=== PATIENT | male | born 1950 | race African-American/Black ===

== ENCOUNTER 2017-03-12 23:28 | Emergency (ER) | payer MEDICAID ==
[~2017-03-12] VITALS: Ht 175.3 cm; Wt 90.7 kg
[~2017-03-12 23:28] MED LIST: ALBUTEROL SULF8.5 GM INH; HYDROCHLOROTHIA25 MG ORAL; IBUPROFEN200 MG ORAL; IBUPROFEN600 MG ORAL; LACTULOSE20 GM/301 ORAL; NKM; NORCO 5-325 TA1 EAC1 ORAL; NORCO 5-325 TA1 EACH ORAL; ROBAXIN-750750 MG PO; TRAMADOL HCL50 MG ORAL; TYLENOL EXTRA500 MG ORAL; VALIUM5 MG ORAL; [UNRECOGNIZED DRUG - REMARK]; [UNRECOGNIZED DRUG - REMARK]; [UNRECOGNIZED DRUG - REMARK]
--- NOTE | 2017-03-12 23:59 | Emergency Room Report ---
History of Present Illness General Chief Complaint: Abdominal Pain Source: Patient Present Illness HPI Is a 66-year-old male with history of chronic abdominal pain. He had a previous exploratory laparotomy secondary to perforated duodenal ulcer. Since then his been having continual pain. Pain is worse today. Pain is 8/10. He has nausea vomiting and diarrhea. Denies any fever or chills. His pain medication is not helping. His last use of alcohol was few days ago. Last use of cocaine was a month ago. Allergies: Coded Allergies: No Known Allergies (Unverified , 12/05/12) Patient History Past Medical History: see triage record, old chart reviewed Past Surgical History: other Pertinent Family History: none Social History: Reports: alcohol use, drug use, smoking Immunizations: other Reviewed Nursing Documentation: PMH: Agreed, PSxH: Agreed Nursing Documentation-PMH Past Medical History: No History, Except For Hx Cardiac Problems: No Hx Hypertension: Yes Hx Pacemaker: No Hx Asthma: Yes Hx Diabetes: Yes Hx Cancer: No Hx Dialysis: No Hx Neurological Problems: No Hx Cerebrovascular Accident: No Hx Seizures: No Review of Systems Eye: Denies: blurred vision, eye pain ENT: Denies: ear pain, nose congestion, throat swelling Respiratory: Denies: cough, shortness of breath Cardiovascular: Denies: chest pain, palpitations Gastrointestinal: Reports: abdominal pain, diarrhea, nausea, vomiting Musculoskeletal: Denies: back pain, joint pain Skin: Denies: rash Neurological: Denies: headache, numbness Endocrine: Denies: increased thirst, increased urine Hematologic/Lymphatic: Denies: easy bruising All Other Systems: negative except mentioned in HPI Physical Exam Vital Signs Date Time Temp Pulse Resp B/P Pulse Ox O2 Delivery O2 Flow Rate FiO2 03/12/17 23:42 98.1 78 16 167/92 99 Room Air vitals with hypertension Sp02 EP Interpretation: reviewed, normal General Appearance: well appearing, no apparent distress, alert Head: normocephalic, atraumatic Eyes: bilateral eye EOMI, bilateral eye PERRL ENT: hearing grossly normal, normal pharynx Neck: full range of motion, supple, no meningismus Respiratory: chest non-tender, lungs clear, normal breath sounds Cardiovascular #1: regular rate, rhythm, no murmur Gastrointestinal: no mass, no organomegaly, no bruit, non-distended, abnormal bowel sounds - Hyperactive, tenderness - diffuse Musculoskeletal: back normal, gait/station normal, normal range of motion Psychiatric: mood/affect normal Skin: warm/dry Medical Decision Making Diagnostic Impression: Primary Impression: Abdominal pain of unknown etiology ER Course Present with abdominal pain. No evidence of obstruction. No evidence of acute abdomen. Better now. We'll discharge him. Lab Results Impression labs unremarkable CT/MRI/US Diagnostic Results CT/MRI/US Diagnostic Results : Imaging Test Ordered: CT abdomen and pelvis Impression read by radiologist. Negative for acute process. Last Vital Signs Date Time Temp Pulse Resp B/P Pulse Ox O2 Delivery O2 Flow Rate FiO2 03/12/17 23:42 98.1 78 16 167/92 99 Room Air Status: improved Disposition: HOME, SELF-CARE Condition: Stable Scripts Meloxicam* (MOBIC*) 15 Mg Tablet 15 MG ORAL DAILY, #30 TAB 0 Refills Prov: CRISELDA ALCARAZ M.D. 03/13/17 Patient Instructions: Abdominal Pain, Adult Additional Instructions: Followup with your DrTesha in 7 days. Return if worse. CRISELDA ALCARAZ M.D. Mar 12, 2017 23:59
[2017-03-13] MEDS ORDERED: Morphine Sulfate 4mg/ml Inj IVP ONE
[2017-03-13] MEDS ORDERED: Tubing IV Cassette IV ONE (00:07)
[2017-03-13 00:19] LABS: APPEARANCE,URINE CLEAR; BASOPHILS % (AUTO) 1.9 % (0.0-2.0); EOSINOPHILS % (AUTO) 4.2 % (0.0-3.0); KETONES,URINE NEGATIVE (NEGATIVE); LEUKOCYTE ESTERASE ,URINE NEGATIVE (NEGATIVE); LYMPHOCYTES % (AUTO) 27.8 % (20.0-45.0); MEAN CORPUSCULAR HEMOGLOBIN 26.9 PG (27.0-31.0); MEAN CORPUSCULAR HGB CONC 31.9 G/DL (32.0-36.0); MEAN CORPUSCULAR VOLUME 84 FL (80-99); MEAN PLATELET VOLUME 8.7 FL (6.5-10.1); MONOCYTES % (AUTO) 10.4 % (1.0-10.0); NEUTROPHILS % (AUTO) 55.8 % (45.0-75.0); NITRITE,URINE NEGATIVE (NEGATIVE); PH,URINE 5 (4.5-8.0); PLATELET COUNT 296 K/UL (150-450); PROTEIN,URINE NEGATIVE (NEGATIVE); RED BLOOD COUNT 4.79 M/UL (4.70-6.10); RED CELL DISTRIBUTION WIDTH 16.4 % (11.6-14.8); UROBILINOGEN,URINE NORMAL MG/DL (0.0-1.0)
[2017-03-13 00:33] LABS: ALANINE AMINOTRANSFERASE 27 U/L (3-41); ALBUMIN/GLOBULIN RATIO 1.3 (1.0-2.7); ANION GAP 14 (5-15); ASPARTATE AMINO TRANSFERASE 31 U/L (5-40); CALCIUM 8.8 mg/dL (8.6-10.2); CARBON DIOXIDE 25 mEQ/L (20-30); CHLORIDE 99 mEQ/L (98-107); GLOMERULAR FILTRATION RATE > 60 mL/min (>60); HEMOLYSIS 9; LIPASE 38 U/L (< 60); POTASSIUM 4.1 mEQ/L (3.4-4.9); PROTHROMBIN TIME 10.2 SEC (9.30-11.50); SODIUM 138 mEQ/L (135-145); TOTAL PROTEIN 7.5 g/dL (6.6-8.7)
[2017-03-13 01:50] VITALS: BP 138/65
[2017-03-13 03:22] VITALS: BP 146/80
[2017-03-13] MEDS ORDERED: MOBIC15 MG ORAL (03:23)
[2017-03-13 03:30] VITALS: BP 146/80
--- NOTE | 2017-03-13 09:42 | Diagnostic Imaging Report ---
Indication: ABD PAIN Technique: Continuous helical scanning was performed without any contrast material from the diaphragms through the pelvis . Axial, sagittal, and coronal images were generated. Dose: Total Dose Length Product - DLP [address] Dose Index - CTDIvol(s) 24.68 mGy. Comparison: 06/15/2015 Findings: The liver, gallbladder, and spleen are unremarkable. The pancreas is normal. Adrenal glands are unremarkable. The kidneys are normal. Aorta is calcified. Retroperitoneum is free of adenopathy. The appendix is normal. The bowel is normal caliber. A small umbilical hernia containing fat is present. Bladder, prostate, and seminal vesicles are normal. Mild degenerative changes noted in the spine. Impression: Degenerative change of the spine. No acute abnormality. The above report is concordant with preliminary reading by [facility] . The CT scanner at [facility] is accredited by the [employer] and the scans are performed using protocols designed to limit radiation exposure to as low as reasonably achievable to attain images of sufficient resolution adequate for diagnostic evaluation.
== END 2017-03-13 03:32 | disposition home or self-care (01) ==
LOC: EMR 23:55
DX: R10.9 Unspecified abdominal pain (principal); E11.9 Type 2 diabetes mellitus without complications; J45.909 Unspecified asthma, uncomplicated; I10 Essential (primary) hypertension; F17.200 Nicotine dependence, unspecified, uncomplicated
CPT/HCPCS: 36415; 74177; 80053; 80300; 81003; 83690; 85025; 85610; 85730; 96360; 96374; 96375; 99284; J2270; J2405; Q9967

== ENCOUNTER 2018-07-02 09:40 | Emergency (ER) | payer MEDICARE, MEDICAID ==
[~2018-07-02] VITALS: Ht 172.7 cm; Wt 90.7 kg
[~2018-07-02 09:40] MED LIST changes: +MOBIC15 MG ORAL
[2018-07-02 10:00] VITALS: BP 170/77
[2018-07-02] MEDS ORDERED: Isovue-300 100ml vial INJ PRN (10:00)
[2018-07-02 10:16] LABS: APPEARANCE,URINE CLEAR; BILIRUBIN, URINE NEGATIVE (NEGATIVE); COLOR,URINE PALE YELLOW; GLUCOSE, URINE (UA) NEGATIVE (NEGATIVE); KETONES,URINE NEGATIVE (NEGATIVE); LEUKOCYTE ESTERASE ,URINE NEGATIVE (NEGATIVE); NITRITE,URINE NEGATIVE (NEGATIVE); PH,URINE 6 (4.5-8.0); PROTEIN,URINE 1+ (NEGATIVE); UROBILINOGEN,URINE NORMAL MG/DL (0.0-1.0)
[2018-07-02 10:29] LABS: BASOPHILS % (AUTO) 1.5 % (0.0-2.0); EOSINOPHILS % (AUTO) 2.9 % (0.0-3.0); HEMATOCRIT 41.5 % (42.0-52.0); HEMOGLOBIN 13.4 G/DL (14.2-18.0); LYMPHOCYTES % (AUTO) 27.3 % (20.0-45.0); MEAN CORPUSCULAR VOLUME 82 FL (80-99); MONOCYTES % (AUTO) 6.9 % (1.0-10.0); NEUTROPHILS % (AUTO) 61.4 % (45.0-75.0); PLATELET COUNT 327 K/UL (150-450); RED BLOOD COUNT 5.09 M/UL (4.70-6.10); RED CELL DISTRIBUTION WIDTH 14.5 % (11.6-14.8); WHITE BLOOD COUNT 4.4 K/UL (4.8-10.8)
[2018-07-02 10:36] LABS: ANION GAP 10 mmol/L (5-15); BLOOD UREA NITROGEN 11 mg/dL (7-18); CALCIUM 8.4 MG/DL (8.5-10.1); CARBON DIOXIDE 26 MMOL/L (21-32); CHLORIDE 105 MMOL/L (98-107); CREATININE 1.3 MG/DL (0.55-1.30); POTASSIUM 3.5 MMOL/L (3.5-5.1); SODIUM 141 MMOL/L (136-145)
[2018-07-02 10:41] LABS: ALANINE AMINOTRANSFERASE 35 U/L (12-78); ALBUMIN 3.6 G/DL (3.4-5.0); ALBUMIN/GLOBULIN RATIO 0.8 (1.0-2.7); ALKALINE PHOSPHATASE 120 U/L (46-116); ASPARTATE AMINO TRANSFERASE 25 U/L (15-37); BILIRUBIN,TOTAL 0.5 MG/DL (0.2-1.0)
--- NOTE | 2018-07-02 12:05 | Diagnostic Imaging Report ---
INDICATION: Abdominal pain TECHNIQUE: Multiple, contiguous axial cuts of the abdomen and pelvis are obtained from the lung bases to the ischial tuberosities. Sagittal and coronal reformatted images are available. One or more of the following dose reduction techniques were used: automated exposure control, adjustment of the mA and/or kV according to patient size, use of iterative reconstruction technique. COMPARISON: CT dated 03/13/17 FINDINGS: Mild bilateral lower lobe subsegmental atelectasis. The lung bases are otherwise clear. The liver and spleen are normal in size and free of mass lesions. The gallbladder, bile ducts and pancreas are normal. The adrenal gland are unremarkable. The kidneys are normal in size and contour. No stones, lesions or hydronephrosis. A few sigmoid diverticula without diverticulitis. The appendix is unremarkable, as is the rest of the GI tract. Aorta is normal caliber. No adenopathy or extraluminal air. Mild disc height loss of the lumbar spine. The osseous structures are normal IMPRESSION: A few scattered sigmoid diverticula without diverticulitis. Otherwise, normal contrast CT of the abdomen and pelvis. CTDI: 16.14 mGy DLP: 801.47 mGycm
[2018-07-02 12:24] VITALS: BP 174/98
--- NOTE | 2018-07-02 13:37 | Emergency Room Report ---
History of Present Illness General Chief Complaint: Abdominal Pain Source: Patient Present Illness HPI Patient complains of left lower quadrant abdominal pain and pain around his old surgical incision site. He denies nausea or vomiting. He denies fever or chills. He denies constipation or diarrhea. He has no other complaints. Allergies: Coded Allergies: No Known Allergies (Unverified , 12/05/12) Patient History Past Medical History: see triage record, DM, HTN, asthma Social History: Reports: alcohol use, drug use - cocaine Reviewed Nursing Documentation: PMH: Agreed; PSxH: Agreed Nursing Documentation-PMH Past Medical History: No History, Except For Hx Cardiac Problems: No Hx Hypertension: Yes Hx Pacemaker: No Hx Asthma: Yes Hx Diabetes: Yes Hx Cancer: No Hx Dialysis: No Hx Neurological Problems: No Hx Cerebrovascular Accident: No Hx Seizures: No Review of Systems All Other Systems: negative except mentioned in HPI Physical Exam Vital Signs Date Time Temp Pulse Resp B/P (MAP) Pulse Ox O2 Delivery O2 Flow Rate FiO2 07/02/18 09:43 97.7 78 19 170/77 100 Room Air 97.7 Sp02 EP Interpretation: reviewed, normal General Appearance: no apparent distress, alert, GCS 15, non-toxic Head: normocephalic, atraumatic Eyes: bilateral eye normal inspection, bilateral eye PERRL ENT: hearing grossly normal, normal pharynx, no angioedema, normal voice Neck: full range of motion, supple/symm/no masses Respiratory: chest non-tender, lungs clear, normal breath sounds, no respiratory distress, no retraction, no accessory muscle use, speaking full sentences Cardiovascular #1: regular rate, rhythm, no edema Gastrointestinal: normal bowel sounds, soft, non-distended, no guarding, no rebound, tenderness - TTP in the mid abdomen and LLQ Rectal: deferred Musculoskeletal: back normal, gait/station normal, normal range of motion, non- tender Neurologic: alert, oriented x3, responsive, motor strength/tone normal, sensory intact, speech normal Psychiatric: judgement/insight normal, memory normal, mood/affect normal, no suicidal/homicidal ideation Skin: normal color, no rash, warm/dry, well hydrated Medical Decision Making Diagnostic Impression: Primary Impression: Abdominal pain of unknown etiology ER Course This patient has non-specific abdominal pain. I did obtain CT of the abdomen and pelvis which showed no acute findings. Laboratory workup to include CBC, CMP and urinalysis were also unremarkable. The patient appeared comfortable and was sleeping here in the emergency department during his ED course. At this time, I did not identify an emergency medical condition. The patient's instructed to follow-up closely with his primary care physician. The patient was given close return precautions and followup instructions. Laboratory Tests Test 07/02/18 09:50 07/02/18 10:00 Urine Color Pale yellow Urine Appearance Clear Urine pH 6 (4.5-8.0) Urine Specific [place] 1.015 (1.005-1.035) Urine Protein 1+ (NEGATIVE) H Urine Glucose (UA) Negative (NEGATIVE) Urine Ketones Negative (NEGATIVE) Urine Occult Blood Negative (NEGATIVE) Urine Nitrite Negative (NEGATIVE) Urine Bilirubin Negative (NEGATIVE) Urine Urobilinogen Normal MG/DL (0.0-1.0) Urine Leukocyte Esterase Negative (NEGATIVE) Urine RBC 0-2 /HPF (0 - 0) H Urine WBC 0-2 /HPF (0 - 0) Urine Squamous Epithelial Cells None /LPF (NONE/OCC) Urine Bacteria None /HPF (NONE) White Blood Count 4.4 K/UL (4.8-10.8) L Red Blood Count 5.09 M/UL (4.70-6.10) Hemoglobin 13.4 G/DL (14.2-18.0) L Hematocrit 41.5 % (42.0-52.0) L Mean Corpuscular Volume 82 FL (80-99) Mean Corpuscular Hemoglobin 26.3 PG (27.0-31.0) L Mean Corpuscular Hemoglobin Concent 32.3 G/DL (32.0-36.0) Red Cell Distribution Width 14.5 % (11.6-14.8) Platelet Count 327 K/UL (150-450) Mean Platelet Volume 8.8 FL (6.5-10.1) Neutrophils (%) (Auto) 61.4 % (45.0-75.0) Lymphocytes (%) (Auto) 27.3 % (20.0-45.0) Monocytes (%) (Auto) 6.9 % (1.0-10.0) Eosinophils (%) (Auto) 2.9 % (0.0-3.0) Basophils (%) (Auto) 1.5 % (0.0-2.0) Sodium Level 141 MMOL/L (136-145) Potassium Level 3.5 MMOL/L (3.5-5.1) Chloride Level 105 MMOL/L (98-107) Carbon Dioxide Level 26 MMOL/L (21-32) Anion Gap 10 mmol/L (5-15) Blood Urea Nitrogen 11 mg/dL (7-18) Creatinine 1.3 MG/DL (0.55-1.30) Estimate Glomerular Filtration Rate > 60 mL/min (>60) Glucose Level 136 MG/DL (74-106) H Calcium Level 8.4 MG/DL (8.5-10.1) L Total Bilirubin 0.5 MG/DL (0.2-1.0) Aspartate Amino Transferase (AST) 25 U/L (15-37) Alanine Aminotransferase (ALT) 35 U/L (12-78) Alkaline Phosphatase 120 U/L (46-116) H Total Protein 8.0 G/DL (6.4-8.2) Albumin 3.6 G/DL (3.4-5.0) Globulin 4.4 g/dL Albumin/Globulin Ratio 0.8 (1.0-2.7) L CT/MRI/US Diagnostic Results CT/MRI/US Diagnostic Results : Imaging Test Ordered: CT abd/pelvis Impression IMPRESSION: A few scattered sigmoid diverticula without diverticulitis. Otherwise, normal contrast CT of the abdomen and pelvis. Last Vital Signs Date Time Temp Pulse Resp B/P (MAP) Pulse Ox O2 Delivery O2 Flow Rate FiO2 07/02/18 12:24 98.0 66 17 174/98 97 Room Air 98.0 Status: improved Disposition: HOME, SELF-CARE Condition: Improved Referrals: NOT CHOSEN IPA/,REFERRING (PCP) Patient Instructions: Abdominal Pain, Adult Kelin Hansen DO Jul 02, 2018 13:37
[2018-07-02] MEDS ORDERED: COLACE100 MG ORAL (13:38)
[2018-07-02] MEDS ORDERED: MIRALAX17 G2 ORAL (13:38)
[2018-07-02 14:00] VITALS: BP 175/96
== END 2018-07-02 14:00 | disposition home or self-care (01) ==
LOC: EMR 10:08
DX: R10.32 Left lower quadrant pain (principal); I10 Essential (primary) hypertension; E11.9 Type 2 diabetes mellitus without complications; J45.909 Unspecified asthma, uncomplicated
CPT/HCPCS: 36415; 74177; 80053; 81003; 85025; 96360; 99284; Q9967

== ENCOUNTER 2018-11-18 11:24 | Emergency (ER) | payer MEDICARE, MEDICAID ==
[~2018-11-18] VITALS: Ht 172.7 cm; Wt 95.3 kg
[~2018-11-18 11:24] MED LIST changes: +COLACE100 MG ORAL; +MIRALAX17 G2 ORAL
[2018-11-18] MEDS ORDERED: GABAPENTIN100 MG ORAL (11:34)
[2018-11-18 11:37] VITALS: BP 149/87
[2018-11-18] MEDS ORDERED: CYCLOBENZAPRINE10 MG ORAL (12:04)
--- NOTE | 2018-11-18 12:06 | Emergency Room Report ---
History of Present Illness General Chief Complaint: Upper Extremity Injury Source: Patient, Medical Record Present Illness HPI 68-year-old male with history of hypertension, peptic ulcer disease, arthritis presents with right shoulder pain for the past month, reports it hurts whenever he moves it more than just a little bit, he also reports intermittent right knee pain. He reports neither of these to his a new issue, but the shoulders been bothering him more recently. He's tried Tylenol with codeine without much relief. Allergies: Coded Allergies: No Known Allergies (Unverified , 12/05/12) Patient History Past Medical History: see triage record Reviewed Nursing Documentation: PMH: Agreed; PSxH: Agreed Nursing Documentation-PMH Past Medical History: No History, Except For Hx Cardiac Problems: No Hx Hypertension: Yes Hx Pacemaker: No Hx Asthma: Yes Hx Diabetes: Yes Hx Cancer: No Hx Gastrointestinal Problems: No - Abdominal surgery 2014 Hx Dialysis: No Hx Neurological Problems: No Hx Cerebrovascular Accident: No Hx Seizures: No Review of Systems All Other Systems: negative except mentioned in HPI Physical Exam Vital Signs Date Time Temp Pulse Resp B/P (MAP) Pulse Ox O2 Delivery O2 Flow Rate FiO2 11/18/18 11:28 97.7 89 18 154/91 96 Room Air Sp02 EP Interpretation: reviewed, normal General Appearance: no apparent distress, alert, non-toxic Head: normocephalic Eyes: bilateral eye normal inspection, bilateral eye PERRL, bilateral eye EOMI ENT: normal ENT inspection, hearing grossly normal, normal pharynx, no angioedema, normal voice, moist mucus membranes Neck: normal inspection, full range of motion, supple, supple/symm/no masses Respiratory: chest non-tender, lungs clear, normal breath sounds, chest symmetrical, palpation of chest normal Cardiovascular #1: normal peripheral pulses, regular rate, rhythm Cardiovascular #2: 2+ radial (R), 2+ radial (L) Gastrointestinal: normal inspection, non tender, soft, no mass, no guarding, no rebound Rectal: deferred Genitourinary: normal inspection, no CVA tenderness Musculoskeletal: back normal, gait/station normal, non-tender, no calf tenderness, decreased range of motion - Right shoulder with pain limited decreased flexion and abduction, but no overlying erythema warmth or tenderness , swelling - mild R knee effusion, no bony tenderness, FROM, no erythema or warmth Neurologic: alert, responsive, dynamic balancer III-XII nml as tested, motor strength/tone normal, sensory intact, speech normal Psychiatric: judgement/insight normal, memory normal, mood/affect normal Skin: normal color, no rash, warm/dry, normal turgor Lymphatic: no adenopathy Medical Decision Making Diagnostic Impression: Primary Impression: Rotator cuff impingement syndrome ER Course Patient with right rotator cuff impingement syndrome, will give muscle relaxants , with given anti-inflammatories but he has a history of peptic culture, right knee is unremarkable possible mild arthritis, will discharge with Flexeril, recommend follow-up with PMD for orthopedic referral Last Vital Signs Date Time Temp Pulse Resp B/P (MAP) Pulse Ox O2 Delivery O2 Flow Rate FiO2 11/18/18 11:37 97.7 78 18 149/87 96 Room Air Disposition: HOME, SELF-CARE Condition: Stable Scripts Cyclobenzaprine Hcl* (FLEXERIL*) 10 Mg Tablet 10 MG ORAL THREE TIMES A DAY, #14 TAB Prov: HARRY VELASCO M.D 11/18/18 Departure Forms: Return to Work Return to Work in (Days): 3 Return to Work Date: Nov 21, 2018 Patient Instructions: Tendinitis, [id number] HARRY VELASCO M.D Nov 18, 2018 12:06
[2018-11-18] MEDS ORDERED: Cyclobenzaprine 10mg Tab ORAL ONE (12:15)
[2018-11-18 14:47] VITALS: BP 149/87
== END 2018-11-18 14:00 | disposition home or self-care (01) ==
LOC: EMR 12:17
DX: M75.101 Unspecified rotator cuff tear or rupture of right shoulder, not specified as traumatic (principal); I10 Essential (primary) hypertension; E11.9 Type 2 diabetes mellitus without complications; J45.909 Unspecified asthma, uncomplicated
CPT/HCPCS: 99282

== ENCOUNTER 2019-12-04 07:30 | Emergency (ER) | payer MEDICARE, MEDICAID ==
[~2019-12-04] VITALS: Ht 172.7 cm; Wt 90.7 kg
[~2019-12-04 07:30] MED LIST changes: +CYCLOBENZAPRINE10 MG ORAL; +GABAPENTIN100 MG ORAL
--- NOTE | 2019-12-04 08:02 | Emergency Room Report ---
History of Present Illness General Chief Complaint: Lower Extremity Injury Source: Patient Present Illness HPI 69-year-old male who presents to emergency room status post weights at the gym falling onto patient's left foot 2 days ago. Patient has not taken any medication or treatments for this injury. Patient reports pain to his distal foot and ankle. He said it was a total of 3 weights that fell onto his leg. He reports moderate intensity pain worse with walking and movement. He reports associated edema. Allergies: Coded Allergies: No Known Allergies (Unverified , 12/05/12) Nursing Documentation-[facility] Past Medical History: No History, Except For Hx Cardiac Problems: No Hx Hypertension: Yes Hx Pacemaker: No Hx Asthma: Yes Hx Diabetes: Yes Hx Cancer: No Hx Gastrointestinal Problems: No - Abdominal surgery 2014 Hx Dialysis: No Hx Neurological Problems: No Hx Cerebrovascular Accident: No Hx Seizures: No Review of Systems Constitutional: Denies: fever Eye: Denies: acuity changes Respiratory: Denies: cough, shortness of breath Cardiovascular: Denies: chest pain Gastrointestinal: Denies: nausea, vomiting Musculoskeletal: Reports: joint pain, joint swelling Skin: Denies: rash Neurological: Denies: headache Physical Exam Vital Signs Date Time Temp Pulse Resp B/P (MAP) Pulse Ox O2 Delivery O2 Flow Rate FiO2 12/04/19 07:32 97.3 86 16 164/94 (117) 98 Room Air Sp02 EP Interpretation: reviewed, normal General Appearance: normal inspection, well appearing, no apparent distress, alert ENT: EOM grossly intact, normal voice, moist mucus membranes Respiratory: no respiratory distress, speaking full sentences Cardiovascular #1: normal peripheral pulses Cardiovascular #2: 2+ dorsalis pedis (L) Musculoskeletal: swelling - Entire foot worse on lateral aspect, no calf tenderness, tenderness - Left foot tenderness over dorsal aspect extending from toes to midfoot. Tenderness over lateral malleolus, , decreased range of mation - Secondary to pain Neurologic: alert, no focal defects Skin: warm/dry Procedures Splinting Splinting : Consent: Verbal Location: Left ankle Hand-Made Type: plaster Splint: poserior short Pre-Proc Neuro Vasc Exam: normal Post-Proc Neuro Vasc Exam: normal Patient Tolerated: Well Complications: None Medical Decision Making Diagnostic Impression: Primary Impression: Closed tibia fracture ER Course 69-year-old male who presents with emergency room with pain to left foot status post gym weights falling onto it 2 days ago. Found to have edema, tenderness to palpation on lateral malleolus, midfoot and distal foot. Will perform x-rays , give anti-inflammatories and reevaluate. Patient's x-rays noted cortical fracture of distal tibia. Patient splinted with a posterior short and sugar tong. Patient discharged with follow-up at orthopedic in 5 to 7 days for reevaluation. Patient given copies of x-rays. Patient recommended anti-inflammatories for pain control. Other X-Ray Diagnostic Results Other X-Ray Diagnostic Results : Indication: Pain Impression: Other - X-ray of ankle reviewed unusual focal cortical fracture of distal fibula. With small focus of cortex elevated off distal fibula laterally. PA Scribe Text Procedure: XRAY Ankle Compl Min 3v L Indication: Ankle pain, status post trauma Technique: 3 views of the left ankle Comparison: none Findings: There is a small focus of cortex elevated off of the distal fibula laterally. There is overlying soft tissue swelling. No through and through fracture demonstrated. No other acute fractures. No dislocations. The joint spaces are preserved. There are plantar and calcaneal spurs incidentally noted Impression: Unusual focal cortical fracture of the distal fibula, as described Procedure: XRAY Foot Complete L Indication: Left foot pain Technique: 3 views left foot Comparison: none Findings: There are calcaneal and plantar spurs. No acute fractures. No dislocations. The joint spaces are preserved. Impression: No acute bony trauma Last Vital Signs Date Time Temp Pulse Resp B/P (MAP) Pulse Ox O2 Delivery O2 Flow Rate FiO2 12/04/19 07:32 97.3 86 16 164/94 (117) 98 Room Air Disposition: HOME, SELF-CARE Condition: Stable Referrals: Orthopedic Urgent Care Patient Instructions: Cast or Splint Care, Tibial Fracture, Adult Additional Instructions: Please follow-up with orthopedic in 5 to 7 days for reevaluation. Luis June M.D. Dec 04, 2019 08:02
--- NOTE | 2019-12-04 08:07 | NUR ---
ED Nurse Note:pt. came from home with left foot edema and pain after heavy object fell on his foot
--- NOTE | 2019-12-04 09:00 | Diagnostic Imaging Report ---
Indication: Ankle pain, status post trauma Technique: 3 views of the left ankle Comparison: none Findings: There is a small focus of cortex elevated off of the distal fibula laterally. There is overlying soft tissue swelling. No through and through fracture demonstrated. No other acute fractures. No dislocations. The joint spaces are preserved. There are plantar and calcaneal spurs incidentally noted Impression: Unusual focal cortical fracture of the distal fibula, as described
--- NOTE | 2019-12-04 09:01 | Diagnostic Imaging Report ---
Indication: Left foot pain Technique: 3 views left foot Comparison: none Findings: There are calcaneal and plantar spurs. No acute fractures. No dislocations. The joint spaces are preserved. Impression: No acute bony trauma
[2019-12-04 10:40] VITALS: BP 164/94
--- NOTE | 2019-12-04 10:40 | NUR ---
ER DISCHARGE NOTE: Patient is cleared to be discharged per ERMD, pt is aox4, on room air, with stable vital signs. pt was given dc and prescription instructions, pt was able to verbalize understanding, pt is able to ambulate with steady gait. pt took all belongings.
== END 2019-12-04 10:56 | disposition home or self-care (01) ==
LOC: EMR 08:25
DX: S82.402A Unspecified fracture of shaft of left fibula, initial encounter for closed fracture (principal); W20.8XXA Other cause of strike by thrown, projected or falling object, initial encounter; Y92.9 Unspecified place or not applicable; E11.9 Type 2 diabetes mellitus without complications
CPT/HCPCS: 29515; 99283

== ENCOUNTER 2019-12-15 15:41 | Emergency (ER) | payer MEDICARE, MEDICAID ==
[~2019-12-15] VITALS: Ht 172.7 cm; Wt 90.7 kg
[~2019-12-15 15:41] MED LIST changes: +IBU800 MG PO
--- NOTE | 2019-12-15 15:56 | NUR ---
ED Nurse Note:pt. came to rewrap splint on his left ankle/foot, he was not able to see ortho specialist
--- NOTE | 2019-12-15 16:10 | NUR ---
ED Nurse Note:pt. eloped from ER without notifying RN, pt. is A/Ox4 ambulatory with steady gait
[2019-12-15] MEDS ORDERED: Surgicel 4in x 8in TOPIC ONE (16:15)
[2019-12-15 16:53] VITALS: BP 132/84
--- NOTE | 2019-12-15 21:33 | Emergency Room Report ---
History of Present Illness General Chief Complaint: Wound Recheck/Suture Removal Source: Patient Present Illness HPI 69-year-old male with unknown past medical history here requesting splint change in the left ankle. This is a second time patient is requesting that. Patient was [facility] 2 weeks ago and was diagnosed with ankle fracture. 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 Patient reports that he. Weight and pressure and gets the splint wet. Neurovascularly intact. Denies any new injuries. Splint appears to be in place. Patient eloped before being treated. Allergies: Coded Allergies: No Known Allergies (Unverified , 12/05/12) Patient History Past Medical History: see triage record Past Surgical History: unable to obtain Pertinent Family History: none Immunizations: UTD Reviewed Nursing Documentation: PMH: Agreed; PSxH: Agreed Nursing Documentation-PMH Past Medical History: No History, Except For Hx Cardiac Problems: No Hx Hypertension: Yes Hx Pacemaker: No Hx Asthma: Yes Hx Diabetes: Yes Hx Cancer: No Hx Gastrointestinal Problems: No - Abdominal surgery 2014 Hx Dialysis: No Hx Neurological Problems: No Hx Cerebrovascular Accident: No Hx Seizures: No Review of Systems All Other Systems: negative except mentioned in HPI Physical Exam Vital Signs Date Time Temp Pulse Resp B/P (MAP) Pulse Ox O2 Delivery O2 Flow Rate FiO2 12/15/19 15:47 97.9 115 20 132/84 (100) 99 Room Air Sp02 EP Interpretation: reviewed, normal General Appearance: well appearing, no apparent distress Head: normocephalic, atraumatic Neck: supple Respiratory: normal inspection, no rhonchi, no wheezing Cardiovascular #1: no edema, no murmur, normal capillary refill Cardiovascular #2: 2+ dorsalis pedis (R), 2+ dorsalis pedis (L) Gastrointestinal: non tender, soft Genitourinary: no CVA tenderness Musculoskeletal: gait/station normal, other - Wearing a splint left ankle Psychiatric: judgement/insight normal Skin: no rash Lymphatic: no adenopathy Medical Decision Making PA Attestation All diagnoses and treatment plans were reviewed and discussed with my supervising physician Dr. Oliver Diagnostic Impression: Primary Impression: Eloped from emergency department ER Course 69-year-old male with unknown past medical history here requesting splint change in the left ankle. This is a second time patient is requesting that. Patient was [facility] 2 weeks ago and was diagnosed with ankle fracture. 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 Patient reports that he. Weight and pressure and gets the splint wet. Neurovascularly intact. Denies any new injuries. Splint appears to be in place. Patient eloped before being treated. Ddx considered but are not limited to: ankle sprain, ankle strain, ankle fracture, ankle contusion Vital signs: are WNL, pt. is afebrile H&PE are most consistent with: Third encounter for ankle fracture, eloped ORDERS: None ED INTERVENTIONS: None required at this time. Patient eloped before the splint was changed Last Vital Signs Date Time Temp Pulse Resp B/P (MAP) Pulse Ox O2 Delivery O2 Flow Rate FiO2 12/15/19 16:53 97.9 20 132/84 99 Room Air 12/15/19 15:47 115 Disposition: ELOPED Condition: Stable Referrals: NON PHYSICIAN (PCP) Sirena Travis Dec 15, 2019 21:32
== END 2019-12-15 16:20 | disposition left against medical advice (07) ==
LOC: EMR 16:15
DX: Z76.89 Persons encountering health services in other specified circumstances (principal); S82.892D Other fracture of left lower leg, subsequent encounter for closed fracture with routine healing; X58.XXXD Exposure to other specified factors, subsequent encounter; I10 Essential (primary) hypertension; J45.909 Unspecified asthma, uncomplicated; E11.9 Type 2 diabetes mellitus without complications; Z53.21 Procedure and treatment not carried out due to patient leaving prior to being seen by health care provider
CPT/HCPCS: 99281

== ENCOUNTER 2020-02-24 12:30 | Emergency (ER) | payer MEDICARE, MEDICAID ==
[~2020-02-24] VITALS: Ht 172.7 cm; Wt 97.5 kg
--- NOTE | 2020-02-24 12:42 | NUR ---
ED Nurse Note: pt walked in to ED for c/o SOB and cough for last 2 days. pt reports having Hx of COPD. denies any fever.
[2020-02-24 12:45] VITALS: BP 145/85
--- NOTE | 2020-02-24 13:18 | NUR ---
ED Nurse Note: x-ray at bedside.
--- NOTE | 2020-02-24 13:24 | Emergency Room Report ---
History of Present Illness General Chief Complaint: Dyspnea/Respdistress Source: Medical Record Present Illness HPI 69-year-old male with history of COPD here complaining of 3 days of shortness of breath and cough with 1 day of diarrhea. Denies fever and chills or recent travel. Patient reports that he lives in a homeless [place]. Reports that he no longer has his albuterol inhaler. Vital signs are within normal limit, oxygenation is within normal limits. Patient is afebrile. Sitting comfortably with stable vital signs. Denies chest pain chest pain radiation. Denies recent travel, headache and dizziness. Denies abdominal pain, nausea vomiting. Denies coming in contact with any confirmed cases of coronavirus. Allergies: Coded Allergies: No Known Allergies (Unverified , 12/05/12) COVID-19 Screening Contact w/high risk pt: No Recent Travel to affected area: No Experienced COVID-19 symptoms?: Yes COVID-19 symptoms experienced: Shortness of Breath, Cough Patient History Past Medical History: see triage record Past Surgical History: none Pertinent Family History: none Immunizations: UTD Reviewed Nursing Documentation: PMH: Agreed; PSxH: Agreed Nursing Documentation-PMH Past Medical History: No History, Except For Hx Cardiac Problems: No Hx Hypertension: Yes Hx Pacemaker: No Hx Asthma: Yes Hx Diabetes: Yes Hx Cancer: No Hx Gastrointestinal Problems: No - Abdominal surgery 2014 Hx Dialysis: No Hx Neurological Problems: No Hx Cerebrovascular Accident: No Hx Seizures: No Review of Systems All Other Systems: negative except mentioned in HPI Physical Exam Vital Signs Date Time Temp Pulse Resp B/P (MAP) Pulse Ox O2 Delivery O2 Flow Rate FiO2 02/24/20 12:37 98.2 97 21 143/85 (104) 98 Room Air Sp02 EP Interpretation: reviewed, normal General Appearance: no apparent distress, alert, GCS 15, non-toxic Head: normocephalic, atraumatic Eyes: bilateral eye normal inspection, bilateral eye PERRL ENT: hearing grossly normal, normal pharynx, no angioedema, normal voice Neck: full range of motion, supple/symm/no masses Respiratory: chest non-tender, lungs clear, normal breath sounds, no rhonchi, no wheezing, speaking full sentences Cardiovascular #1: regular rate, rhythm, no edema Gastrointestinal: normal bowel sounds, non tender, soft Genitourinary: no CVA tenderness Musculoskeletal: back normal Neurologic: alert, oriented Psychiatric: normal inspection Skin: no rash Lymphatic: no adenopathy Medical Decision Making PA Attestation All diagnoses and treatment plans were reviewed and discussed with my supervising physician Dr. Oliver Diagnostic Impression: Primary Impression: COPD exacerbation Additional Impression: URI (upper respiratory infection) ER Course 69-year-old male with history of COPD here complaining of 3 days of shortness of breath and cough with 1 day of diarrhea. Denies fever and chills or recent travel. Patient reports that he lives in a homeless detention. Reports that he no longer has his albuterol inhaler. Vital signs are within normal limit, oxygenation is within normal limits. Patient is afebrile. Sitting comfortably with stable vital signs. Denies chest pain chest pain radiation. Denies recent travel, headache and dizziness. Denies abdominal pain, nausea vomiting. Denies coming in contact with any confirmed cases of coronavirus. Ddx considered but are not limited to: Coronavirus, strep pharyngitis, URI, tonsillitis, peritonsillar abscess, influneza Vital signs: are WNL, pt. is afebrile H&PE are most consistent with: COPD exacerbation, URI most likely secondary to coronavirus based on patient presentation ORDERS: Chest x-ray, Zithromax, guaifenesin, albuterol inhaler ED INTERVENTIONS: None required at this time. DISCHARGE: At this time pt. is stable for d/c to home. Will provide printed patient care instructions, and any necessary prescriptions. Care plan and follow up instructions have been discussed with the patient prior to discharge. Take medication as directed, follow-up with your primary doctor, you need to stay home for self quarantine due to Covid 19 precautions for 14 days. Patient presentation is COPD exacerbation meds. Patient lungs are clear. Chest X-Ray Diagnostic Results Chest X-Ray Diagnostic Results : Chest X-Ray Ordered: Yes # of Views/Limited/Complete: 1 View Indication: Shortness of Breath EP Interpretation: Yes EVA Xray: Interpretation reviewed, by supervising MD, and agrees with findings. Interpretation: no consolidation, no effusion, no pneumothorax Impression: No acute disease Electronically Signed by: Sirena VELASQUEZ Scribhilda Text FINDINGS: Hardware: None. Lungs/pleura: Normal. No focal consolidation. No pleural effusion or pneumothorax. Heart/mediastinum: Borderline size of the cardiac silhouette. Soft tissues: Unremarkable. Bones: No acute fracture. Degenerative changes of the acromioclavicular joints and spine. Upper abdomen: Normal. IMPRESSION: No acute disease identified. Last Vital Signs Date Time Temp Pulse Resp B/P (MAP) Pulse Ox O2 Delivery O2 Flow Rate FiO2 02/24/20 12:45 98.2 99 21 145/85 98 Room Air Disposition: HOME, SELF-CARE Condition: Stable Scripts Albuterol Sulfate (VENTOLIN HFA) 18 Gm Hfa.aer.ad 2 PUFFS INH EVERY 6 HOURS, #18 GM 0 Refills Prov: Sirena Travis 02/24/20 Guaifenesin* (GUAIFENESIN*) 100 Mg/5 Ml Liquid 15 ML ORAL Q6H, #120 ML 0 Refills Prov: Sirena Travis 02/24/20 Azithromycin* (ZITHROMAX*) 250 Mg Tablet 250 MG ORAL DAILY, #6 TAB 0 Refills Take two tables once daily for 1 day, then one tablet once daily for 4 days. Prov: Sirena Travis 02/24/20 Patient Instructions: Shortness of Breath, [id number], Chronic Obstructive Pulmonary Disease Exacerbation Additional Instructions: Take medication as directed, follow-up with your primary doctor, you need to stay home for self quarantine due to Covid 19 precautions for 14 days Sirena Travis Feb 24, 2020 13:24
[2020-02-24] MEDS ORDERED: ZITHROMAX250 MG ORAL (13:26)
[2020-02-24] MEDS ORDERED: GUAIFENESI100 MG/5 M ORAL (13:26)
[2020-02-24] MEDS ORDERED: VENTOLIN HFA18 GM INH (13:26)
--- NOTE | 2020-02-24 13:36 | NUR ---
ED Nurse Note: Pt cleared by health care Provider for discharge. Patient was told to selfquarantine for 14 days. pt understood and agreed with it. DC instructions/prescription was given and explained to pt and verbalized understanding of teachings. All medical deviecs such as ID band removed. Pt is AAO x4, ambulatory and left with all personal belongings.
--- NOTE | 2020-02-24 13:36 | Diagnostic Imaging Report ---
EXAM: XR Chest, 1 View CLINICAL HISTORY: COUGH TECHNIQUE: Frontal view of the chest. COMPARISON: Chest radiograph On 01/20/2016 FINDINGS: Hardware: None. Lungs/pleura: Normal. No focal consolidation. No pleural effusion or pneumothorax. Heart/mediastinum: Borderline size of the cardiac silhouette. Soft tissues: Unremarkable. Bones: No acute fracture. Degenerative changes of the acromioclavicular joints and spine. Upper abdomen: Normal. IMPRESSION: No acute disease identified.
== END 2020-02-24 13:40 | disposition home or self-care (01) ==
LOC: EMR 13:05
DX: J44.1 Chronic obstructive pulmonary disease with (acute) exacerbation (principal); J06.9 Acute upper respiratory infection, unspecified; R19.7 Diarrhea, unspecified; I10 Essential (primary) hypertension; E11.9 Type 2 diabetes mellitus without complications; Z59.0 Homelessness
CPT/HCPCS: 71045; 99283

== ENCOUNTER 2020-04-12 16:16 | Emergency (ER) | payer MEDICARE, MEDICAID ==
[~2020-04-12] VITALS: Ht 172.7 cm; Wt 95.3 kg
[2020-04-12 16:16] VITALS: BP 153/88
[~2020-04-12 16:16] MED LIST changes: +GUAIFENESI100 MG/5 M ORAL; +VENTOLIN HFA18 GM INH; +ZITHROMAX250 MG ORAL
--- NOTE | 2020-04-12 16:16 | NUR ---
ED Nurse Note: pt walked in to ed for c/o productive cough with clear mucus since today.
--- NOTE | 2020-04-12 16:36 | NUR ---
ED Nurse Note: cxr being taken at tent
--- NOTE | 2020-04-12 16:58 | Diagnostic Imaging Report ---
Indication: Cough Technique: XRAY Chest 1v Comparison: 02/24/2020 Findings: There is unchanged linear scarring in the medial left base. There is no focal airspace consolidation. No pleural effusion, pneumothorax or radiographic evidence of pulmonary edema. Heart size and mediastinal contours are within normal limits for AP technique and stable compared to the prior exam. Atherosclerotic gastric calcifications are again seen. There are degenerative changes in the spine. No acute osseous abnormality. Impression: No radiographic evidence of acute cardiopulmonary disease.
--- NOTE | 2020-04-12 17:25 | NUR ---
ED Nurse Note: blood sample collected and sent to lab
--- NOTE | 2020-04-12 17:27 | Emergency Room Report ---
History of Present Illness General Chief Complaint: Upper Respiratory Illness Source: Patient Present Illness HPI 69-year-old male presents to the emergency department with two complaints: cough x 1 day with clear sputum, and 7/10 in severity cramping abd. pain x 4 days with greenish diarrhea. 3 BM's today. Denies blood or black tarry stools. Pt. reports generalized cramping pain. He reports intermittent cycles of pain that resolve temporarily with bowel movements. Pt. denies fevers or chills. He denies nausea or vomiting. he denies SOB, CP or wheezing. Denies recent travel. Denies contact with persons who have tested positive for or are under investigation/quarantine for COVID-19. Allergies: Coded Allergies: No Known Allergies (Unverified , 12/05/12) COVID-19 Screening Contact w/high risk pt: No Recent Travel to affected area: No Experienced COVID-19 symptoms?: Yes COVID-19 symptoms experienced: Cough COVID-19 Testing performed MARKETING PROJECT COORDINATOR: No Patient History Past Medical History: see triage record Past Surgical History: none, other - unknown surgery, scar down epigastric region. pt. vaguely states bleeding into his lung. Pertinent Family History: none Social History: Reports: alcohol use Reviewed Nursing Documentation: PMH: Agreed; PSxH: Agreed Nursing Documentation-PMH Past Medical History: No History, Except For Hx Cardiac Problems: No Hx Hypertension: Yes Hx Pacemaker: No Hx Asthma: Yes Hx Diabetes: Yes Hx Cancer: No Hx Gastrointestinal Problems: No - Abdominal surgery 2014 Hx Dialysis: No Hx Neurological Problems: No Hx Cerebrovascular Accident: No Hx Seizures: No Review of Systems All Other Systems: negative except mentioned in HPI Physical Exam Vital Signs Date Time Temp Pulse Resp B/P (MAP) Pulse Ox O2 Delivery O2 Flow Rate FiO2 04/12/20 16:06 98.1 100 18 153/88 (109) 98 Room Air Sp02 EP Interpretation: reviewed, normal General Appearance: no apparent distress, alert, GCS 15, non-toxic Head: normocephalic, atraumatic Eyes: bilateral eye normal inspection, bilateral eye PERRL ENT: hearing grossly normal, normal voice Neck: full range of motion Respiratory: chest non-tender, lungs clear, normal breath sounds, no respiratory distress, no accessory muscle use, no wheezing, speaking full sentences Cardiovascular #1: regular rate, rhythm, normal capillary refill Gastrointestinal: normal bowel sounds, non tender, soft, non-distended, no guarding Musculoskeletal: back normal, normal range of motion, gait/station normal, non- tender Neurologic: alert, motor strength/tone normal, oriented x3, sensory intact, responsive, speech normal Psychiatric: judgement/insight normal Skin: normal color, well hydrated Medical Decision Making PA Attestation Dr. Oliver is my supervising Physician whom patient management has been discussed with. Diagnostic Impression: Primary Impression: Cough Additional Impressions: Diarrhea in adult patient Abdominal pain Qualified Codes: R10.84 - Generalized abdominal pain ER Course 69-year-old male presents to the emergency department with two complaints: cough x 1 day with clear sputum, and 7/10 in severity cramping abd. pain x 4 days with greenish diarrhea. 3 BM's today. Denies blood or black tarry stools. Pt. reports generalized cramping pain. He reports intermittent cycles of pain that resolve temporarily with bowel movements. Pt. denies fevers or chills. He denies nausea or vomiting. He denies SOB, CP or wheezing. Denies recent travel. Denies contact with persons who have tested positive for or are under investigation/quarantine for COVID-19. Ddx considered but are not limited to Diverticulitis, acute appendicitis, diarrhea,UC, PUD, GE, pancreatitis, gallstone, COVID-19, PNA, IN/PE Vital signs: are WNL, pt. is afebrile H&PE are most consistent with Cough and abdominal pain with diarrhea -no acute abdomen on exam. Pt. not in respiratory distress nor hypoxic. ORDERS: -CBC, CMP, lipase, & UA: WNL ED INTERVENTIONS: - --GI Cocktail -Zofran 4mg PO After above interventions this patient reports on reevaluation that his pain has subsided at this time. This patient was evaluated in the context of the global COVID-19 pandemic, which necessitated consideration that the patient might be at risk for infection with the SARS-COV-2 virus that causes COVID-19. Institutional protocols and algorithms that pertaining to the evaluation of patients at risk for COVID-19 are in a state of rapid change based on information released by multiple regulatory bodies including the CDC and federal and state organizations. These policies and algorithms were followed during the patient' s care in the emergency department DISCHARGE: At this time pt. is stable for d/c to home. Will provide printed patient care instructions, and any necessary prescriptions. Care plan and follow up instructions have been discussed with the patient prior to discharge. Labs Test 04/12/20 17:30 04/12/20 17:35 White Blood Count 5.6 K/UL (4.8-10.8) Red Blood Count 5.35 M/UL (4.70-6.10) Hemoglobin 13.9 G/DL (14.2-18.0) Hematocrit 45.5 % (42.0-52.0) Mean Corpuscular Volume 85 FL (80-99) Mean Corpuscular Hemoglobin 26.0 PG (27.0-31.0) Mean Corpuscular Hemoglobin Concent 30.5 G/DL (32.0-36.0) Red Cell Distribution Width 14.8 % (11.6-14.8) Platelet Count 331 K/UL (150-450) Mean Platelet Volume 9.6 FL (6.5-10.1) Neutrophils (%) (Auto) 68.3 % (45.0-75.0) Lymphocytes (%) (Auto) 22.2 % (20.0-45.0) Monocytes (%) (Auto) 6.6 % (1.0-10.0) Eosinophils (%) (Auto) 1.5 % (0.0-3.0) Basophils (%) (Auto) 1.3 % (0.0-2.0) Sodium Level 141 MMOL/L (136-145) Potassium Level 3.7 MMOL/L (3.5-5.1) Chloride Level 102 MMOL/L (98-107) Carbon Dioxide Level 27 MMOL/L (21-32) Anion Gap 12 mmol/L (5-15) Blood Urea Nitrogen 8 mg/dL (7-18) Creatinine 1.2 MG/DL (0.55-1.30) Estimat Glomerular Filtration Rate > 60 mL/min (>60) Glucose Level 119 MG/DL (74-106) Calcium Level 8.9 MG/DL (8.5-10.1) Total Bilirubin 1.4 MG/DL (0.2-1.0) Direct Bilirubin 0.4 MG/DL (0.0-0.3) Aspartate Amino Transf (AST/SGOT) 37 U/L (15-37) Alanine Aminotransferase (ALT/SGPT) 38 U/L (12-78) Alkaline Phosphatase 132 U/L (46-116) Total Protein 8.6 G/DL (6.4-8.2) Albumin 4.2 G/DL (3.4-5.0) Globulin 4.4 g/dL Albumin/Globulin Ratio 1.0 (1.0-2.7) Lipase 97 U/L (73-393) Urine Color Pale yellow Urine Appearance Clear Urine pH 6 (4.5-8.0) Urine Specific [place] 1.005 (1.005-1.035) Urine Protein 2+ (NEGATIVE) Urine Glucose (UA) Negative (NEGATIVE) Urine Ketones Negative (NEGATIVE) Urine Blood Negative (NEGATIVE) Urine Nitrite Negative (NEGATIVE) Urine Bilirubin Negative (NEGATIVE) Urine Urobilinogen Normal MG/DL (0.0-1.0) Urine Leukocyte Esterase Negative (NEGATIVE) Urine RBC 0 /HPF (0 - 0) Urine WBC 0 /HPF (0 - 0) Urine Squamous Epithelial Cells None /LPF (NONE/OCC) Urine Bacteria None /HPF (NONE) Last Vital Signs Date Time Temp Pulse Resp B/P (MAP) Pulse Ox O2 Delivery O2 Flow Rate FiO2 04/12/20 16:16 98.1 100 18 153/88 98 Room Air Disposition: HOME, SELF-CARE Condition: Stable Scripts Guaifenesin/Dextromethorphan* (Guaifenesin Dm Syrup*) 5 Ml Syrup 5 ML ORAL Q6H PRN for FOR COUGH, #118 ML Prov: Andria Jenkins 04/12/20 Lidocaine HCl 2% Viscous (Lidocaine HCl 2% Viscous) 100 Ml Solution 5 ML ORAL QID for pain, #100 ML Prov: Andria Jenkins 04/12/20 Dicyclomine Hcl* (DICYCLOMINE HCL*) 10 Mg Capsule 10 MG ORAL TID, #10 CAP Prov: Andria Jenkins 04/12/20 Famotidine* (Pepcid 20mg tablet*) 20 Mg Tablet 20 MG ORAL DAILY, #30 TAB 0 Refills Prov: Andria Jenkins 04/12/20 Referrals: NOT CHOSEN IPA/MD,REFERRING (PCP) Patient Instructions: Cough, Adult, [id number], Diarrhea, Adult, [id number] , Food Choices to Help Relieve Diarrhea, Adult Additional Instructions: Take medications as directed. Follow up with a Primary Care Provider in 3-5 days, even if your symptoms have resolved. --Please review list of primary care clinics, if you do not already have a primary care provider Return sooner to ED if new symptoms occur, or current symptoms become worse. - Please note that this Emergency Department Report was dictated using [employer] salesperson technology software, occasionally this can lead to erroneous entry secondary to interpretation by the dictation equipment. Andria Jenkins April 12, 2020 17:27
[2020-04-12] MEDS ORDERED: Lidocaine 2% Visc 15ml soln ORAL ONE (17:30)
[2020-04-12] MEDS ORDERED: Dicyclomine HCl 10mg/5ml oral soln ORAL ONE (17:30)
[2020-04-12] MEDS ORDERED: Mylanta II UD 30ml ORAL ONE (17:30)
[2020-04-12 17:40] LABS: BASOPHILS % (AUTO) 1.3 % (0.0-2.0); EOSINOPHILS % (AUTO) 1.5 % (0.0-3.0); HEMATOCRIT 45.5 % (42.0-52.0); HEMOGLOBIN 13.9 G/DL (14.2-18.0); LYMPHOCYTES % (AUTO) 22.2 % (20.0-45.0); MEAN CORPUSCULAR VOLUME 85 FL (80-99); MONOCYTES % (AUTO) 6.6 % (1.0-10.0); NEUTROPHILS % (AUTO) 68.3 % (45.0-75.0); PLATELET COUNT 331 K/UL (150-450); RED BLOOD COUNT 5.35 M/UL (4.70-6.10); RED CELL DISTRIBUTION WIDTH 14.8 % (11.6-14.8); WHITE BLOOD COUNT 5.6 K/UL (4.8-10.8)
[2020-04-12 18:03] LABS: ANION GAP 12 mmol/L (5-15); BLOOD UREA NITROGEN 8 mg/dL (7-18); CALCIUM 8.9 MG/DL (8.5-10.1); CARBON DIOXIDE 27 MMOL/L (21-32); CHLORIDE 102 MMOL/L (98-107); CREATININE 1.2 MG/DL (0.55-1.30); POTASSIUM 3.7 MMOL/L (3.5-5.1); SODIUM 141 MMOL/L (136-145)
[2020-04-12 18:14] LABS: ALANINE AMINOTRANSFERASE 38 U/L (12-78); ALBUMIN 4.2 G/DL (3.4-5.0); ALKALINE PHOSPHATASE 132 U/L (46-116); ASPARTATE AMINO TRANSFERASE 37 U/L (15-37); BILIRUBIN,TOTAL 1.4 MG/DL (0.2-1.0)
[2020-04-12 18:18] LABS: APPEARANCE,URINE CLEAR; BILIRUBIN, URINE NEGATIVE (NEGATIVE); COLOR,URINE PALE YELLOW; GLUCOSE, URINE (UA) NEGATIVE (NEGATIVE); KETONES,URINE NEGATIVE (NEGATIVE); LEUKOCYTE ESTERASE ,URINE NEGATIVE (NEGATIVE); NITRITE,URINE NEGATIVE (NEGATIVE); PH,URINE 6 (4.5-8.0); PROTEIN,URINE 2+ (NEGATIVE); UROBILINOGEN,URINE NORMAL MG/DL (0.0-1.0)
[2020-04-12 18:20] LABS: BILIRUBIN,DIRECT 0.4 MG/DL (0.0-0.3)
[2020-04-12] MEDS ORDERED: DICYCLOMINE HCL10 MG ORAL (19:03)
[2020-04-12] MEDS ORDERED: FAMOTIDINE20 MG ORAL (19:03)
[2020-04-12] MEDS ORDERED: LIDOCAINE VISC100 ML ORAL (19:03)
[2020-04-12] MEDS ORDERED: GUAIFENESIN DM118 M1 ORAL (19:03)
[2020-04-12 19:17] VITALS: BP 149/85
--- NOTE | 2020-04-12 19:17 | NUR ---
ER DISCHARGE NOTE: Patient is cleared to be discharged per ERMD, pt is aox4, on room air, with stable vital signs. pt was given dc and prescription instructions, pt was able to verbalize understanding, pt id band removed. pt is able to ambulate with steady gait. pt took all belongings.
== END 2020-04-12 19:18 | disposition home or self-care (01) ==
LOC: EDBD 16:16 → EMR 16:54
DX: R05 Cough (principal); R19.7 Diarrhea, unspecified; R10.84 Generalized abdominal pain; I10 Essential (primary) hypertension; E11.9 Type 2 diabetes mellitus without complications
CPT/HCPCS: 36415; 71045; 80053; 81003; 82248; 83690; 85025; 99284

== ENCOUNTER 2020-05-22 07:44 | Inpatient (IN) | payer MEDICARE, MEDICAID ==
[~2020-05-22] VITALS: Ht 172.7 cm; Wt 83.3 kg
[~2020-05-22 07:44] MED LIST changes: +DICYCLOMINE HCL10 MG ORAL; +FAMOTIDINE20 MG ORAL; +GUAIFENESIN DM118 M1 ORAL; +LIDOCAINE VISC100 ML ORAL
--- NOTE | 2020-05-22 08:05 | NUR ---
ED Nurse Note: patient walked into ED from home c/o abdominal pain in the mid quadrant, abdomen is tender, patietn reports nausea vomiting diarrhea, coughing since last night. patient reports chills and sweats last night as well. reports hx of COPD, on a night monitor 96-100% on RA. patient is placed on a cardica monitor, on a hospital gown.
[2020-05-22] MEDS ORDERED: Omnipaque-300 100ml vial INJ PRN (08:15)
--- NOTE | 2020-05-22 08:16 | Emergency Room Report ---
History of Present Illness General Chief Complaint: Abdominal Pain Source: Patient Present Illness HPI Disclaimer: Please note that this report is being documented using DRAGON technology. This can lead to erroneous entry secondary to incorrect interpretation by the dictating instrument. HPI: 69-year-old male history of perforated gastric ulcer status post open repair presents for evaluation abdominal pain. Notes 2 days of worth concerning periumbilical and epigastric discomfort that he describes as cramping. Nonradiating. Reports nausea, several episodes of nonbloody nonbilious emesis. Reports loose stools, denies melena or hematochezia. Denies dysuria hematuria. Denies flank pain. He reports sweats and chills last night. Mild cough. Denies chest pain or shortness of breath. Denies recent alcohol use. PMH: Ulcer, hypertension, COPD PSH: Open laparoscopy Allergies: None Social Hx: Social alcohol use Allergies: Coded Allergies: No Known Allergies (Unverified , 12/05/12) COVID-19 Screening Contact w/high risk pt: No Recent Travel to affected area: No Experienced COVID-19 symptoms?: Yes COVID-19 symptoms experienced: Cough COVID-19 Testing performed CORPORATE PLANNER: No Nursing Documentation-PMH Past Medical History: No History, Except For Hx Cardiac Problems: No Hx Hypertension: Yes Hx Pacemaker: No Hx Asthma: Yes Hx Diabetes: Yes Hx Cancer: No Hx Gastrointestinal Problems: No - Abdominal surgery 2014 Hx Dialysis: No Hx Neurological Problems: No Hx Cerebrovascular Accident: No Hx Seizures: No Review of Systems All Other Systems: negative except mentioned in HPI Physical Exam Vital Signs Date Time Temp Pulse Resp B/P (MAP) Pulse Ox O2 Delivery O2 Flow Rate FiO2 05/22/20 07:58 98.1 118 17 154/107 (123) 98 Room Air General: Awake and alert, no acute distress HEENT: NC/AT. EOMI. Cardiovascular: RRR. S1 and S2 normal. No murmur appreciated Resp: Normal work of breathing. No cough, wheezing or crackles appreciated Abdomen: Abdomen is soft, nondistended. Tenderness palpation in the epigastrium periumbilical region. Abdominal scars clean dry and intact. Negative Kerns's. No rebound. Skin: Intact. No abrasions, laceration or rash over the exposed skin. Abdominal surgery scar clean dry and intact MSK: Normal tone and bulk. Moving all extremities. No obvious deformity. Neuro: Awake and alert. Mentating appropriately. Medical Decision Making Diagnostic Impression: Primary Impression: Tachycardia Additional Impressions: Abdominal pain Cocaine use ER Course There is a 69-year-old male with a history of perforated gastric ulcer presenting for 2 days worsening abdominal pain. Differential includes is not limited to gastritis, gastroenteritis, pancreatitis, cholecystitis, hepatitis, appendicitis, bowel obstruction, diverticulitis, mesenteric ischemia to name a few. He is tachycardic, afebrile. No respiratory distress. IV access established, patient receiving IV fluids, and antiemetics. Will send for CT scan of the abdomen and draw broad labs. 1300: CT scan did not show evidence of acute pathology however did find a previous demonstrated a small duodenal diverticulum which appears to be shrinking compared to previous scan of 2018. There is also a tiny fat-containing umbilical hernia, small renal cyst, fatty liver noted. Labs otherwise within normal limits. The patient remained tachycardic and a talk screen was obtained. She was positive for cocaine though the patient denies recent use. Troponin is negative. EKG shows sinus tachycardia. Patient states he has been unable to eat for 2 days due to abdominal cramping but feels somewhat better after a GI cocktail. Will admit to observation for persistent tachycardia and intermittent abdominal cramping. Will admit to panel physician, Dr. Jacinto. Laboratory Tests Test 05/22/20 08:13 White Blood Count 3.7 K/UL (4.8-10.8) L Red Blood Count 5.18 M/UL (4.70-6.10) Hemoglobin 14.5 G/DL (14.2-18.0) Hematocrit 44.7 % (42.0-52.0) Mean Corpuscular Volume 86 FL (80-99) Mean Corpuscular Hemoglobin 28.0 PG (27.0-31.0) Mean Corpuscular Hemoglobin Concent 32.5 G/DL (32.0-36.0) Red Cell Distribution Width 16.8 % (11.6-14.8) H Platelet Count 215 K/UL (150-450) Mean Platelet Volume 7.6 FL (6.5-10.1) Neutrophils (%) (Auto) 80.8 % (45.0-75.0) H Lymphocytes (%) (Auto) 8.5 % (20.0-45.0) L Monocytes (%) (Auto) 9.2 % (1.0-10.0) Eosinophils (%) (Auto) 0.2 % (0.0-3.0) Basophils (%) (Auto) 1.3 % (0.0-2.0) Urine Color Pale yellow Urine Appearance Clear Urine pH 5 (4.5-8.0) Urine Specific [place] 1.015 (1.005-1.035) Urine Protein 3+ (NEGATIVE) H Urine Glucose (UA) Negative (NEGATIVE) Urine Ketones Negative (NEGATIVE) Urine Blood 2+ (NEGATIVE) H Urine Nitrite Negative (NEGATIVE) Urine Bilirubin Negative (NEGATIVE) Urine Urobilinogen Normal MG/DL (0.0-1.0) Urine Leukocyte Esterase Negative (NEGATIVE) Urine RBC 0-2 /HPF (0 - 0) H Urine WBC 0 /HPF (0 - 0) Urine Squamous Epithelial Cells Occasional /LPF Urine Bacteria Occasional /HPF (NONE) Urine Mucus Few /LPF (NONE/OCC) H Sodium Level 139 MMOL/L (136-145) Potassium Level 3.3 MMOL/L (3.5-5.1) L Chloride Level 101 MMOL/L (98-107) Carbon Dioxide Level 27 MMOL/L (21-32) Anion Gap 11 mmol/L (5-15) Blood Urea Nitrogen 14 mg/dL (7-18) Creatinine 1.5 MG/DL (0.55-1.30) H Estimated Glomerular Filtration Rate 56.6 mL/min (>60) Glucose Level 136 MG/DL (74-106) H Calcium Level 7.9 MG/DL (8.5-10.1) L Total Bilirubin 0.8 MG/DL (0.2-1.0) Aspartate Amino Transferase (AST) 106 U/L (15-37) H Alanine Aminotransferase (ALT) 54 U/L (12-78) Alkaline Phosphatase 119 U/L (46-116) H Troponin I 0.000 ng/mL (0.000-0.056) Total Protein 8.1 G/DL (6.4-8.2) Albumin 3.8 G/DL (3.4-5.0) Globulin 4.3 g/dL Albumin/Globulin Ratio 0.9 (1.0-2.7) L Lipase 78 U/L (73-393) Thyroid Stimulating Hormone (TSH) 0.712 uiU/mL (0.358-3.740) Urine Opiates Screen Negative (NEGATIVE) Urine Barbiturates Screen Negative (NEGATIVE) Phencyclidine (PCP) Screen Negative (NEGATIVE) Urine Amphetamines Screen Negative (NEGATIVE) Urine Benzodiazepines Screen Negative (NEGATIVE) Urine Cocaine Screen Positive (NEGATIVE) H Urine Marijuana (THC) Screen Negative (NEGATIVE) EKG Diagnostic Results EKG Time: 12:08 Rate: tachycardiac Other Impression Sinus tachycardia, normal axis, normal intervals, anterior Q waves present Rhythm Strip Diag. Results Rhythm Strip Time: 12:08 EP Interpretation: yes Rate: 118 Chest X-Ray Diagnostic Results Chest X-Ray Diagnostic Results : Chest X-Ray Ordered: Yes # of Views/Limited/Complete: 1 View Indication: Shortness of Breath EP Interpretation: Yes Interpretation: no consolidation, no effusion, no pneumothorax Impression: No acute disease Electronically Signed by: Electronically signed by Dr. Jose Oliver Last Vital Signs Date Time Temp Pulse Resp B/P (MAP) Pulse Ox O2 Delivery O2 Flow Rate FiO2 05/22/20 07:58 98.1 118 17 154/107 (123) 98 Room Air Disposition: PLACE IN OBSERVATION Condition: Stable Jose Oliver MD May 22, 2020 08:16
[2020-05-22 08:28] LABS: BASOPHILS % (AUTO) 1.3 % (0.0-2.0); EOSINOPHILS % (AUTO) 0.2 % (0.0-3.0); HEMATOCRIT 44.7 % (42.0-52.0); HEMOGLOBIN 14.5 G/DL (14.2-18.0); LYMPHOCYTES % (AUTO) 8.5 % (20.0-45.0); MEAN CORPUSCULAR VOLUME 86 FL (80-99); MONOCYTES % (AUTO) 9.2 % (1.0-10.0); NEUTROPHILS % (AUTO) 80.8 % (45.0-75.0); PLATELET COUNT 215 K/UL (150-450); RED BLOOD COUNT 5.18 M/UL (4.70-6.10); RED CELL DISTRIBUTION WIDTH 16.8 % (11.6-14.8); WHITE BLOOD COUNT 3.7 K/UL (4.8-10.8)
--- NOTE | 2020-05-22 08:40 | NUR ---
ED Nurse Note: patient provided with urinal. patient educated to keep NPO status.
[2020-05-22 08:44] LABS: ANION GAP 11 mmol/L (5-15); BLOOD UREA NITROGEN 14 mg/dL (7-18); CALCIUM 7.9 MG/DL (8.5-10.1); CARBON DIOXIDE 27 MMOL/L (21-32); CHLORIDE 101 MMOL/L (98-107); CREATININE 1.5 MG/DL (0.55-1.30); POTASSIUM 3.3 MMOL/L (3.5-5.1); SODIUM 139 MMOL/L (136-145)
[2020-05-22 08:46] LABS: ALANINE AMINOTRANSFERASE 54 U/L (12-78); ALBUMIN 3.8 G/DL (3.4-5.0); ALBUMIN/GLOBULIN RATIO 0.9 (1.0-2.7); ALKALINE PHOSPHATASE 119 U/L (46-116); ASPARTATE AMINO TRANSFERASE 106 U/L (15-37); BILIRUBIN,TOTAL 0.8 MG/DL (0.2-1.0)
[2020-05-22 09:05] VITALS: BP 154/98
--- NOTE | 2020-05-22 09:09 | Diagnostic Imaging Report ---
Procedure: XRAY Chest 1v Reason for study: Reason For Exam: COUGH Comparison films: 04/12/2020. FINDINGS: A single one view chest is obtained. Vascularity is normal. Linear scarring noted in both lung bases unchanged. Cardiac and mediastinal silhouette are within normal limits. CP angles are sharp. The bony thorax appear unremarkable. IMPRESSION: NO ACUTE CARDIOPULMONARY DISEASE.
[2020-05-22 10:13] LABS: APPEARANCE,URINE CLEAR; BILIRUBIN, URINE NEGATIVE (NEGATIVE); COLOR,URINE PALE YELLOW; GLUCOSE, URINE (UA) NEGATIVE (NEGATIVE); KETONES,URINE NEGATIVE (NEGATIVE); LEUKOCYTE ESTERASE ,URINE NEGATIVE (NEGATIVE); NITRITE,URINE NEGATIVE (NEGATIVE); PH,URINE 5 (4.5-8.0); PROTEIN,URINE 3+ (NEGATIVE); UROBILINOGEN,URINE NORMAL MG/DL (0.0-1.0)
--- NOTE | 2020-05-22 11:03 | Diagnostic Imaging Report ---
EXAM: CT CT Abdomen Pelvis w/Contrast INDICATION: Abdominal pain. History of gastric ulcer status post prior surgery. COMPARISON: 07/02/2018 and 03/13/2017 TECHNIQUE: Axial images were obtained through the abdomen pelvis with intravenous contrast. Sagittal and coronal reformats are generated. All CT scans at this facility are performed using dose modulation techniques as appropriate to a performed exam including the following: automated exposure control with adjustment of the mA and/or kV according to patient size. RADIATION DOSE: CTDIvol: 7.5 mGy DLP: 376.5 mGy-cm Dose information generated by the CT scanner is available in PACS. FINDINGS: Linear atelectasis is noted in both lung bases. There is diffuse fatty liver. The spleen is homogeneous. Gallbladder is without sludge or stone and there is no wall thickening. The pancreas is unremarkable. Adrenals are normal in morphology. There are small renal cysts. No renal stone or hydronephrosis seen bilaterally. The stomach is empty. There is a small fluid containing structure with small air-fluid level noted juxtaposed between the pancreatic head and the aorta. This structure was present on both prior studies from 2016 and 2017 but is smaller in the current study. By its position and relationship with the transverse portion of the duodenum, this may represent a small duodenal diverticulum. Size is approximately 2.8 x 1.5 cm presently. It was up to 3.3 x 2 cm in 2018. The colon is also nondistended with average amount of stool. The appendix is normal. There is no free fluid or free air. No pathologic adenopathy demonstrated. Urinary bladder appears unremarkable. Degenerative changes of the spine noted. There is a tiny fatty umbilical hernia. IMPRESSION: FATTY LIVER. SMALL RENAL CYSTS. APPARENT SMALL DUODENAL DIVERTICULUM JUST DEEP TO THE TRANSVERSE PORTION OF THE DUODENUM. SIZE IS SMALLER COMPARED TO PRIOR STUDY FROM 2017 AND 2016. TINY FATTY UMBILICAL HERNIA.
[2020-05-22] MEDS ORDERED: Dicyclomine HCl 10mg/5ml oral soln ORAL ONE (11:30)
[2020-05-22] MEDS ORDERED: Mylanta II UD 30ml ORAL ONE (11:30)
[2020-05-22] MEDS ORDERED: Lidocaine 2% Visc 15ml soln ORAL ONE (11:30)
[2020-05-22] MEDS ORDERED: Ketorolac 30mg Inj IV ONE (11:30)
[2020-05-22 14:25] VITALS: BP 169/124
[2020-05-22 15:06] VITALS: BP 144/112
--- NOTE | 2020-05-22 15:33 | Cardiac Electrophysiology PN ---
Subjective Subjective [id number] Objective Last 24 Hour Vital Signs Date Time Temp Pulse Resp B/P (MAP) Pulse Ox O2 Delivery O2 Flow Rate FiO2 05/22/20 15:06 98.1 120 20 144/112 100 Room Air 05/22/20 15:02 169/124 05/22/20 14:25 98.1 120 19 169/124 100 Room Air 05/22/20 12:49 98.1 05/22/20 09:05 98.1 120 19 154/98 100 Room Air 05/22/20 08:56 118 17 Room Air 05/22/20 07:58 98.1 118 17 154/107 (123) 98 Room Air Laboratory Tests Test 05/22/20 08:13 White Blood Count 3.7 K/UL (4.8-10.8) L Red Blood Count 5.18 M/UL (4.70-6.10) Hemoglobin 14.5 G/DL (14.2-18.0) Hematocrit 44.7 % (42.0-52.0) Mean Corpuscular Volume 86 FL (80-99) Mean Corpuscular Hemoglobin 28.0 PG (27.0-31.0) Mean Corpuscular Hemoglobin Concent 32.5 G/DL (32.0-36.0) Red Cell Distribution Width 16.8 % (11.6-14.8) H Platelet Count 215 K/UL (150-450) Mean Platelet Volume 7.6 FL (6.5-10.1) Neutrophils (%) (Auto) 80.8 % (45.0-75.0) H Lymphocytes (%) (Auto) 8.5 % (20.0-45.0) L Monocytes (%) (Auto) 9.2 % (1.0-10.0) Eosinophils (%) (Auto) 0.2 % (0.0-3.0) Basophils (%) (Auto) 1.3 % (0.0-2.0) Urine Color Pale yellow Urine Appearance Clear Urine pH 5 (4.5-8.0) Urine Specific [place] 1.015 (1.005-1.035) Urine Protein 3+ (NEGATIVE) H Urine Glucose (UA) Negative (NEGATIVE) Urine Ketones Negative (NEGATIVE) Urine Blood 2+ (NEGATIVE) H Urine Nitrite Negative (NEGATIVE) Urine Bilirubin Negative (NEGATIVE) Urine Urobilinogen Normal MG/DL (0.0-1.0) Urine Leukocyte Esterase Negative (NEGATIVE) Urine RBC 0-2 /HPF (0 - 0) H Urine WBC 0 /HPF (0 - 0) Urine Squamous Epithelial Cells Occasional /LPF Urine Bacteria Occasional /HPF (NONE) Urine Mucus Few /LPF (NONE/OCC) H Sodium Level 139 MMOL/L (136-145) Potassium Level 3.3 MMOL/L (3.5-5.1) L Chloride Level 101 MMOL/L (98-107) Carbon Dioxide Level 27 MMOL/L (21-32) Anion Gap 11 mmol/L (5-15) Blood Urea Nitrogen 14 mg/dL (7-18) Creatinine 1.5 MG/DL (0.55-1.30) H Estimat Glomerular Filtration Rate 56.6 mL/min (>60) Glucose Level 136 MG/DL (74-106) H Calcium Level 7.9 MG/DL (8.5-10.1) L Total Bilirubin 0.8 MG/DL (0.2-1.0) Aspartate Amino Transf (AST/SGOT) 106 U/L (15-37) H Alanine Aminotransferase (ALT/SGPT) 54 U/L (12-78) Alkaline Phosphatase 119 U/L (46-116) H Troponin I 0.000 ng/mL (0.000-0.056) Total Protein 8.1 G/DL (6.4-8.2) Albumin 3.8 G/DL (3.4-5.0) Globulin 4.3 g/dL Albumin/Globulin Ratio 0.9 (1.0-2.7) L Lipase 78 U/L (73-393) Thyroid Stimulating Hormone (TSH) 0.712 uiU/mL (0.358-3.740) Urine Opiates Screen Negative (NEGATIVE) Urine Barbiturates Screen Negative (NEGATIVE) Phencyclidine (PCP) Screen Negative (NEGATIVE) Urine Amphetamines Screen Negative (NEGATIVE) Urine Benzodiazepines Screen Negative (NEGATIVE) Urine Cocaine Screen Positive (NEGATIVE) H Urine Marijuana (THC) Screen Negative (NEGATIVE) Jose Angel Sal MD May 22, 2020 15:33
--- NOTE | 2020-05-22 17:25 | NUR ---
ED Nurse Note: report given to Zsauly RN, endorsed all plan of care to Zsanto RN
--- NOTE | 2020-05-22 17:30 | NUR ---
ED Nurse Note: patient has been transferred to with all of his belongings on ACLS protocol to 214-1 patient is admitted here for tachycardia and abdominal pain per Dr. Oliver.
[2020-05-22 18:02] VITALS: BP 157/106
[2020-05-22] MEDS ORDERED: Morphine Sulfate 2mg/ml Inj(IV/IM USE ONLY) IVP PRN (18:30)
--- NOTE | 2020-05-22 18:34 | NUR ---
NURSE NOTES: Patient admitted from [facility] ER to TELE rm 214-1 with admitting diagnosis of tachycardia and abdominal pain, Received report from Carolyn HERNANDEZ. Patient was transferred to the floor via gurney. Upon admission, patient denied any pain, no s/s of NVD or coughing noted. Patient is AAO X4, able to make needs known. Patient ambulates with steady gait. Patient has LAC 18G, intact and patent, and SL. Labs were WNL, VS taken: T 97.5, BP 157/106, HR 127, R 18, O2 sat 97% on RA, Dr Jacinto aware, Hydralazine and NS administered in ER. Skin is intact, noted patient has an old healed surgical scar in the mid-abdomen. All admission orders received from both Dr. Jacinto and Dr. Puente, acknowledged and carried out. Oriented patient to room and surrounding. Bed is in lowest position, brakes engaged for safety, all needs attended to, call light is within reach. Will continue to monitor patient.
--- NOTE | 2020-05-22 19:15 | Consultation ---
DATE OF CONSULTATION: 05/22/2020 CARDIOLOGY CONSULTATION CONSULTING PHYSICIAN: Jose Angel Sal MD. REFERRING PHYSICIAN: Chas Jacinto DO. REASON FOR CONSULTATION: Hypertension and tachycardia. HISTORY OF PRESENT ILLNESS: Patient is a 69-year-old gentleman with history of perforated gastric ulcer, status post open repair as well as hypertension, COPD presents to the emergency room for abdominal pain that has been going on for about 2 days. Patient has been having cramping, but the pain has been nonradiating. Patient has several episodes of nonbloody and nonbilious emesis as well. Patient did not have melena or hematochezia. Even though patient was tachycardic, denies of any chest pain or shortness of breath. His urine toxicology screen was positive for cocaine. Blood pressure was high as 154/107. REVIEW OF SYSTEMS: Negative other than what was mentioned in history of present illness. PAST MEDICAL HISTORY: As mentioned above. FAMILY HISTORY: Noncontributory. SOCIAL HISTORY: He lives at home and continues to use cocaine. PHYSICAL EXAMINATION: VITAL SIGNS: Show blood pressure of 144/112, pulse 120, respirations 18, temperature 98.1. HEAD AND NECK: Showed no JVD. LUNGS: Coarse rhonchi. CARDIOVASCULAR: Tachycardic. S1 and S2 with no gallop. ABDOMEN: Soft. EXTREMITIES: No pitting edema. LABORATORY DATA: Labs show white count 3.7, hemoglobin of 14, hematocrit of 44, and platelet count is 215. Sodium 139, potassium 3.3, BUN of 14, creatinine 1.5, and glucose of 136. First troponin is negative. TSH is normal. Urine toxicology screen is positive for cocaine. ASSESSMENT AND PLAN: 1. Tachycardia due to sinus tachycardia, likely due to underlying infectious process. There is no evidence of atrial fibrillation. We will completely rule out TX protocol. Get the echocardiogram for further evaluation. Unlikely to be thyrotoxic as the patient's TSH is within normal range. 2. Shortness of breath and cough and abdominal pain. Patient will be ruled out for COVID. Likely will need antibiotics. 3. History of hypertension. Patient is on hydrochlorothiazide 25 mg daily. 4. History of gastric ulcer and bleed, on Pepcid. Thank you much for allowing me to participate in the care of this patient. Please do not hesitate to contact me for any questions regarding my evaluation. Jose Angel Sal M.D. DR: GABBY JOB#: [id number] CC:
--- NOTE | 2020-05-22 19:19 | NUR ---
HAND-OFF: Report given to Nicol RN. Endorsed plan of care
--- NOTE | 2020-05-22 19:30 | NUR ---
NURSE NOTES: Received pt and report from MARY Desir. Observed pt resting in bed with both eyes open and watching television. Pt is A/Ox4. security monitor is in placed, IV site intact, asymptomatic, and patent. Bed is in the lowest position and locked. Call light and beside table is within reach. No signs/symptoms of acute distress noted at this time. Will continue plan of care.
[2020-05-22] MEDS: D5 1/2NS 1,000 ML IV SCH (19:37)
--- NOTE | 2020-05-22 19:44 | NUR ---
NURSE NOTES: Dr. Sal made aware that pt's potassium is 3.3. Dr. Sal ordered KCL 40 mEq PO ONCE. Will note and carry out.
[2020-05-22 20:00] VITALS: BP 160/110
--- NOTE | 2020-05-22 23:00 | NUR ---
NURSE NOTES: Pt is currently confused. Pt paced around room and threw pillows/bed sheets on the floor. Pt also pulled out IV and security monitor. Per pt, "I don't need this IV. It causing too much problem." Educated pt on the importance of security monitor and risks/benefits of IV fluids ordered. Pt still refused IV/IV fluids. Put pt back in bed. Bed is in lowest position and locked with three side rails up. Dr. Jacinto made aware. Will monitor pt closely.
[2020-05-23] VITALS (7 sets, daily range): BP systolic 137–181; BP diastolic 74–108
--- NOTE | 2020-05-23 00:09 | NUR ---
NURSE NOTES: Placed campus monitor back on pt and was able to print out rhythm strip, but five minutes later, pt pulled off campus monitor again. Educated pt on risks and benefits of campus monitor, but pt continues to refuse. Will monitor pt closely.
--- NOTE | 2020-05-23 02:30 | NUR ---
NURSE NOTES: Observed pt asleep in bed. No signs/symptoms of acute distress noted at this time. Will continue plan of care.
--- NOTE | 2020-05-23 05:36 | NUR ---
NURSE NOTES: Pt refused to be on the blind hooker. Unable to obtain 0400 rhythm strip. Explained risks/benefits to pt. Will continue to monitor.
[2020-05-23 07:23] LABS: HEMATOCRIT 43.4 % (42.0-52.0); HEMOGLOBIN 13.6 G/DL (14.2-18.0); MEAN CORPUSCULAR VOLUME 89 FL (80-99); PLATELET COUNT 178 K/UL (150-450); RED BLOOD COUNT 4.88 M/UL (4.70-6.10); RED CELL DISTRIBUTION WIDTH 17.1 % (11.6-14.8)
--- NOTE | 2020-05-23 07:24 | NUR ---
HAND-OFF: Report given to MARY Diop. Plan of care endorsed.
--- NOTE | 2020-05-23 07:24 | NUR ---
NURSE NOTES: Report received from Nicol HERNANDEZ. Patient is awake and alert x 3. Patient is noted to be on room air, denies chest pain and shortness of breath at this time. Patient noted to not be on bus driver/monitor. Endorsed to Jadon HERNANDEZ that patient continued to remove during overnight shift. Jadon HERNANDEZ educated patient on purpose and importance of monitor. Patient continues to refuse to wear the bus driver/monitor. Patient noted not to have IV access. Patient removed IV during overnight shift according to Nicol HERNANDEZ. Jadon HERNANDEZ educated importance and reason for IV access, patient continued to refuse to have IV. Per Nicol HERNANDEZ, Doctor Janki is aware of that patient has no IV access and is not on the bus driver/monitor. Endorsed that patient had a low potassium laboratory value yesterday. Potassium administered during previous shift. Patient noted to still have low Potassium laboratory value this morning. Jadon HERNANDEZ will contact MD. Endorsed that patient is steady on feet and ambulatory. Bed locked, in lowest position, call light in reach. Will continue to follow plan of care.
[2020-05-23 07:25] LABS: ALANINE AMINOTRANSFERASE 43 U/L (12-78); ALBUMIN 3.4 G/DL (3.4-5.0); ALBUMIN/GLOBULIN RATIO 0.8 (1.0-2.7); ALKALINE PHOSPHATASE 104 U/L (46-116); ANION GAP 10 mmol/L (5-15); ASPARTATE AMINO TRANSFERASE 79 U/L (15-37); BILIRUBIN,TOTAL 0.6 MG/DL (0.2-1.0); BLOOD UREA NITROGEN 12 mg/dL (7-18); CALCIUM 7.7 MG/DL (8.5-10.1); CARBON DIOXIDE 27 MMOL/L (21-32); CHLORIDE 101 MMOL/L (98-107); CREATININE 1.3 MG/DL (0.55-1.30); POTASSIUM 3.2 MMOL/L (3.5-5.1); SODIUM 138 MMOL/L (136-145)
--- NOTE | 2020-05-23 09:18 | NUR ---
NURSE NOTES: Paged Doctor Izabella regarding potassium level of 3.2. Awaiting call back.
--- NOTE | 2020-05-23 09:36 | NUR ---
NURSE NOTES: Spoke with Doctor Sal in person. Orders given to give patient 40 MEQ potassium to correct laboratory value of 3.2.
[2020-05-23] MEDS: D5 1/2NS 1,000 ML IV SCH (09:41)
--- NOTE | 2020-05-23 10:15 | Cardiac Electrophysiology PN ---
Assessment/Plan Assessment/Plan 1. Sinus tachycardia likely due to underlying infectious process. There is no evidence of atrial fibrillation. Ruled out for HI. Echocardiogram pending. Unlikely to be thyrotoxic as the patient's TSH is within normal range. 2. Shortness of breath and cough and abdominal pain. Patient will be ruled out for COVID. Likely will need antibiotics. 3. History of hypertension. Hydrochlorothiazide DCed for hypokalemia. Add Lopressor 25 bid 4. History of gastric ulcer and bleed, on Pepcid. 5. Hypokalemia, HCTZ DCed and K added DW RN Subjective Subjective No events. No CP or SOB Objective Last 24 Hour Vital Signs Date Time Temp Pulse Resp B/P (MAP) Pulse Ox O2 Delivery O2 Flow Rate FiO2 05/23/20 08:00 97.7 80 19 137/97 (110) 99 80 05/23/20 05:45 73 166/99 (121) 05/23/20 04:59 181/107 05/23/20 04:00 97.0 105 20 181/107 (131) 97 05/23/20 00:00 97.6 121 19 165/108 (127) 96 05/23/20 00:00 118 05/22/20 21:00 Room Air 05/22/20 20:00 120 05/22/20 20:00 97.9 120 19 160/110 (127) 97 05/22/20 18:02 97.5 127 18 157/106 (123) 97 05/22/20 17:30 98.1 120 20 144/112 100 Room Air 05/22/20 17:30 Room Air 05/22/20 17:27 Room Air 05/22/20 15:06 98.1 120 20 144/112 100 Room Air 05/22/20 15:02 169/124 05/22/20 14:25 98.1 120 19 169/124 100 Room Air 05/22/20 12:49 98.1 Intake and Output 05/22/20 05/23/20 19:00 07:00 Intake Total 400 ml Balance 400 ml Intake Oral 400 ml # Voids 2 # Bowel Movements 2 Laboratory Tests Test 05/23/20 06:20 White Blood Count 3.0 K/UL (4.8-10.8) L Red Blood Count 4.88 M/UL (4.70-6.10) Hemoglobin 13.6 G/DL (14.2-18.0) L Hematocrit 43.4 % (42.0-52.0) Mean Corpuscular Volume 89 FL (80-99) Mean Corpuscular Hemoglobin 27.9 PG (27.0-31.0) Mean Corpuscular Hemoglobin Concent 31.5 G/DL (32.0-36.0) L Red Cell Distribution Width 17.1 % (11.6-14.8) H Platelet Count 178 K/UL (150-450) Mean Platelet Volume 8.1 FL (6.5-10.1) Neutrophils (%) (Auto) % (45.0-75.0) Lymphocytes (%) (Auto) % (20.0-45.0) Monocytes (%) (Auto) % (1.0-10.0) Eosinophils (%) (Auto) % (0.0-3.0) Basophils (%) (Auto) % (0.0-2.0) Neutrophils % (Manual) Pending Lymphocytes % (Manual) Pending Platelet Estimate Pending Platelet Morphology Pending Sodium Level 138 MMOL/L (136-145) Potassium Level 3.2 MMOL/L (3.5-5.1) L Chloride Level 101 MMOL/L (98-107) Carbon Dioxide Level 27 MMOL/L (21-32) Anion Gap 10 mmol/L (5-15) Blood Urea Nitrogen 12 mg/dL (7-18) Creatinine 1.3 MG/DL (0.55-1.30) Estimat Glomerular Filtration Rate > 60 mL/min (>60) Glucose Level 113 MG/DL (74-106) H Calcium Level 7.7 MG/DL (8.5-10.1) L Total Bilirubin 0.6 MG/DL (0.2-1.0) Aspartate Amino Transf (AST/SGOT) 79 U/L (15-37) H Alanine Aminotransferase (ALT/SGPT) 43 U/L (12-78) Alkaline Phosphatase 104 U/L (46-116) Troponin I 0.000 ng/mL (0.000-0.056) Pro-B-Type Natriuretic Peptide 757 pg/mL (0-125) H Total Protein 7.5 G/DL (6.4-8.2) Albumin 3.4 G/DL (3.4-5.0) Globulin 4.1 g/dL Albumin/Globulin Ratio 0.8 (1.0-2.7) L Thyroid Stimulating Hormone (TSH) 1.837 uiU/mL (0.358-3.740) Free Thyroxine 0.83 NG/DL (0.76-1.46) Objective HEAD AND NECK: no JVD. LUNGS: Coarse rhonchi. CARDIOVASCULAR: Tachycardic S1 and S2 with no gallop. ABDOMEN: Soft. EXTREMITIES: No pitting edema. Jose Angel Sal MD May 23, 2020 10:15
--- NOTE | 2020-05-23 12:29 | NUR ---
NURSE NOTES: Attempted to educate patient on need for IV access. Patient verbalized understanding this time. However stated "we can do it later, not now. Actually, I don't think I need it I am going to leave tomorrow". Jadon HERNANDEZ informed patient that he does not yet have a set discharge date and time. Patient continued to refuse to have new IV access placed.
--- NOTE | 2020-05-23 16:15 | NUR ---
CASE MANAGEMENT:REVIEW 69 YR OLD MALE WALKED INTO ER CC: ABDOMINAL PAIN,NAUSEA,VOMITING AND COUGH SI: ABDOMINAL PAIN. TACHYCARDIA 98.1 120 20 154/107 98% ON RA WBC-3.7 K-3.3 CR+1.5 URINE(+) COCAINE IS: 1L NS BOLUS IV ZOFRAN IV TORADOL IV PEPCID GI COCKTAIL CT ABD/PELVIS CHEST XRAY : TO TELEMETRY UNIT DCP: PATIENT IS FROM HOME PLAN: CLEAR LIQUIDS 2DECHO NICOTINE PATCH
--- NOTE | 2020-05-23 19:24 | NUR ---
NURSE NOTES: Received patient in bed, awake, alert, oriented x4, patient is ambulatory, steady gate, able to verbalize his needs, no IV Md is aware. Call light is within reach, bed is lowered, locked, alarm is on, will continue to monitor for comfort and safety.
--- NOTE | 2020-05-23 19:26 | NUR ---
HAND-OFF: Report given to Elyse HERNANDEZ. Endorsed that patient can be resistive to care and currently has no IV access and MD is aware. Patient is currently in stable condition.
--- NOTE | 2020-05-23 20:30 | Consultation ---
DATE OF CONSULTATION: 05/23/2020 CHIEF COMPLAINT: History of perforated gastric ulcer, here for abdominal pain. HISTORY OF PRESENT ILLNESS: This is a 69-year-old male with history of perforated gastric ulcer in the past, status post surgery here at [facility], history of COPD, hypertension, history of cocaine abuse positive admission, came in with complaint of nausea, vomiting, hematemesis. PAST MEDICAL HISTORY: 1. Perforated gastric ulcer status post EGD. 2. COPD. 3. History of cocaine abuse positive in this admission. 4. Hypertension. ALLERGIES: No known drug allergies. MEDICATIONS: Please see medication reconciliation list. PAST SURGICAL HISTORY: Partial gastrectomy after perforated gastric ulcer. FAMILY HISTORY: Noncontributory. REVIEW OF SYSTEMS: A 10-point review of systems was performed and pertinent positives in HPI. PHYSICAL EXAMINATION: VITAL SIGNS: Temperature 97.6, pulse 73, respirations 20, blood pressure is 156/89. HEENT: Normocephalic atraumatic. Sclerae are anicteric. NECK: Supple. No evidence of obvious lymphadenopathy. CARDIOVASCULAR: Regular rhythm. Plus S1 and S2. LUNGS: Clear to auscultation bilaterally. ABDOMEN: Positive bowel sounds. Soft, nontender. No rebound. No guarding. No peritoneal sign. EXTREMITIES: No cyanosis, no clubbing, no edema. LABORATORY STUDIES: White count is 3, hemoglobin 13, hematocrit 43, platelet count is 178. ASSESSMENT AND PLAN: This is a 69-year-old male with hematemesis on the cocaine with stable hemoglobin of 13. PLAN: 1. Advance diet. 2. Hold endoscopy at this time. 3. PPI daily. 4. Repeat labs for tomorrow. Gene Puente M.D. DR: Joan JOB#: [id number] CC:
--- NOTE | 2020-05-23 22:00 | History and Physical Report ---
DATE OF ADMISSION: 05/23/2020 CONSULTANTS: 1. Gene Puente M.D. 2. Jose Angel Sal M.D. 3. Darek Potter M.D. CHIEF COMPLAINT: Abdominal pain, tachycardia, confusion, and diverticulosis. BRIEF HISTORY: This is a 69-year-old male, who lives at home, presents with the above-mentioned diagnosis, came to [facility], diagnosed with the above, admitted to telemetry for further care. Currently, calm in bed, slightly confused. No complaint. PAST MEDICAL HISTORY: Includes hypertension. PAST SURGICAL HISTORY: Abdominal surgery. MEDICATIONS: Metoprolol, potassium, morphine, Zofran, clonidine, and hydralazine. ALLERGIES: Denies. SOCIAL HISTORY: No smoking. Occasional alcohol. No intravenous drug abuse. FAMILY HISTORY: Noncontributory. REVIEW OF SYSTEMS: No chest pain. No shortness of breath. No nausea, vomiting, or diarrhea. PHYSICAL EXAMINATION: GENERAL: Calm in bed, oriented x2, in no acute distress. VITAL SIGNS: Temperature 97 degrees, pulse 73, respirations 21, and blood pressure 156/89. CARDIOVASCULAR: S1, S2. No murmurs. LUNGS: Poor air exchange. ABDOMEN: Bowel sounds distant. EXTREMITIES: No cyanosis or edema. LABORATORY AND DIAGNOSTIC DATA: Labs at this time show white count 3.0, H and H are 13 and 43, and platelets 178,000. BMP show potassium 3.2. Glucose 113. Troponin 0.00. BNP 757. Urinalysis, 2+ blood and 3+ protein. Urine tox positive for cocaine. ASSESSMENT: 1. Abdominal pain. 2. Tachycardia. 3. Confusion. 4. Diverticulosis. 5. Hypertension. PLAN: 1. Blood pressure and pain control. 2. GI followup. 3. Dietary followup. 4. PT/OT. 5. Cardiology followup. Chas Jacinto D.O. DR: AMBER JOB#: [id number] CC:
[2020-05-24] VITALS: BP 129/74
[2020-05-24] MEDS: D5 1/2NS 1,000 ML IV SCH (03:14)
[2020-05-24 04:00] VITALS: BP 137/74
[2020-05-24 06:49] LABS: HEMOGLOBIN 12.9 G/DL (14.2-18.0); MEAN CORPUSCULAR VOLUME 88 FL (80-99); PLATELET COUNT 166 K/UL (150-450); RED BLOOD COUNT 4.64 M/UL (4.70-6.10); RED CELL DISTRIBUTION WIDTH 16.5 % (11.6-14.8); WHITE BLOOD COUNT 2.6 K/UL (4.8-10.8)
[2020-05-24 07:00] LABS: ANION GAP 10 mmol/L (5-15); BLOOD UREA NITROGEN 8 mg/dL (7-18); CALCIUM 8.2 MG/DL (8.5-10.1); CARBON DIOXIDE 26 MMOL/L (21-32); CHLORIDE 101 MMOL/L (98-107); CREATININE 1.1 MG/DL (0.55-1.30); POTASSIUM 3.7 MMOL/L (3.5-5.1); SODIUM 137 MMOL/L (136-145)
[2020-05-24 07:38] VITALS: BP 164/91
--- NOTE | 2020-05-24 08:46 | NUR ---
NURSE NOTES: Received pt from MARY Pappas. Pt A/O x4. No s/s of acute respiratory and cardiac distress. Currently on RA. Pt currently does not have saline lock due to refuse. Bed in low position, side rails up x2 and call light within reach. Will continue to monitor.
--- NOTE | 2020-05-24 10:39 | NUR ---
CASE MANAGEMENT:REVIEW 05/24/20 SI: SINUS TACHYCARDIA ABDOMINAL PAIN. DIVERTICULOSIS. (+) COCAINE 97.7 74 20 164/91 100% ON RA H/H-12.9/41.0 GLUCOSE+121 IS: LOPRESSOR PO Q12 IV MORPHINE Q4HRS PRN CLONIDINE PO Q4HRS PRN : TELEMETRY STATUS PLAN: PT EVAL PENDING
--- NOTE | 2020-05-24 10:51 | NUR ---
P.T Note: P.T evaluation completed and tx initiated. Please refer to P.T evaluation for current functional status.
--- NOTE | 2020-05-24 10:52 | General Progress Note ---
Assessment/Plan Problem List: (1) Abdominal pain ICD Codes: R10.9 - Unspecified abdominal pain SNOMED: 85422833 (2) Cocaine use ICD Codes: F14.90 - Cocaine use, unspecified, uncomplicated SNOMED: 667804557 (3) history of perforated Gastric ulcer Assessment/Plan: ppi stable labs on diet bowel regimen GI procedures on hold Subjective ROS Limited/Unobtainable: No Allergies: Coded Allergies: No Known Allergies (Unverified , 12/05/12) Objective Last 24 Hour Vital Signs Date Time Temp Pulse Resp B/P (MAP) Pulse Ox O2 Delivery O2 Flow Rate FiO2 05/24/20 09:44 74 164/91 05/24/20 07:38 97.7 74 20 164/91 (115) 100 05/24/20 04:00 98.7 78 20 137/74 (95) 98 05/24/20 04:00 68 05/24/20 00:00 98.7 74 18 129/74 (92) 98 05/24/20 00:00 73 05/23/20 21:00 Room Air 05/23/20 20:39 75 138/78 05/23/20 20:00 72 05/23/20 20:00 98.7 74 22 138/74 (95) 98 05/23/20 16:00 97.8 74 20 150/92 (111) 97 74 05/23/20 12:00 97.6 73 21 156/89 (111) 97 73 05/23/20 12:00 78 Intake and Output 05/23/20 05/24/20 19:00 07:00 Intake Total 720 ml Balance 720 ml Intake Oral 720 ml Laboratory Tests 05/24/20 05:25: White Blood Count 2.6L, Red Blood Count 4.64L, Hemoglobin 12.9L, Hematocrit 41.0L, Mean Corpuscular Volume 88, Mean Corpuscular Hemoglobin 27.8, Mean Corpuscular Hemoglobin Concent 31.5L, Red Cell Distribution Width 16.5H, Platelet Count 166, Mean Platelet Volume 9.0, Neutrophils (%) (Auto) , Lymphocytes (%) (Auto) , Monocytes (%) (Auto) , Eosinophils (%) (Auto) , Basophils (%) (Auto) , Differential Total Cells Counted 100, Neutrophils % ( Manual) 38L, Lymphocytes % (Manual) 43, Monocytes % (Manual) 15H, Eosinophils % (Manual) 4H, Basophils % (Manual) 0, Band Neutrophils 0, Platelet Estimate Adequate, Platelet Morphology Normal, Anisocytosis 1+, Sodium Level 137, Potassium Level 3.7, Chloride Level 101, Carbon Dioxide Level 26, Anion Gap 10, Blood Urea Nitrogen 8, Creatinine 1.1, Estimat Glomerular Filtration Rate > 60, Glucose Level 121H, Calcium Level 8.2L Height (Feet): 5 Height (Inches): 8.00 Weight (Pounds): 183 General Appearance: no apparent distress EENT: normal ENT inspection Neck: supple Cardiovascular: normal rate Respiratory/Chest: decreased breath sounds Abdomen: normal bowel sounds, non tender, soft Extremities: non-tender Gene Puente MD May 24, 2020 10:52
--- NOTE | 2020-05-24 11:01 | General Progress Note ---
Assessment/Plan Problem List: (1) Confusion ICD Codes: R41.0 - Disorientation, unspecified SNOMED: 159497813 (2) Leukopenia ICD Codes: D72.819 - Decreased white blood cell count, unspecified SNOMED: 69265203, 575994581 (3) Tachycardia ICD Codes: R00.0 - Tachycardia, unspecified SNOMED: 9636911 (4) Abdominal pain ICD Codes: R10.9 - Unspecified abdominal pain SNOMED: 02626164 Status: unchanged Assessment/Plan: pt diet gi heme f/u cbc bmp am psyc transfer Subjective Constitutional: Reports: weakness Allergies: Coded Allergies: No Known Allergies (Unverified , 12/05/12) All Systems: reviewed and negative except above Subjective sl confused in bed Objective Last 24 Hour Vital Signs Date Time Temp Pulse Resp B/P (MAP) Pulse Ox O2 Delivery O2 Flow Rate FiO2 05/24/20 09:44 74 164/91 05/24/20 07:38 97.7 74 20 164/91 (115) 100 05/24/20 04:00 98.7 78 20 137/74 (95) 98 05/24/20 04:00 68 05/24/20 00:00 98.7 74 18 129/74 (92) 98 05/24/20 00:00 73 05/23/20 21:00 Room Air 05/23/20 20:39 75 138/78 05/23/20 20:00 72 05/23/20 20:00 98.7 74 22 138/74 (95) 98 05/23/20 16:00 97.8 74 20 150/92 (111) 97 74 05/23/20 12:00 97.6 73 21 156/89 (111) 97 73 05/23/20 12:00 78 Intake and Output 05/23/20 05/24/20 19:00 07:00 Intake Total 720 ml Balance 720 ml Intake Oral 720 ml Laboratory Tests 05/24/20 05:25: White Blood Count 2.6L, Red Blood Count 4.64L, Hemoglobin 12.9L, Hematocrit 41.0L, Mean Corpuscular Volume 88, Mean Corpuscular Hemoglobin 27.8, Mean Corpuscular Hemoglobin Concent 31.5L, Red Cell Distribution Width 16.5H, Platelet Count 166, Mean Platelet Volume 9.0, Neutrophils (%) (Auto) , Lymphocytes (%) (Auto) , Monocytes (%) (Auto) , Eosinophils (%) (Auto) , Basophils (%) (Auto) , Differential Total Cells Counted 100, Neutrophils % ( Manual) 38L, Lymphocytes % (Manual) 43, Monocytes % (Manual) 15H, Eosinophils % (Manual) 4H, Basophils % (Manual) 0, Band Neutrophils 0, Platelet Estimate Adequate, Platelet Morphology Normal, Anisocytosis 1+, Sodium Level 137, Potassium Level 3.7, Chloride Level 101, Carbon Dioxide Level 26, Anion Gap 10, Blood Urea Nitrogen 8, Creatinine 1.1, Estimat Glomerular Filtration Rate > 60, Glucose Level 121H, Calcium Level 8.2L Height (Feet): 5 Height (Inches): 8.00 Weight (Pounds): 183 General Appearance: lethargic EENT: normal ENT inspection Neck: normal alignment Cardiovascular: normal peripheral pulses, normal rate, regular rhythm Respiratory/Chest: chest wall non-tender, lungs clear, normal breath sounds Abdomen: normal bowel sounds, non tender, soft Extremities: normal inspection Edema: no edema noted Arm (L), no edema noted Arm (R), no edema noted Leg (L), no edema noted Leg (R), no edema noted Pedal (L), no edema noted Pedal (R), no edema noted Generalized Neurologic: motor weakness Skin: normal pigmentation, warm/dry Chas Jacinto DO May 24, 2020 11:01
--- NOTE | 2020-05-24 11:24 | NUR ---
*-*DISCHARGE PLANNING*-* PATIENT HAS BEEN REFERRED TO: [facility] P: [phone]
[2020-05-24 12:00] VITALS: BP 134/69
--- NOTE | 2020-05-24 12:34 | Cardiac Electrophysiology PN ---
Assessment/Plan Assessment/Plan 1. Sinus tachycardia due to underlying infectious process. There is no evidence of atrial fibrillation. Ruled out for TX. Echocardiogram pending. Unlikely to be thyrotoxic as the patient's TSH is within normal range. 2. Shortness of breath and cough and abdominal pain. Patient will be ruled out for COVID.On antibiotics. 3. History of hypertension. Hydrochlorothiazide DCed for hypokalemia. On Lopressor 25 bid 4. History of gastric ulcer and bleed, on Pepcid. 5. Hypokalemia, HCTZ DCed and K added 6. Cocaine user DW RN Subjective Subjective No events. No CP or SOB. In SR Objective Last 24 Hour Vital Signs Date Time Temp Pulse Resp B/P (MAP) Pulse Ox O2 Delivery O2 Flow Rate FiO2 05/24/20 12:00 96.7 52 19 134/69 (90) 98 05/24/20 09:44 74 164/91 05/24/20 09:00 Room Air 05/24/20 07:38 97.7 74 20 164/91 (115) 100 05/24/20 04:00 98.7 78 20 137/74 (95) 98 05/24/20 04:00 68 05/24/20 00:00 98.7 74 18 129/74 (92) 98 05/24/20 00:00 73 05/23/20 21:00 Room Air 05/23/20 20:39 75 138/78 05/23/20 20:00 72 05/23/20 20:00 98.7 74 22 138/74 (95) 98 05/23/20 16:00 97.8 74 20 150/92 (111) 97 74 Intake and Output 05/23/20 05/24/20 19:00 07:00 Intake Total 720 ml Balance 720 ml Intake Oral 720 ml Laboratory Tests Test 05/24/20 05:25 White Blood Count 2.6 K/UL (4.8-10.8) L Red Blood Count 4.64 M/UL (4.70-6.10) L Hemoglobin 12.9 G/DL (14.2-18.0) L Hematocrit 41.0 % (42.0-52.0) L Mean Corpuscular Volume 88 FL (80-99) Mean Corpuscular Hemoglobin 27.8 PG (27.0-31.0) Mean Corpuscular Hemoglobin Concent 31.5 G/DL (32.0-36.0) L Red Cell Distribution Width 16.5 % (11.6-14.8) H Platelet Count 166 K/UL (150-450) Mean Platelet Volume 9.0 FL (6.5-10.1) Neutrophils (%) (Auto) % (45.0-75.0) Lymphocytes (%) (Auto) % (20.0-45.0) Monocytes (%) (Auto) % (1.0-10.0) Eosinophils (%) (Auto) % (0.0-3.0) Basophils (%) (Auto) % (0.0-2.0) Differential Total Cells Counted 100 Neutrophils % (Manual) 38 % (45-75) L Lymphocytes % (Manual) 43 % (20-45) Monocytes % (Manual) 15 % (1-10) H Eosinophils % (Manual) 4 % (0-3) H Basophils % (Manual) 0 % (0-2) Band Neutrophils 0 % (0-8) Platelet Estimate Adequate Platelet Morphology Normal Anisocytosis 1+ Sodium Level 137 MMOL/L (136-145) Potassium Level 3.7 MMOL/L (3.5-5.1) Chloride Level 101 MMOL/L (98-107) Carbon Dioxide Level 26 MMOL/L (21-32) Anion Gap 10 mmol/L (5-15) Blood Urea Nitrogen 8 mg/dL (7-18) Creatinine 1.1 MG/DL (0.55-1.30) Estimat Glomerular Filtration Rate > 60 mL/min (>60) Glucose Level 121 MG/DL (74-106) H Calcium Level 8.2 MG/DL (8.5-10.1) L Objective HEAD AND NECK: no JVD. LUNGS: Coarse rhonchi. CARDIOVASCULAR: Tachycardic S1 and S2 with no gallop. ABDOMEN: Soft. EXTREMITIES: No pitting edema. Jose Angel Sal MD May 24, 2020 12:34
--- NOTE | 2020-05-24 13:33 | Consultation ---
History of Present Illness General Chief Complaint: Abdominal Pain Present Illness Allergies: Coded Allergies: No Known Allergies (Unverified , 12/05/12) Medication History Scheduled Albuterol Sulfate (Ventolin Hfa), 2 PUFFS INH EVERY 6 HOURS Dicyclomine Hcl* (Dicyclomine Hcl*), 10 MG ORAL TID Famotidine* (Pepcid 20mg tablet*), 20 MG ORAL DAILY Gabapentin* (Gabapentin*), Unknown Dose ORAL THREE TIMES A DAY, (Reported) Hydrochlorothiazide* (Hydrochlorothiazide*), 25 MG ORAL DAILY, (Reported) Lidocaine HCl 2% Viscous (Lidocaine HCl 2% Viscous), 5 ML ORAL QID Scheduled PRN Guaifenesin/Dextromethorphan* (Guaifenesin Dm Syrup*), 5 ML ORAL Q6H PRN for FOR COUGH Miscellaneous Medications ["Sleeping Pill"], (Reported) ["inhaler"], (Reported) [BP Pill "new"], (Reported) Discontinued Medications Azithromycin* (Zithromax*), 250 MG ORAL DAILY Discontinued Reason: Pt stopped taking med Guaifenesin* (Guaifenesin*), 15 ML ORAL Q6H Discontinued Reason: Pt stopped taking med Patient History Healthcare decision maker Resuscitation status Advanced Directive on File Physical Exam Last 24 Hour Vital Signs Date Time Temp Pulse Resp B/P (MAP) Pulse Ox O2 Delivery O2 Flow Rate FiO2 05/24/20 12:00 96.7 52 19 134/69 (90) 98 05/24/20 09:44 74 164/91 05/24/20 09:00 Room Air 05/24/20 07:38 97.7 74 20 164/91 (115) 100 05/24/20 04:00 98.7 78 20 137/74 (95) 98 05/24/20 04:00 68 05/24/20 00:00 98.7 74 18 129/74 (92) 98 05/24/20 00:00 73 05/23/20 21:00 Room Air 05/23/20 20:39 75 138/78 05/23/20 20:00 72 05/23/20 20:00 98.7 74 22 138/74 (95) 98 05/23/20 16:00 97.8 74 20 150/92 (111) 97 74 Intake and Output 05/23/20 05/24/20 19:00 07:00 Intake Total 720 ml Balance 720 ml Intake Oral 720 ml Laboratory Tests Test 05/24/20 05:25 White Blood Count 2.6 K/UL (4.8-10.8) L Red Blood Count 4.64 M/UL (4.70-6.10) L Hemoglobin 12.9 G/DL (14.2-18.0) L Hematocrit 41.0 % (42.0-52.0) L Mean Corpuscular Volume 88 FL (80-99) Mean Corpuscular Hemoglobin 27.8 PG (27.0-31.0) Mean Corpuscular Hemoglobin Concent 31.5 G/DL (32.0-36.0) L Red Cell Distribution Width 16.5 % (11.6-14.8) H Platelet Count 166 K/UL (150-450) Mean Platelet Volume 9.0 FL (6.5-10.1) Neutrophils (%) (Auto) % (45.0-75.0) Lymphocytes (%) (Auto) % (20.0-45.0) Monocytes (%) (Auto) % (1.0-10.0) Eosinophils (%) (Auto) % (0.0-3.0) Basophils (%) (Auto) % (0.0-2.0) Differential Total Cells Counted 100 Neutrophils % (Manual) 38 % (45-75) L Lymphocytes % (Manual) 43 % (20-45) Monocytes % (Manual) 15 % (1-10) H Eosinophils % (Manual) 4 % (0-3) H Basophils % (Manual) 0 % (0-2) Band Neutrophils 0 % (0-8) Platelet Estimate Adequate Platelet Morphology Normal Anisocytosis 1+ Sodium Level 137 MMOL/L (136-145) Potassium Level 3.7 MMOL/L (3.5-5.1) Chloride Level 101 MMOL/L (98-107) Carbon Dioxide Level 26 MMOL/L (21-32) Anion Gap 10 mmol/L (5-15) Blood Urea Nitrogen 8 mg/dL (7-18) Creatinine 1.1 MG/DL (0.55-1.30) Estimat Glomerular Filtration Rate > 60 mL/min (>60) Glucose Level 121 MG/DL (74-106) H Calcium Level 8.2 MG/DL (8.5-10.1) L Height (Feet): 5 Height (Inches): 8.00 Weight (Pounds): 183 Medications Current Medications Medications (Trade) Dose Ordered Sig/Tabby Route PRN Reason Start Time Stop Time Status Last Admin Dose Admin Clonidine HCl (Catapres Tab) 0.1 mg Q4H PRN ORAL sbp>170 05/22/20 15:45 08/20/20 15:44 05/23/20 04:59 Dextrose/Sodium Chloride 1,000 ml @ 60 mls/hr [id number] IV 05/22/20 18:30 06/21/20 18:29 05/22/20 19:37 Metoprolol Tartrate (Lopressor) 25 mg Q12HR ORAL 05/23/20 21:00 08/21/20 20:59 05/24/20 09:44 Morphine Sulfate (Morphine Sulfate) 2 mg Q4H PRN IVP For Pain 05/22/20 18:30 05/29/20 18:29 05/24/20 09:52 Ondansetron HCl (Zofran) 4 mg Q4H PRN IVP Nausea & Vomiting 05/22/20 18:30 06/21/20 18:29 Assessment/Plan Assessment/Plan: Hematology Consultation RELinda Jacinto RFC: Low platelets DOS 05/24/2020 HPI: 69-year-old male history of perforated gastric ulcer status post open repair presents for evaluation abdominal pain. Notes 2 days of worth concerning periumbilical and epigastric discomfort that he describes as cramping. Nonradiating. Reports nausea, several episodes of nonbloody nonbilious emesis. Reports loose stools, denies melena or hematochezia. Denies dysuria hematuria. Denies flank pain. He reports sweats and chills last night. Mild cough. Denies chest pain or shortness of breath. Denies recent alcohol use. Has been seen by gi and cards, recs are noted PMH: Ulcer, hypertension, COPD PSH: Open laparoscopy Allergies: None Social Hx: Social alcohol use Allergies: Coded Allergies: No Known Allergies (Unverified , 12/05/12) COVID-19 Screening Contact w/high risk pt: No Recent Travel to affected area: No Experienced COVID-19 symptoms?: Yes COVID-19 symptoms experienced: Cough COVID-19 Testing performed TAX TECHNICIAN: No Nursing Documentation-PMH Past Medical History: No History, Except For Hx Cardiac Problems: No Hx Hypertension: Yes Hx Pacemaker: No Hx Asthma: Yes Hx Diabetes: Yes Hx Cancer: No Hx Gastrointestinal Problems: No - Abdominal surgery 2014 Hx Dialysis: No Hx Neurological Problems: No Hx Cerebrovascular Accident: No Hx Seizures: No Review of Systems All Other Systems: negative except mentioned in HPI Physical Exam General: Awake and alert HEENT: NC/AT. EOMI. Cardiovascular: RRR. S1 and S2 normal. No murmur appreciated Resp: Normal work of breathing. No cough, wheezing or crackles appreciated Abdomen: Abdomen is soft, nondistended. periumbilical ttp Skin: Intact. No abrasions, laceration or rash over the exposed skin. Suergery scar c/d/i MSK: Normal tone and bulk. Moving all extremities. Neuro: Awake and alert. Mentating appropriately. labs noted Imagng reviewed Assessment and Recs # Leukopenia -- multiple etiologies could be related to underlying liver disease , medication-induced, infection versus viral syndrome --> peripheral smear has been ordered and does not show significant abnormalities --> Medications have been reviewed --> Continue to monitor for improvement, trend cbc --> Hep panel and HIV have been ordered --> ct ordered to r/o cirrhosis and hepatosplenomegaly -> with fatty infiltration --> reverse isolation if ANC is <2000 --> Give neupogen if ANC <1000 --> wbc 3.7-->3-->2.6 # Tachycardia --> ivfs has been started --> per renal, gi # Abdominal pain --> seen by gi, no scope --> on ppi # Cocaine use # Tiny fat-containing umbilical hernia, small renal cyst, fatty liver noted. # History of hypertension. Hydrochlorothiazide DCed for hypokalemia. --> On Lopressor 25 bid Appreciate consultation and dw Galo Hernandez MD May 24, 2020 13:33
--- NOTE | 2020-05-24 14:22 | NUR ---
*-*DISCHARGE PLAN*-* PATIENT HAS BEEN ACCEPTED WITH: [facility] P: [phone] S/ W JAYMIE, STATED THEY WILL SERVICE PATIENT UPON DISCHARGE.
--- NOTE | 2020-05-24 15:45 | NUR ---
NURSE NOTES: Pt discharged home. No s/s of acute distress. No c/o pain.Removed saline lock from right AC. Pt signed discharged paper. Discharge instruction given. Pt verbalized understanding. Pt was picked up by via private vehicle.
--- NOTE | 2020-05-25 22:15 | CDS Physician Query ---
PLEASE COMPLETE DOCUMENT BEFORE SIGNING Dear French Cortez.O. Date: 05/25/2020 CDI/CDS Name: Kg Edwards Exercise your independent professional judgment when responding to query. Question asked do not imply a particular answer is desired/expected. Clinical Documentation States: 69-year-old male, who lives at home, presents with abdominal pain, tachycardia, confusion, and diverticulosis., came to [facility], diagnosed with the above, admitted to telemetry for further care. Currently, calm in bed, slightly confused. ASSESSMENT: Abdominal pain, Tachycardia, Confusion, Diverticulosis, Hypertension. Clinical Findings Show: Vitals (05/22): Pulse 120, BP 169/124 Labs (05/22): Hemat: WBC 3.7, Neut% 80.8 Chem : 3.3, Creatinine 1.5, Glucose 136, Alk. Phosphatase 119 Toxicology: Urine Cocaine Screen : "Positive H" Medication: Ondansetron 4mg IV ( 05/22), Sodium Chloride 1000ml IV (05/22-05/24), Potassium Chloride 40meq (05/22-05/23) Please indicate the nature and chronicity of the condition below: [ ] Metabolic Encephalopathy [ ] Toxic Encephalopathy [ ] Toxic - Metabolic Encephalopathy [ ] Encephalopathy, Other [ ] Other: [ ] Not Applicable Condition Present on Admission: [] Yes [] No []Clinically Undeterminable Please also document in your Progress Notes and/or Discharge Summary and indicate if the condition was present on admission. MTDD
--- NOTE | 2020-05-26 11:26 | Discharge Summary ---
Discharge Summary Discharge Summary _ DATE OF ADMISSION: 05/22/2020 DATE OF DISCHARGE: 05/24/2020 DISCHARGED BY: Dr. Chas Jacinto CONSULTANTS: Dr. Galo Puente BRIEF HOSPITAL COURSE: Patient is a 69-year-old male, who lives from home, presented to ED due to abdominal pain, tachycardia, confusion and diverticulosis. Patient has a history of perforated gastric ulcer status post open repair. He noted 2 days periumbilical and epigastric discomfort described to be cramping and nonradiating. He reported nausea and several episodes of nonbloody, nonbilious emesis. Reported loose stools but denied melena or hematochezia. He denied dysuria or hematuria. He reported sweats and chills with mild cough. He denied chest pain or shortness of breath. Denied any recent alcohol use. Upon evaluation at ED, he was tachycardic but afebrile. There was no respiratory distress. IV access was established and he was given IV fluids and antiemetics. Blood work showed WBC 3.7. Hemoglobin and hematocrit were normal. Sodium 139. Potassium 3.3. Chloride 101. BUN 14. Creatinine 1.5. AST elevated to 106. ALT normal. Alkaline phosphatase 119. Troponin negative. Urinalysis showed 3+ protein, negative glucose, negative nitrite, negative leukocyte esterase. Urine toxicology positive for cocaine. EKG showed sinus tachycardia with normal axis, normal intervals, with anterior Q waves. Chest x-ray did not show any acute cardiopulmonary disease. Abdominal and pelvic CT with contrast did not show any evidence of acute pathology, however there was a previous demonstrated small duodenal diverticulum which appeared to be shrinking compared to previous scan. Tiny fat containing umbilical hernia, small renal cyst and fatty liver. He was given GI cocktail. Patient stated he was unable to eat for 2 days due to abdominal cramping. Patient was then admitted for further observation. He was admitted to monitored floor. Blood pressure at emergency room was elevated to 154/107. Patient was likewise tachycardic. He was hooked on pvc monitor. He was evaluated by furnace reliner. There was no evidence of atrial fibrillation. Thyroid screen was normal. He was continued on hydrochlorothiazide daily. He was evaluated by GI. Abdominal exam did not show any guarding, rebound or peritoneal sounds. Patient had soft, nontender abdomen with positive bowel sounds. He had stable hemoglobin. He was given proton pump inhibitors daily. He was initially on clear liquid diet. Diet was advanced. Patient presented with leukopenia. He was evaluated by nurse prn. Hepatitis panel and HIV screening were negative. Leukopenia could be related to liver disease. There was a drop in potassium level. Hydrochlorothiazide was eventually discontinued. He was given potassium supplement. He was started on Lopressor 25 mg twice daily. Patient had good blood pressure control. He was tolerating diet. He was eventually cleared for discharge home. FINAL DIAGNOSES: Confusion/encephalopathy Abdominal pain with history of perforated gastric ulcer Leukopenia, likely related to liver disease Sinus tachycardia Hypertension Hypokalemia Cocaine use Umbilical hernia DISPOSITION: Patient was discharged home with home health. DISCHARGE INSTRUCTIONS: Follow-up in a week. I have been assigned to complete a discharge summary on this account, I was not involved with the patient's management.--VIVIANA Winters Jacqueline Robles NP May 26, 2020 11:26
== END 2020-05-24 15:45 | disposition home or self-care (01) | DRG 391 ==
LOC: EMR 08:17 → EDBEDREQ 13:47 → 2E 14:02 → EDBEDREQ 16:34
DX: K57.90 Diverticulosis of intestine, part unspecified, without perforation or abscess without bleeding (principal); G92 Toxic encephalopathy; E87.6 Hypokalemia; I10 Essential (primary) hypertension; F14.10 Cocaine abuse, uncomplicated; K42.9 Umbilical hernia without obstruction or gangrene; R00.0 Tachycardia, unspecified; K76.9 Liver disease, unspecified; J44.9 Chronic obstructive pulmonary disease, unspecified
CPT/HCPCS: 36415; 71045; 74177; 80048; 80053; 80307; 81003; 83690; 83880; 84439; 84443; 84484; 85007; 85025; 86703; 86705; 86709; 86803; 87340; 93005; 93306; 96361; 96374; 96375; 99285; J2405; J7030; J8499

== ENCOUNTER 2020-06-27 17:38 | Emergency (ER) | payer MEDICARE, MEDICAID ==
[~2020-06-27] VITALS: Ht 172.7 cm; Wt 95.3 kg
--- NOTE | 2020-06-27 17:50 | NUR ---
ED Nurse Note: PT walked in to ED for C/O abd pain with N/V/D x 4 days.
[2020-06-27 17:52] VITALS: BP 140/80
[2020-06-27] MEDS ORDERED: Omnipaque-300 100ml vial INJ PRN (18:00)
[2020-06-27] MEDS ORDERED: HYDROmorphone 1mg/ml Carpuject IVP ONE (18:00)
--- NOTE | 2020-06-27 18:00 | NUR ---
ED Nurse Note: blood and urine sample collected and sent to lab
--- NOTE | 2020-06-27 18:04 | Emergency Room Report ---
History of Present Illness General Chief Complaint: Abdominal Pain Source: Patient Present Illness HPI [age]-year-old male history of hypertension, diabetes, cocaine abuse presents with generalized abdominal pain, diarrhea, nausea vomiting x3 days no blood, no known aggravating alleviating factors severity is moderate, constant patient states the same thing he had a few weeks ago patient states this time though he did not utilize any cocaine patient presents for evaluation and treatment no fevers no chills no chest pain or shortness of breath Allergies: Coded Allergies: No Known Allergies (Unverified , 12/05/12) COVID-19 Screening Contact w/high risk pt: No Recent Travel to affected area: No Experienced COVID-19 symptoms?: No COVID-19 symptoms experienced: Cough COVID-19 Testing performed TOBACCO GRADER: No Patient History Past Medical History: see triage record Social History: Reports: smoking - Smoker, drug use - Cocaine Reviewed Nursing Documentation: PMH: Agreed; PSxH: Agreed Nursing Documentation-PMH Hx Cardiac Problems: Yes Hx Hypertension: Yes Hx Pacemaker: No Hx Asthma: Yes Hx Diabetes: Yes Hx Cancer: No Hx Gastrointestinal Problems: No - Abdominal surgery 2014 Hx Dialysis: No Hx Neurological Problems: No Hx Cerebrovascular Accident: No Hx Seizures: No Review of Systems All Other Systems: negative except mentioned in HPI Physical Exam Vital Signs Date Time Temp Pulse Resp B/P (MAP) Pulse Ox O2 Delivery O2 Flow Rate FiO2 06/27/20 17:43 98.2 106 20 135/78 (97) 98 Room Air Sp02 EP Interpretation: reviewed, normal General Appearance: well appearing, no apparent distress, alert Head: normocephalic, atraumatic Eyes: bilateral eye PERRL, bilateral eye EOMI ENT: uvula midline, moist mucus membranes Neck: supple, thyroid normal, supple/symm/no masses Respiratory: lungs clear, no respiratory distress, no retraction, no accessory muscle use Cardiovascular #1: normal peripheral pulses, regular rate, rhythm, no edema, no gallop, no murmur Gastrointestinal: soft, no guarding, no rebound, tenderness - Diffuse tenderness no rebound no guarding Musculoskeletal: normal inspection Neurologic: alert, oriented x3 Psychiatric: mood/affect normal Skin: no rash, warm/dry Medical Decision Making Diagnostic Impression: Primary Impression: Abdominal pain Qualified Codes: R10.9 - Unspecified abdominal pain Additional Impression: Colitis ER Course 69-year-old male presents with generalized abdominal pain, diarrhea nausea and vomiting, differential diagnosis includes appendicitis, colitis, gastroenteritis abdomen mildly tender diffusely no rebound no guarding, patient given fluids, CT scan shows colitis no evidence of appendicitis, lactic is elevated in the setting of dehydration patient given a liter of fluids, no indications for acute antibiotics white count is normal Repeat abdominal exam 750pm patient is feeling better on the soft nontender Patient states he wants to sleep a little longer until his can pick him up Supportive care strict return precautions were discussed follow-up with PCP Laboratory Tests Test 06/27/20 18:00 White Blood Count 5.4 K/UL (4.8-10.8) Red Blood Count 4.62 M/UL (4.70-6.10) L Hemoglobin 13.7 G/DL (14.2-18.0) L Hematocrit 41.4 % (42.0-52.0) L Mean Corpuscular Volume 90 FL (80-99) Mean Corpuscular Hemoglobin 29.7 PG (27.0-31.0) Mean Corpuscular Hemoglobin Concent 33.1 G/DL (32.0-36.0) Red Cell Distribution Width 15.6 % (11.6-14.8) H Platelet Count 188 K/UL (150-450) Mean Platelet Volume 8.5 FL (6.5-10.1) Neutrophils (%) (Auto) 54.8 % (45.0-75.0) Lymphocytes (%) (Auto) 27.2 % (20.0-45.0) Monocytes (%) (Auto) 14.3 % (1.0-10.0) H Eosinophils (%) (Auto) 1.5 % (0.0-3.0) Basophils (%) (Auto) 2.2 % (0.0-2.0) H Prothrombin Time 10.5 SEC (9.30-11.50) Prothrombin Time INR 0.9 (0.9-1.1) Activated Partial Thromboplast Time 29 SEC (23-33) Urine Color Pale yellow Urine Appearance Clear Urine pH 6 (4.5-8.0) Urine Specific [place] 1.010 (1.005-1.035) Urine Protein 2+ (NEGATIVE) H Urine Glucose (UA) Negative (NEGATIVE) Urine Ketones Negative (NEGATIVE) Urine Blood Negative (NEGATIVE) Urine Nitrite Negative (NEGATIVE) Urine Bilirubin Negative (NEGATIVE) Urine Urobilinogen Normal MG/DL (0.0-1.0) Urine Leukocyte Esterase Negative (NEGATIVE) Urine RBC 0 /HPF (0 - 0) Urine WBC 0-2 /HPF (0 - 0) Urine Squamous Epithelial Cells None /LPF (NONE/OCC) Urine Bacteria Few /HPF (NONE) Sodium Level 138 MMOL/L (136-145) Potassium Level 3.2 MMOL/L (3.5-5.1) L Chloride Level 99 MMOL/L (98-107) Carbon Dioxide Level 28 MMOL/L (21-32) Anion Gap 11 mmol/L (5-15) Blood Urea Nitrogen 12 mg/dL (7-18) Creatinine 1.3 MG/DL (0.55-1.30) Estimated Glomerular Filtration Rate > 60 mL/min (>60) Glucose Level 100 MG/DL (74-106) Lactic Acid Level 2.20 mmol/L (0.4-2.0) H Calcium Level 9.8 MG/DL (8.5-10.1) Total Bilirubin 0.2 MG/DL (0.2-1.0) Aspartate Amino Transferase (AST) 79 U/L (15-37) H Alanine Aminotransferase (ALT) 58 U/L (12-78) Alkaline Phosphatase 110 U/L (46-116) Troponin I 0.000 ng/mL (0.000-0.056) Total Protein 8.4 G/DL (6.4-8.2) H Albumin 4.0 G/DL (3.4-5.0) Globulin 4.4 g/dL Albumin/Globulin Ratio 0.9 (1.0-2.7) L Lipase 259 U/L (73-393) Urine Opiates Screen Negative (NEGATIVE) Urine Barbiturates Screen Negative (NEGATIVE) Phencyclidine (PCP) Screen Negative (NEGATIVE) Urine Amphetamines Screen Negative (NEGATIVE) Urine Benzodiazepines Screen Negative (NEGATIVE) Urine Cocaine Screen Positive (NEGATIVE) H Urine Marijuana (THC) Screen Negative (NEGATIVE) EKG Diagnostic Results EKG Time: 18:03 EP Interpretation: NSR, rate 98, QTc 480, no acute ST elevations, normal axis Rhythm Strip Diag. Results Rhythm Strip Time: 18:10 EP Interpretation: yes Rate: 100 Rhythm: NSR, no PVC's, no ectopy Chest X-Ray Diagnostic Results Chest X-Ray Diagnostic Results : Chest X-Ray Ordered: Yes # of Views/Limited/Complete: 1 View Indication: Other - Abdominal pain EP Interpretation: Yes Interpretation: no consolidation, no effusion, no pneumothorax, no acute cardiopulmonary disease Impression: No acute disease Electronically Signed by: Pastor Jones MD CT/MRI/US Diagnostic Results CT/MRI/US Diagnostic Results : Impression Final Report EXAM: CT Abdomen and Pelvis With Intravenous Contrast CLINICAL HISTORY: ABD PAIN. generalized abdominal pain, diarrhea, nausea vomiting TECHNIQUE: Axial computed tomographyimages of the abdomen and pelviswith intravenous contrast. CTDI is 6 mGyand DLP is 315 mGy-cm. One or more of the following dose reduction techniqueswere used: automated exposure control, adjustment of the mAand/or kVaccording to patient size, use of iterative reconstruction technique. COMPARISON: 05/22/2020. FINDINGS: Lung bases:Unremarkable. ABDOMEN: Liver:Hepatic steatosis. Gallbladder and bile ducts:Unremarkable. No calcified stones. Pancreas:Unremarkable. Spleen:Unremarkable. Adrenals:Unremarkable. Kidneys and ureters:Unremarkable. No hydronephrosis. Stomach and bowel:Diffuse colonic thickening concerning for colitis. No pneumatosis or free air. No bowel obstruction or diverticulitis. PELVIS: Appendix:No findings to suggest acute appendicitis. Bladder:Unremarkable. Reproductive:Unremarkable as visualized. ABDOMEN and PELVIS: Intraperitoneal space:No free air. Bones/joints:No acute fracture. Soft tissues: Small umbilical fat hernia. Vasculature:Unremarkable. Lymph nodes:Unremarkable. IMPRESSION: Diffuse colonic thickening concerning for colitis. No pneumatosis or free air. No bowel obstruction or diverticulitis. Radiologist: Jc Pond M.D. Electronically Signed: 06/27/20 19:42 Phone: Study ready at 19:32 and initial results transmitted at 19:42 Last Vital Signs Date Time Temp Pulse Resp B/P (MAP) Pulse Ox O2 Delivery O2 Flow Rate FiO2 06/27/20 17:52 102 18 Room Air 06/27/20 17:52 98.2 140/80 98 Disposition: HOME, SELF-CARE Condition: Stable Scripts Dicyclomine Hcl* (DICYCLOMINE HCL*) 10 Mg Capsule 10 MG ORAL QID PRN for Abdominal cramps, #20 CAP Prov: Pastor Jones MD 06/27/20 Ondansetron (Zofran) 4 Mg Tablet 4 MG ORAL Q8H PRN for Nausea & Vomiting, #10 TAB 0 Refills Prov: Pastor Jones MD 06/27/20 Referrals: [facility] Patient Instructions: Colitis Additional Instructions: The patient was provided with discharge instructions, notified to follow-up with a primary care doctor and or specialist in the next 24-48 hours, and to return to the ED if they have worsening of their symptoms. Please note that this report is being documented using [employer] technology. This can lead to erroneous entry secondary to incorrect interpretation by the dictating instrument. Pastor Jones MD Jun 27, 2020 18:04
[2020-06-27 18:42] LABS: INR 0.9 (0.9-1.1)
[2020-06-27 18:44] LABS: APPEARANCE,URINE CLEAR; BILIRUBIN, URINE NEGATIVE (NEGATIVE); COLOR,URINE PALE YELLOW; GLUCOSE, URINE (UA) NEGATIVE (NEGATIVE); KETONES,URINE NEGATIVE (NEGATIVE); LEUKOCYTE ESTERASE ,URINE NEGATIVE (NEGATIVE); NITRITE,URINE NEGATIVE (NEGATIVE); PH,URINE 6 (4.5-8.0); PROTEIN,URINE 2+ (NEGATIVE); UROBILINOGEN,URINE NORMAL MG/DL (0.0-1.0)
[2020-06-27 18:45] LABS: BASOPHILS % (AUTO) 2.2 % (0.0-2.0); EOSINOPHILS % (AUTO) 1.5 % (0.0-3.0); HEMATOCRIT 41.4 % (42.0-52.0); HEMOGLOBIN 13.7 G/DL (14.2-18.0); LYMPHOCYTES % (AUTO) 27.2 % (20.0-45.0); MEAN CORPUSCULAR VOLUME 90 FL (80-99); MONOCYTES % (AUTO) 14.3 % (1.0-10.0); NEUTROPHILS % (AUTO) 54.8 % (45.0-75.0); PLATELET COUNT 188 K/UL (150-450); RED BLOOD COUNT 4.62 M/UL (4.70-6.10); RED CELL DISTRIBUTION WIDTH 15.6 % (11.6-14.8); WHITE BLOOD COUNT 5.4 K/UL (4.8-10.8)
[2020-06-27 18:46] LABS: ANION GAP 11 mmol/L (5-15); BLOOD UREA NITROGEN 12 mg/dL (7-18); CALCIUM 9.8 MG/DL (8.5-10.1); CARBON DIOXIDE 28 MMOL/L (21-32); CHLORIDE 99 MMOL/L (98-107); CREATININE 1.3 MG/DL (0.55-1.30); POTASSIUM 3.2 MMOL/L (3.5-5.1); SODIUM 138 MMOL/L (136-145)
[2020-06-27 18:51] LABS: ALANINE AMINOTRANSFERASE 58 U/L (12-78); ALBUMIN/GLOBULIN RATIO 0.9 (1.0-2.7); ALKALINE PHOSPHATASE 110 U/L (46-116); ASPARTATE AMINO TRANSFERASE 79 U/L (15-37); BILIRUBIN,TOTAL 0.2 MG/DL (0.2-1.0)
--- NOTE | 2020-06-27 19:00 | NUR ---
ED Nurse Note: Report given to MARY Mo. Endorced plan of care
[2020-06-27 19:30] VITALS: BP 136/79
--- NOTE | 2020-06-27 19:30 | NUR ---
ED Nurse Note: received patient resting in bed with no signs of acute distress. ao4. denies any pain at this time. reflex lactic drawn; sent down to lab. all safety measures met.
--- NOTE | 2020-06-27 19:43 | Diagnostic Imaging Report ---
EXAM: CT Abdomen and Pelvis With Intravenous Contrast CLINICAL HISTORY: ABD PAIN. generalized abdominal pain, diarrhea, nausea vomiting TECHNIQUE: Axial computed tomography images of the abdomen and pelvis with intravenous contrast. CTDI is 6 mGy and DLP is 315 mGy-cm. One or more of the following dose reduction techniques were used: automated exposure control, adjustment of the mA and/or kV according to patient size, use of iterative reconstruction technique. COMPARISON: 05/22/2020. FINDINGS: Lung bases: Unremarkable. ABDOMEN: Liver: Hepatic steatosis. Gallbladder and bile ducts: Unremarkable. No calcified stones. Pancreas: Unremarkable. Spleen: Unremarkable. Adrenals: Unremarkable. Kidneys and ureters: Unremarkable. No hydronephrosis. Stomach and bowel: Diffuse colonic thickening concerning for colitis. No pneumatosis or free air. No bowel obstruction or diverticulitis. PELVIS: Appendix: No findings to suggest acute appendicitis. Bladder: Unremarkable. Reproductive: Unremarkable as visualized. ABDOMEN and PELVIS: Intraperitoneal space: No free air. Bones/joints: No acute fracture. Soft tissues: Small umbilical fat hernia. Vasculature: Unremarkable. Lymph nodes: Unremarkable. IMPRESSION: Diffuse colonic thickening concerning for colitis. No pneumatosis or free air. No bowel obstruction or diverticulitis.
[2020-06-27] MEDS ORDERED: ZOFRAN4 MG ORAL (19:59)
[2020-06-27] MEDS ORDERED: DICYCLOMINE HCL10 MG ORAL (19:59)
[2020-06-27 20:00] VITALS: BP 135/80
--- NOTE | 2020-06-27 20:05 | NUR ---
ER DISCHARGE NOTE: Patient is cleared to be discharged per ERMD, pt is aox4, on room air, with stable vital signs. pt was given dc and prescription instructions, pt was able to verbalize understanding, pt id band and iv site removed without complications. pt is able to ambulate with steady gait. pt took all belongings. patient left with .
--- NOTE | 2020-06-28 13:11 | Diagnostic Imaging Report ---
Procedure: XRAY Chest 1v Reason for study: Chest pain Comparison films: None. FINDINGS: A single one view chest is obtained. Vascularity is normal. Minimal atelectasis left lung base. Cardiac and mediastinal silhouette are within normal limits. CP angles are sharp. The bony thorax appear unremarkable. IMPRESSION: Minimal left basilar atelectasis.
== END 2020-06-27 20:08 | disposition home or self-care (01) ==
LOC: EMR 18:11
DX: K52.9 Noninfective gastroenteritis and colitis, unspecified (principal); R10.84 Generalized abdominal pain; I10 Essential (primary) hypertension; J45.909 Unspecified asthma, uncomplicated; E11.9 Type 2 diabetes mellitus without complications
CPT/HCPCS: 36415; 71045; 74177; 80053; 80307; 81003; 83605; 83690; 84484; 85025; 85610; 85730; 93005; 96361; 96374; 96375; 99284; J1170; J2405; Q9967

== ENCOUNTER 2020-06-30 15:30 | Inpatient (IN) | payer MEDICARE, MEDICAID ==
[~2020-06-30] VITALS: Ht 172.7 cm; Wt 34.5 kg
[~2020-06-30 15:30] MED LIST changes: +ZOFRAN4 MG ORAL
--- NOTE | 2020-06-30 15:50 | Emergency Room Report ---
History of Present Illness General Chief Complaint: Abdominal Pain Source: Patient Present Illness HPI Disclaimer: Please note that this report is being documented using [employer] technology. This can lead to erroneous entry secondary to incorrect interpretation by the dictating instrument. HPI: 69-year-old male with history of prior perforated ulcer status post open repair, hypertension, chronic substance abuse presents for evaluation of abdominal pain. Seen in the emergency department several days prior. He reports 5 days of diarrhea and abdominal cramping. CT scan showed mild colitis and patient was discharged on Bentyl and antacids. States he has been taking them with no significant improvement. The diarrhea is purely water. He states he is going to the bathroom over 10 times a day. Denies nausea or vomiting. Denies bloody stools but did notice some bright red blood on the tissue from repeated trips to the bathroom. Denies history of hemorrhoids. Denies dysuria or hematuria. He also notes a nonproductive cough for the past week. Denies fevers or chills. Denies chest pain or palpitations. Reports recent alcohol and cocaine use. PMH: Perforated ulcer, substance abuse, hypertension PSH: Perforated gastric ulcer repair, open repair Allergies: None reported Social Hx: Regular alcohol use, regular cocaine use Allergies: Coded Allergies: No Known Allergies (Unverified , 12/05/12) COVID-19 Screening Contact w/high risk pt: No Recent Travel to affected area: No Experienced COVID-19 symptoms?: Yes COVID-19 symptoms experienced: Cough COVID-19 Testing performed INVESTMENT ASSOCIATE: Yes COVID-19 Screening: Negative COVID-19 COVID-19 Testing Source: 1 month ago Nursing Documentation-PMH Past Medical History: No History, Except For Hx Cardiac Problems: Yes - murmur Hx Hypertension: Yes Hx Pacemaker: No Hx Asthma: Yes Hx Diabetes: Yes Hx Cancer: No Hx Gastrointestinal Problems: No - Abdominal surgery 2015 Hx Dialysis: No Hx Neurological Problems: No Hx Cerebrovascular Accident: No Hx Seizures: No Physical Exam Vital Signs Date Time Temp Pulse Resp B/P (MAP) Pulse Ox O2 Delivery O2 Flow Rate FiO2 06/30/20 15:36 98.4 90 16 137/85 (102) 98 Room Air Procedures Critical Care Time Critical Care Time Total critical care time: Approximately 45 minutes Due to a high probability of clinically significant, life threatening deterioration, the patient required the highest level of preparedness to intervene emergently and I personally spent this critical care time directly and personally managing the patient. This critical care time included obtaining a history, examining the patient, pulse oximetry, ordering and reviewing studies , ordering treatments, evaluating response to treatment and updating management plan as needed, frequent reassessment and discussion with other providers as well as arranging for ultimate disposition. This critical to care time was performed to assess and manage the high probability of life-threatening deterioration that could result in multiorgan failure. This critical care time is separate from the separately billable procedures and treating other patients. Medical Decision Making Diagnostic Impression: Primary Impression: Abdominal pain Additional Impressions: Alcohol abuse Pancreatitis Colitis Hypokalemia ER Course 69-year-old male history of perforated ulcer status post repair, substance use disorder, presents for evaluation of persistent abdominal pain. Differential includes but is not limited to colitis, gastritis, gastroenteritis, ulcer, pancreatitis, hepatitis, UTI, dehydration, electrolyte abnormality to name a few. IV access established, patient given IV fluids, broad labs sent. Labs show low white cells, adequate hemoglobin, low potassium at 2.8 with normal renal and hepatic function. Lipase elevated 403 as is alcohol consistent with patient's history of use. Unable to obtain urine thus far. No acute findings on EKG. Given the patient's recent CT scan and rather benign abdominal exam I did not repeat CT scan at this time. Patient receiving IV and oral potassium. He will be admitted for further evaluation and treatment. Admitted to panel physician, Dr. Cadet. Laboratory Tests Test 06/30/20 16:07 White Blood Count 3.9 K/UL (4.8-10.8) L Red Blood Count 4.37 M/UL (4.70-6.10) L Hemoglobin 12.7 G/DL (14.2-18.0) L Hematocrit 38.8 % (42.0-52.0) L Mean Corpuscular Volume 89 FL (80-99) Mean Corpuscular Hemoglobin 29.0 PG (27.0-31.0) Mean Corpuscular Hemoglobin Concent 32.7 G/DL (32.0-36.0) Red Cell Distribution Width 15.3 % (11.6-14.8) H Platelet Count 217 K/UL (150-450) Mean Platelet Volume 7.3 FL (6.5-10.1) Neutrophils (%) (Auto) 47.3 % (45.0-75.0) Lymphocytes (%) (Auto) 34.9 % (20.0-45.0) Monocytes (%) (Auto) 13.5 % (1.0-10.0) H Eosinophils (%) (Auto) 1.9 % (0.0-3.0) Basophils (%) (Auto) 2.5 % (0.0-2.0) H Sodium Level 140 MMOL/L (136-145) Potassium Level 2.8 MMOL/L (3.5-5.1) L Chloride Level 104 MMOL/L (98-107) Carbon Dioxide Level 26 MMOL/L (21-32) Anion Gap 11 mmol/L (5-15) Blood Urea Nitrogen 11 mg/dL (7-18) Creatinine 1.3 MG/DL (0.55-1.30) Estimated Glomerular Filtration Rate > 60 mL/min (>60) Glucose Level 127 MG/DL (74-106) H Calcium Level 8.1 MG/DL (8.5-10.1) L Total Bilirubin 0.6 MG/DL (0.2-1.0) Aspartate Amino Transferase (AST) 126 U/L (15-37) H Alanine Aminotransferase (ALT) 65 U/L (12-78) Alkaline Phosphatase 101 U/L (46-116) Total Protein 7.4 G/DL (6.4-8.2) Albumin 3.5 G/DL (3.4-5.0) Globulin 3.9 g/dL Albumin/Globulin Ratio 0.9 (1.0-2.7) L Lipase 403 U/L (73-393) H Serum Alcohol 240 mg/dL EKG Diagnostic Results EKG Time: 18:31 Rate: normal Rhythm: NSR ST Segments: no acute changes Other Impression Sinus rhythm, normal axis, normal intervals, no ST segment changes. Rhythm Strip Diag. Results Rhythm Strip Time: 18:31 EP Interpretation: yes Rate: 81 Rhythm: NSR, no PVC's, no ectopy Last Vital Signs Date Time Temp Pulse Resp B/P (MAP) Pulse Ox O2 Delivery O2 Flow Rate FiO2 06/30/20 15:36 98.4 90 16 137/85 (102) 98 Room Air Disposition: ADMITTED INPATIENT Condition: Serious Jose Oliver MD Jun 30, 2020 15:50
[2020-06-30 16:33] LABS: BASOPHILS % (AUTO) 2.5 % (0.0-2.0); EOSINOPHILS % (AUTO) 1.9 % (0.0-3.0); HEMATOCRIT 38.8 % (42.0-52.0); HEMOGLOBIN 12.7 G/DL (14.2-18.0); LYMPHOCYTES % (AUTO) 34.9 % (20.0-45.0); MEAN CORPUSCULAR VOLUME 89 FL (80-99); MONOCYTES % (AUTO) 13.5 % (1.0-10.0); NEUTROPHILS % (AUTO) 47.3 % (45.0-75.0); PLATELET COUNT 217 K/UL (150-450); RED BLOOD COUNT 4.37 M/UL (4.70-6.10); RED CELL DISTRIBUTION WIDTH 15.3 % (11.6-14.8); WHITE BLOOD COUNT 3.9 K/UL (4.8-10.8)
--- NOTE | 2020-06-30 16:44 | Diagnostic Imaging Report ---
EXAM: XR Chest, 1 View CLINICAL HISTORY: COUGH TECHNIQUE: Frontal view of the chest. COMPARISON: 06/27/20. FINDINGS: Lungs: Minimal basilar atelectasis again noted No consolidation. Pleural space: Unremarkable. No pneumothorax. Heart: Unremarkable. No cardiomegaly. Mediastinum: Unremarkable. Bones/joints: Unremarkable. IMPRESSION: No evidence of acute pulmonary disease
[2020-06-30 16:53] LABS: ALANINE AMINOTRANSFERASE 65 U/L (12-78); ALBUMIN 3.5 G/DL (3.4-5.0); ALBUMIN/GLOBULIN RATIO 0.9 (1.0-2.7); ALKALINE PHOSPHATASE 101 U/L (46-116); ANION GAP 11 mmol/L (5-15); ASPARTATE AMINO TRANSFERASE 126 U/L (15-37); BILIRUBIN,TOTAL 0.6 MG/DL (0.2-1.0); BLOOD UREA NITROGEN 11 mg/dL (7-18); CALCIUM 8.1 MG/DL (8.5-10.1); CARBON DIOXIDE 26 MMOL/L (21-32); CHLORIDE 104 MMOL/L (98-107); CREATININE 1.3 MG/DL (0.55-1.30); POTASSIUM 2.8 MMOL/L (3.5-5.1); SODIUM 140 MMOL/L (136-145)
[2020-06-30 16:54] VITALS: BP 145/82
[2020-06-30] MEDS ORDERED: IBUPROFEN600 M1 ORAL (17:29)
[2020-06-30] MEDS ORDERED: LORazepam Inj 2mg/ml 1ml IV PRN (18:00)
[2020-06-30] MEDS ORDERED: Albuterol/Ipratropium 3ml neb HHN PRN (18:00)
[2020-06-30 19:07] VITALS: BP 142/80
[2020-06-30 21:04] LABS: APPEARANCE,URINE CLEAR; BILIRUBIN, URINE NEGATIVE (NEGATIVE); COLOR,URINE PALE YELLOW; GLUCOSE, URINE (UA) NEGATIVE (NEGATIVE); KETONES,URINE NEGATIVE (NEGATIVE); LEUKOCYTE ESTERASE ,URINE NEGATIVE (NEGATIVE); NITRITE,URINE NEGATIVE (NEGATIVE); PH,URINE 5 (4.5-8.0); PROTEIN,URINE NEGATIVE (NEGATIVE); UROBILINOGEN,URINE NORMAL MG/DL (0.0-1.0)
[2020-06-30] MEDS: NS w/KCl 20mEq 1000ml 1,000 ML IV SCH (21:23)
[2020-06-30] MEDS: Heparin 5000 units/ml inj SUBQ SCH (21:25)
[2020-06-30 21:45] VITALS: BP 139/84
[2020-06-30 22:00] VITALS: BP 154/96
[2020-07-01] VITALS: BP 151/88
[2020-07-01 04:00] VITALS: BP 155/90
[2020-07-01] MEDS ORDERED: Albuterol 90mcg Inhaler 8gm INH PRN (05:00)
[2020-07-01] MEDS ORDERED: guaiFENesin /DM 10ml syrup ORAL PRN (05:00)
[2020-07-01] MEDS: NS w/KCl 20mEq 1000ml 1,000 ML IV SCH ×4 (06:19→18:43)
[2020-07-01 06:41] LABS: HEMATOCRIT 38.2 % (42.0-52.0); HEMOGLOBIN 12.2 G/DL (14.2-18.0); MEAN CORPUSCULAR VOLUME 90 FL (80-99); PLATELET COUNT 202 K/UL (150-450); RED BLOOD COUNT 4.25 M/UL (4.70-6.10); RED CELL DISTRIBUTION WIDTH 14.9 % (11.6-14.8); WHITE BLOOD COUNT 2.8 K/UL (4.8-10.8)
[2020-07-01] MEDS: Hydromorphone 0.5mg/0.5ml inj IVP PRN ×2 (06:46→20:54)
[2020-07-01 07:21] LABS: ALANINE AMINOTRANSFERASE 64 U/L (12-78); ALBUMIN 3.3 G/DL (3.4-5.0); ALBUMIN/GLOBULIN RATIO 0.9 (1.0-2.7); ALKALINE PHOSPHATASE 100 U/L (46-116); ANION GAP 12 mmol/L (5-15); ASPARTATE AMINO TRANSFERASE 146 U/L (15-37); BILIRUBIN,TOTAL 0.5 MG/DL (0.2-1.0); BLOOD UREA NITROGEN 9 mg/dL (7-18); CALCIUM 7.9 MG/DL (8.5-10.1); CARBON DIOXIDE 23 MMOL/L (21-32); CHLORIDE 106 MMOL/L (98-107); CREATININE 1.2 MG/DL (0.55-1.30); POTASSIUM 3.4 MMOL/L (3.5-5.1); SODIUM 141 MMOL/L (136-145)
[2020-07-01] MEDS: Dicyclomine 10mg Cap ORAL SCH ×3 (07:36→17:10)
[2020-07-01 08:00] VITALS: BP 153/82
[2020-07-01] MEDS ORDERED: hydroCHLOROthiazide 25mg cap ORAL SCH (09:00)
[2020-07-01] MEDS: Heparin 5000 units/ml inj SUBQ SCH ×2 (09:10→20:45)
--- NOTE | 2020-07-01 09:39 | Consultation ---
History of Present Illness General Chief Complaint: Abdominal Pain Present Illness HPI 69-year-old male with history of prior perforated ulcer status post open repair , hypertension, chronic substance abuse presents for evaluation of abdominal pain. Seen in the emergency department several days prior. He reports 5 days of diarrhea and abdominal cramping. CT scan showed mild colitis and patient was discharged on Bentyl and antacids. States he has been taking them with no significant improvement. The diarrhea is purely water. He states he is going to the bathroom over 10 times a day. Denies nausea or vomiting. Denies bloody stools but did notice some bright red blood on the tissue from repeated trips to the bathroom. Denies history of hemorrhoids. Denies dysuria or hematuria. He also notes a nonproductive cough for the past week. Denies fevers or chills. Denies chest pain or palpitations. Reports recent alcohol and cocaine use Allergies: Coded Allergies: No Known Allergies (Unverified , 12/05/12) Medication History Scheduled Albuterol Sulfate (Ventolin Hfa), 2 PUFFS INH EVERY 6 HOURS Dicyclomine Hcl* (Dicyclomine Hcl*), 10 MG ORAL TID Famotidine* (Pepcid 20mg tablet*), 20 MG ORAL DAILY Gabapentin* (Gabapentin*), 100 ORAL TWICE A DAY, (Reported) Hydrochlorothiazide* (Hydrochlorothiazide*), 25 MG ORAL DAILY, (Reported) Lidocaine HCl 2% Viscous (Lidocaine HCl 2% Viscous), 5 ML ORAL QID Scheduled PRN Dicyclomine Hcl* (Dicyclomine Hcl*), 10 MG ORAL QID PRN for Abdominal cramps Guaifenesin/Dextromethorphan* (Guaifenesin Dm Syrup*), 5 ML ORAL Q6H PRN for FOR COUGH Ondansetron (Zofran), 4 MG ORAL Q8H PRN for Nausea & Vomiting Miscellaneous Medications ["Sleeping Pill"], (Reported) ["inhaler"], (Reported) [BP Pill "new"], (Reported) Discontinued Medications Ibuprofen* (Motrin*), 800 MG ORAL TWICE A DAY, (Reported) Discontinued Reason: MD discontinued med Patient History Healthcare decision maker Resuscitation status Advanced Directive on File Review of Systems Eye: Denies: no symptoms, see HPI, eye pain, blurred vision, tearing, double vision, nose pain, nose congestion, acuity changes, discharge, other ENT: Denies: no symptoms, see HPI, ear pain, ear discharge, nose pain, nose congestion, throat pain, throat swelling, mouth pain, hearing loss, nasal discharge, other Cardiovascular: Denies: no symptoms, see HPI, chest pain, edema, palpitations, syncope, PND, other Gastrointestinal: Reports: abdominal pain, nausea, vomiting Genitourinary: Denies: no symptoms, see HPI, discharge, dysuria, frequency, hematuria, pain, retention, incontinence, urgency, vag bleed/dc, other Musculoskeletal: Denies: no symptoms, see HPI, back pain, gout, joint pain, joint swelling, muscle pain, muscle stiffness, other Skin: Denies: no symptoms, see HPI, rash, change in color, change in hair/nails , dryness, lesions, other Psychiatric: Denies: no symptoms, see HPI, prior hx, anxiety, depressed feelings, emotional problems, SI, HI, hallucinations, other Neurological: Denies: no symptoms, see HPI, headache, numbness, paresthesia, seizure, tingling, tremors, focal weakness, syncope, dizziness, other Endocrine: Denies: no symptoms, see HPI, excessive sweating, flushing, intolerance to temperature, increased thirst, increased urine, unexplained weight loss, other Hematologic/Lymphatic: Denies: no symptoms, see HPI, anemia, blood clots, easy bleeding, easy bruising, swollen glands, diathesis, other Physical Exam General Appearance: no apparent distress, alert Lines, tubes and drains: peripheral HEENT: normocephalic, atraumatic, anicteric Neck: non-tender, normal alignment Respiratory/Chest: lungs clear, normal breath sounds, no respiratory distress Cardiovascular/Chest: normal peripheral pulses, normal rate, regular rhythm Abdomen: soft, tender Extremities: no edema, no cyanosis Neurologic: alert, oriented x 3 Last 24 Hour Vital Signs Date Time Temp Pulse Resp B/P (MAP) Pulse Ox O2 Delivery O2 Flow Rate FiO2 07/01/20 08:00 97.5 82 17 153/82 (105) 98 07/01/20 08:00 82 07/01/20 07:16 98.0 07/01/20 04:00 83 07/01/20 04:00 98.0 83 20 155/90 (111) 97 07/01/20 00:00 98.1 88 20 151/88 (109) 97 07/01/20 00:00 87 07/01/20 00:00 81 87 79 06/30/20 22:00 Room Air 06/30/20 22:00 97.9 81 21 154/96 (115) 99 06/30/20 22:00 98.4 83 16 140/85 98 Room Air 06/30/20 21:45 98.4 82 14 139/84 98 Room Air 06/30/20 21:00 85 06/30/20 19:07 98.4 84 16 142/80 98 Room Air 06/30/20 16:54 98.4 82 16 145/82 98 Room Air 06/30/20 15:55 90 16 Room Air 06/30/20 15:36 98.4 90 16 137/85 (102) 98 Room Air Intake and Output 06/30/20 07/01/20 19:00 07:00 Intake Total 500 ml Balance 500 ml Intake IV Total 500 ml Laboratory Tests Test 06/30/20 16:07 06/30/20 20:30 07/01/20 05:45 White Blood Count 3.9 K/UL (4.8-10.8) L 2.8 K/UL (4.8-10.8) L Red Blood Count 4.37 M/UL (4.70-6.10) L 4.25 M/UL (4.70-6.10) L Hemoglobin 12.7 G/DL (14.2-18.0) L 12.2 G/DL (14.2-18.0) L Hematocrit 38.8 % (42.0-52.0) L 38.2 % (42.0-52.0) L Mean Corpuscular Volume 89 FL (80-99) 90 FL (80-99) Mean Corpuscular Hemoglobin 29.0 PG (27.0-31.0) 28.7 PG (27.0-31.0) Mean Corpuscular Hemoglobin Concent 32.7 G/DL (32.0-36.0) 32.0 G/DL (32.0-36.0) Red Cell Distribution Width 15.3 % (11.6-14.8) H 14.9 % (11.6-14.8) H Platelet Count 217 K/UL (150-450) 202 K/UL (150-450) Mean Platelet Volume 7.3 FL (6.5-10.1) 7.3 FL (6.5-10.1) Neutrophils (%) (Auto) 47.3 % (45.0-75.0) % (45.0-75.0) Lymphocytes (%) (Auto) 34.9 % (20.0-45.0) % (20.0-45.0) Monocytes (%) (Auto) 13.5 % (1.0-10.0) H % (1.0-10.0) Eosinophils (%) (Auto) 1.9 % (0.0-3.0) % (0.0-3.0) Basophils (%) (Auto) 2.5 % (0.0-2.0) H % (0.0-2.0) Sodium Level 140 MMOL/L (136-145) 141 MMOL/L (136-145) Potassium Level 2.8 MMOL/L (3.5-5.1) L 3.4 MMOL/L (3.5-5.1) L Chloride Level 104 MMOL/L (98-107) 106 MMOL/L (98-107) Carbon Dioxide Level 26 MMOL/L (21-32) 23 MMOL/L (21-32) Anion Gap 11 mmol/L (5-15) 12 mmol/L (5-15) Blood Urea Nitrogen 11 mg/dL (7-18) 9 mg/dL (7-18) Creatinine 1.3 MG/DL (0.55-1.30) 1.2 MG/DL (0.55-1.30) Estimat Glomerular Filtration Rate > 60 mL/min (>60) > 60 mL/min (>60) Glucose Level 127 MG/DL (74-106) H 82 MG/DL (74-106) Calcium Level 8.1 MG/DL (8.5-10.1) L 7.9 MG/DL (8.5-10.1) L Total Bilirubin 0.6 MG/DL (0.2-1.0) 0.5 MG/DL (0.2-1.0) Aspartate Amino Transf (AST/SGOT) 126 U/L (15-37) H 146 U/L (15-37) H Alanine Aminotransferase (ALT/SGPT) 65 U/L (12-78) 64 U/L (12-78) Alkaline Phosphatase 101 U/L (46-116) 100 U/L (46-116) Total Protein 7.4 G/DL (6.4-8.2) 7.0 G/DL (6.4-8.2) Albumin 3.5 G/DL (3.4-5.0) 3.3 G/DL (3.4-5.0) L Globulin 3.9 g/dL 3.7 g/dL Albumin/Globulin Ratio 0.9 (1.0-2.7) L 0.9 (1.0-2.7) L Lipase 403 U/L (73-393) H 210 U/L (73-393) Serum Alcohol 240 mg/dL Urine Color Pale yellow Urine Appearance Clear Urine pH 5 (4.5-8.0) Urine Specific [place] 1.010 (1.005-1.035) Urine Protein Negative (NEGATIVE) Urine Glucose (UA) Negative (NEGATIVE) Urine Ketones Negative (NEGATIVE) Urine Blood Negative (NEGATIVE) Urine Nitrite Negative (NEGATIVE) Urine Bilirubin Negative (NEGATIVE) Urine Urobilinogen Normal MG/DL (0.0-1.0) Urine Leukocyte Esterase Negative (NEGATIVE) Urine Opiates Screen Negative (NEGATIVE) Urine Barbiturates Screen Negative (NEGATIVE) Phencyclidine (PCP) Screen Negative (NEGATIVE) Urine Amphetamines Screen Positive (NEGATIVE) H Urine Benzodiazepines Screen Negative (NEGATIVE) Urine Cocaine Screen Negative (NEGATIVE) Urine Marijuana (THC) Screen Negative (NEGATIVE) Neutrophils % (Manual) Pending Lymphocytes % (Manual) Pending Platelet Estimate Pending Platelet Morphology Pending Height (Feet): 5 Height (Inches): 8.00 Weight (Pounds): 200 Medications Current Medications Medications (Trade) Dose Ordered Sig/Tabby Route PRN Reason Start Time Stop Time Status Last Admin Dose Admin Acetaminophen (Tylenol) 650 mg Q4H PRN ORAL Mild Pain (Pain Scale 1-3) 06/30/20 18:00 07/30/20 17:59 07/01/20 04:34 Albuterol/ Ipratropium (Albuterol/ Ipratropium) 3 ml Q4H PRN HHN Shortness of Breath 06/30/20 18:00 07/05/20 17:59 Ciprofloxacin 200 ml @ 200 mls/hr Q12HR IV 06/30/20 21:00 07/07/20 20:59 07/01/20 09:09 Dextrose (Dextrose 50%) 25 ml Q30M PRN IV Hypoglycemia 06/30/20 18:00 09/28/20 17:59 Dextrose (Dextrose 50%) 50 ml Q30M PRN IV Hypoglycemia 06/30/20 18:00 09/28/20 17:59 Dicyclomine HCl (Bentyl) 10 mg BEFORE MEALS ORAL 07/01/20 06:30 07/31/20 06:29 07/01/20 07:36 Diphenhydramine HCl (Benadryl) 25 mg Q6H PRN ORAL Itching/Pruritis 06/30/20 18:00 07/30/20 17:59 Famotidine (Pepcid) 20 mg DAILY ORAL 07/01/20 09:00 09/29/20 08:59 07/01/20 09:09 Gabapentin (Neurontin) 100 mg TWICE A DAY ORAL 07/01/20 09:00 07/31/20 08:59 07/01/20 09:09 Guaifenesin/ Dextromethorphan (Robitussin DM Syrup) 5 ml Q6H PRN ORAL FOR COUGH 07/01/20 05:00 09/29/20 04:59 Heparin Sodium (Porcine) (Heparin 5000 units/ml) 5,000 units EVERY 12 HOURS SUBQ 06/30/20 21:00 08/14/20 20:59 07/01/20 09:10 Hydrochlorothiazide (Hydrodiuril) 25 mg DAILY ORAL 07/01/20 09:00 07/31/20 08:59 07/01/20 09:27 Hydromorphone HCl (Dilaudid) 0.5 mg Q4H PRN IVP Severe Pain (Pain Scale 7-10) 06/30/20 18:00 07/07/20 17:59 07/01/20 06:46 Ibuprofen (Motrin) 800 mg TWICE A DAY PRN ORAL Pain Scale (6-10) 07/01/20 05:00 07/31/20 04:59 Lorazepam (Ativan 2mg/ml 1ml) 0.5 mg Q4H PRN IV For Anxiety 06/30/20 18:00 07/07/20 17:59 Metronidazole 100 ml @ 100 mls/hr Q8HR IVPB 06/30/20 22:00 07/07/20 21:59 07/01/20 06:17 Ondansetron HCl (Zofran) 4 mg Q6H PRN IVP Nausea & Vomiting 06/30/20 18:00 07/30/20 17:59 Ondansetron HCl (Zofran) 4 mg Q8H PRN ORAL Nausea & Vomiting 07/01/20 05:00 07/31/20 04:59 Pantoprazole (Protonix) 40 mg DAILY ORAL 07/01/20 09:00 07/31/20 08:59 07/01/20 09:09 Potassium Chloride/Sodium Chloride 1,000 ml @ 100 mls/hr Q10H IV 06/30/20 20:00 07/30/20 19:59 07/01/20 06:19 Assessment/Plan Diagnosis [place]: #Hypokalemia #Hypomagnesemia #abdominal pain, nausea #acute pancreatitis #h/o prior perforated ulcer status post open repair # hypertension #chronic substance abuse - IVF - replete mag and K - monitor lytes - pain control - antiemetics - monitor BP - hold HCTZ 25mg daily - add amlodipine 5mg daily - continue cipro and flagyl - monitor withdrawal Time spent 70 mins - greater than 50% on care coordination and counseling Zion Medrano M.D. Jul 01, 2020 09:39
--- NOTE | 2020-07-01 11:06 | History and Physical ---
History of Present Illness General Date patient seen: Jul 01, 2020 Time patient seen: 10:50 Reason for Hospitalization: Abdominal Pain Present Illness HPI 69-year-old male with history of prior perforated ulcer status post open repair , hypertension, chronic substance abuse presents for evaluation of abdominal pain. Seen in the emergency department several days prior. He reports 5 days of diarrhea and abdominal cramping. CT scan showed mild colitis and patient was discharged on Bentyl and antacids. States he has been taking them with no significant improvement. The diarrhea is purely water. He states he is going to the bathroom over 10 times a day. Denies nausea or vomiting. Denies bloody stools but did notice some bright red blood on the tissue from repeated trips to the bathroom. Denies history of hemorrhoids. Denies dysuria or hematuria. He also notes a nonproductive cough for the past week. Denies fevers or chills. Denies chest pain or palpitations. Reports recent alcohol and cocaine use. Allergies: Coded Allergies: No Known Allergies (Unverified , 12/05/12) COVID-19 Screening Contact w/high risk pt: No Recent Travel to affected area: No Experienced COVID-19 symptoms?: Yes COVID-19 symptoms experienced: Cough Medication History Scheduled Albuterol Sulfate (Ventolin Hfa), 2 PUFFS INH EVERY 6 HOURS Dicyclomine Hcl* (Dicyclomine Hcl*), 10 MG ORAL TID Famotidine* (Pepcid 20mg tablet*), 20 MG ORAL DAILY Gabapentin* (Gabapentin*), 100 ORAL TWICE A DAY, (Reported) Hydrochlorothiazide* (Hydrochlorothiazide*), 25 MG ORAL DAILY, (Reported) Lidocaine HCl 2% Viscous (Lidocaine HCl 2% Viscous), 5 ML ORAL QID Scheduled PRN Dicyclomine Hcl* (Dicyclomine Hcl*), 10 MG ORAL QID PRN for Abdominal cramps Guaifenesin/Dextromethorphan* (Guaifenesin Dm Syrup*), 5 ML ORAL Q6H PRN for FOR COUGH Ondansetron (Zofran), 4 MG ORAL Q8H PRN for Nausea & Vomiting Miscellaneous Medications ["Sleeping Pill"], (Reported) ["inhaler"], (Reported) [BP Pill "new"], (Reported) Discontinued Medications Ibuprofen* (Motrin*), 800 MG ORAL TWICE A DAY, (Reported) Discontinued Reason: MD discontinued med Patient History History Provided By: Patient Healthcare decision maker Resuscitation status Full code Advanced Directive on File Past Medical/Surgical History Past Medical/Surgical History: (1) Perforated bowel Family History Family History: FH: CAD (coronary artery disease) Social History Social History: (1) Alcohol abuse Review of Systems Constitutional: Reports: malaise Eye: Reports: no symptoms ENT: Reports: no symptoms Respiratory: Reports: see HPI, cough; Denies: no symptoms, shortness of breath Gastrointestinal: Reports: see HPI, abdominal pain, diarrhea; Denies: melena, hematemesis Genitourinary: Reports: no symptoms Musculoskeletal: Reports: no symptoms Skin: Reports: no symptoms Psychiatric: Reports: no symptoms Endocrine: Reports: no symptoms Hematologic/Lymphatic: Reports: no symptoms, anemia Physical Exam General Appearance: WD/WN, no apparent distress, alert, overweight, alert oriented x3 Lines, tubes and drains: peripheral HEENT: normocephalic, atraumatic Neck: non-tender, normal alignment, supple, normal inspection Respiratory/Chest: lungs clear, normal breath sounds, no respiratory distress, no accessory muscle use, respiratory distress Cardiovascular/Chest: normal peripheral pulses, normal rate, regular rhythm, no gallop/murmur, no JVD Abdomen: soft, no organomegaly, abnormal bowel sounds, hyperactive bowel sounds , tender Extremities: normal range of motion, non-tender, normal inspection Skin Exam: normal pigmentation, warm/dry Neurologic: paper inserter II-XII grossly normal, no motor/sensory deficits, alert, oriented x 3, responsive, normal mood/affect Last 24 Hour Vital Signs Date Time Temp Pulse Resp B/P (MAP) Pulse Ox O2 Delivery O2 Flow Rate FiO2 07/01/20 09:00 Room Air 07/01/20 08:00 97.5 82 17 153/82 (105) 98 07/01/20 08:00 82 07/01/20 07:16 98.0 07/01/20 04:00 83 07/01/20 04:00 98.0 83 20 155/90 (111) 97 07/01/20 00:00 98.1 88 20 151/88 (109) 97 07/01/20 00:00 87 07/01/20 00:00 81 87 79 06/30/20 22:00 Room Air 06/30/20 22:00 97.9 81 21 154/96 (115) 99 06/30/20 22:00 98.4 83 16 140/85 98 Room Air 06/30/20 21:45 98.4 82 14 139/84 98 Room Air 06/30/20 21:00 85 06/30/20 19:07 98.4 84 16 142/80 98 Room Air 06/30/20 16:54 98.4 82 16 145/82 98 Room Air 06/30/20 15:55 90 16 Room Air 06/30/20 15:36 98.4 90 16 137/85 (102) 98 Room Air Intake and Output 06/30/20 07/01/20 19:00 07:00 Intake Total 500 ml Balance 500 ml Intake IV Total 500 ml Laboratory Tests Test 06/30/20 16:07 06/30/20 20:30 07/01/20 05:45 White Blood Count 3.9 K/UL (4.8-10.8) L 2.8 K/UL (4.8-10.8) L Red Blood Count 4.37 M/UL (4.70-6.10) L 4.25 M/UL (4.70-6.10) L Hemoglobin 12.7 G/DL (14.2-18.0) L 12.2 G/DL (14.2-18.0) L Hematocrit 38.8 % (42.0-52.0) L 38.2 % (42.0-52.0) L Mean Corpuscular Volume 89 FL (80-99) 90 FL (80-99) Mean Corpuscular Hemoglobin 29.0 PG (27.0-31.0) 28.7 PG (27.0-31.0) Mean Corpuscular Hemoglobin Concent 32.7 G/DL (32.0-36.0) 32.0 G/DL (32.0-36.0) Red Cell Distribution Width 15.3 % (11.6-14.8) H 14.9 % (11.6-14.8) H Platelet Count 217 K/UL (150-450) 202 K/UL (150-450) Mean Platelet Volume 7.3 FL (6.5-10.1) 7.3 FL (6.5-10.1) Neutrophils (%) (Auto) 47.3 % (45.0-75.0) % (45.0-75.0) Lymphocytes (%) (Auto) 34.9 % (20.0-45.0) % (20.0-45.0) Monocytes (%) (Auto) 13.5 % (1.0-10.0) H % (1.0-10.0) Eosinophils (%) (Auto) 1.9 % (0.0-3.0) % (0.0-3.0) Basophils (%) (Auto) 2.5 % (0.0-2.0) H % (0.0-2.0) Sodium Level 140 MMOL/L (136-145) 141 MMOL/L (136-145) Potassium Level 2.8 MMOL/L (3.5-5.1) L 3.4 MMOL/L (3.5-5.1) L Chloride Level 104 MMOL/L (98-107) 106 MMOL/L (98-107) Carbon Dioxide Level 26 MMOL/L (21-32) 23 MMOL/L (21-32) Anion Gap 11 mmol/L (5-15) 12 mmol/L (5-15) Blood Urea Nitrogen 11 mg/dL (7-18) 9 mg/dL (7-18) Creatinine 1.3 MG/DL (0.55-1.30) 1.2 MG/DL (0.55-1.30) Estimat Glomerular Filtration Rate > 60 mL/min (>60) > 60 mL/min (>60) Glucose Level 127 MG/DL (74-106) H 82 MG/DL (74-106) Calcium Level 8.1 MG/DL (8.5-10.1) L 7.9 MG/DL (8.5-10.1) L Total Bilirubin 0.6 MG/DL (0.2-1.0) 0.5 MG/DL (0.2-1.0) Aspartate Amino Transf (AST/SGOT) 126 U/L (15-37) H 146 U/L (15-37) H Alanine Aminotransferase (ALT/SGPT) 65 U/L (12-78) 64 U/L (12-78) Alkaline Phosphatase 101 U/L (46-116) 100 U/L (46-116) Total Protein 7.4 G/DL (6.4-8.2) 7.0 G/DL (6.4-8.2) Albumin 3.5 G/DL (3.4-5.0) 3.3 G/DL (3.4-5.0) L Globulin 3.9 g/dL 3.7 g/dL Albumin/Globulin Ratio 0.9 (1.0-2.7) L 0.9 (1.0-2.7) L Lipase 403 U/L (73-393) H 210 U/L (73-393) Serum Alcohol 240 mg/dL Urine Color Pale yellow Urine Appearance Clear Urine pH 5 (4.5-8.0) Urine Specific [place] 1.010 (1.005-1.035) Urine Protein Negative (NEGATIVE) Urine Glucose (UA) Negative (NEGATIVE) Urine Ketones Negative (NEGATIVE) Urine Blood Negative (NEGATIVE) Urine Nitrite Negative (NEGATIVE) Urine Bilirubin Negative (NEGATIVE) Urine Urobilinogen Normal MG/DL (0.0-1.0) Urine Leukocyte Esterase Negative (NEGATIVE) Urine Opiates Screen Negative (NEGATIVE) Urine Barbiturates Screen Negative (NEGATIVE) Phencyclidine (PCP) Screen Negative (NEGATIVE) Urine Amphetamines Screen Positive (NEGATIVE) H Urine Benzodiazepines Screen Negative (NEGATIVE) Urine Cocaine Screen Negative (NEGATIVE) Urine Marijuana (THC) Screen Negative (NEGATIVE) Differential Total Cells Counted 100 Neutrophils % (Manual) 47 % (45-75) Lymphocytes % (Manual) 34 % (20-45) Monocytes % (Manual) 15 % (1-10) H Eosinophils % (Manual) 2 % (0-3) Basophils % (Manual) 2 % (0-2) Band Neutrophils 0 % (0-8) Platelet Estimate Adequate Platelet Morphology Normal Red Blood Cell Morphology Normal Erythrocyte Sedimentation Rate Pending C-Reactive Protein, Quantitative Pending Height (Feet): 5 Height (Inches): 8.00 Weight (Pounds): 200 Medications Current Medications Medications (Trade) Dose Ordered Sig/Tabby Route PRN Reason Start Time Stop Time Status Last Admin Dose Admin Acetaminophen (Tylenol) 650 mg Q4H PRN ORAL Mild Pain (Pain Scale 1-3) 06/30/20 18:00 07/30/20 17:59 07/01/20 04:34 Albuterol/ Ipratropium (Albuterol/ Ipratropium) 3 ml Q4H PRN HHN Shortness of Breath 06/30/20 18:00 07/05/20 17:59 Ciprofloxacin 200 ml @ 200 mls/hr Q12HR IV 06/30/20 21:00 07/07/20 20:59 07/01/20 09:09 Dextrose (Dextrose 50%) 25 ml Q30M PRN IV Hypoglycemia 06/30/20 18:00 09/28/20 17:59 Dextrose (Dextrose 50%) 50 ml Q30M PRN IV Hypoglycemia 06/30/20 18:00 09/28/20 17:59 Dicyclomine HCl (Bentyl) 10 mg BEFORE MEALS ORAL 07/01/20 06:30 07/31/20 06:29 07/01/20 07:36 Diphenhydramine HCl (Benadryl) 25 mg Q6H PRN ORAL Itching/Pruritis 06/30/20 18:00 07/30/20 17:59 Famotidine (Pepcid) 20 mg DAILY ORAL 07/01/20 09:00 09/29/20 08:59 07/01/20 09:09 Gabapentin (Neurontin) 100 mg TWICE A DAY ORAL 07/01/20 09:00 07/31/20 08:59 07/01/20 09:09 Guaifenesin/ Dextromethorphan (Robitussin DM Syrup) 5 ml Q6H PRN ORAL FOR COUGH 07/01/20 05:00 09/29/20 04:59 Heparin Sodium (Porcine) (Heparin 5000 units/ml) 5,000 units EVERY 12 HOURS SUBQ 06/30/20 21:00 08/14/20 20:59 07/01/20 09:10 Hydrochlorothiazide (Hydrodiuril) 25 mg DAILY ORAL 07/01/20 09:00 07/31/20 08:59 07/01/20 09:27 Hydromorphone HCl (Dilaudid) 0.5 mg Q4H PRN IVP Severe Pain (Pain Scale 7-10) 06/30/20 18:00 07/07/20 17:59 07/01/20 06:46 Loperamide HCl (Imodium) 2 mg Q4H PRN ORAL Diarrhea 07/01/20 09:45 07/31/20 09:44 Lorazepam (Ativan 2mg/ml 1ml) 0.5 mg Q4H PRN IV For Anxiety 06/30/20 18:00 07/07/20 17:59 Metronidazole 100 ml @ 100 mls/hr Q8HR IVPB 06/30/20 22:00 07/07/20 21:59 07/01/20 06:17 Ondansetron HCl (Zofran) 4 mg Q6H PRN IVP Nausea & Vomiting 06/30/20 18:00 07/30/20 17:59 Ondansetron HCl (Zofran) 4 mg Q8H PRN ORAL Nausea & Vomiting 07/01/20 05:00 07/31/20 04:59 Potassium Chloride/Sodium Chloride 1,000 ml @ 100 mls/hr Q10H IV 06/30/20 20:00 07/30/20 19:59 07/01/20 06:19 Assessment/Plan Problem List: (1) Diarrhea ICD Codes: R19.7 - Diarrhea, unspecified SNOMED: 76334883 (2) Abdominal pain ICD Codes: R10.9 - Unspecified abdominal pain SNOMED: 80001283 (3) Pancreatitis ICD Codes: K85.90 - Acute pancreatitis without necrosis or infection, unspecified SNOMED: 01025510 (4) Colitis ICD Codes: K52.9 - Noninfective gastroenteritis and colitis, unspecified SNOMED: 93263787 (5) Alcohol abuse ICD Codes: F10.10 - Alcohol abuse, uncomplicated SNOMED: 97875046 (6) Hypokalemia ICD Codes: E87.6 - Hypokalemia SNOMED: 93411239 (7) Leukopenia ICD Codes: D72.819 - Decreased white blood cell count, unspecified SNOMED: 29520349, 114382357 (8) history of perforated Gastric ulcer Assessment/Plan: 69-year-old male with history of prior perforated ulcer status post open repair , hypertension, chronic substance abuse presents for evaluation of abdominal pain and diarrhea for 5 days. # Abdominal Pain # NBNB Diarrhea -possible IBD # Elevated lipase trended down- possible pancreatitis # Alcohol Abuse/Substance Abuse # Hypokalemia - Hospital level care - Metronidazole and Ciprofloxacin started 06/30 - Clear liquid diet - Fluid hydration - Replete electrolytes - ESR, CRP, trend CBC, BMP - Consult to GI - appreciate recs - Consult to nephrology - appreciate recs - Social service consult for substance abuse - CIWA observation DVT ppx Heparin 500 units subq q12 I spent 75 min on this admission with greater than 50% face to face. Coordinated with consultants and RNs. Preformed chart review greater than 35 min. Jc Wood M.D. Jul 01, 2020 11:06
[2020-07-01 11:30] VITALS: BP 157/84
--- NOTE | 2020-07-01 11:42 | Consultation ---
Joy Jenni PACKAGING SPECIALIST 07/01/20 1142: History of Present Illness General Date patient seen: Jul 01, 2020 Time patient seen: 09:00 Chief Complaint: Abdominal Pain Referring physician: Dr Figueroa Reason for Consultation: cough , concern for PNA Present Illness HPI 69 years old male with PMH of substance abuse, perforated gastric ulcer, status post surgical repair, hypertension, presented to the emergency room for evaluation of abdominal pain. Patient reported 5 days of diarrhea and abdominal cramping. Patient reported bright red blood on the tissue from repeated trips to the bathroom. Patient also reported nonproductive cough for the past week. He denied fever and chills. He denied hemoptysis. He denied chest pain. He admitted recent use of alcohol and amphetamine. Patient apparently had prior visit to the emergency department, and at that time CT scan of the abdomen and pelvis was done which revealed mild colitis. Patient was discharged on Bentyl and anti-acid from ED. Patient reported that he was taking the medication without much improvement. Upon evaluation vital signs were stable. No fevers, Pulse oximetry stable on room air. Chest x-ray demonstrated no evidence of acute pulmonary disease. Laboratory work-up revealed WBC 3.9, hemoglobin 12.7, hematocrit 38.8, platelet count 217. Calcium 8.1. In 2.8. Stable renal parameters. AST 126, ALT 65, lipase 403. Urinalysis revealed no evidence of urinary tract infection. Serum alcohol level 240. Urine toxicology screen positive for amphetamine. In the emergency department potassium was replaced , patient received IV fluids , analgesics and admitted for further management. Pulmonary consult was requested due to complaints of dry nonproductive cough. Allergies: Coded Allergies: No Known Allergies (Unverified , 12/05/12) Medication History Scheduled Albuterol Sulfate (Ventolin Hfa), 2 PUFFS INH EVERY 6 HOURS Dicyclomine Hcl* (Dicyclomine Hcl*), 10 MG ORAL TID Famotidine* (Pepcid 20mg tablet*), 20 MG ORAL DAILY Gabapentin* (Gabapentin*), 100 ORAL TWICE A DAY, (Reported) Hydrochlorothiazide* (Hydrochlorothiazide*), 25 MG ORAL DAILY, (Reported) Lidocaine HCl 2% Viscous (Lidocaine HCl 2% Viscous), 5 ML ORAL QID Scheduled PRN Dicyclomine Hcl* (Dicyclomine Hcl*), 10 MG ORAL QID PRN for Abdominal cramps Guaifenesin/Dextromethorphan* (Guaifenesin Dm Syrup*), 5 ML ORAL Q6H PRN for FOR COUGH Ondansetron (Zofran), 4 MG ORAL Q8H PRN for Nausea & Vomiting Miscellaneous Medications ["Sleeping Pill"], (Reported) ["inhaler"], (Reported) [BP Pill "new"], (Reported) Discontinued Medications Ibuprofen* (Motrin*), 800 MG ORAL TWICE A DAY, (Reported) Discontinued Reason: MD discontinued med Patient History History Provided By: Patient Healthcare decision maker Resuscitation status Full code Advanced Directive on File Review of Systems Constitutional: Reports: no symptoms Eye: Reports: no symptoms ENT: Reports: no symptoms Respiratory: Reports: see HPI, cough - dry, nonproductive Cardiovascular: Reports: no symptoms Gastrointestinal: Reports: see HPI Genitourinary: Reports: no symptoms Musculoskeletal: Reports: no symptoms Skin: Reports: no symptoms Psychiatric: Reports: other - hx of substance abuse Neurological: Reports: no symptoms Endocrine: Reports: no symptoms Hematologic/Lymphatic: Reports: no symptoms Physical Exam General Appearance: WD/WN, no apparent distress Lines, tubes and drains: peripheral HEENT: normocephalic, atraumatic, anicteric, mucous membranes moist Neck: non-tender, supple Respiratory/Chest: lungs clear - with moderate air exchange , no respiratory distress, no accessory muscle use Cardiovascular/Chest: normal rate, regular rhythm - SR on tele Abdomen: normal bowel sounds, soft - mild diffused tenderness, no rebound, no guarding Extremities: no calf tenderness, normal capillary refill Skin Exam: warm/dry, other - vertical healed lower abdomen scar Neurologic: no motor/sensory deficits, alert, oriented x 3, responsive, normal mood/affect Musculoskeletal: normal muscle bulk Last 24 Hour Vital Signs Date Time Temp Pulse Resp B/P (MAP) Pulse Ox O2 Delivery O2 Flow Rate FiO2 07/01/20 09:00 Room Air 07/01/20 08:00 97.5 82 17 153/82 (105) 98 07/01/20 08:00 82 07/01/20 07:16 98.0 07/01/20 04:00 83 07/01/20 04:00 98.0 83 20 155/90 (111) 97 8/3/20 00:00 98.1 88 20 151/88 (109) 97 07/01/20 00:00 87 07/01/20 00:00 81 87 79 06/30/20 22:00 Room Air 06/30/20 22:00 97.9 81 21 154/96 (115) 99 06/30/20 22:00 98.4 83 16 140/85 98 Room Air 06/30/20 21:45 98.4 82 14 139/84 98 Room Air 06/30/20 21:00 85 06/30/20 19:07 98.4 84 16 142/80 98 Room Air 06/30/20 16:54 98.4 82 16 145/82 98 Room Air 06/30/20 15:55 90 16 Room Air 06/30/20 15:36 98.4 90 16 137/85 (102) 98 Room Air Intake and Output 06/30/20 07/01/20 19:00 07:00 Intake Total 500 ml Balance 500 ml Intake IV Total 500 ml Laboratory Tests Test 06/30/20 16:07 06/30/20 20:30 07/01/20 05:45 White Blood Count 3.9 K/UL (4.8-10.8) L 2.8 K/UL (4.8-10.8) L Red Blood Count 4.37 M/UL (4.70-6.10) L 4.25 M/UL (4.70-6.10) L Hemoglobin 12.7 G/DL (14.2-18.0) L 12.2 G/DL (14.2-18.0) L Hematocrit 38.8 % (42.0-52.0) L 38.2 % (42.0-52.0) L Mean Corpuscular Volume 89 FL (80-99) 90 FL (80-99) Mean Corpuscular Hemoglobin 29.0 PG (27.0-31.0) 28.7 PG (27.0-31.0) Mean Corpuscular Hemoglobin Concent 32.7 G/DL (32.0-36.0) 32.0 G/DL (32.0-36.0) Red Cell Distribution Width 15.3 % (11.6-14.8) H 14.9 % (11.6-14.8) H Platelet Count 217 K/UL (150-450) 202 K/UL (150-450) Mean Platelet Volume 7.3 FL (6.5-10.1) 7.3 FL (6.5-10.1) Neutrophils (%) (Auto) 47.3 % (45.0-75.0) % (45.0-75.0) Lymphocytes (%) (Auto) 34.9 % (20.0-45.0) % (20.0-45.0) Monocytes (%) (Auto) 13.5 % (1.0-10.0) H % (1.0-10.0) Eosinophils (%) (Auto) 1.9 % (0.0-3.0) % (0.0-3.0) Basophils (%) (Auto) 2.5 % (0.0-2.0) H % (0.0-2.0) Sodium Level 140 MMOL/L (136-145) 141 MMOL/L (136-145) Potassium Level 2.8 MMOL/L (3.5-5.1) L 3.4 MMOL/L (3.5-5.1) L Chloride Level 104 MMOL/L (98-107) 106 MMOL/L (98-107) Carbon Dioxide Level 26 MMOL/L (21-32) 23 MMOL/L (21-32) Anion Gap 11 mmol/L (5-15) 12 mmol/L (5-15) Blood Urea Nitrogen 11 mg/dL (7-18) 9 mg/dL (7-18) Creatinine 1.3 MG/DL (0.55-1.30) 1.2 MG/DL (0.55-1.30) Estimat Glomerular Filtration Rate > 60 mL/min (>60) > 60 mL/min (>60) Glucose Level 127 MG/DL (74-106) H 82 MG/DL (74-106) Calcium Level 8.1 MG/DL (8.5-10.1) L 7.9 MG/DL (8.5-10.1) L Total Bilirubin 0.6 MG/DL (0.2-1.0) 0.5 MG/DL (0.2-1.0) Aspartate Amino Transf (AST/SGOT) 126 U/L (15-37) H 146 U/L (15-37) H Alanine Aminotransferase (ALT/SGPT) 65 U/L (12-78) 64 U/L (12-78) Alkaline Phosphatase 101 U/L (46-116) 100 U/L (46-116) Total Protein 7.4 G/DL (6.4-8.2) 7.0 G/DL (6.4-8.2) Albumin 3.5 G/DL (3.4-5.0) 3.3 G/DL (3.4-5.0) L Globulin 3.9 g/dL 3.7 g/dL Albumin/Globulin Ratio 0.9 (1.0-2.7) L 0.9 (1.0-2.7) L Lipase 403 U/L (73-393) H 210 U/L (73-393) Serum Alcohol 240 mg/dL Urine Color Pale yellow Urine Appearance Clear Urine pH 5 (4.5-8.0) Urine Specific [place] 1.010 (1.005-1.035) Urine Protein Negative (NEGATIVE) Urine Glucose (UA) Negative (NEGATIVE) Urine Ketones Negative (NEGATIVE) Urine Blood Negative (NEGATIVE) Urine Nitrite Negative (NEGATIVE) Urine Bilirubin Negative (NEGATIVE) Urine Urobilinogen Normal MG/DL (0.0-1.0) Urine Leukocyte Esterase Negative (NEGATIVE) Urine Opiates Screen Negative (NEGATIVE) Urine Barbiturates Screen Negative (NEGATIVE) Phencyclidine (PCP) Screen Negative (NEGATIVE) Urine Amphetamines Screen Positive (NEGATIVE) H Urine Benzodiazepines Screen Negative (NEGATIVE) Urine Cocaine Screen Negative (NEGATIVE) Urine Marijuana (THC) Screen Negative (NEGATIVE) Differential Total Cells Counted 100 Neutrophils % (Manual) 47 % (45-75) Lymphocytes % (Manual) 34 % (20-45) Monocytes % (Manual) 15 % (1-10) H Eosinophils % (Manual) 2 % (0-3) Basophils % (Manual) 2 % (0-2) Band Neutrophils 0 % (0-8) Platelet Estimate Adequate Platelet Morphology Normal Red Blood Cell Morphology Normal Erythrocyte Sedimentation Rate Pending C-Reactive Protein, Quantitative 0.8 mg/dL (0.00-0.90) Height (Feet): 5 Height (Inches): 8.00 Weight (Pounds): 200 Medications Current Medications Medications (Trade) Dose Ordered Sig/Tabby Route PRN Reason Start Time Stop Time Status Last Admin Dose Admin Acetaminophen (Tylenol) 650 mg Q4H PRN ORAL Mild Pain (Pain Scale 1-3) 06/30/20 18:00 07/30/20 17:59 07/01/20 04:34 Albuterol/ Ipratropium (Albuterol/ Ipratropium) 3 ml Q4H PRN HHN Shortness of Breath 06/30/20 18:00 07/05/20 17:59 Ciprofloxacin 200 ml @ 200 mls/hr Q12HR IV 06/30/20 21:00 07/07/20 20:59 07/01/20 09:09 Dextrose (Dextrose 50%) 25 ml Q30M PRN IV Hypoglycemia 06/30/20 18:00 09/28/20 17:59 Dextrose (Dextrose 50%) 50 ml Q30M PRN IV Hypoglycemia 06/30/20 18:00 09/28/20 17:59 Dicyclomine HCl (Bentyl) 10 mg BEFORE MEALS ORAL 07/01/20 06:30 07/31/20 06:29 07/01/20 07:36 Diphenhydramine HCl (Benadryl) 25 mg Q6H PRN ORAL Itching/Pruritis 06/30/20 18:00 07/30/20 17:59 Famotidine (Pepcid) 20 mg DAILY ORAL 07/01/20 09:00 09/29/20 08:59 07/01/20 09:09 Gabapentin (Neurontin) 100 mg TWICE A DAY ORAL 07/01/20 09:00 07/31/20 08:59 07/01/20 09:09 Guaifenesin/ Dextromethorphan (Robitussin DM Syrup) 5 ml Q6H PRN ORAL FOR COUGH 07/01/20 05:00 09/29/20 04:59 Heparin Sodium (Porcine) (Heparin 5000 units/ml) 5,000 units EVERY 12 HOURS SUBQ 06/30/20 21:00 08/14/20 20:59 07/01/20 09:10 Hydrochlorothiazide (Hydrodiuril) 25 mg DAILY ORAL 07/01/20 09:00 07/31/20 08:59 07/01/20 09:27 Hydromorphone HCl (Dilaudid) 0.5 mg Q4H PRN IVP Severe Pain (Pain Scale 7-10) 06/30/20 18:00 07/07/20 17:59 07/01/20 06:46 Loperamide HCl (Imodium) 2 mg Q4H PRN ORAL Diarrhea 07/01/20 09:45 07/31/20 09:44 Lorazepam (Ativan 2mg/ml 1ml) 0.5 mg Q4H PRN IV For Anxiety 06/30/20 18:00 07/07/20 17:59 Metronidazole 100 ml @ 100 mls/hr Q8HR IVPB 06/30/20 22:00 07/07/20 21:59 07/01/20 06:17 Ondansetron HCl (Zofran) 4 mg Q6H PRN IVP Nausea & Vomiting 06/30/20 18:00 07/30/20 17:59 Ondansetron HCl (Zofran) 4 mg Q8H PRN ORAL Nausea & Vomiting 07/01/20 05:00 07/31/20 04:59 Potassium Chloride/Sodium Chloride 1,000 ml @ 100 mls/hr Q10H IV 06/30/20 20:00 07/30/20 19:59 07/01/20 06:19 Assessment/Plan Assessment/Plan: ASSESSMENT Cough Abdominal pain with diarrhea Probably mild alcoholic ancreatitis Elevated LFT, likely due to alcoholic gastritis ( with typical AST to ASL ratio) Hx of bleeding ulcer, requiring exploratory lap Hypokalemia - replaced HTN Substance abuse PLAN OF CARE tele O2 titrate to keep sat above 92% pulm toilet MDI rapid COVID 19 pending CXR stable, fup with CXR a/tussive prn DVT prophylaxis empiric abx stool C dif, stool cx pain management a/spasmatic GI prophylaxis GI procedure as per GI order K already replaced, monitor lytes check Mg now add thiamine and folic acid not appeared to be in withdrawal, but anxiolytics on board as needed trend LFT supportive care thank you for a consult! case discussed and evaluated by supervising physician Oli Cadet MD 07/01/20 1602: History of Present Illness General Chief Complaint: Abdominal Pain Present Illness Allergies: Coded Allergies: No Known Allergies (Unverified , 12/05/12) Medication History Scheduled Albuterol Sulfate (Ventolin Hfa), 2 PUFFS INH EVERY 6 HOURS Dicyclomine Hcl* (Dicyclomine Hcl*), 10 MG ORAL TID Famotidine* (Pepcid 20mg tablet*), 20 MG ORAL DAILY Gabapentin* (Gabapentin*), 100 ORAL TWICE A DAY, (Reported) Hydrochlorothiazide* (Hydrochlorothiazide*), 25 MG ORAL DAILY, (Reported) Lidocaine HCl 2% Viscous (Lidocaine HCl 2% Viscous), 5 ML ORAL QID Scheduled PRN Dicyclomine Hcl* (Dicyclomine Hcl*), 10 MG ORAL QID PRN for Abdominal cramps Guaifenesin/Dextromethorphan* (Guaifenesin Dm Syrup*), 5 ML ORAL Q6H PRN for FOR COUGH Ondansetron (Zofran), 4 MG ORAL Q8H PRN for Nausea & Vomiting Miscellaneous Medications ["Sleeping Pill"], (Reported) ["inhaler"], (Reported) [BP Pill "new"], (Reported) Discontinued Medications Ibuprofen* (Motrin*), 800 MG ORAL TWICE A DAY, (Reported) Discontinued Reason: discontinued med Assessment/Plan Assessment/Plan: Patient seen and examined with PACKAGING SPECIALIST. Agree with above A&P as it reflects our joint deliberations. Jenni Joy NP Jul 01, 2020 11:42 Oli Cadet MD Jul 01, 2020 16:02
[2020-07-01] MEDS: Thiamine 100mg tab ORAL SCH (12:00)
--- NOTE | 2020-07-01 13:53 | Consultation ---
History of Present Illness General Chief Complaint: Abdominal Pain Referring physician: Dr Figueroa Reason for Consultation: cough , concern for PNA Present Illness Allergies: Coded Allergies: No Known Allergies (Unverified , 12/05/12) Medication History Scheduled Albuterol Sulfate (Ventolin Hfa), 2 PUFFS INH EVERY 6 HOURS Dicyclomine Hcl* (Dicyclomine Hcl*), 10 MG ORAL TID Famotidine* (Pepcid 20mg tablet*), 20 MG ORAL DAILY Gabapentin* (Gabapentin*), 100 ORAL TWICE A DAY, (Reported) Hydrochlorothiazide* (Hydrochlorothiazide*), 25 MG ORAL DAILY, (Reported) Lidocaine HCl 2% Viscous (Lidocaine HCl 2% Viscous), 5 ML ORAL QID Scheduled PRN Dicyclomine Hcl* (Dicyclomine Hcl*), 10 MG ORAL QID PRN for Abdominal cramps Guaifenesin/Dextromethorphan* (Guaifenesin Dm Syrup*), 5 ML ORAL Q6H PRN for FOR COUGH Ondansetron (Zofran), 4 MG ORAL Q8H PRN for Nausea & Vomiting Miscellaneous Medications ["Sleeping Pill"], (Reported) ["inhaler"], (Reported) [BP Pill "new"], (Reported) Discontinued Medications Ibuprofen* (Motrin*), 800 MG ORAL TWICE A DAY, (Reported) Discontinued Reason: MD discontinued med Patient History Healthcare decision maker Resuscitation status Advanced Directive on File Physical Exam Last 24 Hour Vital Signs Date Time Temp Pulse Resp B/P (MAP) Pulse Ox O2 Delivery O2 Flow Rate FiO2 07/01/20 12:00 76 07/01/20 11:30 97.7 81 18 157/84 (108) 98 07/01/20 11:30 71 79 81 07/01/20 09:00 Room Air 07/01/20 08:00 97.5 82 17 153/82 (105) 98 07/01/20 08:00 82 07/01/20 07:16 98.0 07/01/20 04:00 83 07/01/20 04:00 98.0 83 20 155/90 (111) 97 07/01/20 00:00 98.1 88 20 151/88 (109) 97 07/01/20 00:00 87 07/01/20 00:00 81 87 79 06/30/20 22:00 Room Air 06/30/20 22:00 97.9 81 21 154/96 (115) 99 06/30/20 22:00 98.4 83 16 140/85 98 Room Air 06/30/20 21:45 98.4 82 14 139/84 98 Room Air 06/30/20 21:00 85 06/30/20 19:07 98.4 84 16 142/80 98 Room Air 06/30/20 16:54 98.4 82 16 145/82 98 Room Air 06/30/20 15:55 90 16 Room Air 06/30/20 15:36 98.4 90 16 137/85 (102) 98 Room Air Intake and Output 06/30/20 07/01/20 19:00 07:00 Intake Total 500 ml Balance 500 ml Intake IV Total 500 ml Laboratory Tests Test 06/30/20 16:07 06/30/20 20:30 07/01/20 05:45 White Blood Count 3.9 K/UL (4.8-10.8) L 2.8 K/UL (4.8-10.8) L Red Blood Count 4.37 M/UL (4.70-6.10) L 4.25 M/UL (4.70-6.10) L Hemoglobin 12.7 G/DL (14.2-18.0) L 12.2 G/DL (14.2-18.0) L Hematocrit 38.8 % (42.0-52.0) L 38.2 % (42.0-52.0) L Mean Corpuscular Volume 89 FL (80-99) 90 FL (80-99) Mean Corpuscular Hemoglobin 29.0 PG (27.0-31.0) 28.7 PG (27.0-31.0) Mean Corpuscular Hemoglobin Concent 32.7 G/DL (32.0-36.0) 32.0 G/DL (32.0-36.0) Red Cell Distribution Width 15.3 % (11.6-14.8) H 14.9 % (11.6-14.8) H Platelet Count 217 K/UL (150-450) 202 K/UL (150-450) Mean Platelet Volume 7.3 FL (6.5-10.1) 7.3 FL (6.5-10.1) Neutrophils (%) (Auto) 47.3 % (45.0-75.0) % (45.0-75.0) Lymphocytes (%) (Auto) 34.9 % (20.0-45.0) % (20.0-45.0) Monocytes (%) (Auto) 13.5 % (1.0-10.0) H % (1.0-10.0) Eosinophils (%) (Auto) 1.9 % (0.0-3.0) % (0.0-3.0) Basophils (%) (Auto) 2.5 % (0.0-2.0) H % (0.0-2.0) Sodium Level 140 MMOL/L (136-145) 141 MMOL/L (136-145) Potassium Level 2.8 MMOL/L (3.5-5.1) L 3.4 MMOL/L (3.5-5.1) L Chloride Level 104 MMOL/L (98-107) 106 MMOL/L (98-107) Carbon Dioxide Level 26 MMOL/L (21-32) 23 MMOL/L (21-32) Anion Gap 11 mmol/L (5-15) 12 mmol/L (5-15) Blood Urea Nitrogen 11 mg/dL (7-18) 9 mg/dL (7-18) Creatinine 1.3 MG/DL (0.55-1.30) 1.2 MG/DL (0.55-1.30) Estimat Glomerular Filtration Rate > 60 mL/min (>60) > 60 mL/min (>60) Glucose Level 127 MG/DL (74-106) H 82 MG/DL (74-106) Calcium Level 8.1 MG/DL (8.5-10.1) L 7.9 MG/DL (8.5-10.1) L Total Bilirubin 0.6 MG/DL (0.2-1.0) 0.5 MG/DL (0.2-1.0) Aspartate Amino Transf (AST/SGOT) 126 U/L (15-37) H 146 U/L (15-37) H Alanine Aminotransferase (ALT/SGPT) 65 U/L (12-78) 64 U/L (12-78) Alkaline Phosphatase 101 U/L (46-116) 100 U/L (46-116) Total Protein 7.4 G/DL (6.4-8.2) 7.0 G/DL (6.4-8.2) Albumin 3.5 G/DL (3.4-5.0) 3.3 G/DL (3.4-5.0) L Globulin 3.9 g/dL 3.7 g/dL Albumin/Globulin Ratio 0.9 (1.0-2.7) L 0.9 (1.0-2.7) L Lipase 403 U/L (73-393) H 210 U/L (73-393) Serum Alcohol 240 mg/dL Urine Color Pale yellow Urine Appearance Clear Urine pH 5 (4.5-8.0) Urine Specific [place] 1.010 (1.005-1.035) Urine Protein Negative (NEGATIVE) Urine Glucose (UA) Negative (NEGATIVE) Urine Ketones Negative (NEGATIVE) Urine Blood Negative (NEGATIVE) Urine Nitrite Negative (NEGATIVE) Urine Bilirubin Negative (NEGATIVE) Urine Urobilinogen Normal MG/DL (0.0-1.0) Urine Leukocyte Esterase Negative (NEGATIVE) Urine Opiates Screen Negative (NEGATIVE) Urine Barbiturates Screen Negative (NEGATIVE) Phencyclidine (PCP) Screen Negative (NEGATIVE) Urine Amphetamines Screen Positive (NEGATIVE) H Urine Benzodiazepines Screen Negative (NEGATIVE) Urine Cocaine Screen Negative (NEGATIVE) Urine Marijuana (THC) Screen Negative (NEGATIVE) Differential Total Cells Counted 100 Neutrophils % (Manual) 47 % (45-75) Lymphocytes % (Manual) 34 % (20-45) Monocytes % (Manual) 15 % (1-10) H Eosinophils % (Manual) 2 % (0-3) Basophils % (Manual) 2 % (0-2) Band Neutrophils 0 % (0-8) Platelet Estimate Adequate Platelet Morphology Normal Red Blood Cell Morphology Normal Erythrocyte Sedimentation Rate 19 MM/HR (0-20) Magnesium Level 1.4 MG/DL (1.8-2.4) L C-Reactive Protein, Quantitative 0.8 mg/dL (0.00-0.90) Microbiology Date/Time Source Procedure Growth Status 07/01/20 12:15 Nasopharynx SARS-CoV-2 RdRp Gene Assay - Final Complete Height (Feet): 5 Height (Inches): 8.00 Weight (Pounds): 200 Medications Current Medications Medications (Trade) Dose Ordered Sig/Tabby Route PRN Reason Start Time Stop Time Status Last Admin Dose Admin Acetaminophen (Tylenol) 650 mg Q4H PRN ORAL Mild Pain (Pain Scale 1-3) 06/30/20 18:00 07/30/20 17:59 07/01/20 04:34 Albuterol/ Ipratropium (Albuterol/ Ipratropium) 3 ml Q4H PRN HHN Shortness of Breath 06/30/20 18:00 07/05/20 17:59 Ciprofloxacin 200 ml @ 200 mls/hr Q12HR IV 06/30/20 21:00 07/07/20 20:59 07/01/20 09:09 Dextrose (Dextrose 50%) 25 ml Q30M PRN IV Hypoglycemia 06/30/20 18:00 09/28/20 17:59 Dextrose (Dextrose 50%) 50 ml Q30M PRN IV Hypoglycemia 06/30/20 18:00 09/28/20 17:59 Dicyclomine HCl (Bentyl) 10 mg BEFORE MEALS ORAL 07/01/20 06:30 07/31/20 06:29 07/01/20 11:28 Diphenhydramine HCl (Benadryl) 25 mg Q6H PRN ORAL Itching/Pruritis 06/30/20 18:00 07/30/20 17:59 Famotidine (Pepcid) 20 mg DAILY ORAL 07/01/20 09:00 09/29/20 08:59 07/01/20 09:09 Folic Acid (Folate) 1 mg DAILY ORAL 07/01/20 12:00 07/31/20 11:59 07/01/20 12:00 Gabapentin (Neurontin) 100 mg TWICE A DAY ORAL 07/01/20 09:00 07/31/20 08:59 07/01/20 09:09 Guaifenesin/ Dextromethorphan (Robitussin DM Syrup) 5 ml Q6H PRN ORAL FOR COUGH 07/01/20 05:00 09/29/20 04:59 Heparin Sodium (Porcine) (Heparin 5000 units/ml) 5,000 units EVERY 12 HOURS SUBQ 06/30/20 21:00 08/14/20 20:59 07/01/20 09:10 Hydrochlorothiazide (Hydrodiuril) 25 mg DAILY ORAL 07/01/20 09:00 07/31/20 08:59 07/01/20 09:27 Hydromorphone HCl (Dilaudid) 0.5 mg Q4H PRN IVP Severe Pain (Pain Scale 7-10) 06/30/20 18:00 07/07/20 17:59 07/01/20 06:46 Loperamide HCl (Imodium) 2 mg Q4H PRN ORAL Diarrhea 07/01/20 09:45 07/31/20 09:44 Lorazepam (Ativan 2mg/ml 1ml) 0.5 mg Q4H PRN IV For Anxiety 06/30/20 18:00 07/07/20 17:59 Metronidazole 100 ml @ 100 mls/hr Q8HR IVPB 06/30/20 22:00 07/07/20 21:59 07/01/20 06:17 Ondansetron HCl (Zofran) 4 mg Q6H PRN IVP Nausea & Vomiting 06/30/20 18:00 07/30/20 17:59 Ondansetron HCl (Zofran) 4 mg Q8H PRN ORAL Nausea & Vomiting 07/01/20 05:00 07/31/20 04:59 Polyethylene Glycol/ Electrolytes (Nulytely) 4,000 ml ONCE ORAL 07/01/20 16:00 07/01/20 23:59 Potassium Chloride/Sodium Chloride 1,000 ml @ 100 mls/hr Q10H IV 06/30/20 20:00 07/30/20 19:59 07/01/20 06:19 Thiamine HCl (Vitamin B1) 100 mg DAILY ORAL 07/01/20 12:00 07/31/20 11:59 07/01/20 12:00 Assessment/Plan Assessment/Plan: Hematology Consultation REQ Israel Thurman RFC: Low platelets DOS 07/01/2020 HPI: 69-year-old male history of perforated gastric ulcer status post open repair presents for evaluation abdominal pain, I last saw approx 3 weeks ago. Notes 2 days of worth concerning periumbilical and epigastric discomfort that he describes as cramping. Continues to have diarrhea, ongoing, pain is nonradiating. Reports nausea, several episodes of nonbloody nonbilious emesis. Reports loose stools, denies melena or hematochezia. Denies dysuria hematuria. Denies flank pain. He reports sweats and chills last night. Mild cough. Denies chest pain or shortness of breath. Denies recent alcohol use. Has been seen by gi and cards, recs are noted PMH: Ulcer, hypertension, COPD PSH: Open laparoscopy Allergies: None Social Hx: Social alcohol use Allergies: Coded Allergies: No Known Allergies (Unverified , 12/05/12) COVID-19 Screening Contact w/high risk pt: No Recent Travel to affected area: No Experienced COVID-19 symptoms?: Yes COVID-19 symptoms experienced: Cough COVID-19 Testing performed [employer] SHIFT MANAGER: No Nursing Documentation-PMH Past Medical History: No History, Except For Hx Cardiac Problems: No Hx Hypertension: Yes Hx Pacemaker: No Hx Asthma: Yes Hx Diabetes: Yes Hx Cancer: No Hx Gastrointestinal Problems: No - Abdominal surgery 2014 Hx Dialysis: No Hx Neurological Problems: No Hx Cerebrovascular Accident: No Hx Seizures: No Review of Systems All Other Systems: negative except mentioned in HPI Physical Exam General: Awake and alert HEENT: NC/AT. EOMI. Cardiovascular: RRR. S1 and S2 normal. No murmur appreciated Resp: Normal work of breathing. No cough, wheezing or crackles appreciated Abdomen: Abdomen is soft, nondistended. periumbilical ttp Skin: Intact. No abrasions, laceration or rash over the exposed skin. Suergery scar c/d/i MSK: Normal tone and bulk. Moving all extremities. Neuro: Awake and alert. Mentating appropriately. labs noted Imagng reviewed Assessment and Recs # Leukopenia -- multiple etiologies could be related to underlying liver disease , medication-induced, infection versus viral syndrome, hx of ETOH USE --> peripheral smear has been ordered and does not show significant abnormalities --> Medications have been reviewed --> Hep panel and HIV both neg --> ct ordered to r/o cirrhosis and hepatosplenomegaly -> with fatty infiltration --> reverse isolation if ANC is <2000 --> Give neupogen if ANC <1000 --> wbc 3.7-->3-->2.6->2.8 # Tachycardia --> ivfs has been started --> per renal, gi # Abdominal pain --> seen by gi, no scope --> on ppi # Cocaine use polysubstance abuse history # Tiny fat-containing umbilical hernia, small renal cyst, fatty liver noted. # History of hypertension. Hydrochlorothiazide DCed for hypokalemia. --> On Lopressor 25 bid # Dvt ppx ambulation Appreciate consultation and dw Galo Hernandez MD Jul 01, 2020 13:53
--- NOTE | 2020-07-01 14:15 | Consultation ---
DATE OF CONSULTATION: 07/01/2020 CONSULTING PHYSICIAN: Gene Puente MD. CHIEF COMPLAINT: Abdominal pain, diarrhea. HISTORY OF PRESENT ILLNESS: This is a 69-year-old male with history of perforated gastric ulcer disease in the past requiring surgery, history of COPD, hypertension, cocaine abuse, and polysubstance abuse, this time positive for amphetamine, admitted to the hospital with complaint of severe watery diarrhea. Every time he eats, he said he has to go to the bathroom. CT showed evidence of colitis recently, so the patient was admitted for evaluation for that. PAST MEDICAL HISTORY: 1. Perforated gastric ulcer. 2. COPD. 3. History of polysubstance abuse. 4. Hypertension. ALLERGIES: No known drug allergies. MEDICATIONS: Please see medication reconciliation list. PAST SURGICAL HISTORY: Partial gastrectomy after perforated ulcer. FAMILY HISTORY: Noncontributory. REVIEW OF SYSTEMS: A 10-point review of systems was performed and pertinent positives in HPI. PHYSICAL EXAMINATION: VITAL SIGNS: Temperature is 97.5, pulse 82, respirations 17, blood pressure 153/82. HEENT: Normocephalic and atraumatic. Sclerae anicteric. NECK: Supple. No evidence of obvious lymphadenopathy. CARDIOVASCULAR: Regular rhythm. Plus S1-S2. LUNGS: Decreased breath sounds bilaterally based on the supine exam. ABDOMEN: Soft. There is a scar in the midline from prior abdominal surgeries. Abdomen is mildly distended. Bowel sounds are hypoactive. No rebound. No guarding. No peritoneal sign. EXTREMITIES: No cyanosis, no clubbing, no edema. LABORATORY DATA: White count is 2.8, hemoglobin 12, hematocrit 38, platelet count 202,000. ASSESSMENT AND PLAN: This is a 69-year-old male with significant diarrhea. CT evidence of colitis, mild anemia, needs endoscopy for evaluation of cause of significant diarrhea. Meanwhile, stool studies has been sent including C. diff and stool culture. The patient to be prepped today for colonoscopy tomorrow. Gene Puente M.D. DR: DARRIN JOB#: [id number] CC:
[2020-07-01 16:00] VITALS: BP 162/77
[2020-07-01] MEDS ORDERED: Nulytely 4L ORAL SCH (16:00)
[2020-07-01 20:00] VITALS: BP 155/96
[2020-07-02] VITALS: BP 151/74
[2020-07-02 04:00] VITALS: BP 148/72
[2020-07-02] MEDS: Dicyclomine 10mg Cap ORAL SCH ×3 (06:44→17:35)
--- NOTE | 2020-07-02 06:58 | Anethesia Preoperative Eval ---
Anesthesia Pre-op PMH/ROS General Date of Evaluation: Jul 02, 2020 Time of Evaluation: 06:53 Anesthesiologist: marva ASA Score: ASA 3 Mallampati Score Class I : Soft palate, uvula, fauces, pillars visible Class II: Soft palate, uvula, fauces visible Class III: Soft palate, base of uvula visible Class IV: Only hard plate visible Mallampati Classification: Class II Surgeon: lila Surgical Procedure: colonoscopy Anesthesia History: none Social History: current smoker, alcohol use, drug use Family History: no anesthesia problems Allergies: Coded Allergies: No Known Allergies (Unverified , 12/05/12) Medications: see eMAR Patient NPO?: Yes Past Medical History Cardiovascular: Reports: HTN, CAD, valve dz Pulmonary: Reports: asthma, COPD Gastrointestinal/Genitourinary: Reports: other - pancreatitis, Endocrine: Reports: DM, other - hypokalemia PSxH Narrative: abdominal sx Anesthesia Pre-op Phys. Exam Physician Exam Last Vital Signs Date Time Temp Pulse Resp B/P (MAP) Pulse Ox O2 Delivery O2 Flow Rate FiO2 07/02/20 04:00 73 07/02/20 04:00 97.6 17 148/72 (97) 98 07/01/20 21:00 Room Air Anesthesia Pre-op A/P Labs Microbiology Date/Time Source Procedure Growth Status 07/01/20 12:15 Nasopharynx SARS-CoV-2 RdRp Gene Assay - Final Complete Labs Test 06/30/20 16:07 06/30/20 20:30 07/01/20 05:45 White Blood Count 3.9 K/UL (4.8-10.8) 2.8 K/UL (4.8-10.8) Red Blood Count 4.37 M/UL (4.70-6.10) 4.25 M/UL (4.70-6.10) Hemoglobin 12.7 G/DL (14.2-18.0) 12.2 G/DL (14.2-18.0) Hematocrit 38.8 % (42.0-52.0) 38.2 % (42.0-52.0) Mean Corpuscular Volume 89 FL (80-99) 90 FL (80-99) Mean Corpuscular Hemoglobin 29.0 PG (27.0-31.0) 28.7 PG (27.0-31.0) Mean Corpuscular Hemoglobin Concent 32.7 G/DL (32.0-36.0) 32.0 G/DL (32.0-36.0) Red Cell Distribution Width 15.3 % (11.6-14.8) 14.9 % (11.6-14.8) Platelet Count 217 K/UL (150-450) 202 K/UL (150-450) Mean Platelet Volume 7.3 FL (6.5-10.1) 7.3 FL (6.5-10.1) Neutrophils (%) (Auto) 47.3 % (45.0-75.0) % (45.0-75.0) Lymphocytes (%) (Auto) 34.9 % (20.0-45.0) % (20.0-45.0) Monocytes (%) (Auto) 13.5 % (1.0-10.0) % (1.0-10.0) Eosinophils (%) (Auto) 1.9 % (0.0-3.0) % (0.0-3.0) Basophils (%) (Auto) 2.5 % (0.0-2.0) % (0.0-2.0) Sodium Level 140 MMOL/L (136-145) 141 MMOL/L (136-145) Potassium Level 2.8 MMOL/L (3.5-5.1) 3.4 MMOL/L (3.5-5.1) Chloride Level 104 MMOL/L (98-107) 106 MMOL/L (98-107) Carbon Dioxide Level 26 MMOL/L (21-32) 23 MMOL/L (21-32) Anion Gap 11 mmol/L (5-15) 12 mmol/L (5-15) Blood Urea Nitrogen 11 mg/dL (7-18) 9 mg/dL (7-18) Creatinine 1.3 MG/DL (0.55-1.30) 1.2 MG/DL (0.55-1.30) Estimat Glomerular Filtration Rate > 60 mL/min (>60) > 60 mL/min (>60) Glucose Level 127 MG/DL (74-106) 82 MG/DL (74-106) Calcium Level 8.1 MG/DL (8.5-10.1) 7.9 MG/DL (8.5-10.1) Total Bilirubin 0.6 MG/DL (0.2-1.0) 0.5 MG/DL (0.2-1.0) Aspartate Amino Transf (AST/SGOT) 126 U/L (15-37) 146 U/L (15-37) Alanine Aminotransferase (ALT/SGPT) 65 U/L (12-78) 64 U/L (12-78) Alkaline Phosphatase 101 U/L (46-116) 100 U/L (46-116) Total Protein 7.4 G/DL (6.4-8.2) 7.0 G/DL (6.4-8.2) Albumin 3.5 G/DL (3.4-5.0) 3.3 G/DL (3.4-5.0) Globulin 3.9 g/dL 3.7 g/dL Albumin/Globulin Ratio 0.9 (1.0-2.7) 0.9 (1.0-2.7) Lipase 403 U/L (73-393) 210 U/L (73-393) Serum Alcohol 240 mg/dL Urine Color Pale yellow Urine Appearance Clear Urine pH 5 (4.5-8.0) Urine Specific [place] 1.010 (1.005-1.035) Urine Protein Negative (NEGATIVE) Urine Glucose (UA) Negative (NEGATIVE) Urine Ketones Negative (NEGATIVE) Urine Blood Negative (NEGATIVE) Urine Nitrite Negative (NEGATIVE) Urine Bilirubin Negative (NEGATIVE) Urine Urobilinogen Normal MG/DL (0.0-1.0) Urine Leukocyte Esterase Negative (NEGATIVE) Urine Opiates Screen Negative (NEGATIVE) Urine Barbiturates Screen Negative (NEGATIVE) Phencyclidine (PCP) Screen Negative (NEGATIVE) Urine Amphetamines Screen Positive (NEGATIVE) Urine Benzodiazepines Screen Negative (NEGATIVE) Urine Cocaine Screen Negative (NEGATIVE) Urine Marijuana (THC) Screen Negative (NEGATIVE) Differential Total Cells Counted 100 Neutrophils % (Manual) 47 % (45-75) Lymphocytes % (Manual) 34 % (20-45) Monocytes % (Manual) 15 % (1-10) Eosinophils % (Manual) 2 % (0-3) Basophils % (Manual) 2 % (0-2) Band Neutrophils 0 % (0-8) Platelet Estimate Adequate Platelet Morphology Normal Red Blood Cell Morphology Normal Erythrocyte Sedimentation Rate 19 MM/HR (0-20) Magnesium Level 1.4 MG/DL (1.8-2.4) C-Reactive Protein, Quantitative 0.8 mg/dL (0.00-0.90) Risk Assessment & Plan Assessment: asa3 Plan: mac Status Change Before Surgery: No Pre-Antibiotics Drug: Nellie Light MD Jul 02, 2020 06:58
[2020-07-02] MEDS ORDERED: Atropine Inj 1mg/10ml Syr IV PRN (07:00)
[2020-07-02] MEDS ORDERED: fentaNYL 100 mcg/2 mL IV PRN (07:00)
[2020-07-02] MEDS ORDERED: DiphenhydrAMINE 50mg/ml Inj IVP PRN (07:00)
[2020-07-02] MEDS ORDERED: Midazolam 2mg/2ml Inj IVP PRN (07:00)
[2020-07-02 07:26] LABS: HEMATOCRIT 36.8 % (42.0-52.0); HEMOGLOBIN 12.5 G/DL (14.2-18.0); MEAN CORPUSCULAR VOLUME 88 FL (80-99); PLATELET COUNT 213 K/UL (150-450); RED BLOOD COUNT 4.16 M/UL (4.70-6.10); RED CELL DISTRIBUTION WIDTH 14.7 % (11.6-14.8)
[2020-07-02 08:00] VITALS: BP 136/68
--- NOTE | 2020-07-02 08:25 | General Progress Note ---
Assessment/Plan Problem List: (1) Diarrhea ICD Codes: R19.7 - Diarrhea, unspecified SNOMED: 56523364 (2) Abdominal pain ICD Codes: R10.9 - Unspecified abdominal pain SNOMED: 69696519 (3) Pancreatitis ICD Codes: K85.90 - Acute pancreatitis without necrosis or infection, unspecified SNOMED: 58702708 (4) Colitis ICD Codes: K52.9 - Noninfective gastroenteritis and colitis, unspecified SNOMED: 22667813 (5) Alcohol abuse ICD Codes: F10.10 - Alcohol abuse, uncomplicated SNOMED: 67443280 (6) Hypokalemia ICD Codes: E87.6 - Hypokalemia SNOMED: 78570511 (7) Leukopenia ICD Codes: D72.819 - Decreased white blood cell count, unspecified SNOMED: 79036248, 458902058 (8) history of perforated Gastric ulcer Assessment/Plan: 69-year-old male with history of prior perforated ulcer status post open repair , hypertension, chronic substance abuse presents for evaluation of abdominal pain and diarrhea for 5 days. # Abdominal Pain # NBNB Diarrhea -possible IBD # Elevated lipase trended down- possible pancreatitis # Alcohol Abuse/Substance Abuse # Hypokalemia - Hospital level care - Metronidazole and Ciprofloxacin started 06/30 - Clear liquid diet - Fluid hydration - Replete electrolytes - trend CBC, BMP - Consult to GI - appreciate recs- Endoscopy tomorrow- patient refused prep initially - Consult to nephrology - appreciate recs - Social service consult for substance abuse - CIWA observation #Leukopenia - improving -Likely ETOH -Appreciate recs form hematology DVT ppx Heparin 500 units subq q12 I spent 37 min on this patient with greater than 50% face to face. Coordinated with consultants and RNs. Subjective Date patient seen: Jul 02, 2020 Time patient seen: 09:29 ROS Limited/Unobtainable: No Constitutional: Reports: no symptoms HEENT: Reports: no symptoms Cardiovascular: Reports: no symptoms Respiratory: Reports: no symptoms Gastrointestinal/Abdominal: Reports: abdominal pain, diarrhea; Denies: black stools, tarry stools, blood in stool, constipated, nausea, poor appetite, rectal bleeding, vomiting Genitourinary: Reports: no symptoms Neurologic/Psychiatric: Reports: no symptoms Endocrine: Reports: no symptoms Hematologic/Lymphatic: Reports: no symptoms Allergies: Coded Allergies: No Known Allergies (Unverified , 12/05/12) Subjective Patient refused to be prepped for coloscopy today but now has agreed to. Will have endoscopy tomorrow. Objective Last 24 Hour Vital Signs Date Time Temp Pulse Resp B/P (MAP) Pulse Ox O2 Delivery O2 Flow Rate FiO2 07/02/20 08:00 96.7 69 21 136/68 (90) 98 07/02/20 04:00 73 07/02/20 04:00 97.6 84 17 148/72 (97) 98 07/02/20 00:00 87 07/02/20 00:00 98.2 80 17 151/74 (99) 98 07/01/20 21:00 Room Air 07/01/20 20:00 71 07/01/20 20:00 98.1 76 19 155/96 (115) 98 07/01/20 16:00 98.8 78 17 162/77 (105) 97 07/01/20 16:00 85 07/01/20 12:00 76 07/01/20 11:30 97.7 81 18 157/84 (108) 98 07/01/20 11:30 71 79 81 07/01/20 09:00 Room Air Intake and Output 07/01/20 07/02/20 19:00 07:00 Intake Total 1900 ml Balance 1900 ml Intake Oral 1000 ml IV Total 900 ml # Voids 2 # Bowel Movements 4 Laboratory Tests 07/02/20 05:52: White Blood Count 3.0L, Red Blood Count 4.16L, Hemoglobin 12.5L, Hematocrit 36.8L, Mean Corpuscular Volume 88, Mean Corpuscular Hemoglobin 30.0, Mean Corpuscular Hemoglobin Concent 33.9, Red Cell Distribution Width 14.7, Platelet Count 213, Mean Platelet Volume 7.9, Neutrophils (%) (Auto) , Lymphocytes (%) ( Auto) , Monocytes (%) (Auto) , Eosinophils (%) (Auto) , Basophils (%) (Auto) , Neutrophils % (Manual) [Pending], Lymphocytes % (Manual) [Pending], Platelet Estimate [Pending], Platelet Morphology [Pending], Sodium Level [Pending], Potassium Level [Pending], Chloride Level [Pending], Carbon Dioxide Level [ Pending], Blood Urea Nitrogen [Pending], Creatinine [Pending], Estimat Glomerular Filtration Rate [Pending], Glucose Level [Pending], Calcium Level [ Pending], Phosphorus Level 2.3L, Total Bilirubin [Pending], Aspartate Amino Transf (AST/SGOT) [Pending], Alanine Aminotransferase (ALT/SGPT) [Pending], Alkaline Phosphatase [Pending], Total Protein [Pending], Albumin [Pending], Globulin [Pending] Height (Feet): 5 Height (Inches): 8.00 Weight (Pounds): 200 General Appearance: no apparent distress, alert EENT: PERRL/EOMI, normal ENT inspection Neck: non-tender, normal alignment, supple Cardiovascular: normal peripheral pulses, normal rate, regular rhythm, no gallop/murmur, no JVD Respiratory/Chest: chest wall non-tender, lungs clear, normal breath sounds, no respiratory distress, no accessory muscle use Abdomen: soft, no organomegaly, no mass, hyperactive bowel sounds, tender, other - Scar Pelvis: normal external exam Extremities: normal range of motion, non-tender, normal inspection Edema: no edema noted Arm (L), no edema noted Arm (R), no edema noted Leg (L), no edema noted Leg (R), no edema noted Pedal (L), no edema noted Pedal (R), no edema noted Generalized Neurologic: lean consultant II-XII grossly normal, no motor/sensory deficits, alert, oriented x 3, responsive, normal mood/affect Skin: normal pigmentation, warm/dry Jc Wood M.D. Jul 02, 2020 08:25
[2020-07-02 08:37] LABS: ALANINE AMINOTRANSFERASE 57 U/L (12-78); ALBUMIN/GLOBULIN RATIO 0.8 (1.0-2.7); ALKALINE PHOSPHATASE 89 U/L (46-116); ANION GAP 9 mmol/L (5-15); ASPARTATE AMINO TRANSFERASE 97 U/L (15-37); BILIRUBIN,TOTAL 0.6 MG/DL (0.2-1.0); BLOOD UREA NITROGEN 2 mg/dL (7-18); CALCIUM 8.1 MG/DL (8.5-10.1); CARBON DIOXIDE 25 MMOL/L (21-32); CHLORIDE 105 MMOL/L (98-107); POTASSIUM 3.3 MMOL/L (3.5-5.1); SODIUM 139 MMOL/L (136-145)
[2020-07-02] MEDS: Heparin 5000 units/ml inj SUBQ SCH ×2 (09:00→20:44)
[2020-07-02] MEDS: Thiamine 100mg tab ORAL SCH (09:17)
--- NOTE | 2020-07-02 09:39 | General Progress Note ---
Assessment/Plan Problem List: (1) history of perforated Gastric ulcer (2) Diarrhea ICD Codes: R19.7 - Diarrhea, unspecified SNOMED: 90710358 (3) Abdominal pain ICD Codes: R10.9 - Unspecified abdominal pain SNOMED: 73087539 (4) Colitis ICD Codes: K52.9 - Noninfective gastroenteritis and colitis, unspecified SNOMED: 16641357 (5) Alcohol abuse ICD Codes: F10.10 - Alcohol abuse, uncomplicated SNOMED: 73649919 Assessment/Plan: refused colonoscopy today rescheduled for tomorrow clears fu stool studies Subjective ROS Limited/Unobtainable: No Allergies: Coded Allergies: No Known Allergies (Unverified , 12/05/12) Objective Last 24 Hour Vital Signs Date Time Temp Pulse Resp B/P (MAP) Pulse Ox O2 Delivery O2 Flow Rate FiO2 07/02/20 09:17 69 136/68 07/02/20 08:00 96.7 69 21 136/68 (90) 98 07/02/20 07:28 69 07/02/20 04:00 73 07/02/20 04:00 97.6 84 17 148/72 (97) 98 07/02/20 00:00 87 07/02/20 00:00 98.2 80 17 151/74 (99) 98 07/01/20 21:00 Room Air 07/01/20 20:00 71 07/01/20 20:00 98.1 76 19 155/96 (115) 98 07/01/20 16:00 98.8 78 17 162/77 (105) 97 07/01/20 16:00 85 07/01/20 12:00 76 07/01/20 11:30 97.7 81 18 157/84 (108) 98 07/01/20 11:30 71 79 81 Intake and Output 07/01/20 07/02/20 19:00 07:00 Intake Total 1900 ml Balance 1900 ml Intake Oral 1000 ml IV Total 900 ml # Voids 2 # Bowel Movements 4 Laboratory Tests 07/02/20 05:52: White Blood Count 3.0L, Red Blood Count 4.16L, Hemoglobin 12.5L, Hematocrit 36.8L, Mean Corpuscular Volume 88, Mean Corpuscular Hemoglobin 30.0, Mean Corpuscular Hemoglobin Concent 33.9, Red Cell Distribution Width 14.7, Platelet Count 213, Mean Platelet Volume 7.9, Neutrophils (%) (Auto) , Lymphocytes (%) ( Auto) , Monocytes (%) (Auto) , Eosinophils (%) (Auto) , Basophils (%) (Auto) , Neutrophils % (Manual) [Pending], Lymphocytes % (Manual) [Pending], Platelet Estimate [Pending], Platelet Morphology [Pending], Sodium Level 139, Potassium Level 3.3L, Chloride Level 105, Carbon Dioxide Level 25, Anion Gap 9, Blood Urea Nitrogen 2L, Creatinine 1.0, Estimat Glomerular Filtration Rate > 60, Glucose Level 117H, Calcium Level 8.1L, Phosphorus Level 2.3L, Total Bilirubin 0.6, Aspartate Amino Transf (AST/SGOT) 97H, Alanine Aminotransferase (ALT/SGPT) 57, Alkaline Phosphatase 89, Total Protein 6.7, Albumin 3.0L, Globulin 3.7, Albumin/Globulin Ratio 0.8L Height (Feet): 5 Height (Inches): 8.00 Weight (Pounds): 200 General Appearance: alert EENT: normal ENT inspection Neck: supple Cardiovascular: normal rate Respiratory/Chest: decreased breath sounds Abdomen: soft, hypoactive bowel sounds, other - SCar Extremities: non-tender Gene Puente MD Jul 02, 2020 09:39
--- NOTE | 2020-07-02 10:48 | Pulmonology Progress Note ---
Jenni Joy [employer] CLERK 07/02/20 1048: Subjective ROS Limited/Unobtainable: No Allergies: Coded Allergies: No Known Allergies (Unverified , 12/05/12) Subjective no resp distress admits to dry intermittent cough hx of smoking x 30 yrs 1 pk for a day or two denies chest pain HH stable still abd pain, but improved low Ka and P this am Objective Last 24 Hour Vital Signs Date Time Temp Pulse Resp B/P (MAP) Pulse Ox O2 Delivery O2 Flow Rate FiO2 07/02/20 09:17 69 136/68 07/02/20 08:00 96.7 69 21 136/68 (90) 98 07/02/20 07:28 69 07/02/20 04:00 73 07/02/20 04:00 97.6 84 17 148/72 (97) 98 07/02/20 00:00 87 07/02/20 00:00 98.2 80 17 151/74 (99) 98 07/01/20 21:00 Room Air 07/01/20 20:00 71 07/01/20 20:00 98.1 76 19 155/96 (115) 98 07/01/20 16:00 98.8 78 17 162/77 (105) 97 07/01/20 16:00 85 07/01/20 12:00 76 07/01/20 11:30 97.7 81 18 157/84 (108) 98 07/01/20 11:30 71 79 81 Intake and Output 07/01/20 07/02/20 19:00 07:00 Intake Total 1900 ml Balance 1900 ml Intake Oral 1000 ml IV Total 900 ml # Voids 2 # Bowel Movements 4 Objective General Appearance: WD/WN, no apparent distress Lines, tubes and drains: peripheral HEENT: normocephalic, atraumatic, anicteric, mucous membranes moist Neck: non-tender, supple Respiratory/Chest: lungs clear - with moderate air exchange , no respiratory distress, no accessory muscle use Cardiovascular/Chest: normal rate, regular rhythm - SR on tele Abdomen: normal bowel sounds, soft with mild diffused tenderness, no rebound , no guarding Extremities: no calf tenderness, normal capillary refill Skin Exam: warm/dry, other - vertical healed lower abdomen scar Neurologic: no motor/sensory deficits, alert, oriented x 3, responsive, normal mood/affect Musculoskeletal: normal muscle bulk Microbiology Date/Time Source Procedure Growth Status 07/01/20 12:15 Nasopharynx SARS-CoV-2 RdRp Gene Assay - Final Complete Laboratory Tests 07/02/20 05:52: White Blood Count 3.0L, Red Blood Count 4.16L, Hemoglobin 12.5L, Hematocrit 36.8L, Mean Corpuscular Volume 88, Mean Corpuscular Hemoglobin 30.0, Mean Corpuscular Hemoglobin Concent 33.9, Red Cell Distribution Width 14.7, Platelet Count 213, Mean Platelet Volume 7.9, Neutrophils (%) (Auto) , Lymphocytes (%) ( Auto) , Monocytes (%) (Auto) , Eosinophils (%) (Auto) , Basophils (%) (Auto) , Differential Total Cells Counted 100, Neutrophils % (Manual) 46, Lymphocytes % ( Manual) 36, Monocytes % (Manual) 16H, Eosinophils % (Manual) 2, Basophils % ( Manual) 0, Band Neutrophils 0, Platelet Estimate Adequate, Platelet Morphology Normal, Anisocytosis 1+, Sodium Level 139, Potassium Level 3.3L, Chloride Level 105, Carbon Dioxide Level 25, Anion Gap 9, Blood Urea Nitrogen 2L, Creatinine 1.0, Estimat Glomerular Filtration Rate > 60, Glucose Level 117H, Calcium Level 8.1L, Phosphorus Level 2.3L, Total Bilirubin 0.6, Aspartate Amino Transf (AST/ SGOT) 97H, Alanine Aminotransferase (ALT/SGPT) 57, Alkaline Phosphatase 89, Total Protein 6.7, Albumin 3.0L, Globulin 3.7, Albumin/Globulin Ratio 0.8L Current Medications Medications (Trade) Dose Ordered Sig/Tabby Route PRN Reason Start Time Stop Time Status Last Admin Dose Admin Acetaminophen (Tylenol) 650 mg Q4H PRN ORAL Mild Pain (Pain Scale 1-3) 06/30/20 18:00 07/30/20 17:59 07/01/20 04:34 Acetaminophen (Tylenol) 650 mg Q4H PRN ORAL Mild Pain (Pain Scale 1-3) 07/02/20 07:00 07/02/20 16:00 Al Hydroxide/Mg Hydroxide (Mylanta) 15 ml Q1H PRN ORAL gi upset 07/02/20 07:00 07/02/20 16:00 Albuterol/ Ipratropium (Albuterol/ Ipratropium) 3 ml Q4H PRN HHN Shortness of Breath 06/30/20 18:00 07/05/20 17:59 Amlodipine Besylate (Norvasc) 5 mg DAILY ORAL 07/02/20 09:00 08/01/20 08:59 07/02/20 09:17 Atropine Sulfate (Atropine) 0.5 mg Q5M PRN IV bpm less than 45 07/02/20 07:00 07/02/20 16:00 Ciprofloxacin 200 ml @ 200 mls/hr Q12HR IV 06/30/20 21:00 07/07/20 20:59 07/02/20 09:06 Dextrose (Dextrose 50%) 25 ml Q30M PRN IV Hypoglycemia 06/30/20 18:00 09/28/20 17:59 Dextrose (Dextrose 50%) 50 ml Q30M PRN IV Hypoglycemia 06/30/20 18:00 09/28/20 17:59 Dicyclomine HCl (Bentyl) 10 mg BEFORE MEALS ORAL 07/01/20 06:30 07/31/20 06:29 07/02/20 06:44 Diphenhydramine HCl (Benadryl) 25 mg Q15M PRN IVP Itching 07/02/20 07:00 07/02/20 16:00 Diphenhydramine HCl (Benadryl) 25 mg Q6H PRN ORAL Itching/Pruritis 06/30/20 18:00 07/30/20 17:59 Famotidine (Pepcid) 20 mg DAILY ORAL 07/01/20 09:00 09/29/20 08:59 07/02/20 09:12 Fentanyl Citrate (Sublimaze 100 mcg/2 mL) 25 mcg Q10M PRN IV Moderate Pain (Pain Scale 4-6) 07/02/20 07:00 07/02/20 16:00 Folic Acid (Folate) 1 mg DAILY ORAL 07/01/20 12:00 07/31/20 11:59 07/02/20 09:16 Gabapentin (Neurontin) 100 mg TWICE A DAY ORAL 07/01/20 09:00 07/31/20 08:59 07/02/20 09:12 Guaifenesin/ Dextromethorphan (Robitussin DM Syrup) 5 ml Q6H PRN ORAL FOR COUGH 07/01/20 05:00 09/29/20 04:59 Heparin Sodium (Porcine) (Heparin 5000 units/ml) 5,000 units EVERY 12 HOURS SUBQ 06/30/20 21:00 08/14/20 20:59 07/01/20 20:45 Hydralazine HCl (Apresoline) 5 mg Q30M PRN IV SBP>160 OR___/DBP>90 OR___ 07/02/20 07:00 07/02/20 16:00 Hydromorphone HCl (Dilaudid) 0.5 mg Q4H PRN IVP Severe Pain (Pain Scale 7-10) 06/30/20 18:00 07/07/20 17:59 07/01/20 20:54 Loperamide HCl (Imodium) 2 mg Q4H PRN ORAL Diarrhea 07/01/20 09:45 07/31/20 09:44 Lorazepam (Ativan 2mg/ml 1ml) 0.5 mg Q4H PRN IV For Anxiety 06/30/20 18:00 07/07/20 17:59 Metronidazole 100 ml @ 100 mls/hr Q12H IVPB 07/02/20 08:00 07/07/20 23:59 07/02/20 09:17 Midazolam HCl (Versed 2mg/2ml vial) 1 mg Q15M PRN IVP For Anxiety 07/02/20 07:00 07/02/20 16:00 Ondansetron HCl (Zofran) 4 mg Q1H PRN IVP Nausea & Vomiting 07/02/20 07:00 07/02/20 16:00 Ondansetron HCl (Zofran) 4 mg Q6H PRN IVP Nausea & Vomiting 06/30/20 18:00 07/30/20 17:59 Ondansetron HCl (Zofran) 4 mg Q8H PRN ORAL Nausea & Vomiting 07/01/20 05:00 07/31/20 04:59 Polyethylene Glycol (Miralax) 238 gm ONCE ORAL 07/02/20 16:00 07/02/20 18:00 Potassium Chloride/Sodium Chloride 1,000 ml @ 100 mls/hr Q10H IV 06/30/20 20:00 07/30/20 19:59 07/01/20 18:43 Thiamine HCl (Vitamin B1) 100 mg DAILY ORAL 07/01/20 12:00 07/31/20 11:59 07/02/20 09:17 Assessment/Plan Assessment/Plan ASSESSMENT Cough Nicotine addiction Abdominal pain with diarrhea Probably mild alcoholic pancreatitis Elevated LFT, likely due to alcoholic gastritis Hx of bleeding ulcer, requiring exploratory lap Hypokalemia - replaced HTN Substance abuse E/lite imbalance PLAN OF CARE tele O2 titrate to keep sat above 92% pulm toilet MDI rapid COVID 19 NGT CXR stable, fup with CXR a/tussive prn DVT prophylaxis anger control counselor on smoking cessation ( smokes 1pk.1-2 days x 30 yrs) start Nicotine patch recommends as OP -CT chest given hx of heavy smoking empiric abx stool C dif, stool cx pain management a/spasmatic GI prophylaxis EGD and colon for am Mg replaced yesterday by nephro replace K and P add thiamine and folic acid not appeared to be in withdrawal, but anxiolytics on board as needed trend LFT supportive care thank you for a consult! case discussed and evaluated by supervising physician Oli Cadet MD 07/02/20 1645: Subjective Allergies: Coded Allergies: No Known Allergies (Unverified , 12/05/12) Assessment/Plan Assessment/Plan Patient seen and examined with [employer] CLERK. Agree with above A&P as it reflects our joint deliberations. Jenni Joy [employer] CLERK Jul 02, 2020 10:48 Oli Cadet MD Jul 02, 2020 16:45
--- NOTE | 2020-07-02 11:37 | Hematology/Onc Progress Note ---
Assessment/Plan Assessment/Plan Assessment and Recs # Leukopenia -- multiple etiologies could be related to underlying liver disease , medication-induced, infection versus viral syndrome, hx of ETOH USE --> peripheral smear has been ordered and does not show significant abnormalities --> Medications have been reviewed --> Hep panel and HIV both neg --> prior ct ordered to r/o cirrhosis and hepatosplenomegaly -> with fatty infiltration --> reverse isolation if ANC is <2000 --> Give neupogen if ANC <1000 --> wbc 3.7-->3-->2.6->2.8->3 # Tachycardia --> ivfs has been started --> per renal, gi # Abdominal pain --> seen by gi, no scope --> on ppi # Cocaine use polysubstance abuse history # Tiny fat-containing umbilical hernia, small renal cyst, fatty liver noted. # History of hypertension. Hydrochlorothiazide DCed for hypokalemia. --> amlodipine # Hypokalemia --> replete with k # Dvt ppx ambulation --> hep sq Appreciate consultation and dw RN Subjective HEENT: Denies: no symptoms, eye pain, blurred vision, tearing, double vision, ear pain, ear discharge, nose pain, nose congestion, throat pain, throat swelling, mouth pain, mouth swelling, other Cardiovascular: Denies: no symptoms, chest pain, edema, irregular heart rate, lightheadedness, palpitations, syncope, other Respiratory: Denies: no symptoms, cough, shortness of breath, SOB with excertion, SOB at rest, sputum, wheezing, other Gastrointestinal/Abdominal: Denies: no symptoms, abdomen distended, abdominal pain, black stools, tarry stools, blood in stool, constipated, diarrhea, difficulty swallowing, nausea, poor appetite, poor fluid intake, rectal bleeding , vomiting, other Hematologic/Lymphatic: Denies: no symptoms, anemia, easy bleeding, easy bruising, adenopathy, other Allergies: Coded Allergies: No Known Allergies (Unverified , 12/05/12) Subjective 07/02 has refused colo, labs noted, wbc relatively stable, k low Objective Objective Current Medications Medications (Trade) Dose Ordered Sig/Tabby Route PRN Reason Start Time Stop Time Status Last Admin Dose Admin Acetaminophen (Tylenol) 650 mg Q4H PRN ORAL Mild Pain (Pain Scale 1-3) 06/30/20 18:00 07/30/20 17:59 07/01/20 04:34 Acetaminophen (Tylenol) 650 mg Q4H PRN ORAL Mild Pain (Pain Scale 1-3) 07/02/20 07:00 07/02/20 16:00 Al Hydroxide/Mg Hydroxide (Mylanta) 15 ml Q1H PRN ORAL gi upset 07/02/20 07:00 07/02/20 16:00 Albuterol/ Ipratropium (Albuterol/ Ipratropium) 3 ml Q4H PRN HHN Shortness of Breath 06/30/20 18:00 07/05/20 17:59 Amlodipine Besylate (Norvasc) 5 mg DAILY ORAL 07/02/20 09:00 08/01/20 08:59 07/02/20 09:17 Atropine Sulfate (Atropine) 0.5 mg Q5M PRN IV bpm less than 45 07/02/20 07:00 07/02/20 16:00 Ciprofloxacin 200 ml @ 200 mls/hr Q12HR IV 06/30/20 21:00 07/07/20 20:59 07/02/20 09:06 Dextrose (Dextrose 50%) 25 ml Q30M PRN IV Hypoglycemia 06/30/20 18:00 09/28/20 17:59 Dextrose (Dextrose 50%) 50 ml Q30M PRN IV Hypoglycemia 06/30/20 18:00 09/28/20 17:59 Dicyclomine HCl (Bentyl) 10 mg BEFORE MEALS ORAL 07/01/20 06:30 07/31/20 06:29 07/02/20 06:44 Diphenhydramine HCl (Benadryl) 25 mg Q15M PRN IVP Itching 07/02/20 07:00 07/02/20 16:00 Diphenhydramine HCl (Benadryl) 25 mg Q6H PRN ORAL Itching/Pruritis 06/30/20 18:00 07/30/20 17:59 Famotidine (Pepcid) 20 mg DAILY ORAL 07/01/20 09:00 09/29/20 08:59 07/02/20 09:12 Fentanyl Citrate (Sublimaze 100 mcg/2 mL) 25 mcg Q10M PRN IV Moderate Pain (Pain Scale 4-6) 07/02/20 07:00 07/02/20 16:00 Folic Acid (Folate) 1 mg DAILY ORAL 07/01/20 12:00 07/31/20 11:59 07/02/20 09:16 Gabapentin (Neurontin) 100 mg TWICE A DAY ORAL 07/01/20 09:00 07/31/20 08:59 07/02/20 09:12 Guaifenesin/ Dextromethorphan (Robitussin DM Syrup) 5 ml Q6H PRN ORAL FOR COUGH 07/01/20 05:00 09/29/20 04:59 Heparin Sodium (Porcine) (Heparin 5000 units/ml) 5,000 units EVERY 12 HOURS SUBQ 06/30/20 21:00 08/14/20 20:59 07/01/20 20:45 Hydralazine HCl (Apresoline) 5 mg Q30M PRN IV SBP>160 OR___/DBP>90 OR___ 07/02/20 07:00 07/02/20 16:00 Hydromorphone HCl (Dilaudid) 0.5 mg Q4H PRN IVP Severe Pain (Pain Scale 7-10) 06/30/20 18:00 07/07/20 17:59 07/01/20 20:54 Loperamide HCl (Imodium) 2 mg Q4H PRN ORAL Diarrhea 07/01/20 09:45 07/31/20 09:44 Lorazepam (Ativan 2mg/ml 1ml) 0.5 mg Q4H PRN IV For Anxiety 06/30/20 18:00 07/07/20 17:59 Metronidazole 100 ml @ 100 mls/hr Q12H IVPB 07/02/20 08:00 07/07/20 23:59 07/02/20 09:17 Midazolam HCl (Versed 2mg/2ml vial) 1 mg Q15M PRN IVP For Anxiety 07/02/20 07:00 07/02/20 16:00 Nicotine (Nicoderm) 1 patch DAILY TDERMAL 07/02/20 10:45 09/30/20 10:44 Ondansetron HCl (Zofran) 4 mg Q1H PRN IVP Nausea & Vomiting 07/02/20 07:00 07/02/20 16:00 Ondansetron HCl (Zofran) 4 mg Q6H PRN IVP Nausea & Vomiting 06/30/20 18:00 07/30/20 17:59 Ondansetron HCl (Zofran) 4 mg Q8H PRN ORAL Nausea & Vomiting 07/01/20 05:00 07/31/20 04:59 Polyethylene Glycol (Miralax) 238 gm ONCE ORAL 07/02/20 16:00 07/02/20 18:00 Potassium Chloride/Sodium Chloride 1,000 ml @ 100 mls/hr Q10H IV 06/30/20 20:00 07/30/20 19:59 07/01/20 18:43 Potassium Phosphate 20 mm/ Sodium Chloride 281.6667 ml @ 46.94 mls/hr ONCE ONCE IV 07/02/20 12:00 07/02/20 18:00 Thiamine HCl (Vitamin B1) 100 mg DAILY ORAL 07/01/20 12:00 07/31/20 11:59 07/02/20 09:17 Last 24 Hour Vital Signs Date Time Temp Pulse Resp B/P (MAP) Pulse Ox O2 Delivery O2 Flow Rate FiO2 07/02/20 09:17 69 136/68 07/02/20 09:00 Room Air 07/02/20 08:00 96.7 69 21 136/68 (90) 98 07/02/20 07:28 69 07/02/20 04:00 73 07/02/20 04:00 97.6 84 17 148/72 (97) 98 07/02/20 00:00 87 07/02/20 00:00 98.2 80 17 151/74 (99) 98 07/01/20 21:00 Room Air 07/01/20 20:00 71 07/01/20 20:00 98.1 76 19 155/96 (115) 98 07/01/20 16:00 98.8 78 17 162/77 (105) 97 07/01/20 16:00 85 07/01/20 12:00 76 07/01/20 11:30 97.7 81 18 157/84 (108) 98 07/01/20 11:30 71 79 81 07/01/20 09:00 Room Air 07/01/20 08:00 97.5 82 17 153/82 (105) 98 07/01/20 08:00 82 07/01/20 07:16 98.0 07/01/20 04:00 83 07/01/20 04:00 98.0 83 20 155/90 (111) 97 07/01/20 00:00 98.1 88 20 151/88 (109) 97 07/01/20 00:00 87 07/01/20 00:00 81 87 79 06/30/20 22:00 Room Air 06/30/20 22:00 97.9 81 21 154/96 (115) 99 06/30/20 22:00 98.4 83 16 140/85 98 Room Air 06/30/20 21:45 98.4 82 14 139/84 98 Room Air 06/30/20 21:00 85 06/30/20 19:07 98.4 84 16 142/80 98 Room Air 06/30/20 16:54 98.4 82 16 145/82 98 Room Air 06/30/20 15:55 90 16 Room Air 06/30/20 15:36 98.4 90 16 137/85 (102) 98 Room Air Intake and Output 07/01/20 07/02/20 19:00 07:00 Intake Total 1900 ml 100 ml Balance 1900 ml 100 ml Intake Oral 1000 ml IV Total 900 ml 100 ml # Voids 2 # Bowel Movements 4 Labs Test 06/30/20 16:07 06/30/20 20:30 07/01/20 05:45 07/02/20 05:52 White Blood Count 3.9 K/UL (4.8-10.8) 2.8 K/UL (4.8-10.8) 3.0 K/UL (4.8-10.8) Red Blood Count 4.37 M/UL (4.70-6.10) 4.25 M/UL (4.70-6.10) 4.16 M/UL (4.70-6.10) Hemoglobin 12.7 G/DL (14.2-18.0) 12.2 G/DL (14.2-18.0) 12.5 G/DL (14.2-18.0) Hematocrit 38.8 % (42.0-52.0) 38.2 % (42.0-52.0) 36.8 % (42.0-52.0) Mean Corpuscular Volume 89 FL (80-99) 90 FL (80-99) 88 FL (80-99) Mean Corpuscular Hemoglobin 29.0 PG (27.0-31.0) 28.7 PG (27.0-31.0) 30.0 PG (27.0-31.0) Mean Corpuscular Hemoglobin Concent 32.7 G/DL (32.0-36.0) 32.0 G/DL (32.0-36.0) 33.9 G/DL (32.0-36.0) Red Cell Distribution Width 15.3 % (11.6-14.8) 14.9 % (11.6-14.8) 14.7 % (11.6-14.8) Platelet Count 217 K/UL (150-450) 202 K/UL (150-450) 213 K/UL (150-450) Mean Platelet Volume 7.3 FL (6.5-10.1) 7.3 FL (6.5-10.1) 7.9 FL (6.5-10.1) Neutrophils (%) (Auto) 47.3 % (45.0-75.0) % (45.0-75.0) % (45.0-75.0) Lymphocytes (%) (Auto) 34.9 % (20.0-45.0) % (20.0-45.0) % (20.0-45.0) Monocytes (%) (Auto) 13.5 % (1.0-10.0) % (1.0-10.0) % (1.0-10.0) Eosinophils (%) (Auto) 1.9 % (0.0-3.0) % (0.0-3.0) % (0.0-3.0) Basophils (%) (Auto) 2.5 % (0.0-2.0) % (0.0-2.0) % (0.0-2.0) Sodium Level 140 MMOL/L (136-145) 141 MMOL/L (136-145) 139 MMOL/L (136-145) Potassium Level 2.8 MMOL/L (3.5-5.1) 3.4 MMOL/L (3.5-5.1) 3.3 MMOL/L (3.5-5.1) Chloride Level 104 MMOL/L (98-107) 106 MMOL/L (98-107) 105 MMOL/L (98-107) Carbon Dioxide Level 26 MMOL/L (21-32) 23 MMOL/L (21-32) 25 MMOL/L (21-32) Anion Gap 11 mmol/L (5-15) 12 mmol/L (5-15) 9 mmol/L (5-15) Blood Urea Nitrogen 11 mg/dL (7-18) 9 mg/dL (7-18) 2 mg/dL (7-18) Creatinine 1.3 MG/DL (0.55-1.30) 1.2 MG/DL (0.55-1.30) 1.0 MG/DL (0.55-1.30) Estimat Glomerular Filtration Rate > 60 mL/min (>60) > 60 mL/min (>60) > 60 mL/min (>60) Glucose Level 127 MG/DL (74-106) 82 MG/DL (74-106) 117 MG/DL (74-106) Calcium Level 8.1 MG/DL (8.5-10.1) 7.9 MG/DL (8.5-10.1) 8.1 MG/DL (8.5-10.1) Total Bilirubin 0.6 MG/DL (0.2-1.0) 0.5 MG/DL (0.2-1.0) 0.6 MG/DL (0.2-1.0) Aspartate Amino Transf (AST/SGOT) 126 U/L (15-37) 146 U/L (15-37) 97 U/L (15-37) Alanine Aminotransferase (ALT/SGPT) 65 U/L (12-78) 64 U/L (12-78) 57 U/L (12-78) Alkaline Phosphatase 101 U/L (46-116) 100 U/L (46-116) 89 U/L (46-116) Total Protein 7.4 G/DL (6.4-8.2) 7.0 G/DL (6.4-8.2) 6.7 G/DL (6.4-8.2) Albumin 3.5 G/DL (3.4-5.0) 3.3 G/DL (3.4-5.0) 3.0 G/DL (3.4-5.0) Globulin 3.9 g/dL 3.7 g/dL 3.7 g/dL Albumin/Globulin Ratio 0.9 (1.0-2.7) 0.9 (1.0-2.7) 0.8 (1.0-2.7) Lipase 403 U/L (73-393) 210 U/L (73-393) Serum Alcohol 240 mg/dL Urine Color Pale yellow Urine Appearance Clear Urine pH 5 (4.5-8.0) Urine Specific [place] 1.010 (1.005-1.035) Urine Protein Negative (NEGATIVE) Urine Glucose (UA) Negative (NEGATIVE) Urine Ketones Negative (NEGATIVE) Urine Blood Negative (NEGATIVE) Urine Nitrite Negative (NEGATIVE) Urine Bilirubin Negative (NEGATIVE) Urine Urobilinogen Normal MG/DL (0.0-1.0) Urine Leukocyte Esterase Negative (NEGATIVE) Urine Opiates Screen Negative (NEGATIVE) Urine Barbiturates Screen Negative (NEGATIVE) Phencyclidine (PCP) Screen Negative (NEGATIVE) Urine Amphetamines Screen Positive (NEGATIVE) Urine Benzodiazepines Screen Negative (NEGATIVE) Urine Cocaine Screen Negative (NEGATIVE) Urine Marijuana (THC) Screen Negative (NEGATIVE) Differential Total Cells Counted 100 100 Neutrophils % (Manual) 47 % (45-75) 46 % (45-75) Lymphocytes % (Manual) 34 % (20-45) 36 % (20-45) Monocytes % (Manual) 15 % (1-10) 16 % (1-10) Eosinophils % (Manual) 2 % (0-3) 2 % (0-3) Basophils % (Manual) 2 % (0-2) 0 % (0-2) Band Neutrophils 0 % (0-8) 0 % (0-8) Platelet Estimate Adequate Adequate Platelet Morphology Normal Normal Red Blood Cell Morphology Normal Erythrocyte Sedimentation Rate 19 MM/HR (0-20) Magnesium Level 1.4 MG/DL (1.8-2.4) C-Reactive Protein, Quantitative 0.8 mg/dL (0.00-0.90) Anisocytosis 1+ Phosphorus Level 2.3 MG/DL (2.5-4.9) Micro Microbiology Date/Time Source Procedure Growth Status 07/01/20 12:15 Nasopharynx SARS-CoV-2 RdRp Gene Assay - Final Complete Height (Feet): 5 Height (Inches): 8.00 Weight (Pounds): 200 Objective Physical Exam General: Awake and alert HEENT: NC/AT. EOMI. Cardiovascular: RRR. S1 and S2 normal. No murmur appreciated Resp: Normal work of breathing. No cough, wheezing or crackles appreciated Abdomen: Abdomen is soft, nondistended. periumbilical ttp Skin: Intact. No abrasions, laceration or rash over the exposed skin. Suergery scar c/d/i MSK: Normal tone and bulk. Moving all extremities. Neuro: Awake and alert. Mentating appropriately. Galo Bagley MD Jul 02, 2020 11:37
[2020-07-02 12:00] VITALS: BP 144/93
[2020-07-02] MEDS ORDERED: Potassium Phosphate 20 MM in NS 275 ML IV ONE (12:00)
--- NOTE | 2020-07-02 13:21 | Nephrology Progress Note ---
Assessment/Plan Plan #Hypokalemia #hypophosphatemia #Hypomagnesemia #abdominal pain, nausea #acute pancreatitis #h/o prior perforated ulcer status post open repair # hypertension #chronic substance abuse - IVF - replete phos and K - monitor lytes - pain control - antiemetics - monitor BP - hold HCTZ 25mg daily - add amlodipine 5mg daily - plan for colonscopy tomorrow - continue cipro and flagyl - monitor withdrawal Time spent 70 mins - greater than 50% on care coordination and counseling Subjective ROS Limited/Unobtainable: No Constitutional: Reports: malaise, weakness HEENT: Denies: no symptoms, eye pain, blurred vision, tearing, double vision, ear pain, ear discharge, nose pain, nose congestion, throat pain, throat swelling, mouth pain, mouth swelling, other Genitourinary: Denies: no symptoms, burning, discharge, frequency, flank pain, hematuria, incontinence, pain, urgency, other Neurologic/Psychiatric: Denies: no symptoms, anxiety, depressed, emotional problems, headache, numbness, paresthesia, pre-existing deficit, seizure, tingling, tremors, weakness, other Subjective plan for colonoscopy tomorrow k and phos low - repleted Objective Objective Last 24 Hour Vital Signs Date Time Temp Pulse Resp B/P (MAP) Pulse Ox O2 Delivery O2 Flow Rate FiO2 07/02/20 12:00 89 07/02/20 12:00 98.8 90 20 144/93 (110) 98 07/02/20 09:17 69 136/68 07/02/20 09:00 Room Air 07/02/20 08:00 96.7 69 21 136/68 (90) 98 07/02/20 07:28 69 07/02/20 04:00 73 07/02/20 04:00 97.6 84 17 148/72 (97) 98 07/02/20 00:00 87 07/02/20 00:00 98.2 80 17 151/74 (99) 98 07/01/20 21:00 Room Air 07/01/20 20:00 71 07/01/20 20:00 98.1 76 19 155/96 (115) 98 07/01/20 16:00 98.8 78 17 162/77 (105) 97 07/01/20 16:00 85 Intake and Output 07/01/20 07/02/20 19:00 07:00 Intake Total 1900 ml 100 ml Balance 1900 ml 100 ml Intake Oral 1000 ml IV Total 900 ml 100 ml # Voids 2 # Bowel Movements 4 Laboratory Tests 07/02/20 05:52: White Blood Count 3.0L, Red Blood Count 4.16L, Hemoglobin 12.5L, Hematocrit 36.8L, Mean Corpuscular Volume 88, Mean Corpuscular Hemoglobin 30.0, Mean Corpuscular Hemoglobin Concent 33.9, Red Cell Distribution Width 14.7, Platelet Count 213, Mean Platelet Volume 7.9, Neutrophils (%) (Auto) , Lymphocytes (%) ( Auto) , Monocytes (%) (Auto) , Eosinophils (%) (Auto) , Basophils (%) (Auto) , Differential Total Cells Counted 100, Neutrophils % (Manual) 46, Lymphocytes % ( Manual) 36, Monocytes % (Manual) 16H, Eosinophils % (Manual) 2, Basophils % ( Manual) 0, Band Neutrophils 0, Platelet Estimate Adequate, Platelet Morphology Normal, Anisocytosis 1+, Sodium Level 139, Potassium Level 3.3L, Chloride Level 105, Carbon Dioxide Level 25, Anion Gap 9, Blood Urea Nitrogen 2L, Creatinine 1.0, Estimat Glomerular Filtration Rate > 60, Glucose Level 117H, Calcium Level 8.1L, Phosphorus Level 2.3L, Total Bilirubin 0.6, Aspartate Amino Transf (AST/ SGOT) 97H, Alanine Aminotransferase (ALT/SGPT) 57, Alkaline Phosphatase 89, Total Protein 6.7, Albumin 3.0L, Globulin 3.7, Albumin/Globulin Ratio 0.8L Height (Feet): 5 Height (Inches): 8.00 Weight (Pounds): 200 General Appearance: no apparent distress, alert EENT: PERRL/EOMI, normal ENT inspection Neck: non-tender Cardiovascular: normal peripheral pulses, normal rate, regular rhythm Respiratory/Chest: chest wall non-tender, lungs clear Abdomen: normal bowel sounds, non tender, soft Extremities: normal range of motion, non-tender, normal inspection Neurologic: alert, oriented x 3 Zion Medrano M.D. Jul 02, 2020 13:21
--- NOTE | 2020-07-02 14:08 | Diagnostic Imaging Report ---
EXAM: ULTRASOUND US ABD Complete CLINICAL HISTORY: Reason For Exam: ABD PAIN. COMPARISON: None TECHNIQUE: Ultrasound examination of the abdomen includes grayscale images, and color and spectral doppler analysis. FINDINGS: The liver is echogenic and fatty. Spleen is within normal limits. The gallbladder is without sludge or stone. Common bile duct measures 4 mm. Pancreas is only marginally seen The kidneys are normal in size, shape and axis. Aorta and cava are within normal limits. IMPRESSION: FATTY LIVER. PANCREAS ONLY MARGINALLY SEEN. OTHERWISE NO SIGN OF ACUTE DISEASE.
[2020-07-02 16:00] VITALS: BP 147/83
[2020-07-02] MEDS ORDERED: Polyethylene Glycol 238gm bottle ORAL SCH (16:00)
[2020-07-02] MEDS: Hydromorphone 0.5mg/0.5ml inj IVP PRN (16:01)
[2020-07-02 20:00] VITALS: BP 155/85
[2020-07-02] MEDS: NS w/KCl 20mEq 1000ml 1,000 ML IV SCH (20:44)
[2020-07-03] VITALS: BP 160/95
[2020-07-03] MEDS: Dicyclomine 10mg Cap ORAL SCH (05:13)
[2020-07-03 07:19] LABS: ANION GAP 7 mmol/L (5-15); BLOOD UREA NITROGEN 3 mg/dL (7-18); CALCIUM 8.4 MG/DL (8.5-10.1); CARBON DIOXIDE 30 MMOL/L (21-32); CHLORIDE 101 MMOL/L (98-107); CREATININE 1.1 MG/DL (0.55-1.30); POTASSIUM 3.2 MMOL/L (3.5-5.1); SODIUM 138 MMOL/L (136-145)
[2020-07-03 07:22] LABS: BASOPHILS % (AUTO) 1.6 % (0.0-2.0); EOSINOPHILS % (AUTO) 2.7 % (0.0-3.0); HEMATOCRIT 38.9 % (42.0-52.0); HEMOGLOBIN 12.7 G/DL (14.2-18.0); LYMPHOCYTES % (AUTO) 40.9 % (20.0-45.0); MEAN CORPUSCULAR VOLUME 90 FL (80-99); MONOCYTES % (AUTO) 10.4 % (1.0-10.0); NEUTROPHILS % (AUTO) 44.4 % (45.0-75.0); PLATELET COUNT 243 K/UL (150-450); RED BLOOD COUNT 4.31 M/UL (4.70-6.10); RED CELL DISTRIBUTION WIDTH 14.7 % (11.6-14.8); WHITE BLOOD COUNT 3.6 K/UL (4.8-10.8)
--- NOTE | 2020-07-03 07:53 | General Progress Note ---
Assessment/Plan Problem List: (1) history of perforated Gastric ulcer (2) Diarrhea ICD Codes: R19.7 - Diarrhea, unspecified SNOMED: 33495015 (3) Abdominal pain ICD Codes: R10.9 - Unspecified abdominal pain SNOMED: 67537292 (4) Colitis ICD Codes: K52.9 - Noninfective gastroenteritis and colitis, unspecified SNOMED: 62192709 (5) Alcohol abuse ICD Codes: F10.10 - Alcohol abuse, uncomplicated SNOMED: 07546587 Assessment/Plan: refused colonoscopy today again no further plans for colonoscopy in this admission given refused 2 days in a row neg stool for C.diff repeat labs will fu Subjective ROS Limited/Unobtainable: Yes Allergies: Coded Allergies: No Known Allergies (Unverified , 12/05/12) Objective Last 24 Hour Vital Signs Date Time Temp Pulse Resp B/P (MAP) Pulse Ox O2 Delivery O2 Flow Rate FiO2 07/03/20 04:00 78 07/03/20 00:00 97.5 86 22 160/95 (116) 98 07/03/20 00:00 85 07/02/20 21:00 Room Air 07/02/20 20:00 97.3 78 19 155/85 (108) 94 07/02/20 20:00 83 07/02/20 16:00 99.7 88 19 147/83 (104) 99 07/02/20 16:00 82 07/02/20 12:00 89 07/02/20 12:00 98.8 90 20 144/93 (110) 98 07/02/20 09:17 69 136/68 07/02/20 09:00 Room Air 07/02/20 08:00 96.7 69 21 136/68 (90) 98 Intake and Output 07/02/20 07/03/20 19:00 07:00 Intake Total 800 ml Balance 800 ml IV Total 800 ml Laboratory Tests 07/03/20 05:40: White Blood Count 3.6L, Red Blood Count 4.31L, Hemoglobin 12.7L, Hematocrit 38.9L, Mean Corpuscular Volume 90, Mean Corpuscular Hemoglobin 29.4, Mean Corpuscular Hemoglobin Concent 32.6, Red Cell Distribution Width 14.7, Platelet Count 243, Mean Platelet Volume 8.0, Neutrophils (%) (Auto) 44.4L, Lymphocytes ( %) (Auto) 40.9, Monocytes (%) (Auto) 10.4H, Eosinophils (%) (Auto) 2.7, Basophils (%) (Auto) 1.6, Sodium Level 138, Potassium Level 3.2L, Chloride Level 101, Carbon Dioxide Level 30, Anion Gap 7, Blood Urea Nitrogen 3L, Creatinine 1.1, Estimat Glomerular Filtration Rate > 60, Glucose Level 121H, Calcium Level 8.4L, Phosphorus Level 2.7, Magnesium Level 1.6L Height (Feet): 5 Height (Inches): 8.00 Weight (Pounds): 76 General Appearance: alert EENT: normal ENT inspection Neck: supple Cardiovascular: normal rate Respiratory/Chest: decreased breath sounds Abdomen: hypoactive bowel sounds Extremities: non-tender Gene Puente MD Jul 03, 2020 07:53
[2020-07-03 08:00] VITALS: BP 141/79
[2020-07-03] MEDS: NS w/KCl 20mEq 1000ml 1,000 ML IV SCH (08:00)
--- NOTE | 2020-07-03 08:06 | Hematology/Onc Progress Note ---
Assessment/Plan Assessment/Plan Assessment and Recs # Leukopenia -- multiple etiologies could be related to underlying liver disease , medication-induced, infection versus viral syndrome, hx of ETOH USE --> peripheral smear has been ordered and does not show significant abnormalities --> Medications have been reviewed --> Hep panel and HIV both neg --> prior ct ordered to r/o cirrhosis and hepatosplenomegaly -> with fatty infiltration --> reverse isolation if ANC is <2000 --> Give neupogen if ANC <1000 --> wbc 3.7-->3-->2.6->2.8->3 # Tachycardia --> ivfs has been started --> per renal, gi # Abdominal pain --> seen by gi, no scope --> on ppi # Cocaine use polysubstance abuse history # Tiny fat-containing umbilical hernia, small renal cyst, fatty liver noted. # History of hypertension. Hydrochlorothiazide DCed for hypokalemia. --> amlodipine # Hypokalemia --> replete with k # Dvt ppx ambulation --> hep sq Appreciate consultation and dw RN Subjective Constitutional: Denies: no symptoms, chills, fever, malaise, weakness, other HEENT: Denies: no symptoms, eye pain, blurred vision, tearing, double vision, ear pain, ear discharge, nose pain, nose congestion, throat pain, throat swelling, mouth pain, mouth swelling, other Cardiovascular: Denies: no symptoms, chest pain, edema, irregular heart rate, lightheadedness, palpitations, syncope, other Respiratory: Denies: no symptoms, cough, shortness of breath, SOB with excertion, SOB at rest, sputum, wheezing, other Gastrointestinal/Abdominal: Denies: no symptoms, abdomen distended, abdominal pain, black stools, tarry stools, blood in stool, constipated, diarrhea, difficulty swallowing, nausea, poor appetite, poor fluid intake, rectal bleeding , vomiting, other Genitourinary: Denies: no symptoms, burning, discharge, frequency, flank pain, hematuria, incontinence, pain, urgency, other Neurologic/Psychiatric: Denies: no symptoms, anxiety, depressed, emotional problems, headache, numbness, paresthesia, pre-existing deficit, seizure, tingling, tremors, weakness, other Endocrine: Denies: no symptoms, excessive sweating, flushing, intolerance to cold, intolerance to heat, increased hunger, increased thirst, increased urine, unexplained weight gain, unexplained weight loss, other Allergies: Coded Allergies: No Known Allergies (Unverified , 12/05/12) Subjective 07/02 has refused colo, labs noted, wbc relatively stable, k low 07/03 again has refused colo this am, wants to leave stat, seen by gi Objective Objective Current Medications Medications (Trade) Dose Ordered Sig/Tabby Route PRN Reason Start Time Stop Time Status Last Admin Dose Admin Acetaminophen (Tylenol) 650 mg Q4H PRN ORAL Mild Pain (Pain Scale 1-3) 06/30/20 18:00 07/30/20 17:59 07/02/20 22:02 Albuterol/ Ipratropium (Albuterol/ Ipratropium) 3 ml Q4H PRN HHN Shortness of Breath 06/30/20 18:00 07/05/20 17:59 Amlodipine Besylate (Norvasc) 5 mg DAILY ORAL 07/02/20 09:00 08/01/20 08:59 07/02/20 09:17 Ciprofloxacin 200 ml @ 200 mls/hr Q12HR IV 06/30/20 21:00 07/07/20 20:59 07/02/20 09:06 Dextrose (Dextrose 50%) 25 ml Q30M PRN IV Hypoglycemia 06/30/20 18:00 09/28/20 17:59 Dextrose (Dextrose 50%) 50 ml Q30M PRN IV Hypoglycemia 06/30/20 18:00 09/28/20 17:59 Dicyclomine HCl (Bentyl) 10 mg BEFORE MEALS ORAL 07/01/20 06:30 07/31/20 06:29 07/03/20 05:13 Diphenhydramine HCl (Benadryl) 25 mg Q6H PRN ORAL Itching/Pruritis 06/30/20 18:00 07/30/20 17:59 Famotidine (Pepcid) 20 mg DAILY ORAL 07/01/20 09:00 09/29/20 08:59 07/02/20 09:12 Folic Acid (Folate) 1 mg DAILY ORAL 07/01/20 12:00 07/31/20 11:59 07/02/20 09:16 Gabapentin (Neurontin) 100 mg TWICE A DAY ORAL 07/01/20 09:00 07/31/20 08:59 07/02/20 17:38 Guaifenesin/ Dextromethorphan (Robitussin DM Syrup) 5 ml Q6H PRN ORAL FOR COUGH 07/01/20 05:00 09/29/20 04:59 Heparin Sodium (Porcine) (Heparin 5000 units/ml) 5,000 units EVERY 12 HOURS SUBQ 06/30/20 21:00 08/14/20 20:59 07/01/20 20:45 Hydromorphone HCl (Dilaudid) 0.5 mg Q4H PRN IVP Severe Pain (Pain Scale 7-10) 06/30/20 18:00 07/07/20 17:59 07/02/20 16:01 Loperamide HCl (Imodium) 2 mg Q4H PRN ORAL Diarrhea 07/01/20 09:45 07/31/20 09:44 Lorazepam (Ativan 2mg/ml 1ml) 0.5 mg Q4H PRN IV For Anxiety 06/30/20 18:00 07/07/20 17:59 Metronidazole 100 ml @ 100 mls/hr Q12H IVPB 07/02/20 08:00 07/07/20 23:59 07/02/20 09:17 Nicotine (Nicoderm) 1 patch DAILY TDERMAL 07/02/20 10:45 09/30/20 10:44 07/02/20 12:29 Ondansetron HCl (Zofran) 4 mg Q6H PRN IVP Nausea & Vomiting 06/30/20 18:00 07/30/20 17:59 Ondansetron HCl (Zofran) 4 mg Q8H PRN ORAL Nausea & Vomiting 07/01/20 05:00 07/31/20 04:59 Potassium Chloride/Sodium Chloride 1,000 ml @ 100 mls/hr Q10H IV 06/30/20 20:00 07/30/20 19:59 07/01/20 18:43 Thiamine HCl (Vitamin B1) 100 mg DAILY ORAL 07/01/20 12:00 07/31/20 11:59 07/02/20 09:17 Last 24 Hour Vital Signs Date Time Temp Pulse Resp B/P (MAP) Pulse Ox O2 Delivery O2 Flow Rate FiO2 07/03/20 04:00 78 8/5/20 00:00 97.5 86 22 160/95 (116) 98 07/03/20 00:00 85 07/02/20 21:00 Room Air 07/02/20 20:00 97.3 78 19 155/85 (108) 94 07/02/20 20:00 83 07/02/20 16:00 99.7 88 19 147/83 (104) 99 07/02/20 16:00 82 07/02/20 12:00 89 07/02/20 12:00 98.8 90 20 144/93 (110) 98 07/02/20 09:17 69 136/68 07/02/20 09:00 Room Air 07/02/20 08:00 96.7 69 21 136/68 (90) 98 07/02/20 07:28 69 07/02/20 04:00 73 07/02/20 04:00 97.6 84 17 148/72 (97) 98 07/02/20 00:00 87 07/02/20 00:00 98.2 80 17 151/74 (99) 98 07/01/20 21:00 Room Air 07/01/20 20:00 71 07/01/20 20:00 98.1 76 19 155/96 (115) 98 07/01/20 16:00 98.8 78 17 162/77 (105) 97 07/01/20 16:00 85 07/01/20 12:00 76 07/01/20 11:30 97.7 81 18 157/84 (108) 98 07/01/20 11:30 71 79 81 07/01/20 09:00 Room Air Intake and Output 07/02/20 07/03/20 19:00 07:00 Intake Total 800 ml Balance 800 ml IV Total 800 ml Labs Test 06/30/20 16:07 06/30/20 20:30 07/01/20 05:45 07/02/20 05:52 White Blood Count 3.9 K/UL (4.8-10.8) 2.8 K/UL (4.8-10.8) 3.0 K/UL (4.8-10.8) Red Blood Count 4.37 M/UL (4.70-6.10) 4.25 M/UL (4.70-6.10) 4.16 M/UL (4.70-6.10) Hemoglobin 12.7 G/DL (14.2-18.0) 12.2 G/DL (14.2-18.0) 12.5 G/DL (14.2-18.0) Hematocrit 38.8 % (42.0-52.0) 38.2 % (42.0-52.0) 36.8 % (42.0-52.0) Mean Corpuscular Volume 89 FL (80-99) 90 FL (80-99) 88 FL (80-99) Mean Corpuscular Hemoglobin 29.0 PG (27.0-31.0) 28.7 PG (27.0-31.0) 30.0 PG (27.0-31.0) Mean Corpuscular Hemoglobin Concent 32.7 G/DL (32.0-36.0) 32.0 G/DL (32.0-36.0) 33.9 G/DL (32.0-36.0) Red Cell Distribution Width 15.3 % (11.6-14.8) 14.9 % (11.6-14.8) 14.7 % (11.6-14.8) Platelet Count 217 K/UL (150-450) 202 K/UL (150-450) 213 K/UL (150-450) Mean Platelet Volume 7.3 FL (6.5-10.1) 7.3 FL (6.5-10.1) 7.9 FL (6.5-10.1) Neutrophils (%) (Auto) 47.3 % (45.0-75.0) % (45.0-75.0) % (45.0-75.0) Lymphocytes (%) (Auto) 34.9 % (20.0-45.0) % (20.0-45.0) % (20.0-45.0) Monocytes (%) (Auto) 13.5 % (1.0-10.0) % (1.0-10.0) % (1.0-10.0) Eosinophils (%) (Auto) 1.9 % (0.0-3.0) % (0.0-3.0) % (0.0-3.0) Basophils (%) (Auto) 2.5 % (0.0-2.0) % (0.0-2.0) % (0.0-2.0) Sodium Level 140 MMOL/L (136-145) 141 MMOL/L (136-145) 139 MMOL/L (136-145) Potassium Level 2.8 MMOL/L (3.5-5.1) 3.4 MMOL/L (3.5-5.1) 3.3 MMOL/L (3.5-5.1) Chloride Level 104 MMOL/L (98-107) 106 MMOL/L (98-107) 105 MMOL/L (98-107) Carbon Dioxide Level 26 MMOL/L (21-32) 23 MMOL/L (21-32) 25 MMOL/L (21-32) Anion Gap 11 mmol/L (5-15) 12 mmol/L (5-15) 9 mmol/L (5-15) Blood Urea Nitrogen 11 mg/dL (7-18) 9 mg/dL (7-18) 2 mg/dL (7-18) Creatinine 1.3 MG/DL (0.55-1.30) 1.2 MG/DL (0.55-1.30) 1.0 MG/DL (0.55-1.30) Estimat Glomerular Filtration Rate > 60 mL/min (>60) > 60 mL/min (>60) > 60 mL/min (>60) Glucose Level 127 MG/DL (74-106) 82 MG/DL (74-106) 117 MG/DL (74-106) Calcium Level 8.1 MG/DL (8.5-10.1) 7.9 MG/DL (8.5-10.1) 8.1 MG/DL (8.5-10.1) Total Bilirubin 0.6 MG/DL (0.2-1.0) 0.5 MG/DL (0.2-1.0) 0.6 MG/DL (0.2-1.0) Aspartate Amino Transf (AST/SGOT) 126 U/L (15-37) 146 U/L (15-37) 97 U/L (15-37) Alanine Aminotransferase (ALT/SGPT) 65 U/L (12-78) 64 U/L (12-78) 57 U/L (12-78) Alkaline Phosphatase 101 U/L (46-116) 100 U/L (46-116) 89 U/L (46-116) Total Protein 7.4 G/DL (6.4-8.2) 7.0 G/DL (6.4-8.2) 6.7 G/DL (6.4-8.2) Albumin 3.5 G/DL (3.4-5.0) 3.3 G/DL (3.4-5.0) 3.0 G/DL (3.4-5.0) Globulin 3.9 g/dL 3.7 g/dL 3.7 g/dL Albumin/Globulin Ratio 0.9 (1.0-2.7) 0.9 (1.0-2.7) 0.8 (1.0-2.7) Lipase 403 U/L (73-393) 210 U/L (73-393) Serum Alcohol 240 mg/dL Urine Color Pale yellow Urine Appearance Clear Urine pH 5 (4.5-8.0) Urine Specific [place] 1.010 (1.005-1.035) Urine Protein Negative (NEGATIVE) Urine Glucose (UA) Negative (NEGATIVE) Urine Ketones Negative (NEGATIVE) Urine Blood Negative (NEGATIVE) Urine Nitrite Negative (NEGATIVE) Urine Bilirubin Negative (NEGATIVE) Urine Urobilinogen Normal MG/DL (0.0-1.0) Urine Leukocyte Esterase Negative (NEGATIVE) Urine Opiates Screen Negative (NEGATIVE) Urine Barbiturates Screen Negative (NEGATIVE) Phencyclidine (PCP) Screen Negative (NEGATIVE) Urine Amphetamines Screen Positive (NEGATIVE) Urine Benzodiazepines Screen Negative (NEGATIVE) Urine Cocaine Screen Negative (NEGATIVE) Urine Marijuana (THC) Screen Negative (NEGATIVE) Differential Total Cells Counted 100 100 Neutrophils % (Manual) 47 % (45-75) 46 % (45-75) Lymphocytes % (Manual) 34 % (20-45) 36 % (20-45) Monocytes % (Manual) 15 % (1-10) 16 % (1-10) Eosinophils % (Manual) 2 % (0-3) 2 % (0-3) Basophils % (Manual) 2 % (0-2) 0 % (0-2) Band Neutrophils 0 % (0-8) 0 % (0-8) Platelet Estimate Adequate Adequate Platelet Morphology Normal Normal Red Blood Cell Morphology Normal Erythrocyte Sedimentation Rate 19 MM/HR (0-20) Magnesium Level 1.4 MG/DL (1.8-2.4) C-Reactive Protein, Quantitative 0.8 mg/dL (0.00-0.90) Anisocytosis 1+ Phosphorus Level 2.3 MG/DL (2.5-4.9) Test 07/03/20 05:40 White Blood Count 3.6 K/UL (4.8-10.8) Red Blood Count 4.31 M/UL (4.70-6.10) Hemoglobin 12.7 G/DL (14.2-18.0) Hematocrit 38.9 % (42.0-52.0) Mean Corpuscular Volume 90 FL (80-99) Mean Corpuscular Hemoglobin 29.4 PG (27.0-31.0) Mean Corpuscular Hemoglobin Concent 32.6 G/DL (32.0-36.0) Red Cell Distribution Width 14.7 % (11.6-14.8) Platelet Count 243 K/UL (150-450) Mean Platelet Volume 8.0 FL (6.5-10.1) Neutrophils (%) (Auto) 44.4 % (45.0-75.0) Lymphocytes (%) (Auto) 40.9 % (20.0-45.0) Monocytes (%) (Auto) 10.4 % (1.0-10.0) Eosinophils (%) (Auto) 2.7 % (0.0-3.0) Basophils (%) (Auto) 1.6 % (0.0-2.0) Sodium Level 138 MMOL/L (136-145) Potassium Level 3.2 MMOL/L (3.5-5.1) Chloride Level 101 MMOL/L (98-107) Carbon Dioxide Level 30 MMOL/L (21-32) Anion Gap 7 mmol/L (5-15) Blood Urea Nitrogen 3 mg/dL (7-18) Creatinine 1.1 MG/DL (0.55-1.30) Estimat Glomerular Filtration Rate > 60 mL/min (>60) Glucose Level 121 MG/DL (74-106) Calcium Level 8.4 MG/DL (8.5-10.1) Phosphorus Level 2.7 MG/DL (2.5-4.9) Magnesium Level 1.6 MG/DL (1.8-2.4) Height (Feet): 5 Height (Inches): 8.00 Weight (Pounds): 76 Objective Physical Exam General: Awake and alert HEENT: NC/AT. EOMI. Cardiovascular: RRR. S1 and S2 normal. No murmur appreciated Resp: Normal work of breathing. No cough, wheezing or crackles appreciated Abdomen: Abdomen is soft, nondistended. periumbilical ttp Skin: Intact. No abrasions, laceration or rash over the exposed skin. Suergery scar c/d/i MSK: Normal tone and bulk. Moving all extremities. Neuro: Awake and alert. Mentating appropriately. Galo Bagley MD Jul 03, 2020 08:06
[2020-07-03 08:20] VITALS: BP 141/79
[2020-07-03] MEDS: Thiamine 100mg tab ORAL SCH (08:20)
[2020-07-03] MEDS: Heparin 5000 units/ml inj SUBQ SCH (08:25)
--- NOTE | 2020-07-03 09:56 | Discharge Summary ---
Discharge Summary Hospital Course Date of Admission Jun 30, 2020 at 19:05 Date of Discharge 07/03 left AMA Admitting Diagnosis Hypokalemia, Pancreatitis HPI 69-year-old male with history of prior perforated ulcer status post open repair , hypertension, chronic substance abuse presents for evaluation of abdominal pain. Seen in the emergency department several days prior. He reports 5 days of diarrhea and abdominal cramping. CT scan showed mild colitis and patient was discharged on Bentyl and antacids. States he has been taking them with no significant improvement. The diarrhea is purely water. He states he is going to the bathroom over 10 times a day. Denies nausea or vomiting. Denies bloody stools but did notice some bright red blood on the tissue from repeated trips to the bathroom. Denies history of hemorrhoids. Denies dysuria or hematuria. He also notes a nonproductive cough for the past week. Denies fevers or chills. Denies chest pain or palpitations. Reports recent alcohol and cocaine use. Consultations Nephro, GI, heme/onc Hospital Course 69-year-old male with history of prior perforated ulcer status post open repair , hypertension, chronic substance abuse presents for evaluation of abdominal pain and diarrhea for 5 days. started on Metonidazol and cipro. Seen be Heme/ onc and nephrology. He was scheduled for coloscopy twice and refesued twice and left AMA # Abdominal Pain # NBNB Diarrhea -possible IBD # Elevated lipase trended down- possible pancreatitis # Alcohol Abuse/Substance Abuse # Hypokalemia - Hospital level care - Metronidazole and Ciprofloxacin started 06/30 - Clear liquid diet - Fluid hydration - Replete electrolytes - trend CBC, BMP - Consult to GI - appreciate recs- Endoscopy tomorrow- patient refused prep initially - Consult to nephrology - appreciate recs - Social service consult for substance abuse - [facility] observation #Leukopenia - improving -Likely ETOH -Appreciate recs form hematology DVT ppx Heparin 500 units subq q12 I spent 71 min on this patient with greater than 50% face to face going over risk of leaving AMA. Coordinated with consultants and RNs. Discharge Condition Upon Discharge: unchanged Discharge Vital Signs Last Vital Signs Date Time Temp Pulse Resp B/P (MAP) Pulse Ox O2 Delivery O2 Flow Rate FiO2 07/03/20 08:20 78 141/79 07/03/20 08:07 Room Air 07/03/20 08:00 98.1 19 96 Discharge Disposition Patient was discharged to Discharge Diagnoses: (1) Diarrhea (2) Abdominal pain (3) Pancreatitis (4) history of perforated Gastric ulcer (5) Colitis (6) Leukopenia (7) Hypokalemia (8) Alcohol abuse Jc Wood M.D. Jul 03, 2020 09:56
== END 2020-07-03 09:15 | disposition left against medical advice (07) | DRG 440 ==
LOC: EMR 17:15 → EDBEDREQSVC 17:54 → EDBEDREQ 17:56 → 2E 19:05
DX: K85.90 Acute pancreatitis without necrosis or infection, unspecified (principal); E87.6 Hypokalemia; K52.9 Noninfective gastroenteritis and colitis, unspecified; F10.10 Alcohol abuse, uncomplicated; R00.0 Tachycardia, unspecified; F14.10 Cocaine abuse, uncomplicated; F15.10 Other stimulant abuse, uncomplicated; E83.39 Other disorders of phosphorus metabolism; E83.42 Hypomagnesemia
CPT/HCPCS: 36415; 71045; 76700; 80048; 80053; 80307; 81003; 83690; 83735; 84100; 85007; 85025; 85651; 86140; 87324; 93005; 96361; 96365; 99291; G0480; J7030; J8499; U0002

== ENCOUNTER → 2020-09-13 | Emergency (ER) | payer MEDICARE, MEDICAID ==
[~2020-09-13] VITALS: Ht 172.7 cm; Wt 72.6 kg
[~2020-09-13] MED LIST changes: +ACETAMINOPHEN-1 EAC1 ORAL; +DOXYCYCLINE MO100 MG ORAL; +HYDROmorphone 1mg/ml Carpuject IVP ONE; +IBUPROFEN600 M1 ORAL; +Ketorolac 30mg Inj ONE; +LAMOTRIGINE100 M2 PO; +LAMOTRIGINE300 MG ORAL; +Omnipaque-300 100ml vial INJ PRN; +ZONISAMIDE100 MG ORAL
--- NOTE | 2020-09-13 12:34 | NUR ---
ED Nurse Note: Pt walked in to ER due to abdominal pain with N/V/D, SOB, chest pain for 2 days. pt aao x4 and ambulatory. calm but grimacing for pain. dry skin but intact.
--- NOTE | 2020-09-13 12:35 | NUR ---
ED Nurse Note: ERMD at bedside.
--- NOTE | 2020-09-13 12:39 | NUR ---
ED Nurse Note: pt ambulated to bathroom to urinate. pt was asked to bring urine sample.
[2020-09-13 13:17] VITALS: BP 130/89
[2020-09-13 13:35] LABS: APPEARANCE,URINE CLEAR; BILIRUBIN, URINE NEGATIVE (NEGATIVE); GLUCOSE, URINE (UA) NEGATIVE (NEGATIVE); KETONES,URINE NEGATIVE (NEGATIVE); LEUKOCYTE ESTERASE ,URINE NEGATIVE (NEGATIVE); NITRITE,URINE NEGATIVE (NEGATIVE); PH,URINE 5 (4.5-8.0); PROTEIN,URINE 1+ (NEGATIVE); UROBILINOGEN,URINE NORMAL MG/DL (0.0-1.0)
[2020-09-13 13:40] LABS: HEMOGLOBIN 13.8 G/DL (14.2-18.0); MEAN CORPUSCULAR VOLUME 89 FL (80-99); PLATELET COUNT 119 K/UL (150-450); RED BLOOD COUNT 4.59 M/UL (4.70-6.10); RED CELL DISTRIBUTION WIDTH 14.9 % (11.6-14.8); WHITE BLOOD COUNT 3.4 K/UL (4.8-10.8)
[2020-09-13 13:44] LABS: INR 1.2 (0.9-1.1)
[2020-09-13 13:46] LABS: COLOR,URINE YELLOW
--- NOTE | 2020-09-13 13:51 | Emergency Room Report ---
History of Present Illness General Chief Complaint: Abdominal Pain Source: Patient (Pastor Jones MD) Present Illness HPI 69-year-old male history of abdominal surgery in the past presents with left lower quadrant abdominal pain x1 day aching nature/sharp, no dysuria no known aggravating relieving factors severity is moderate, constant no fevers no chills patient does endorse an episode of diarrhea without blood patient denies any chest pain or shortness of breath patient presents for evaluation and treatment (Pastor Jones MD) Allergies: Coded Allergies: No Known Allergies (Unverified , 12/05/12) COVID-19 Screening Contact w/high risk pt: No Recent Travel to affected area: No Experienced COVID-19 symptoms?: Yes COVID-19 symptoms experienced: Cough COVID-19 Testing performed COVER OPERATOR: No (Pastor Jones MD) Patient History Social History: Reports: smoking Reviewed Nursing Documentation: PMH: Agreed; PSxH: Agreed (Pastor Jones MD) Nursing Documentation-PMH Past Medical History: No History, Except For Hx Cardiac Problems: Yes - murmur Hx Hypertension: Yes Hx Pacemaker: No Hx Asthma: Yes Hx Diabetes: Yes Hx Cancer: No Hx Gastrointestinal Problems: No - Abdominal surgery 2014 Hx Dialysis: No Hx Neurological Problems: No Hx Cerebrovascular Accident: No Hx Seizures: No (Pastor Jones MD) Review of Systems All Other Systems: negative except mentioned in HPI (Pastor Jones MD) Physical Exam Vital Signs Date Time Temp Pulse Resp B/P (MAP) Pulse Ox O2 Delivery O2 Flow Rate FiO2 09/13/20 12:27 98.2 97 19 130/89 (103) 98 Room Air Sp02 EP Interpretation: reviewed, normal General Appearance: well appearing, no apparent distress, alert Head: normocephalic, atraumatic Eyes: bilateral eye PERRL, bilateral eye EOMI ENT: uvula midline, moist mucus membranes Neck: supple, thyroid normal, supple/symm/no masses Respiratory: lungs clear, no respiratory distress, no retraction, no accessory muscle use Cardiovascular #1: normal peripheral pulses, regular rate, rhythm, no edema, no gallop, no murmur Gastrointestinal: soft, no guarding, no rebound, tenderness - LLQ Musculoskeletal: normal inspection Neurologic: alert, oriented x3 Psychiatric: mood/affect normal Skin: no rash, warm/dry (Pastor Jones MD) Medical Decision Making Diagnostic Impression: Primary Impression: Abdominal pain Qualified Codes: R10.32 - Left lower quadrant pain Additional Impressions: Colitis Elevated LFTs ER Course 69-year-old male presents with left lower quadrant pain differential diagnosis includes appendicitis diverticulitis, obstruction Patient given fluids, labs show a slightly elevated lactic acid may be related to his dehydration patient given a liter of fluids CT abdomen pelvis is pending Patient signed out to Dr. Dale Laboratory Tests Test 09/13/20 13:15 White Blood Count 3.4 K/UL (4.8-10.8) L Red Blood Count 4.59 M/UL (4.70-6.10) L Hemoglobin 13.8 G/DL (14.2-18.0) L Hematocrit 41.0 % (42.0-52.0) L Mean Corpuscular Volume 89 FL (80-99) Mean Corpuscular Hemoglobin 30.0 PG (27.0-31.0) Mean Corpuscular Hemoglobin Concent 33.7 G/DL (32.0-36.0) Red Cell Distribution Width 14.9 % (11.6-14.8) H Platelet Count 119 K/UL (150-450) L Mean Platelet Volume 9.1 FL (6.5-10.1) Neutrophils (%) (Auto) % (45.0-75.0) Lymphocytes (%) (Auto) % (20.0-45.0) Monocytes (%) (Auto) % (1.0-10.0) Eosinophils (%) (Auto) % (0.0-3.0) Basophils (%) (Auto) % (0.0-2.0) Differential Total Cells Counted 100 Neutrophils % (Manual) 56 % (45-75) Lymphocytes % (Manual) 35 % (20-45) Monocytes % (Manual) 8 % (1-10) Eosinophils % (Manual) 1 % (0-3) Basophils % (Manual) 0 % (0-2) Band Neutrophils 0 % (0-8) Platelet Estimate Decreased L Platelet Morphology Normal Hypochromasia 1+ Anisocytosis 1+ Prothrombin Time 12.6 SEC (9.30-11.50) H Prothrombin Time INR 1.2 (0.9-1.1) H Activated Partial Thromboplast Time 28 SEC (23-33) Urine Color Yellow Urine Appearance Clear Urine pH 5 (4.5-8.0) Urine Specific [place] 1.010 (1.005-1.035) Urine Protein 1+ (NEGATIVE) H Urine Glucose (UA) Negative (NEGATIVE) Urine Ketones Negative (NEGATIVE) Urine Blood Negative (NEGATIVE) Urine Nitrite Negative (NEGATIVE) Urine Bilirubin Negative (NEGATIVE) Urine Urobilinogen Normal MG/DL (0.0-1.0) Urine Leukocyte Esterase Negative (NEGATIVE) Urine RBC 0 /HPF (0 - 0) Urine WBC 0 /HPF (0 - 0) Urine Squamous Epithelial Cells Occasional /LPF Urine Bacteria None /HPF (NONE) Sodium Level 133 MMOL/L (136-145) L Potassium Level 3.4 MMOL/L (3.5-5.1) L Chloride Level 97 MMOL/L (98-107) L Carbon Dioxide Level 23 MMOL/L (21-32) Anion Gap 13 mmol/L (5-15) Blood Urea Nitrogen 12 mg/dL (7-18) Creatinine 1.2 MG/DL (0.55-1.30) Estimated Glomerular Filtration Rate > 60 mL/min (>60) Glucose Level 116 MG/DL (74-106) H Lactic Acid Level 2.50 mmol/L (0.4-2.0) H Calcium Level 7.7 MG/DL (8.5-10.1) L Total Bilirubin 1.5 MG/DL (0.2-1.0) H Direct Bilirubin 0.6 MG/DL (0.0-0.3) H Aspartate Amino Transferase (AST) 358 U/L (15-37) H Alanine Aminotransferase (ALT) 187 U/L (12-78) H Alkaline Phosphatase 191 U/L (46-116) H Troponin I 0.000 ng/mL (0.000-0.056) Total Protein 7.8 G/DL (6.4-8.2) Albumin 3.3 G/DL (3.4-5.0) L Globulin 4.5 g/dL Albumin/Globulin Ratio 0.7 (1.0-2.7) L Lipase 245 U/L (73-393) Microbiology Date/Time Source Procedure Growth Status 09/13/20 13:15 Nasopharynx SARS-CoV-2 RdRp Gene Assay - Final Complete (Pastor Jones MD) ER Course Please see above note. Patient with left lower quadrant pain. Normal white count. Elevated liver function tests. CT scan with some thickening of the sigmoid colon consistent with colitis. In addition enlarged fatty liver. Patient somewhat improved. Discussed findings and need to follow up. States having trouble seeing his doctor. Does not have AA sponsor. Suggested he go to a meeting and get help stopping alcohol. (Syd Bass MD) EKG Diagnostic Results Troponin ordered: Yes When was troponin ordered?: Sep 13, 2020 - 1236 EKG Time: 14:36 EP Interpretation: NSR, rate 85, QTc 499, no acute escalations, normal axis (Pastor Jones MD) Rhythm Strip Diag. Results EP Interpretation: yes Rhythm: NSR, no PVC's, no ectopy (Syd Bass MD) CT/MRI/US Diagnostic Results CT/MRI/US Diagnostic Results : Imaging Test Ordered: abd/pelvis Impression Impression: Limited assessment of the GI tract, due to lack of enteric contrast administration Wall thickening of the sigmoid colon, likely representing colitis. No similarfindings were reported previously as well. Enlarged fatty liver Other findings as noted, including degenerative spondylosis, probable small renal cysts, basilar pulmonary atelectatic changes (Syd Bass MD) Last Vital Signs Date Time Temp Pulse Resp B/P (MAP) Pulse Ox O2 Delivery O2 Flow Rate FiO2 09/13/20 13:17 98.2 19 130/89 98 Room Air 09/13/20 12:35 97 (Pastor Jones MD) Last Vital Signs Date Time Temp Pulse Resp B/P (MAP) Pulse Ox O2 Delivery O2 Flow Rate FiO2 09/13/20 14:06 98.2 09/13/20 13:17 19 130/89 98 Room Air 09/13/20 12:35 97 Status: improved (Syd Bass MD) Disposition: HOME, SELF-CARE Condition: Improved Scripts Acetaminophen With Codeine (T#3) (TYLENOL #3 TAB*) Y Tab 1 TAB ORAL Q8H PRN for For Pain, #10 TAB Prov: Syd Bass MD 09/13/20 Pastor Jones MD Sep 13, 2020 13:51 Syd Bass MD Sep 13, 2020 16:47
[2020-09-13 13:56] LABS: ALANINE AMINOTRANSFERASE 187 U/L (12-78); ALBUMIN 3.3 G/DL (3.4-5.0); ALBUMIN/GLOBULIN RATIO 0.7 (1.0-2.7); ALKALINE PHOSPHATASE 191 U/L (46-116); ANION GAP 13 mmol/L (5-15); ASPARTATE AMINO TRANSFERASE 358 U/L (15-37); BILIRUBIN,TOTAL 1.5 MG/DL (0.2-1.0); BLOOD UREA NITROGEN 12 mg/dL (7-18); CALCIUM 7.7 MG/DL (8.5-10.1); CARBON DIOXIDE 23 MMOL/L (21-32); CHLORIDE 97 MMOL/L (98-107); CREATININE 1.2 MG/DL (0.55-1.30); POTASSIUM 3.4 MMOL/L (3.5-5.1); SODIUM 133 MMOL/L (136-145)
[2020-09-13 13:58] LABS: BILIRUBIN,DIRECT 0.6 MG/DL (0.0-0.3)
--- NOTE | 2020-09-13 15:23 | NUR ---
ED Nurse Note:lactic reflax draw was sent to labs
--- NOTE | 2020-09-13 16:13 | Diagnostic Imaging Report ---
Clinical Indication: Abdominal pain x1 day Technique: No oral contrast utilized, per emergency room physician request IV administration nonionic contrast. Venous phase spiral acquisition obtained through the abdomen and pelvis. Multiplanar reconstructions were generated. Total dose length product 240 mGycm. CTDIvol(s) 4 mGy. Dose reduction achieved using automated exposure control Comparison: 06/27/2020 Findings: Lack of enteric contrast limits assessment of the GI tract. The appendix is normal. There is mild mural fatty change of the ascending colon. There is wall thickening of the sigmoid colon, extending into the rectum. This is somewhat less striking than on the prior study. No small bowel distention. No free or loculated intraperitoneal gas or fluid is evident. The distal esophagus, stomach, duodenum are unremarkable. The liver is enlarged. It is diffusely hypoattenuating, as previously. No focal abnormality. The gallbladder, bile ducts, pancreas, spleen, adrenals are unremarkable. The kidneys demonstrate subcentimeter low-attenuation lesions which are too small to characterize, most likely benign simple cysts. The bladder is unremarkable. No pelvic mass or adenopathy. The included lung bases demonstrate dependent atelectatic changes. The bones are unremarkable except for mild degenerative changes. Impression: Limited assessment of the GI tract, due to lack of enteric contrast administration Wall thickening of the sigmoid colon, likely representing colitis. No similar findings were reported previously as well. Enlarged fatty liver Other findings as noted, including degenerative spondylosis, probable small renal cysts, basilar pulmonary atelectatic changes The CT scanner at [facility] is accredited by the [employer] and the scans are performed using protocols designed to limit radiation exposure to as low as reasonably achievable to attain images of sufficient resolution adequate for diagnostic evaluation.
--- NOTE | 2020-09-14 19:59 | Cardiology Report ---
APPROVED REPORT EKG Measurement Heart [id number] <Conclusion> Normal sinus rhythm Nonspecific T wave abnormality Prolonged QT Abnormal ECG
== END | disposition home or self-care (01) ==
LOC: EMR 14:03
DX: R10.32 Left lower quadrant pain (principal); K52.9 Noninfective gastroenteritis and colitis, unspecified; R79.89 Other specified abnormal findings of blood chemistry; I10 Essential (primary) hypertension; E11.9 Type 2 diabetes mellitus without complications; K76.0 Fatty (change of) liver, not elsewhere classified; M47.819 Spondylosis without myelopathy or radiculopathy, site unspecified
CPT/HCPCS: 36415; 74177; 80053; 81003; 82248; 83605; 83690; 84484; 85007; 85025; 85610; 85730; 93005; 96361; 96374; 96375; 99284; J1170; J2405; J7030; Q9965; S0028; U0002

== ENCOUNTER 2020-09-14 13:41 | Inpatient (IN) | payer MEDICARE, MEDICAID ==
[~2020-09-14] VITALS: Ht 165.1 cm; Wt 71.7 kg
[~2020-09-14 13:41] MED LIST changes: -HYDROmorphone 1mg/ml Carpuject IVP ONE; -Ketorolac 30mg Inj ONE; -Omnipaque-300 100ml vial INJ PRN
[2020-09-14] MEDS ORDERED: Ketorolac 30mg Inj IV ONE (14:00)
--- NOTE | 2020-09-14 14:31 | Diagnostic Imaging Report ---
FILM ABDOMEN INDICATION: Pain COMPARISON: CT abdomen September 13, 2020 FINDINGS: Single frontal view of the abdomen demonstrates a normal bowel gas pattern. No evidence of organomegaly, abnormal calcifications or obvious soft tissue masses. The osseous structures are intact. IMPRESSION: No free air or bowel obstruction.
[2020-09-14 14:38] VITALS: BP 146/87
[2020-09-14 14:52] LABS: APPEARANCE,URINE CLEAR; BILIRUBIN, URINE NEGATIVE (NEGATIVE); COLOR,URINE PALE YELLOW; GLUCOSE, URINE (UA) NEGATIVE (NEGATIVE); KETONES,URINE NEGATIVE (NEGATIVE); LEUKOCYTE ESTERASE ,URINE NEGATIVE (NEGATIVE); NITRITE,URINE NEGATIVE (NEGATIVE); PH,URINE 6 (4.5-8.0); PROTEIN,URINE NEGATIVE (NEGATIVE); UROBILINOGEN,URINE NORMAL MG/DL (0.0-1.0)
[2020-09-14 14:53] LABS: HEMATOCRIT 36.6 % (42.0-52.0); HEMOGLOBIN 12.6 G/DL (14.2-18.0); MEAN CORPUSCULAR VOLUME 89 FL (80-99); PLATELET COUNT 114 K/UL (150-450)
[2020-09-14 15:06] LABS: ANION GAP 12 mmol/L (5-15); BLOOD UREA NITROGEN 11 mg/dL (7-18); CALCIUM 7.4 MG/DL (8.5-10.1); CARBON DIOXIDE 24 MMOL/L (21-32); CHLORIDE 100 MMOL/L (98-107); CREATININE 1.3 MG/DL (0.55-1.30); POTASSIUM 3.5 MMOL/L (3.5-5.1); SODIUM 136 MMOL/L (136-145)
[2020-09-14 15:19] LABS: ALANINE AMINOTRANSFERASE 176 U/L (12-78); ALBUMIN 3.1 G/DL (3.4-5.0); ALBUMIN/GLOBULIN RATIO 0.9 (1.0-2.7); ALKALINE PHOSPHATASE 183 U/L (46-116); ASPARTATE AMINO TRANSFERASE 372 U/L (15-37); BILIRUBIN,TOTAL 1.2 MG/DL (0.2-1.0)
[2020-09-14 15:24] LABS: BILIRUBIN,DIRECT 0.6 MG/DL (0.0-0.3)
[2020-09-14 15:58] VITALS: BP 140/85
[2020-09-14] MEDS ORDERED: Miralax 17gm pkt ORAL PRN (16:15)
[2020-09-14] MEDS ORDERED: Albuterol/Ipratropium 3ml neb HHN PRN (16:15)
[2020-09-14] MEDS ORDERED: Zolpidem 5mg tab ORAL PRN (16:15)
[2020-09-14] MEDS ORDERED: Milk of Magnesia 30ml Ud ORAL PRN (16:15)
[2020-09-14] MEDS ORDERED: Nitroglycerin Subl 0.4mg tab SL PRN (16:15)
[2020-09-14] MEDS ORDERED: Mylanta II UD 30ml ORAL PRN (16:15)
[2020-09-14] MEDS ORDERED: HydrALAZINE 25mg tab ORAL PRN (16:30)
--- NOTE | 2020-09-14 16:31 | Emergency Room Report ---
History of Present Illness General Chief Complaint: Abdominal Pain Source: Patient Present Illness HPI 69-year-old male here with left lower quadrant abdominal pain. Patient was here yesterday for similar complaints. CT showed colitis and patient was discharged with prescription for Tylenol 3. 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 Patient says that he went home and had between 10 and 20 episodes of watery diarrhea and now the diarrhea showing "streaks of blood." Patient says that he has had intermittent left lower quadrant abdominal pain for several weeks but the diarrhea has started several days ago. Says he is also had nausea and has vomited several times nonbilious nonbloody. Patient says that he has lost 30 pounds over the past several months unintentionally. He was here in the hospital in June and left AGAINST MEDICAL ADVICE before a colonoscopy could be performed. Has never had a colonoscopy. Pain is sharp in nature, located in left lower quadrant, does not radiate. Has not taken anything at home for the pain. No family history of abdominal cancers. Allergies: Coded Allergies: No Known Allergies (Unverified , 12/05/12) COVID-19 Screening Contact w/high risk pt: No Recent Travel to affected area: No Experienced COVID-19 symptoms?: No COVID-19 symptoms experienced: Cough COVID-19 Testing performed DIRECTOR [employer]: Yes COVID-19 Screening: Negative COVID-19 COVID-19 Testing Source: 08/2020 Nursing Documentation-[facility] Past Medical History: No History, Except For Hx Cardiac Problems: Yes - murmur Hx Hypertension: Yes Hx Pacemaker: No Hx Asthma: Yes Hx Diabetes: Yes Hx Cancer: No Hx Gastrointestinal Problems: No - Abdominal surgery 2014 Hx Dialysis: No Hx Neurological Problems: No Hx Cerebrovascular Accident: No Hx Seizures: No Review of Systems All Other Systems: negative except mentioned in HPI Physical Exam Vital Signs Date Time Temp Pulse Resp B/P (MAP) Pulse Ox O2 Delivery O2 Flow Rate FiO2 09/14/20 13:46 98.2 102 18 146/87 (106) 98 Room Air Sp02 EP Interpretation: reviewed, normal General Appearance: no apparent distress, alert, GCS 15, non-toxic Head: normocephalic, atraumatic Eyes: bilateral eye normal inspection, bilateral eye PERRL ENT: hearing grossly normal, normal pharynx, no angioedema, normal voice Neck: full range of motion, supple/symm/no masses Respiratory: chest non-tender, lungs clear, normal breath sounds, speaking full sentences Cardiovascular #1: regular rate, rhythm, no edema Cardiovascular #2: 2+ carotid (R), 2+ carotid (L), 2+ radial (R), 2+ radial (L), 2+ dorsalis pedis (R), 2+ dorsalis pedis (L) Gastrointestinal: normal bowel sounds, non tender, soft, non-distended, no guarding, no rebound Rectal: deferred Genitourinary: normal inspection, no CVA tenderness Musculoskeletal: back normal, normal range of motion, calf tenderness, gait/station normal, non-tender Neurologic: alert, motor strength/tone normal, oriented x3, sensory intact, responsive, speech normal Psychiatric: judgement/insight normal, memory normal, mood/affect normal, no suicidal/homicidal ideation Reflexes: 3+ bicep (R), 3+ bicep (L), 3+ tricep (R), 3+ tricep (L), 3+ knee (R), 3+ knee (L) Lymphatic: no adenopathy Medical Decision Making Diagnostic Impression: Primary Impression: Colitis Additional Impressions: Diarrhea Dizziness Elevated LFTs ER Course Procedure: XRAY Abdomen 1v FILM ABDOMEN INDICATION: Pain COMPARISON: CT abdomen September 13, 2020 FINDINGS: Single frontal view of the abdomen demonstrates a normal bowel gas pattern. No evidence of organomegaly, abnormal calcifications or obvious soft tissue masses. The osseous structures are intact. IMPRESSION: No free air or bowel obstruction. Laboratory Tests Test 09/14/20 14:30 White Blood Count 3.0 K/UL (4.8-10.8) L Red Blood Count 4.10 M/UL (4.70-6.10) L Hemoglobin 12.6 G/DL (14.2-18.0) L Hematocrit 36.6 % (42.0-52.0) L Mean Corpuscular Volume 89 FL (80-99) Mean Corpuscular Hemoglobin 30.6 PG (27.0-31.0) Mean Corpuscular Hemoglobin Concent 34.3 G/DL (32.0-36.0) Red Cell Distribution Width 15.0 % (11.6-14.8) H Platelet Count 114 K/UL (150-450) L Mean Platelet Volume 8.9 FL (6.5-10.1) Neutrophils (%) (Auto) % (45.0-75.0) Lymphocytes (%) (Auto) % (20.0-45.0) Monocytes (%) (Auto) % (1.0-10.0) Eosinophils (%) (Auto) % (0.0-3.0) Basophils (%) (Auto) % (0.0-2.0) Differential Total Cells Counted 100 Neutrophils % (Manual) 56 % (45-75) Lymphocytes % (Manual) 34 % (20-45) Monocytes % (Manual) 10 % (1-10) Eosinophils % (Manual) 0 % (0-3) Basophils % (Manual) 0 % (0-2) Band Neutrophils 0 % (0-8) Platelet Estimate Adequate Platelet Morphology Normal Red Blood Cell Morphology Normal Urine Color Pale yellow Urine Appearance Clear Urine pH 6 (4.5-8.0) Urine Specific [place] 1.010 (1.005-1.035) Urine Protein Negative (NEGATIVE) Urine Glucose (UA) Negative (NEGATIVE) Urine Ketones Negative (NEGATIVE) Urine Blood Negative (NEGATIVE) Urine Nitrite Negative (NEGATIVE) Urine Bilirubin Negative (NEGATIVE) Urine Urobilinogen Normal MG/DL (0.0-1.0) Urine Leukocyte Esterase Negative (NEGATIVE) Sodium Level 136 MMOL/L (136-145) Potassium Level 3.5 MMOL/L (3.5-5.1) Chloride Level 100 MMOL/L (98-107) Carbon Dioxide Level 24 MMOL/L (21-32) Anion Gap 12 mmol/L (5-15) Blood Urea Nitrogen 11 mg/dL (7-18) Creatinine 1.3 MG/DL (0.55-1.30) Estimated Glomerular Filtration Rate > 60 mL/min (>60) Glucose Level 153 MG/DL (74-106) H Calcium Level 7.4 MG/DL (8.5-10.1) L Magnesium Level 1.6 MG/DL (1.8-2.4) L Total Bilirubin 1.2 MG/DL (0.2-1.0) H Direct Bilirubin 0.6 MG/DL (0.0-0.3) H Aspartate Amino Transferase (AST) 372 U/L (15-37) H Alanine Aminotransferase (ALT) 176 U/L (12-78) H Alkaline Phosphatase 183 U/L (46-116) H Troponin I 0.000 ng/mL (0.000-0.056) Total Protein 6.4 G/DL (6.4-8.2) Albumin 3.1 G/DL (3.4-5.0) L Globulin 3.3 g/dL Albumin/Globulin Ratio 0.9 (1.0-2.7) L Lipase 320 U/L (73-393) Serum Alcohol 172 mg/dL EKG: NSR, no ischemia, intervals WNL. No ectopy Rhythm strip: patient monitored for arrhythmias - no malignant dysrhythmias, runs of PVCs, nor pauses noted 69-year-old male diagnosed with colitis yesterday via CT scan here with worsening pain and diarrhea. Patient said that he has been inadvertently losing a large amount of weight over the past several days to weeks. Was here in the hospital several months ago and left AGAINST MEDICAL ADVICE before a colonoscopy could be performed. Patient was given 2 doses of IV pain medications in the emergency department and 2 L of IV normal saline. Labs were consistent with patient's previous labs which showed elevated LFTs and mild pancytopenia. Patient was given a dose of ciprofloxacin in the emergency department. C. difficile pending. Patient admitted to [facility] with intractable abdominal pain and colitis. Last Vital Signs Date Time Temp Pulse Resp B/P (MAP) Pulse Ox O2 Delivery O2 Flow Rate FiO2 09/14/20 13:46 98.2 102 18 146/87 (106) 98 Room Air Aston Hernandes M.D. Sep 14, 2020 16:31
--- NOTE | 2020-09-14 17:24 | History & Physical ---
History and Physical History & Physicial Admission received. Admitted for persistent diarrhea, colitis (acute on chronic), chronic etoh use and possible chronic pancreatitis. Full admission note to come. Continue cipro/flagyl, npo and iv fluiods overnight. GI and surgery consulted Milan Baldwin M.D. Sep 14, 2020 17:23
[2020-09-14] MEDS: NS w/KCl 20mEq 1000ml 1,000 ML IV SCH (17:51)
[2020-09-14] MEDS: metroNIDAZOLE 500mg tab ORAL SCH ×2 (17:52→23:50)
[2020-09-14] MEDS: Enoxaparin 40mg Inj SUBQ SCH (17:52)
[2020-09-14 20:00] VITALS: BP 136/75
[2020-09-15] VITALS: BP 151/89
[2020-09-15] MEDS: HYDROmorphone 1mg/ml Carpuject IVP PRN (02:31)
[2020-09-15 04:00] VITALS: BP 153/83
[2020-09-15] MEDS: NS w/KCl 20mEq 1000ml 1,000 ML IV SCH ×2 (04:00→04:13)
[2020-09-15 05:37] LABS: HEMATOCRIT 35.9 % (42.0-52.0); HEMOGLOBIN 12.2 G/DL (14.2-18.0); MEAN CORPUSCULAR VOLUME 89 FL (80-99); PLATELET COUNT 99 K/UL (150-450); RED BLOOD COUNT 4.02 M/UL (4.70-6.10); RED CELL DISTRIBUTION WIDTH 15.1 % (11.6-14.8); WHITE BLOOD COUNT 2.4 K/UL (4.8-10.8)
[2020-09-15 05:51] LABS: ALANINE AMINOTRANSFERASE 170 U/L (12-78); ALBUMIN 2.9 G/DL (3.4-5.0); ALBUMIN/GLOBULIN RATIO 0.8 (1.0-2.7); ALKALINE PHOSPHATASE 171 U/L (46-116); ANION GAP 12 mmol/L (5-15); ASPARTATE AMINO TRANSFERASE 387 U/L (15-37); BILIRUBIN,TOTAL 1.6 MG/DL (0.2-1.0); BLOOD UREA NITROGEN 9 mg/dL (7-18); CALCIUM 7.1 MG/DL (8.5-10.1); CARBON DIOXIDE 20 MMOL/L (21-32); CHLORIDE 102 MMOL/L (98-107); CREATININE 1.2 MG/DL (0.55-1.30); POTASSIUM 3.5 MMOL/L (3.5-5.1); SODIUM 134 MMOL/L (136-145)
[2020-09-15] MEDS: metroNIDAZOLE 500mg tab ORAL SCH ×4 (06:52→23:40)
[2020-09-15 07:04] LABS: BILIRUBIN,DIRECT 0.6 MG/DL (0.0-0.3)
[2020-09-15 08:00] VITALS: BP 138/94
--- NOTE | 2020-09-15 09:05 | History and Physical ---
History of Present Illness General Date patient seen: Sep 15, 2020 Reason for Hospitalization: Abdominal Pain Present Illness HPI 69 year old male with history of etoh, cocaine and amphetamine abuse presented to the hospital for left lower abdominal pain. Seen in the ER for similar c omplaints and discharged home. His CT showed colitis. His pharmacy was closed and he could not pick remover his prescriptions. His abdominal pain is associated with multiple episodes of bloody diarrhea, and non bilious vomiting. He also feels nauseated but did not vomit. Patient says that he has lost 30 pounds over the past several months unintentionally. He was here in the hospital in June and left AMA before a colonoscopy could be performed. Has never had a colonoscopy. Pain is sharp in nature, located in left lower quadrant, no radiation. PAST MEDICAL HISTORY: 1. History of perforated gastric ulcer. 2. COPD. 3. History of polysubstance abuse. 4. Hypertension. 5. Fatty liver. 6.etoh abuse 7.cocaine and amphetamine abuse ALLERGIES: No known allergies. MEDICATIONS: Please see medication reconciliation list. PAST SURGICAL HISTORY: Partial gastrectomy for perforated ulcer. FAMILY HISTORY: Denies family history of gastric/colon cancer SOCIAL HISTORY: +etoh, cocaine, amphetamine Allergies: Coded Allergies: No Known Allergies (Unverified , 12/05/12) COVID-19 Screening Contact w/high risk pt: No Recent Travel to affected area: No Experienced COVID-19 symptoms?: No Medication History Scheduled Albuterol Sulfate (Ventolin Hfa), 2 PUFFS INH EVERY 6 HOURS Gabapentin* (Gabapentin*), 100 ORAL TWICE A DAY, (Reported) Hydrochlorothiazide* (Hydrochlorothiazide*), 25 MG ORAL DAILY, (Reported) Lamotrigine (Lamotrigine), 300 MG ORAL DAILY, (Reported) Scheduled PRN Acetaminophen With Codeine (T#3) (Tylenol #3 Tab*), 1 TAB ORAL Q8H PRN for For Pain Miscellaneous Medications Zonisamide (Zonisamide), 100 MG ORAL, (Reported) Discontinued Medications Dicyclomine Hcl* (Dicyclomine Hcl*), 10 MG ORAL TID Discontinued Reason: Therapy completed Dicyclomine Hcl* (Dicyclomine Hcl*), 10 MG ORAL QID PRN for Abdominal cramps Discontinued Reason: Therapy completed Doxycycline Monohydrate* (Doxycycline Monohydrate*), 100 MG ORAL Q12H Discontinued Reason: Therapy completed Famotidine* (Pepcid 20mg tablet*), 20 MG ORAL DAILY Discontinued Reason: Therapy completed Guaifenesin/Dextromethorphan* (Guaifenesin Dm Syrup*), 5 ML ORAL Q6H PRN for FOR COUGH Discontinued Reason: Therapy completed Lamotrigine (Lamotrigine), 100 MG PO, (Reported) Discontinued Reason: Therapy completed Lidocaine HCl 2% Viscous (Lidocaine HCl 2% Viscous), 5 ML ORAL QID Discontinued Reason: Therapy completed Ondansetron (Zofran), 4 MG ORAL Q8H PRN for Nausea & Vomiting Discontinued Reason: Therapy completed ["Sleeping Pill"], (Reported) Discontinued Reason: Therapy completed ["inhaler"], (Reported) Discontinued Reason: Therapy completed [BP Pill "new"], (Reported) Discontinued Reason: Medication dose changed Patient History Healthcare decision maker Resuscitation status Advanced Directive on File Family History Family History: FH: CAD (coronary artery disease) Review of Systems Constitutional: Reports: other - weight loss Eye: Denies: no symptoms, see HPI, eye pain, blurred vision, tearing, double vision, nose pain, nose congestion, acuity changes, discharge, other ENT: Denies: no symptoms, see HPI, ear pain, ear discharge, nose pain, nose congestion, throat pain, throat swelling, mouth pain, hearing loss, nasal discharge, other Respiratory: Denies: no symptoms, see HPI, cough, orthopnea, shortness of breath, stridor, wheezing, MARIO, sputum, other Cardiovascular: Denies: no symptoms, see HPI, chest pain, edema, palpitations, syncope, PND, other Gastrointestinal: Reports: see HPI, abdominal pain, diarrhea Genitourinary: Denies: no symptoms, see HPI, discharge, dysuria, frequency, hematuria, pain, retention, incontinence, urgency, vag bleed/dc, other Musculoskeletal: Denies: no symptoms, see HPI, back pain, gout, joint pain, joint swelling, muscle pain, muscle stiffness, other Skin: Denies: no symptoms, see HPI, rash, change in color, change in hair/nails, dryness, lesions, other Psychiatric: Denies: no symptoms, see HPI, prior hx, anxiety, depressed feelings, emotional problems, SI, HI, hallucinations, other Neurological: Denies: no symptoms, see HPI, headache, numbness, paresthesia, seizure, tingling, tremors, focal weakness, syncope, dizziness, other Endocrine: Denies: no symptoms, see HPI, excessive sweating, flushing, intolerance to temperature, increased thirst, increased urine, unexplained weight loss, other Hematologic/Lymphatic: Denies: no symptoms, see HPI, anemia, blood clots, easy bleeding, easy bruising, swollen glands, diathesis, other Physical Exam General Appearance: no apparent distress, alert Lines, tubes and drains: peripheral HEENT: normocephalic, atraumatic, anicteric, mucous membranes moist, PERRL, EOMI Neck: non-tender, normal alignment, supple Respiratory/Chest: chest wall non-tender, lungs clear, normal breath sounds, no respiratory distress Cardiovascular/Chest: normal peripheral pulses, normal rate, regular rhythm Abdomen: normal bowel sounds, soft, no organomegaly, tender - LLQ Extremities: normal range of motion, non-tender, normal inspection, no calf tenderness Skin Exam: normal pigmentation, warm/dry Neurologic: no motor/sensory deficits, oriented x 3, other - tremors of outstretched hands Last 24 Hour Vital Signs Date Time Temp Pulse Resp B/P (MAP) Pulse Ox O2 Delivery O2 Flow Rate FiO2 09/15/20 07:10 86 18 99 Room Air 21 09/15/20 04:00 97.1 87 18 153/83 (106) 97 09/15/20 00:00 97.6 92 18 151/89 (109) 96 09/14/20 21:00 Room Air 09/14/20 20:00 98.7 95 20 136/75 (95) 98 09/14/20 19:49 84 20 98 Room Air 21 09/14/20 16:48 Room Air 09/14/20 16:30 98.2 87 18 140/85 98 Room Air 09/14/20 15:58 98.2 87 18 140/85 98 Room Air 09/14/20 15:03 98.2 09/14/20 14:43 90 18 Room Air 09/14/20 14:38 98.2 90 18 146/87 98 Room Air 09/14/20 13:46 98.2 102 18 146/87 (106) 98 Room Air Intake and Output 09/14/20 09/15/20 19:00 07:00 Intake Total 1040 ml Balance 1040 ml Intake Oral 90 ml IV Total 950 ml # Voids 1 1 Laboratory Tests Test 09/14/20 14:30 09/15/20 00:45 09/15/20 04:30 White Blood Count 3.0 K/UL (4.8-10.8) L 2.4 K/UL (4.8-10.8) L Red Blood Count 4.10 M/UL (4.70-6.10) L 4.02 M/UL (4.70-6.10) L Hemoglobin 12.6 G/DL (14.2-18.0) L 12.2 G/DL (14.2-18.0) L Hematocrit 36.6 % (42.0-52.0) L 35.9 % (42.0-52.0) L Mean Corpuscular Volume 89 FL (80-99) 89 FL (80-99) Mean Corpuscular Hemoglobin 30.6 PG (27.0-31.0) 30.2 PG (27.0-31.0) Mean Corpuscular Hemoglobin Concent 34.3 G/DL (32.0-36.0) 33.8 G/DL (32.0-36.0) Red Cell Distribution Width 15.0 % (11.6-14.8) H 15.1 % (11.6-14.8) H Platelet Count 114 K/UL (150-450) L 99 K/UL (150-450) L Mean Platelet Volume 8.9 FL (6.5-10.1) 8.4 FL (6.5-10.1) Neutrophils (%) (Auto) % (45.0-75.0) % (45.0-75.0) Lymphocytes (%) (Auto) % (20.0-45.0) % (20.0-45.0) Monocytes (%) (Auto) % (1.0-10.0) % (1.0-10.0) Eosinophils (%) (Auto) % (0.0-3.0) % (0.0-3.0) Basophils (%) (Auto) % (0.0-2.0) % (0.0-2.0) Differential Total Cells Counted 100 100 Neutrophils % (Manual) 56 % (45-75) 55 % (45-75) Lymphocytes % (Manual) 34 % (20-45) 36 % (20-45) Monocytes % (Manual) 10 % (1-10) 6 % (1-10) Eosinophils % (Manual) 0 % (0-3) 3 % (0-3) Basophils % (Manual) 0 % (0-2) 0 % (0-2) Band Neutrophils 0 % (0-8) 0 % (0-8) Platelet Estimate Adequate Decreased L Platelet Morphology Normal Normal Red Blood Cell Morphology Normal Urine Color Pale yellow Urine Appearance Clear Urine pH 6 (4.5-8.0) Urine Specific [place] 1.010 (1.005-1.035) Urine Protein Negative (NEGATIVE) Urine Glucose (UA) Negative (NEGATIVE) Urine Ketones Negative (NEGATIVE) Urine Blood Negative (NEGATIVE) Urine Nitrite Negative (NEGATIVE) Urine Bilirubin Negative (NEGATIVE) Urine Urobilinogen Normal MG/DL (0.0-1.0) Urine Leukocyte Esterase Negative (NEGATIVE) Sodium Level 136 MMOL/L (136-145) 134 MMOL/L (136-145) L Potassium Level 3.5 MMOL/L (3.5-5.1) 3.5 MMOL/L (3.5-5.1) Chloride Level 100 MMOL/L (98-107) 102 MMOL/L (98-107) Carbon Dioxide Level 24 MMOL/L (21-32) 20 MMOL/L (21-32) L Anion Gap 12 mmol/L (5-15) 12 mmol/L (5-15) Blood Urea Nitrogen 11 mg/dL (7-18) 9 mg/dL (7-18) Creatinine 1.3 MG/DL (0.55-1.30) 1.2 MG/DL (0.55-1.30) Estimat Glomerular Filtration Rate > 60 mL/min (>60) > 60 mL/min (>60) Glucose Level 153 MG/DL (74-106) H 105 MG/DL (74-106) Calcium Level 7.4 MG/DL (8.5-10.1) L 7.1 MG/DL (8.5-10.1) L Magnesium Level 1.6 MG/DL (1.8-2.4) L Total Bilirubin 1.2 MG/DL (0.2-1.0) H 1.6 MG/DL (0.2-1.0) H Direct Bilirubin 0.6 MG/DL (0.0-0.3) H 0.6 MG/DL (0.0-0.3) H Aspartate Amino Transf (AST/SGOT) 372 U/L (15-37) H 387 U/L (15-37) H Alanine Aminotransferase (ALT/SGPT) 176 U/L (12-78) H 170 U/L (12-78) H Alkaline Phosphatase 183 U/L (46-116) H 171 U/L (46-116) H Troponin I 0.000 ng/mL (0.000-0.056) Total Protein 6.4 G/DL (6.4-8.2) 6.6 G/DL (6.4-8.2) Albumin 3.1 G/DL (3.4-5.0) L 2.9 G/DL (3.4-5.0) L Globulin 3.3 g/dL 3.7 g/dL Albumin/Globulin Ratio 0.9 (1.0-2.7) L 0.8 (1.0-2.7) L Lipase 320 U/L (73-393) Serum Alcohol 172 mg/dL POC Whole Blood Glucose 95 MG/DL (74-106) Hypochromasia 1+ Anisocytosis 1+ Height (Feet): 5 Height (Inches): 8.00 Weight (Pounds): 150 Medications Current Medications Medications (Trade) Dose Ordered Sig/Tabby Route PRN Reason Start Time Stop Time Status Last Admin Dose Admin Acetaminophen (Tylenol) 650 mg Q4H PRN ORAL Mild Pain (Pain Scale 1-3) 09/14/20 16:15 10/14/20 16:14 Acetaminophen (Tylenol) 650 mg Q4H PRN ORAL Temp >100.5 09/14/20 16:15 10/14/20 16:14 Al Hydroxide/Mg Hydroxide (Mylanta II) 30 ml Q6H PRN ORAL dyspepsia 09/14/20 16:15 10/14/20 16:14 Albuterol/ Ipratropium (Albuterol/ Ipratropium) 3 ml Q6H PRN HHN sob 09/14/20 16:15 09/19/20 16:14 Bisacodyl (Dulcolax) 10 mg HSPRN PRN RECTAL Constipation 09/14/20 16:15 12/13/20 16:14 Ciprofloxacin 200 ml @ 200 mls/hr Q12HR IV 09/14/20 21:00 09/21/20 20:59 09/14/20 21:21 Dextrose (Dextrose 50%) 25 ml Q30M PRN IV Hypoglycemia 09/14/20 16:15 12/13/20 16:14 Dextrose (Dextrose 50%) 50 ml Q30M PRN IV Hypoglycemia 09/14/20 16:15 12/13/20 16:14 Diphenhydramine HCl (Benadryl) 25 mg Q6H PRN ORAL Itching/Pruritis 09/14/20 16:15 10/14/20 16:14 Enoxaparin Sodium (Lovenox) 40 mg Q24H SUBQ 09/14/20 18:00 12/13/20 17:59 09/14/20 17:52 Hydralazine HCl (Apresoline) 25 mg Q6H PRN ORAL For High Blood Pressure 09/14/20 16:30 12/13/20 16:29 Hydromorphone HCl (Dilaudid) 1 mg Q4H PRN IVP Moderate Pain (Pain Scale 4-6) 09/14/20 16:15 09/21/20 16:14 09/15/20 02:31 Hydromorphone HCl (Dilaudid) 2 mg Q4H PRN IVP Severe Pain (Pain Scale 7-10) 09/14/20 16:15 09/21/20 16:14 Magnesium Hydroxide (Mom) 30 ml HSPRN PRN ORAL Constipation 09/14/20 16:15 10/14/20 16:14 Metronidazole (Flagyl) 500 mg Q6HR ORAL 09/14/20 18:00 09/21/20 17:59 09/15/20 06:52 Nitroglycerin (Ntg) 0.4 mg Q5M X 3 DOSES PRN SL Prn Chest Pain 09/14/20 16:15 10/14/20 16:14 Ondansetron HCl (Zofran) 4 mg Q6H PRN IVP Nausea & Vomiting 09/14/20 16:15 10/14/20 16:14 Polyethylene Glycol (Miralax) 17 gm HSPRN PRN ORAL Constipation 09/14/20 16:15 10/14/20 16:14 Potassium Chloride/Sodium Chloride 1,000 ml @ 100 mls/hr Q10H IV 09/14/20 18:00 10/14/20 17:59 09/14/20 17:51 Temazepam (Restoril) 15 mg HSPRN PRN ORAL Insomnia 09/14/20 16:15 09/21/20 16:14 Zolpidem Tartrate (Ambien) 5 mg HSPRN PRN ORAL Insomnia 09/14/20 16:15 09/21/20 16:14 Assessment/Plan Problem List: (1) Colitis ICD Codes: K52.9 - Noninfective gastroenteritis and colitis, unspecified SNOMED: 68906198 (2) Diarrhea ICD Codes: R19.7 - Diarrhea, unspecified SNOMED: 04229574 (3) Elevated LFTs ICD Codes: R79.89 - Other specified abnormal findings of blood chemistry SNOMED: 274634199, 060758681 (4) history of perforated Gastric ulcer (5) Leukopenia ICD Codes: D72.819 - Decreased white blood cell count, unspecified SNOMED: 74137568, 580660551 Status: stable Assessment/Plan: 69 year old male with history of prior perforated ulcer status post open repair, hypertension, chronic substance abuse presents for evaluation of LLQ abdominal pain, bloody diarrhea and weight loss for many days. Diagnosed with colitis based on clinically findings and CT scan. Previously refused colonoscopy and signed out AMA. His blood alcohol level is 170, says he has not had a drink in couple of days and on exam has tremors. # LLQ Abdominal Pain # Bloody diarrhea #Colitis - admit to med surg - Metronidazole and Ciprofloxacin - Clear liquid diet - Fluid hydration - Replete electrolytes - trend CBC, BMP - Consult to GI - appreciate recs- for colonoscopy on Wednesday - Social service consult for substance abuse # Alcohol Abuse/Substance Abuse #Mild etoh withdrawal -CIWA -Librium 25 q8hr -thiamine -student counsellor # Elevated LFTS- ldue to etoh hepatitis -ctm #Leukopenia -Likely ETOH related -previously evaluated by hematology I spent 70 minutes on this encounter. 35 minutes spent on counselling and care coordination. Milan Baldwin M.D. Sep 15, 2020 09:05
--- NOTE | 2020-09-15 11:00 | Consultation ---
DATE OF CONSULTATION: 09/15/2020 CHIEF COMPLAINT: Rectal bleeding, abdominal pain. HISTORY OF PRESENT ILLNESS: The patient is a 69-year-old male. He has history of drug abuse in the past, amphetamine and cocaine in the past, was actually recently was seen in the ER for abdominal pain. CT showed evidence of colitis. The patient went home but came back again with worsening of diarrhea, bloody stool, and admitted for evaluation for that. PAST MEDICAL HISTORY: 1. History of perforated gastric ulcer. 2. COPD. 3. History of polysubstance abuse. 4. Hypertension. 5. Fatty liver. ALLERGIES: No known allergies. MEDICATIONS: Please see medication reconciliation list. PAST SURGICAL HISTORY: Partial gastrectomy for perforated ulcer. FAMILY HISTORY: Noncontributory. SOCIAL HISTORY: As dictated above. REVIEW OF SYSTEMS: A 10-point review of systems was performed and pertinent positives dictated in HPI. PHYSICAL EXAMINATION: VITAL SIGNS: Temperature is 97.6, pulse 86, respirations 19, blood pressure is 132/94. HEENT: Normocephalic and atraumatic. Sclerae anicteric. NECK: Supple. No obvious lymphadenopathy. CARDIOVASCULAR: Regular rate and rhythm. Plus S1 and S2. LUNGS: Clear to auscultation bilaterally. ABDOMEN: Positive bowel sounds. Soft and nontender. No rebound. No guarding. No peritoneal sign. EXTREMITIES: No cyanosis. No clubbing. No edema. LABORATORY DATA: White count is 2.4, hemoglobin 12, hematocrit 35, platelet count is 99. Liver enzymes, total bilirubin is 1.6, AST of , ALT of 170, alkaline phosphatase of 171. ASSESSMENT AND PLAN: This is a 69-year-old male with past medical history of drug abuse, alcohol abuse presents to the hospital with rectal bleeding. CT showed evidence of colitis. The patient never had a colonoscopy before. He will definitely benefit from colonoscopy. The procedure was explained to the patient. Risks and benefits was explained to him and he agreed so we are going to prep him for colonoscopy tomorrow. Gene Puente M.D. DR: Joan JOB#: [id number] CC:
[2020-09-15 11:30] VITALS: BP 144/82
[2020-09-15] MEDS: D5 1/2NS w/KCl 20mEq 1,000 ML IV SCH (11:55)
[2020-09-15] MEDS: chlordiazePOXIDE 25mg Cap ORAL SCH ×2 (13:30→21:29)
[2020-09-15] MEDS: Thiamine 100mg tab ORAL SCH (13:30)
[2020-09-15] MEDS ORDERED: Golytely 4L ORAL SCH (14:00)
--- NOTE | 2020-09-15 14:36 | Consultation ---
History of Present Illness General Date patient seen: Sep 15, 2020 Reason for Hospitalization: Abdominal Pain Present Illness HPI This is a 69-year-old male presenting with left lower quadrant abdominal pain for a few days recently came for evaluation and noted on CT with colitis. d ischarged with outpatient follow up and pain medication but was unable to had filled so he came in for evaluation after going home. Patient says that he went home and had between 10 and 20 episodes of watery diarrhea and now the diarrhea showing "streaks of blood." Patient says that he has had intermittent left lower quadrant abdominal pain for several weeks but the diarrhea has started several days ago. Says he is also had nausea and has vomited several times nonbilious nonbloody. Patient says that he has lost 30 pounds over the past several months unintentionally. He was here in the hospital in June and left AGAINST MEDICAL ADVICE before a colonoscopy could be performed. Has never had a colonoscopy. Pain is sharp in nature, located in left lower quadrant, does not radiate. Has not taken anything at home for the pain. No family history of abdominal cancers. surgery called to evaluate and assist with care. Allergies: Coded Allergies: No Known Allergies (Unverified , 12/05/12) COVID-19 Screening Contact w/high risk pt: No Recent Travel to affected area: No Experienced COVID-19 symptoms?: No Medication History Scheduled Albuterol Sulfate (Ventolin Hfa), 2 PUFFS INH EVERY 6 HOURS Gabapentin* (Gabapentin*), 100 ORAL TWICE A DAY, (Reported) Hydrochlorothiazide* (Hydrochlorothiazide*), 25 MG ORAL DAILY, (Reported) Lamotrigine (Lamotrigine), 300 MG ORAL DAILY, (Reported) Scheduled PRN Acetaminophen With Codeine (T#3) (Tylenol #3 Tab*), 1 TAB ORAL Q8H PRN for For Pain Miscellaneous Medications Zonisamide (Zonisamide), 100 MG ORAL, (Reported) Discontinued Medications Dicyclomine Hcl* (Dicyclomine Hcl*), 10 MG ORAL TID Discontinued Reason: Therapy completed Dicyclomine Hcl* (Dicyclomine Hcl*), 10 MG ORAL QID PRN for Abdominal cramps Discontinued Reason: Therapy completed Doxycycline Monohydrate* (Doxycycline Monohydrate*), 100 MG ORAL Q12H Discontinued Reason: Therapy completed Famotidine* (Pepcid 20mg tablet*), 20 MG ORAL DAILY Discontinued Reason: Therapy completed Guaifenesin/Dextromethorphan* (Guaifenesin Dm Syrup*), 5 ML ORAL Q6H PRN for FOR COUGH Discontinued Reason: Therapy completed Lamotrigine (Lamotrigine), 100 MG PO, (Reported) Discontinued Reason: Therapy completed Lidocaine HCl 2% Viscous (Lidocaine HCl 2% Viscous), 5 ML ORAL QID Discontinued Reason: Therapy completed Ondansetron (Zofran), 4 MG ORAL Q8H PRN for Nausea & Vomiting Discontinued Reason: Therapy completed ["Sleeping Pill"], (Reported) Discontinued Reason: Therapy completed ["inhaler"], (Reported) Discontinued Reason: Therapy completed [BP Pill "new"], (Reported) Discontinued Reason: Medication dose changed Patient History History Provided By: Patient, Medical Record, PMD Healthcare decision maker Resuscitation status Advanced Directive on File Past Medical/Surgical History Past Medical/Surgical History: (1) [id number] (2) Wrist pain (3) Wrist pain (4) Alcohol intoxication (5) Peritonitis (6) Perforated bowel (7) Psychosis (8) Dizziness (9) Injury of back (10) Back sprain (11) Contusion, hip and thigh (12) Low back strain (13) Trigger finger (14) Rotator cuff impingement syndrome (15) Encounter for dressing change or suture removal (16) Eloped from emergency department (17) Encounter for change of dressing (18) Confusion (19) Perforated bowel (20) Chest pain (21) Abdominal pain (22) Abdominal pain of unknown etiology (23) Dizziness (24) Colitis (25) Diarrhea (26) Elevated LFTs (27) Leukopenia (28) history of perforated Gastric ulcer Family History Family History: FH: CAD (coronary artery disease) Review of Systems Review of Symptoms General ROS: no weight loss or fever Psychological ROS: no depression or mood changes, no memory loss Ophthalmic ROS: no visual changes or eye irritation ENT ROS: no nasal congestion, hearing loss, dizziness Allergy and Immunology ROS: no allergic symptoms or urticaria Hematological and Lymphatic ROS: no swollen glands, unusual bleeding or bruising Endocrine ROS: no polyuria, polydipsia, weight changes, temperature intolerance Respiratory ROS: no cough, shortness of breath, or wheezing Cardiovascular ROS: no chest pain or dyspnea on exertion Gastrointestinal ROS: ++ abdominal pain, bright red blood in stool. Musculoskeletal ROS: no myalgias or arthralgias Neurological ROS: no TIA or stroke symptoms Dermatological ROS: no new or changing skin lesions, rashes or pruritis Physical Exam Physical Exam General appearance: alert, cooperative, no distress, appears stated age Head: Normocephalic, without obvious abnormality, atraumatic Eyes: conjunctivae/corneas clear. PERRL, EOM's intact. Fundi benign Throat: Lips, mucosa, and tongue normal. Teeth and gums normal Neck: supple, symmetrical, trachea midline, no adenopathy, thyroid: not enlarged, symmetric, no tenderness/mass/nodules, no carotid bruit and no JVD Lungs: clear to auscultation bilaterally Heart: regular rate and rhythm, S1, S2 normal, no murmur, click, rub or gallop Abdomen: soft, LLQ-tender. Bowel sounds normal. No masses, no organomegaly Extremities: extremities normal, atraumatic, no cyanosis or edema Pulses: 2+ and symmetric Skin: Skin color, texture, turgor normal. No rashes or lesions Neurologic: Grossly normal Last 24 Hour Vital Signs Date Time Temp Pulse Resp B/P (MAP) Pulse Ox O2 Delivery O2 Flow Rate FiO2 09/15/20 11:30 98.0 98 20 144/82 (102) 98 09/15/20 09:00 Room Air 09/15/20 08:00 97.6 86 19 138/94 (109) 100 09/15/20 07:10 86 18 99 Room Air 09/15/20 04:00 97.1 87 18 153/83 (106) 97 09/15/20 00:00 97.6 92 18 151/89 (109) 96 09/14/20 21:00 Room Air 09/14/20 20:00 98.7 95 20 136/75 (95) 98 09/14/20 19:49 84 20 98 Room Air 21 09/14/20 16:48 Room Air 09/14/20 16:30 98.2 87 18 140/85 98 Room Air 09/14/20 15:58 98.2 87 18 140/85 98 Room Air 09/14/20 15:03 98.2 09/14/20 14:43 90 18 Room Air 09/14/20 14:38 98.2 90 18 146/87 98 Room Air Intake and Output 09/14/20 09/15/20 19:00 07:00 Intake Total 1040 ml Balance 1040 ml Intake Oral 90 ml IV Total 950 ml # Voids 1 1 Laboratory Tests Test 09/15/20 00:45 09/15/20 04:30 POC Whole Blood Glucose 95 MG/DL (74-106) White Blood Count 2.4 K/UL (4.8-10.8) L Red Blood Count 4.02 M/UL (4.70-6.10) L Hemoglobin 12.2 G/DL (14.2-18.0) L Hematocrit 35.9 % (42.0-52.0) L Mean Corpuscular Volume 89 FL (80-99) Mean Corpuscular Hemoglobin 30.2 PG (27.0-31.0) Mean Corpuscular Hemoglobin Concent 33.8 G/DL (32.0-36.0) Red Cell Distribution Width 15.1 % (11.6-14.8) H Platelet Count 99 K/UL (150-450) L Mean Platelet Volume 8.4 FL (6.5-10.1) Neutrophils (%) (Auto) % (45.0-75.0) Lymphocytes (%) (Auto) % (20.0-45.0) Monocytes (%) (Auto) % (1.0-10.0) Eosinophils (%) (Auto) % (0.0-3.0) Basophils (%) (Auto) % (0.0-2.0) Differential Total Cells Counted 100 Neutrophils % (Manual) 55 % (45-75) Lymphocytes % (Manual) 36 % (20-45) Monocytes % (Manual) 6 % (1-10) Eosinophils % (Manual) 3 % (0-3) Basophils % (Manual) 0 % (0-2) Band Neutrophils 0 % (0-8) Platelet Estimate Decreased L Platelet Morphology Normal Hypochromasia 1+ Anisocytosis 1+ Sodium Level 134 MMOL/L (136-145) L Potassium Level 3.5 MMOL/L (3.5-5.1) Chloride Level 102 MMOL/L (98-107) Carbon Dioxide Level 20 MMOL/L (21-32) L Anion Gap 12 mmol/L (5-15) Blood Urea Nitrogen 9 mg/dL (7-18) Creatinine 1.2 MG/DL (0.55-1.30) Estimat Glomerular Filtration Rate > 60 mL/min (>60) Glucose Level 105 MG/DL (74-106) Calcium Level 7.1 MG/DL (8.5-10.1) L Total Bilirubin 1.6 MG/DL (0.2-1.0) H Direct Bilirubin 0.6 MG/DL (0.0-0.3) H Aspartate Amino Transf (AST/SGOT) 387 U/L (15-37) H Alanine Aminotransferase (ALT/SGPT) 170 U/L (12-78) H Alkaline Phosphatase 171 U/L (46-116) H Total Protein 6.6 G/DL (6.4-8.2) Albumin 2.9 G/DL (3.4-5.0) L Globulin 3.7 g/dL Albumin/Globulin Ratio 0.8 (1.0-2.7) L Height (Feet): 5 Height (Inches): 8.00 Weight (Pounds): 150 Medications Current Medications Medications (Trade) Dose Ordered Sig/Tabby Route PRN Reason Start Time Stop Time Status Last Admin Dose Admin Acetaminophen (Tylenol) 650 mg Q4H PRN ORAL Mild Pain (Pain Scale 1-3) 09/14/20 16:15 10/14/20 16:14 09/15/20 11:55 Acetaminophen (Tylenol) 650 mg Q4H PRN ORAL Temp >100.5 09/14/20 16:15 10/14/20 16:14 Al Hydroxide/Mg Hydroxide (Mylanta II) 30 ml Q6H PRN ORAL dyspepsia 09/14/20 16:15 10/14/20 16:14 Albuterol/ Ipratropium (Albuterol/ Ipratropium) 3 ml Q6H PRN HHN sob 09/14/20 16:15 09/19/20 16:14 Bisacodyl (Dulcolax) 10 mg HSPRN PRN RECTAL Constipation 09/14/20 16:15 12/13/20 16:14 Chlordiazepoxide (Librium) 25 mg Q8HR ORAL 09/15/20 14:00 09/22/20 13:59 09/15/20 13:30 Ciprofloxacin 200 ml @ 200 mls/hr Q12HR IV 09/14/20 21:00 09/21/20 20:59 09/15/20 09:58 Dextrose (Dextrose 50%) 25 ml Q30M PRN IV Hypoglycemia 09/14/20 16:15 12/13/20 16:14 Dextrose (Dextrose 50%) 50 ml Q30M PRN IV Hypoglycemia 09/14/20 16:15 12/13/20 16:14 Dextrose/ Electrolytes 1,000 ml @ 75 mls/hr [id number] IV 09/15/20 16:00 10/15/20 15:59 09/15/20 11:55 Diphenhydramine HCl (Benadryl) 25 mg Q6H PRN ORAL Itching/Pruritis 09/14/20 16:15 10/14/20 16:14 Enoxaparin Sodium (Lovenox) 40 mg Q24H SUBQ 09/14/20 18:00 12/13/20 17:59 09/14/20 17:52 Hydralazine HCl (Apresoline) 25 mg Q6H PRN ORAL For High Blood Pressure 09/14/20 16:30 12/13/20 16:29 Hydromorphone HCl (Dilaudid) 1 mg Q4H PRN IVP Moderate Pain (Pain Scale 4-6) 09/14/20 16:15 09/21/20 16:14 09/15/20 02:31 Hydromorphone HCl (Dilaudid) 2 mg Q4H PRN IVP Severe Pain (Pain Scale 7-10) 09/14/20 16:15 09/21/20 16:14 Magnesium Hydroxide (Mom) 30 ml HSPRN PRN ORAL Constipation 09/14/20 16:15 10/14/20 16:14 Metronidazole (Flagyl) 500 mg Q6HR ORAL 09/14/20 18:00 09/21/20 17:59 09/15/20 11:52 Nitroglycerin (Ntg) 0.4 mg Q5M X 3 DOSES PRN SL Prn Chest Pain 09/14/20 16:15 10/14/20 16:14 Ondansetron HCl (Zofran) 4 mg Q6H PRN IVP Nausea & Vomiting 09/14/20 16:15 10/14/20 16:14 Polyethylene Glycol (Miralax) 17 gm HSPRN PRN ORAL Constipation 09/14/20 16:15 10/14/20 16:14 Polyethylene Glycol/ Electrolytes (Golytely) 4,000 ml ONCE ORAL 09/15/20 14:00 09/15/20 23:59 09/15/20 13:29 Temazepam (Restoril) 15 mg HSPRN PRN ORAL Insomnia 09/14/20 16:15 09/21/20 16:14 Thiamine HCl (Vitamin B1) 100 mg DAILY ORAL 09/15/20 13:00 10/15/20 12:59 09/15/20 13:30 Zolpidem Tartrate (Ambien) 5 mg HSPRN PRN ORAL Insomnia 09/14/20 16:15 09/21/20 16:14 Assessment/Plan Problem List: (1) Abdominal pain of unknown etiology Assessment & Plan: 69M abd pain for weeks now. colitis prior CT. diarrhea and blood noted recently needs colonoscopy discussed with pcp and GI. scheduled for scop 09/16 will follow with recs npo iv fluids am labs prep The appendix is normal. There is mild mural fatty change of the ascending colon. There is wall thickening of the sigmoid colon, extending into the rectum. This is somewhat less striking than on the prior study. No small bowel distention. No free or loculated intraperitoneal gas or fluid is evident. The distal esophagus, stomach, duodenum are unremarkable. The liver is enlarged. It is diffusely hypoattenuating, as previously. No focal abnormality. The gallbladder, bile ducts, pancreas, spleen, adrenals are unremarkable. The kidneys demonstrate subcentimeter low-attenuation lesions which are too small to characterize, most likely benign simple cysts. The bladder is unremarkable. No pelvic mass or adenopathy. The included lung bases demonstrate dependent atelectatic changes. The bones are unremarkable except for mild degenerative changes. Impression: Limited assessment of the GI tract, due to lack of enteric contrast administration Wall thickening of the sigmoid colon, likely representing colitis. No similar findings were reported previously as well. Enlarged fatty liver Other findings as noted, including degenerative spondylosis, probable small renal cysts, basilar pulmonary atelectatic changes ICD Codes: R10.9 - Unspecified abdominal pain SNOMED: 890022365 (2) Dizziness ICD Codes: R42 - Dizziness and giddiness SNOMED: 952517407 (3) Colitis ICD Codes: K52.9 - Noninfective gastroenteritis and colitis, unspecified SNOMED: 04721712 (4) Diarrhea ICD Codes: R19.7 - Diarrhea, unspecified SNOMED: 89320566 (5) Elevated LFTs ICD Codes: R79.89 - Other specified abnormal findings of blood chemistry SNOMED: 521251640, 714253940 (6) Leukopenia ICD Codes: D72.819 - Decreased white blood cell count, unspecified SNOMED: 68112671, 714589573 (7) history of perforated Gastric ulcer (8) Alcohol intoxication ICD Codes: F10.129 - Alcoholabuse with intoxication, unspecified SNOMED: 22450928 (9) Injury of back ICD Codes: S39.92XA - Unspecified injury of lower back, initial encounter SNOMED: 959457337 (10) Dizziness ICD Codes: R42 - Dizziness and giddiness SNOMED: 558201000 (11) Confusion ICD Codes: R41.0 - Disorientation, unspecified SNOMED: 162562668 (12) Psychosis ICD Codes: F29 - Psychosis SNOMED: 58592458 (13) [id number] (14) Trigger finger ICD Codes: M65.30 - Trigger finger, unspecified finger SNOMED: 415177698 (15) Wrist pain ICD Codes: M25.539 - Pain in unspecified wrist SNOMED: 16812539 (16) Wrist pain ICD Codes: M25.539 - Pain in unspecified wrist SNOMED: 03872155 (17) Abdominal pain ICD Codes: R10.9 - Unspecified abdominal pain SNOMED: 86250749 (18) Chest pain ICD Codes: R07.9 - Chest pain, unspecified SNOMED: 49867083 (19) Peritonitis ICD Codes: K65.9 - Peritonitis, unspecified SNOMED: 93155941 (20) Contusion, hip and thigh ICD Codes: S70.00XA - Contusion of unspecified hip, initial encounter; S70.10XA - Contusion of unspecified thigh, initial encounter SNOMED: 079273685 (21) Rotator cuff impingement syndrome ICD Codes: M75.40 - Impingement syndrome of unspecified shoulder SNOMED: 308104566 (22) Back sprain SNOMED: 497115050 (23) Encounter for dressing change or suture removal SNOMED: 553851534, 07783545 (24) Low back strain ICD Codes: S39.012A - Strain of muscle, fascia and tendon of lower back, initial encounter SNOMED: 374425339 (25) Perforated bowel ICD Codes: K63.1 - Perforation of intestine (nontraumatic) SNOMED: 08015909 (26) Perforated bowel ICD Codes: K63.1 - Perforation of intestine (nontraumatic) SNOMED: 65352251 (27) Encounter for change of dressing ICD Codes: Z48.00 - Encounter for change or removal of nonsurgical wound dressing SNOMED: 127740478, 93016250, 202342524 (28) Eloped from emergency department ICD Codes: Z53.21 - Procedure and treatment not carried out due to patient leaving prior to being seen by health care provider SNOMED: 265275282 Demetrio Moreau Sep 15, 2020 14:36
[2020-09-15] MEDS ORDERED: Tubing IV Secondary IV ONE (15:05)
[2020-09-15 16:00] VITALS: BP 140/88
[2020-09-15] MEDS: Enoxaparin 40mg Inj SUBQ SCH (17:21)
--- NOTE | 2020-09-15 19:32 | Cardiology Report ---
APPROVED REPORT EKG Measurement Heart [id number] [id number] <Conclusion> Normal sinus rhythm Prolonged QT Abnormal ECG
[2020-09-15 20:00] VITALS: BP 139/85
[2020-09-16] VITALS (10 sets, daily range): BP systolic 108–151; BP diastolic 73–109
[2020-09-16] MEDS: metroNIDAZOLE 500mg tab ORAL SCH ×5 (05:36→23:46)
[2020-09-16] MEDS: D5 1/2NS w/KCl 20mEq 1,000 ML IV SCH ×2 (05:36→18:10)
[2020-09-16] MEDS: chlordiazePOXIDE 25mg Cap ORAL SCH ×3 (05:36→22:23)
[2020-09-16] MEDS: HYDROmorphone 1mg/ml Carpuject IVP PRN (05:49)
[2020-09-16 06:49] LABS: HEMATOCRIT 30.3 % (42.0-52.0); HEMOGLOBIN 10.5 G/DL (14.2-18.0); MEAN CORPUSCULAR VOLUME 88 FL (80-99); PLATELET COUNT 93 K/UL (150-450); RED BLOOD COUNT 3.43 M/UL (4.70-6.10); RED CELL DISTRIBUTION WIDTH 14.6 % (11.6-14.8)
[2020-09-16 06:59] LABS: WHITE BLOOD COUNT 1.7 K/UL (4.8-10.8)
[2020-09-16 07:00] LABS: ALANINE AMINOTRANSFERASE 167 U/L (12-78); ALBUMIN 2.4 G/DL (3.4-5.0); ALBUMIN/GLOBULIN RATIO 0.9 (1.0-2.7); ALKALINE PHOSPHATASE 147 U/L (46-116); ANION GAP 9 mmol/L (5-15); ASPARTATE AMINO TRANSFERASE 479 U/L (15-37); BILIRUBIN,TOTAL 1.6 MG/DL (0.2-1.0); BLOOD UREA NITROGEN 2 mg/dL (7-18); CALCIUM 6.8 MG/DL (8.5-10.1); CARBON DIOXIDE 24 MMOL/L (21-32); CHLORIDE 104 MMOL/L (98-107); POTASSIUM 3.1 MMOL/L (3.5-5.1); SODIUM 137 MMOL/L (136-145)
[2020-09-16 07:02] LABS: BILIRUBIN,DIRECT 0.5 MG/DL (0.0-0.3)
[2020-09-16] MEDS ORDERED: Atropine Inj 1mg/10ml Syr IVP PRN (08:00)
[2020-09-16] MEDS ORDERED: DiphenhydrAMINE 50mg/ml Inj IVP PRN (08:00)
[2020-09-16] MEDS ORDERED: Midazolam 2mg/2ml Inj IVP PRN (08:00)
[2020-09-16] MEDS ORDERED: fentaNYL 100 mcg/2 mL IV PRN (08:00)
[2020-09-16] MEDS ORDERED: Labetalol 5mg/ml 20ml vial IV PRN (08:00)
--- NOTE | 2020-09-16 08:05 | Anethesia Preoperative Eval ---
Anesthesia Pre-op PMH/ROS General Date of Evaluation: Sep 16, 2020 Time of Evaluation: 08:01 Anesthesiologist: marva ASA Score: ASA 3 Mallampati Score Class I : Soft palate, uvula, fauces, pillars visible Class II: Soft palate, uvula, fauces visible Class III: Soft palate, base of uvula visible Class IV: Only hard plate visible Mallampati Classification: Class II Surgeon: lila Diagnosis: abdominal pain Surgical Procedure: colonoscopy Anesthesia History: none Social History: current smoker, alcohol use, drug use Family History: no anesthesia problems Allergies: Coded Allergies: No Known Allergies (Unverified , 12/05/12) Medications: see eMAR Patient NPO?: Yes Past Medical History Cardiovascular: Reports: HTN, CAD Pulmonary: Reports: asthma, COPD, other - bronchitis Endocrine: Reports: DM Hematology/Immune: Reports: anemia Anesthesia Pre-op Phys. Exam Physician Exam Last Vital Signs Date Time Temp Pulse Resp B/P (MAP) Pulse Ox O2 Delivery O2 Flow Rate FiO2 09/16/20 04:00 98.7 72 16 147/91 (109) 99 09/15/20 21:00 Room Air 09/15/20 19:41 21 Constitutional: NAD Neurologic: CN 2-12 intact Cardiovascular: RRR Respiratory: CTA Gastrointestinal: S/NT/ND Airway Exam Mallampati Score: Class II MO: limited Neck: flexible TMD: 2fb ROM: limited Anesthesia Pre-op A/P Labs covid 19 negative on 08/31/2020 at [facility] Hematology Test 09/16/20 04:50 White Blood Count 1.7 K/UL (4.8-10.8) *L Red Blood Count 3.43 M/UL (4.70-6.10) L Hemoglobin 10.5 G/DL (14.2-18.0) L Hematocrit 30.3 % (42.0-52.0) L Mean Corpuscular Volume 88 FL (80-99) Mean Corpuscular Hemoglobin 30.6 PG (27.0-31.0) Mean Corpuscular Hemoglobin Concent 34.6 G/DL (32.0-36.0) Red Cell Distribution Width 14.6 % (11.6-14.8) Platelet Count 93 K/UL (150-450) L Mean Platelet Volume 8.6 FL (6.5-10.1) Neutrophils (%) (Auto) % (45.0-75.0) Lymphocytes (%) (Auto) % (20.0-45.0) Monocytes (%) (Auto) % (1.0-10.0) Eosinophils (%) (Auto) % (0.0-3.0) Basophils (%) (Auto) % (0.0-2.0) Neutrophils % (Manual) Pending Lymphocytes % (Manual) Pending Platelet Estimate Pending Platelet Morphology Pending Chemistry Test 09/16/20 04:50 Sodium Level 137 MMOL/L (136-145) Potassium Level 3.1 MMOL/L (3.5-5.1) L Chloride Level 104 MMOL/L (98-107) Carbon Dioxide Level 24 MMOL/L (21-32) Anion Gap 9 mmol/L (5-15) Blood Urea Nitrogen 2 mg/dL (7-18) L Creatinine 1.0 MG/DL (0.55-1.30) Estimat Glomerular Filtration Rate > 60 mL/min (>60) Glucose Level 147 MG/DL (74-106) H Calcium Level 6.8 MG/DL (8.5-10.1) L Total Bilirubin 1.6 MG/DL (0.2-1.0) H Direct Bilirubin 0.5 MG/DL (0.0-0.3) H Aspartate Amino Transf (AST/SGOT) 479 U/L (15-37) H Alanine Aminotransferase (ALT/SGPT) 167 U/L (12-78) H Alkaline Phosphatase 147 U/L (46-116) H Total Protein 5.2 G/DL (6.4-8.2) L Albumin 2.4 G/DL (3.4-5.0) L Globulin 2.8 g/dL Albumin/Globulin Ratio 0.9 (1.0-2.7) L Risk Assessment & Plan Assessment: asa3 Plan: mac Status Change Before Surgery: No Pre-Antibiotics Drug: Nellie Light MD Sep 16, 2020 08:05
[2020-09-16] MEDS: Thiamine 100mg tab ORAL SCH (08:40)
--- NOTE | 2020-09-16 09:16 | General Progress Note ---
Subjective Date patient seen: Sep 16, 2020 ROS Limited/Unobtainable: No Constitutional: Denies: no symptoms, chills, diaphoresis, fever, malaise, weakness, other HEENT: Denies: no symptoms, eye pain, blurred vision, tearing, double vision, ear pain, ear discharge, nose pain, nose congestion, throat pain, throat swelling, mouth pain, mouth swelling, other Cardiovascular: Denies: no symptoms, chest pain, edema, irregular heart rate, lightheadedness, palpitations, syncope, other Respiratory: Denies: no symptoms, cough, orthopnea, shortness of breath, SOB with excertion, SOB at rest, sputum, stridor, wheezing, other Gastrointestinal/Abdominal: Denies: no symptoms, abdomen distended, abdominal pain, black stools, tarry stools, blood in stool, constipated, diarrhea, difficulty swallowing, nausea, poor appetite, poor fluid intake, rectal bleeding, vomiting, other Genitourinary: Denies: no symptoms, burning, discharge, frequency, flank pain, hematuria, incontinence, pain, urgency, other Neurologic/Psychiatric: Denies: no symptoms, anxiety, depressed, emotional p roblems, headache, numbness, paresthesia, pre-existing deficit, seizure, tingling, tremors, weakness, other Endocrine: Denies: no symptoms, excessive sweating, flushing, intolerance to cold, intolerance to heat, increased hunger, increased thirst, increased urine, unexplained weight gain, unexplained weight loss, other Hematologic/Lymphatic: Denies: no symptoms, anemia, easy bleeding, easy bruising, other Allergies: Coded Allergies: No Known Allergies (Unverified , 12/05/12) Subjective AFVSS did bowel prep for colonoscopy refused flagyl potassium low Objective Last 24 Hour Vital Signs Date Time Temp Pulse Resp B/P (MAP) Pulse Ox O2 Delivery O2 Flow Rate FiO2 09/16/20 04:00 98.7 72 16 147/91 (109) 99 09/16/20 00:00 98.3 84 18 149/92 (111) 97 09/15/20 21:00 Room Air 09/15/20 20:00 98.3 85 16 139/85 (103) 100 09/15/20 19:41 90 20 98 Room Air 21 09/15/20 16:00 97.4 90 18 140/88 (105) 98 09/15/20 11:30 98.0 98 20 144/82 (102) 98 Intake and Output 09/15/20 09/16/20 19:00 07:00 Intake Total 1800 ml 700 ml Output Total 150 ml Balance 1800 ml 550 ml Intake Oral 1600 ml 100 ml IV Total 200 ml 600 ml Output Stool Total 150 ml # Voids 4 3 # Bowel Movements 3 1 Laboratory Tests 09/15/20 21:50: Urine Opiates Screen Negative, Urine Barbiturates Screen Negative, Phencyclidine (PCP) Screen Negative, Urine Amphetamines Screen Negative, Urine Benzodiazepines Screen Negative, Urine Cocaine Screen Negative, Urine Marijuana (THC) Screen Negative 09/16/20 04:50: White Blood Count 1.7*L, Red Blood Count 3.43L, Hemoglobin 10.5L, Hematocrit 30.3L, Mean Corpuscular Volume 88, Mean Corpuscular Hemoglobin 30.6, Mean Corpuscular Hemoglobin Concent 34.6, Red Cell Distribution Width 14.6, Platelet Count 93L, Mean Platelet Volume 8.6, Neutrophils (%) (Auto) , Lymphocytes (%) (Auto) , Monocytes (%) (Auto) , Eosinophils (%) (Auto) , Basophils (%) (Auto) , Differential Total Cells Counted 100, Neutrophils % (Manual) 46, Lymphocytes % (Manual) 37, Monocytes % (Manual) 15H, Eosinophils % (Manual) 2, Basophils % (Manual) 0, Band Neutrophils 0, Platelet Estimate DecreasedL, Platelet Morphology Normal, Hypochromasia 2+, Anisocytosis 1+, Macrocytosis 1+, Target Cells Occasional, Stomatocytes 1+, Sodium Level 137, Potassium Level 3.1L, Chloride Level 104, Carbon Dioxide Level 24, Anion Gap 9, Blood Urea Nitrogen 2L , Creatinine 1.0, Estimat Glomerular Filtration Rate > 60, Glucose Level 147H, Calcium Level 6.8L, Total Bilirubin 1.6H, Direct Bilirubin 0.5H, Aspartate Amino Transf (AST/SGOT) 479H, Alanine Aminotransferase (ALT/SGPT) 167H, Alkaline Phosphatase 147H, Total Protein 5.2L, Albumin 2.4L, Globulin 2.8, Albumin/Globulin Ratio 0.9L Height (Feet): 5 Height (Inches): 5.00 Weight (Pounds): 159 Objective General Appearance: no apparent distress, alert Lines, tubes and drains: peripheral HEENT: normocephalic, atraumatic, anicteric, mucous membranes moist, PERRL, EOMI Neck: non-tender, normal alignment, supple Respiratory/Chest: chest wall non-tender, lungs clear, normal breath sounds, no respiratory distress Cardiovascular/Chest: normal peripheral pulses, normal rate, regular rhythm Abdomen: normal bowel sounds, soft, no organomegaly, tender - LLQ Extremities: normal range of motion, non-tender, normal inspection, no calf tenderness Skin Exam: normal pigmentation, warm/dry Neurologic: no motor/sensory deficits, oriented x 3, other - tremors of outstretched hands Assessment/Plan Problem List: (1) Colitis ICD Codes: K52.9 - Noninfective gastroenteritis and colitis, unspecified SNOMED: 92104702 (2) Diarrhea ICD Codes: R19.7 - Diarrhea, unspecified SNOMED: 80135034 (3) Elevated LFTs ICD Codes: R79.89 - Other specified abnormal findings of blood chemistry SNOMED: 625085476, 835056637 (4) history of perforated Gastric ulcer (5) Leukopenia ICD Codes: D72.819 - Decreased white blood cell count, unspecified SNOMED: 53745690, 748213784 Status: stable Assessment/Plan: 69 year old male with history of prior perforated ulcer status post open repair, hypertension, chronic substance abuse presents for evaluation of LLQ abdominal pain, bloody diarrhea and weight loss for many days. Diagnosed with colitis based on clinically findings and CT scan. Previously refused colonoscopy and signed out AMA. His blood alcohol level is 170, says he has not had a drink in couple of days and on exam has tremors. # LLQ Abdominal Pain # Bloody diarrhea #Colitis - admit to med surg - Metronidazole and Ciprofloxacin - Clear liquid diet - Fluid hydration - Replete electrolytes - trend CBC, BMP - Consult to GI - appreciate recs- for colonoscopy today - Social service consult for substance abuse # Alcohol Abuse/Substance Abuse #Mild etoh withdrawal -CIWA -Librium 25 q8hr -thiamine -extension course counselor # Elevated LFTS- ldue to etoh hepatitis -ctm #Leukopenia #Thrombocytopenia -Likely ETOH related -previously evaluated by hematology I spent 40 minutes on this encounter. 25 minutes spent on counselling and care coordination. Milan Baldwin M.D. Sep 16, 2020 09:16
[2020-09-16] MEDS ORDERED: Lidocaine 1% MPF 10mg/ml 5ml ONE (11:00)
--- NOTE | 2020-09-16 11:07 | Pre-Procedure Note/Attestation ---
Pre-Procedure Note/Attestation Complete Prior to Procedure Planned Procedure: not applicable Procedure Narrative: colonoscopy Indications for Procedure Pre-Operative Diagnosis: colitis Attestation I attest that I discussed the nature of the procedure; its benefits; risks and complications; and alternatives (and the risks and benefits of such alternatives), prior to the procedure, with the patient (or the patient's legal retail sales representative). I attest that, if there was a reasonable possibility of needing a blood trans fusion, the patient (or the patient's legal retail sales representative) was given the [facility] standardized written summary, pursuant to the Deandre Quinton Blood Safety Act ([place] Health and Safety Code # 1645, as amended). I attest that I re-evaluated the patient just prior to the surgery and that there has been no change in the patient's H&P, except as documented below: Gene Puente MD Sep 16, 2020 11:07
[2020-09-16] MEDS ORDERED: NS 500ML IVPB ONE (11:20)
--- NOTE | 2020-09-16 12:02 | Immediate Post-Op Evaluation ---
Immediate Post-Op Evalulation Immediate Post-Op Evalulation Procedure: colonoscopy Date of Evaluation: Sep 16, 2020 Time of Evaluation: 12:01 IV Fluids: 200ml lr Blood Products: none Estimated Blood Loss: negligible Blood Pressure Systolic: 121 Blood Pressure Diastolic: 87 Pulse Rate: 80 Respiratory Rate: 18 O2 Sat by Pulse Oximetry: 100 Temperature (Fahrenheit): 97.8 Pain Score (1-10): 0 Nausea: No Vomiting: No Complications none Patient Status: awake, reacts, patent Hydration Status: adequate Drug: Nellie Light MD Sep 16, 2020 12:02
--- NOTE | 2020-09-16 12:04 | 48 Hour Post Anesthesia Eval ---
Post Anesthesia Evaluation Procedure: colonoscopy Date of Evaluation: Sep 16, 2020 Time of Evaluation: 12:03 Blood Pressure Systolic: 121 0: 80 Pulse Rate: 80 Respiratory Rate: 18 Temperature (Fahrenheit): 97.8 O2 Sat by Pulse Oximetry: 100 Airway: patent Nausea: No Vomiting: No Pain Intensity: 0 Hydration Status: adequate Cardiopulmonary Status: stable Mental Status/LOC: patient returned to baseline Post-Anesthesia Complications: none Follow-up care needed: N/A Nellie Fish MD Sep 16, 2020 12:04
--- NOTE | 2020-09-16 12:16 | Endoscopy Procedure Note ---
Endoscopy Procedure Note General Indication for Procedure: colitis Procedures Performed: colonoscopy Operative Findings/Diagnosis: hemorhoids Specimen: none Pt Tolerated Procedure Well: Yes Estimated Blood Loss: none Anesthesia Anesthesiologist: marva Anesthesia: MAC Inserted Devices Implant(s) used?: No Quality Quality of Bowel Preparation: Good Did scope reach the cecum?: Yes Was there any complications?: No GI Core Measures 50 yrs or older w/o bx or poly: Not Applicable 10yrs. F/U recommended: Not Applicable Gene Puente MD Sep 16, 2020 12:16
--- NOTE | 2020-09-16 13:00 | Procedure Note ---
DATE OF PROCEDURE: 09/16/2020 SURGEON: Gene Puente MD. PROCEDURE: Colonoscopy. ANESTHESIA: Per Dr. Mckeon. INSTRUMENT: Olympus adult flexible colonoscope. INDICATION: Colitis based on CT. REASON FOR PROCEDURE: The procedure, risks, benefits, and possible consequences, including hemorrhage, aspiration, perforation and infection, and alternative treatments, were explained to the patient/legal guardian by Dr. Gene Puente and the patient/legal guardian understood and accepted these risks. DESCRIPTION OF PROCEDURE: After informed consent was obtained and the patient was adequately sedated, first rectal exam was performed, which was normal. Then, the was positive for internal hemorrhoids. Then the scope was advanced from the rectum into the cecum documented by appendiceal orifice, ileocecal valve, and right upper quadrant palpation. Quality of prep was very good. The patient had no obvious colitis seen in this colonoscopy examination. No obvious mass, polyp, or any pathology seen. Retroflexion of rectum showed evidence of internal hemorrhoids. SUMMARY FINDINGS: Internal hemorrhoids, otherwise normal colonoscopy examination. RECOMMENDATIONS: Resume diet and advance as tolerated. Manage for pain. Discharge planning per primary team. I want to thank Dr. Yates, for this kind referral. Gene Puente M.D. DR: ZELALEM JOB#: [id number] CC:
--- NOTE | 2020-09-16 13:06 | Surgery Progress Note ---
Surgery Progress Note Subjective Additional Comments had colonoscopy today after agitated and wanted to leave currently agreeable to stay. diet resume abd pain resolving Objective Last 24 Hour Vital Signs Date Time Temp Pulse Resp B/P (MAP) Pulse Ox O2 Delivery O2 Flow Rate FiO2 09/16/20 12:04 80 18 100 09/16/20 12:02 80 18 100 09/16/20 09:00 Room Air 09/16/20 08:00 97.5 72 16 151/88 (109) 98 09/16/20 07:30 72 20 98 Room Air 21 09/16/20 04:00 98.7 72 16 147/91 (109) 99 09/16/20 00:00 98.3 84 18 149/92 (111) 97 09/15/20 21:00 Room Air 09/15/20 20:00 98.3 85 16 139/85 (103) 100 09/15/20 19:41 90 20 98 Room Air 21 09/15/20 16:00 97.4 90 18 140/88 (105) 98 I&O Intake and Output 09/15/20 09/16/20 19:00 07:00 Intake Total 1800 ml 700 ml Output Total 150 ml Balance 1800 ml 550 ml Intake Oral 1600 ml 100 ml IV Total 200 ml 600 ml Output Stool Total 150 ml # Voids 4 3 # Bowel Movements 3 1 Cardiovascular: RSR Respiratory: clear Abdomen: soft, non-tender, present bowel sounds, non-distended Extremities: no edema, no tenderness, no cyanosis Laboratory Tests Test 09/15/20 21:50 09/16/20 04:50 Urine Opiates Screen Negative (NEGATIVE) Urine Barbiturates Screen Negative (NEGATIVE) Phencyclidine (PCP) Screen Negative (NEGATIVE) Urine Amphetamines Screen Negative (NEGATIVE) Urine Benzodiazepines Screen Negative (NEGATIVE) Urine Cocaine Screen Negative (NEGATIVE) Urine Marijuana (THC) Screen Negative (NEGATIVE) White Blood Count 1.7 K/UL (4.8-10.8) *L Red Blood Count 3.43 M/UL (4.70-6.10) L Hemoglobin 10.5 G/DL (14.2-18.0) L Hematocrit 30.3 % (42.0-52.0) L Mean Corpuscular Volume 88 FL (80-99) Mean Corpuscular Hemoglobin 30.6 PG (27.0-31.0) Mean Corpuscular Hemoglobin Concent 34.6 G/DL (32.0-36.0) Red Cell Distribution Width 14.6 % (11.6-14.8) Platelet Count 93 K/UL (150-450) L Mean Platelet Volume 8.6 FL (6.5-10.1) Neutrophils (%) (Auto) % (45.0-75.0) Lymphocytes (%) (Auto) % (20.0-45.0) Monocytes (%) (Auto) % (1.0-10.0) Eosinophils (%) (Auto) % (0.0-3.0) Basophils (%) (Auto) % (0.0-2.0) Differential Total Cells Counted 100 Neutrophils % (Manual) 46 % (45-75) Lymphocytes % (Manual) 37 % (20-45) Monocytes % (Manual) 15 % (1-10) H Eosinophils % (Manual) 2 % (0-3) Basophils % (Manual) 0 % (0-2) Band Neutrophils 0 % (0-8) Platelet Estimate Decreased L Platelet Morphology Normal Hypochromasia 2+ Anisocytosis 1+ Macrocytosis 1+ Target Cells Occasional Stomatocytes 1+ Sodium Level 137 MMOL/L (136-145) Potassium Level 3.1 MMOL/L (3.5-5.1) L Chloride Level 104 MMOL/L (98-107) Carbon Dioxide Level 24 MMOL/L (21-32) Anion Gap 9 mmol/L (5-15) Blood Urea Nitrogen 2 mg/dL (7-18) L Creatinine 1.0 MG/DL (0.55-1.30) Estimat Glomerular Filtration Rate > 60 mL/min (>60) Glucose Level 147 MG/DL (74-106) H Calcium Level 6.8 MG/DL (8.5-10.1) L Total Bilirubin 1.6 MG/DL (0.2-1.0) H Direct Bilirubin 0.5 MG/DL (0.0-0.3) H Aspartate Amino Transf (AST/SGOT) 479 U/L (15-37) H Alanine Aminotransferase (ALT/SGPT) 167 U/L (12-78) H Alkaline Phosphatase 147 U/L (46-116) H Total Protein 5.2 G/DL (6.4-8.2) L Albumin 2.4 G/DL (3.4-5.0) L Globulin 2.8 g/dL Albumin/Globulin Ratio 0.9 (1.0-2.7) L Plan Problems: (1) Abdominal pain of unknown etiology Assessment & Plan: 69M abd pain for weeks now. colitis prior CT. diarrhea and blood noted recently needs colonoscopy discussed with pcp and GI. scheduled for scop 09/16 will follow with recs npo iv fluids am labs prep s/p colonscopy resume diet will monitor The appendix is normal. There is mild mural fatty change of the ascending colon. There is wall thickening of the sigmoid colon, extending into the rectum. This is somewhat less striking than on the prior study. No small bowel distention. No free or loculated intraperitoneal gas or fluid is evident. The distal esophagus, stomach, duodenum are unremarkable. The liver is enlarged. It is diffusely hypoattenuating, as previously. No focal abnormality. The gallbladder, bile ducts, pancreas, spleen, adrenals are unremarkable. The kidneys demonstrate subcentimeter low-attenuation lesions which are too small to characterize, most likely benign simple cysts. The bladder is unremarkable. No pelvic mass or adenopathy. The included lung bases demonstrate dependent atelectatic changes. The bones are unremarkable except for mild degenerative changes. Impression: Limited assessment of the GI tract, due to lack of enteric contrast administration Wall thickening of the sigmoid colon, likely representing colitis. No similar findings were reported previously as well. Enlarged fatty liver Other findings as noted, including degenerative spondylosis, probable small renal cysts, basilar pulmonary atelectatic changes (2) Dizziness (3) Colitis (4) Diarrhea (5) Elevated LFTs (6) Leukopenia (7) history of perforated Gastric ulcer (8) Alcohol intoxication (9) Injury of back (10) Dizziness (11) Confusion (12) Psychosis (13) [id number] (14) Trigger finger (15) Wrist pain (16) Wrist pain (17) Abdominal pain (18) Chest pain (19) Peritonitis (20) Contusion, hip and thigh (21) Rotator cuff impingement syndrome (22) Back sprain (23) Encounter for dressing change or suture removal (24) Low back strain (25) Perforated bowel (26) Perforated bowel (27) Encounter for change of dressing (28) Eloped from emergency department Demetrio Moreau Sep 16, 2020 13:06
--- NOTE | 2020-09-16 14:25 | Consultation ---
History of Present Illness General Chief Complaint: Abdominal Pain Present Illness HPI 69 year old male with history of etoh, cocaine and amphetamine abuse presented to the hospital for left lower abdominal pain. Seen in the ER for similar complaints and discharged home. His CT showed colitis. His pharmacy was closed and he could not pickling operator his prescriptions. His abdominal pain is associated with multiple episodes of bloody diarrhea, and non bilious vomiting. He also feels nauseated but did not vomit. Patient says that he has lost 30 pounds over the past several months unintentionally. He was here in the hospital in June and left AMA before a colonoscopy could be performed. Has never had a colonoscopy. Pain is sharp in nature, located in left lower quadrant, no radiation. Allergies: Coded Allergies: No Known Allergies (Unverified , 12/05/12) Medication History Scheduled Albuterol Sulfate (Ventolin Hfa), 2 PUFFS INH EVERY 6 HOURS Gabapentin* (Gabapentin*), 100 ORAL TWICE A DAY, (Reported) Hydrochlorothiazide* (Hydrochlorothiazide*), 25 MG ORAL DAILY, (Reported) Lamotrigine (Lamotrigine), 300 MG ORAL DAILY, (Reported) Scheduled PRN Acetaminophen With Codeine (T#3) (Tylenol #3 Tab*), 1 TAB ORAL Q8H PRN for For Pain Miscellaneous Medications Zonisamide (Zonisamide), 100 MG ORAL, (Reported) Discontinued Medications Dicyclomine Hcl* (Dicyclomine Hcl*), 10 MG ORAL TID Discontinued Reason: Therapy completed Dicyclomine Hcl* (Dicyclomine Hcl*), 10 MG ORAL QID PRN for Abdominal cramps Discontinued Reason: Therapy completed Doxycycline Monohydrate* (Doxycycline Monohydrate*), 100 MG ORAL Q12H Discontinued Reason: Therapy completed Famotidine* (Pepcid 20mg tablet*), 20 MG ORAL DAILY Discontinued Reason: Therapy completed Guaifenesin/Dextromethorphan* (Guaifenesin Dm Syrup*), 5 ML ORAL Q6H PRN for FOR COUGH Discontinued Reason: Therapy completed Lamotrigine (Lamotrigine), 100 MG PO, (Reported) Discontinued Reason: Therapy completed Lidocaine HCl 2% Viscous (Lidocaine HCl 2% Viscous), 5 ML ORAL QID Discontinued Reason: Therapy completed Ondansetron (Zofran), 4 MG ORAL Q8H PRN for Nausea & Vomiting Discontinued Reason: Therapy completed ["Sleeping Pill"], (Reported) Discontinued Reason: Therapy completed ["inhaler"], (Reported) Discontinued Reason: Therapy completed [BP Pill "new"], (Reported) Discontinued Reason: Medication dose changed Patient History Healthcare decision maker Resuscitation status Advanced Directive on File Review of Systems All Other Systems: negative except mentioned in HPI Physical Exam General Appearance: no apparent distress, alert Lines, tubes and drains: peripheral HEENT: normocephalic, atraumatic Neck: non-tender, normal alignment Respiratory/Chest: chest wall non-tender, lungs clear, normal breath sounds Cardiovascular/Chest: normal peripheral pulses, normal rate, regular rhythm Abdomen: normal bowel sounds, non tender, soft Extremities: normal range of motion, non-tender Neurologic: alert, oriented x 3 Last 24 Hour Vital Signs Date Time Temp Pulse Resp B/P (MAP) Pulse Ox O2 Delivery O2 Flow Rate FiO2 09/16/20 12:10 97.8 81 19 120/85 99 Room Air 09/16/20 12:04 80 18 100 09/16/20 12:02 80 18 100 09/16/20 12:00 97.2 87 16 139/109 (119) 100 09/16/20 11:59 82 20 121/86 99 Room Air 09/16/20 11:54 81 19 120/87 99 Room Air 09/16/20 11:49 97.8 80 18 121/87 100 Room Air 09/16/20 09:00 Room Air 09/16/20 08:00 97.5 72 16 151/88 (109) 98 09/16/20 07:30 72 20 98 Room Air 21 09/16/20 04:00 98.7 72 16 147/91 (109) 99 09/16/20 00:00 98.3 84 18 149/92 (111) 97 09/15/20 21:00 Room Air 09/15/20 20:00 98.3 85 16 139/85 (103) 100 09/15/20 19:41 90 20 98 Room Air 21 09/15/20 16:00 97.4 90 18 140/88 (105) 98 Intake and Output 09/15/20 09/16/20 19:00 07:00 Intake Total 1800 ml 700 ml Output Total 150 ml Balance 1800 ml 550 ml Intake Oral 1600 ml 100 ml IV Total 200 ml 600 ml Output Stool Total 150 ml # Voids 4 3 # Bowel Movements 3 1 Laboratory Tests Test 09/15/20 21:50 09/16/20 04:50 Urine Opiates Screen Negative (NEGATIVE) Urine Barbiturates Screen Negative (NEGATIVE) Phencyclidine (PCP) Screen Negative (NEGATIVE) Urine Amphetamines Screen Negative (NEGATIVE) Urine Benzodiazepines Screen Negative (NEGATIVE) Urine Cocaine Screen Negative (NEGATIVE) Urine Marijuana (THC) Screen Negative (NEGATIVE) White Blood Count 1.7 K/UL (4.8-10.8) *L Red Blood Count 3.43 M/UL (4.70-6.10) L Hemoglobin 10.5 G/DL (14.2-18.0) L Hematocrit 30.3 % (42.0-52.0) L Mean Corpuscular Volume 88 FL (80-99) Mean Corpuscular Hemoglobin 30.6 PG (27.0-31.0) Mean Corpuscular Hemoglobin Concent 34.6 G/DL (32.0-36.0) Red Cell Distribution Width 14.6 % (11.6-14.8) Platelet Count 93 K/UL (150-450) L Mean Platelet Volume 8.6 FL (6.5-10.1) Neutrophils (%) (Auto) % (45.0-75.0) Lymphocytes (%) (Auto) % (20.0-45.0) Monocytes (%) (Auto) % (1.0-10.0) Eosinophils (%) (Auto) % (0.0-3.0) Basophils (%) (Auto) % (0.0-2.0) Differential Total Cells Counted 100 Neutrophils % (Manual) 46 % (45-75) Lymphocytes % (Manual) 37 % (20-45) Monocytes % (Manual) 15 % (1-10) H Eosinophils % (Manual) 2 % (0-3) Basophils % (Manual) 0 % (0-2) Band Neutrophils 0 % (0-8) Platelet Estimate Decreased L Platelet Morphology Normal Hypochromasia 2+ Anisocytosis 1+ Macrocytosis 1+ Target Cells Occasional Stomatocytes 1+ Sodium Level 137 MMOL/L (136-145) Potassium Level 3.1 MMOL/L (3.5-5.1) L Chloride Level 104 MMOL/L (98-107) Carbon Dioxide Level 24 MMOL/L (21-32) Anion Gap 9 mmol/L (5-15) Blood Urea Nitrogen 2 mg/dL (7-18) L Creatinine 1.0 MG/DL (0.55-1.30) Estimat Glomerular Filtration Rate > 60 mL/min (>60) Glucose Level 147 MG/DL (74-106) H Calcium Level 6.8 MG/DL (8.5-10.1) L Total Bilirubin 1.6 MG/DL (0.2-1.0) H Direct Bilirubin 0.5 MG/DL (0.0-0.3) H Aspartate Amino Transf (AST/SGOT) 479 U/L (15-37) H Alanine Aminotransferase (ALT/SGPT) 167 U/L (12-78) H Alkaline Phosphatase 147 U/L (46-116) H Total Protein 5.2 G/DL (6.4-8.2) L Albumin 2.4 G/DL (3.4-5.0) L Globulin 2.8 g/dL Albumin/Globulin Ratio 0.9 (1.0-2.7) L Microbiology Date/Time Source Procedure Growth Status 09/16/20 08:11 Nasopharynx SARS-CoV-2 RdRp Gene Assay - Final Complete Height (Feet): 5 Height (Inches): 5.00 Weight (Pounds): 159 Medications Current Medications Medications (Trade) Dose Ordered Sig/Tabby Route PRN Reason Start Time Stop Time Status Last Admin Dose Admin Acetaminophen (Tylenol) 650 mg Q4H PRN ORAL Mild Pain (Pain Scale 1-3) 09/14/20 16:15 10/14/20 16:14 09/15/20 11:55 Acetaminophen (Tylenol) 650 mg Q4H PRN ORAL Temp >100.5 09/14/20 16:15 10/14/20 16:14 Acetaminophen (Tylenol) 650 mg Q4H PRN ORAL Mild Pain (Pain Scale 1-3) 09/16/20 08:00 09/16/20 16:00 Al Hydroxide/Mg Hydroxide (Mylanta II) 30 ml Q6H PRN ORAL dyspepsia 09/14/20 16:15 10/14/20 16:14 Al Hydroxide/Mg Hydroxide (Mylanta) 15 ml Q1H PRN ORAL gi upset 09/16/20 08:00 09/16/20 16:00 Albuterol/ Ipratropium (Albuterol/ Ipratropium) 3 ml Q6H PRN HHN sob 09/14/20 16:15 09/19/20 16:14 Atropine Sulfate (Atropine) 0.5 mg Q5M PRN IVP bpm less than 45 09/16/20 08:00 09/16/20 16:00 Bisacodyl (Dulcolax) 10 mg HSPRN PRN RECTAL Constipation 09/14/20 16:15 12/13/20 16:14 Chlordiazepoxide (Librium) 25 mg Q8HR ORAL 09/15/20 14:00 09/22/20 13:59 09/16/20 13:17 Ciprofloxacin 200 ml @ 200 mls/hr Q12HR IV 09/14/20 21:00 09/21/20 20:59 09/16/20 08:40 Dextrose (Dextrose 50%) 25 ml Q30M PRN IV Hypoglycemia 09/14/20 16:15 12/13/20 16:14 Dextrose (Dextrose 50%) 50 ml Q30M PRN IV Hypoglycemia 09/14/20 16:15 12/13/20 16:14 Dextrose/ Electrolytes 1,000 ml @ 75 mls/hr [id number] IV 09/15/20 16:00 10/15/20 15:59 09/16/20 05:36 Diphenhydramine HCl (Benadryl) 25 mg Q15M PRN IVP Itching 09/16/20 08:00 09/16/20 16:00 Diphenhydramine HCl (Benadryl) 25 mg Q6H PRN ORAL Itching/Pruritis 09/14/20 16:15 10/14/20 16:14 Enoxaparin Sodium (Lovenox) 40 mg Q24H SUBQ 09/14/20 18:00 12/13/20 17:59 09/14/20 17:52 Fentanyl Citrate (Sublimaze 100 mcg/2 mL) 25 mcg Q10M PRN IV Moderate Pain (Pain Scale 4-6) 09/16/20 08:00 09/16/20 16:00 Hydralazine HCl (Apresoline) 25 mg Q6H PRN ORAL For High Blood Pressure 09/14/20 16:30 12/13/20 16:29 Hydromorphone HCl (Dilaudid) 1 mg Q4H PRN IVP Moderate Pain (Pain Scale 4-6) 09/14/20 16:15 09/21/20 16:14 09/16/20 05:49 Hydromorphone HCl (Dilaudid) 2 mg Q4H PRN IVP Severe Pain (Pain Scale 7-10) 09/14/20 16:15 09/21/20 16:14 Labetalol HCl (Normodyne) 5 mg Q10M PRN IV SBP>160 or____/ DBP>90 or 09/16/20 08:00 09/16/20 16:00 Magnesium Hydroxide (Mom) 30 ml HSPRN PRN ORAL Constipation 09/14/20 16:15 10/14/20 16:14 Metronidazole (Flagyl) 500 mg Q6HR ORAL 09/14/20 18:00 09/21/20 17:59 09/16/20 12:42 Midazolam HCl (Versed 2mg/2ml vial) 1 mg Q15M PRN IVP For Anxiety 09/16/20 08:00 09/16/20 16:00 Nitroglycerin (Ntg) 0.4 mg Q5M X 3 DOSES PRN SL Prn Chest Pain 09/14/20 16:15 10/14/20 16:14 Ondansetron HCl (Zofran) 4 mg Q1H PRN IVP Nausea & Vomiting 09/16/20 08:00 09/16/20 16:00 Ondansetron HCl (Zofran) 4 mg Q6H PRN IVP Nausea & Vomiting 09/14/20 16:15 10/14/20 16:14 Polyethylene Glycol (Miralax) 17 gm HSPRN PRN ORAL Constipation 09/14/20 16:15 10/14/20 16:14 Temazepam (Restoril) 15 mg HSPRN PRN ORAL Insomnia 09/14/20 16:15 09/21/20 16:14 Thiamine HCl (Vitamin B1) 100 mg DAILY ORAL 09/15/20 13:00 10/15/20 12:59 09/16/20 08:40 Zolpidem Tartrate (Ambien) 5 mg HSPRN PRN ORAL Insomnia 09/14/20 16:15 09/21/20 16:14 Assessment/Plan Diagnosis [place] [facility]: #Hypokalemia ## LLQ Abdominal Pain # Bloody diarrhea #Colitis #alcohol use - replete lytes - IVF - colonoscopy today - continue with antibiotics - avoid nephrotoxins - monitor mag, phos and BMP Zion Medrano M.D. Sep 16, 2020 14:25
[2020-09-16] MEDS: Enoxaparin 40mg Inj SUBQ SCH (18:00)
--- NOTE | 2020-09-19 14:06 | Discharge Summary ---
Discharge Summary Discharge Summary _ DATE OF ADMISSION: 09/14/2020 DATE OF DISCHARGE: 09/17/2020 Patient left AGAINST MEDICAL ADVICE REASON FOR ADMISSION: 69 years old male with past medical history of COPD, hypertension, history of perforated gastric ulcer, polysubstance abuse, including EtOH ,cocaine , and amphetamine , presented to the hospital with left lower quadrant abdominal pain, bloody diarrhea and unintentional weight loss. Patient was diagnosed with colitis based on clinical findings and prior CAT scan findings with wall thickening of the sigmoid colon, likely representing colitis. Previously he refused colonoscopy and signed AMA Laboratory work-up revealed pancytopenia WBC 3, hemoglobin 12.6 , hematocrit 36.6 , platelet count 114. Renal parameters and electrolytes were stable. Glucose 153. Total bilirubin 1.2, direct bilirubin 0.6. AST 372, ALT 176, alkaline phosphatase 183. Lipase stable 320. Serum alcohol level 172. He reported not drinking for a couple of days. Urine toxicology screen negative. Urinalysis revealed no evidence of urinary tract infection. Abdominal x-ray revealed no free air or bowel obstruction. Patient subsequently admitted for further management. CONSULTANTS: GI specialist Dr Cintron trolley coach driver Dr. Medrano surgery Dr. Machuca HOSPITAL COURSE: Patient admitted to medical surgical floor. Patient started on IV hydration and broad-spectrum antibiotic : Flagyl and ciprofloxacin. Patient started on clear liquid diet as tolerated. Renal parameters and electrolytes were closely monitored, electrolytes corrected as needed. GI specialist followed. Antiemetic were on board as needed. CIWA protocol implemented . Seizure precaution maintained. Patient was on Librium [id number]. Patient started on thiamine. Patient was counseled on abstinence from illicit street drugs . Social service consult was requested. Pancytopenia was most likely EtOH related . Patient was previously evaluated by web sizer. Prior to signing AMA WBC down to 1.7, hemoglobin 10.5, and platelet count 93. Pain management was addressed as needed . Symptomatic treatment with antiemetic provided as needed. Patient undergone colonoscopy on which revealed internal hemorrhoids, otherwise normal colonoscopy. Diet was resumed. GI specialist recommended to advance diet as tolerated , manage,r pain and treat accordingly. LFT LFTs remained elevated. Prior hepatitis panel and rapid HIV test were negative. Nephrotoxic were avoided , electrolytes corrected as needed . Surgeon followed. No need for any surgical intervention at this time. On 1019 patient decided to leave AGAINST MEDICAL ADVICE. The risks and consequences of signing AGAINST MEDICAL ADVICE were discussed with patient in detail. Patient verbalized understanding, nevertheless signed AMA form and left. FINAL DIAGNOSES: Left lower quadrant abdominal pain Colitis Bloody diarrhea Alcohol abuse with mild ETOH withdrawal Polysubstance abuse Elevated LFT, likely due to ETOH hepatitis Status post colonoscopy Internal hemorrhoids Leukopenia , pancytopenia History of perforated gastric ulcer I have been assigned to dictate discharge summary for this account. I was not involved in the patient's management. Jenni Joy NP Sep 19, 2020 14:06
== END 2020-09-17 04:00 | disposition left against medical advice (07) | DRG 392 ==
LOC: EMR 14:05 → 3E 14:46 → EDBEDREQ 15:57
PROC: 0DJD8ZZ Inspection of Lower Intestinal Tract, Via Natural or Artificial Opening Endoscopic (ICD-10-PCS; principal; 2020-09-16 11:30)
DX: K52.9 Noninfective gastroenteritis and colitis, unspecified (principal); F10.139 Alcohol abuse with withdrawal, unspecified; D61.818 Other pancytopenia; K86.1 Other chronic pancreatitis; D69.6 Thrombocytopenia, unspecified; F19.10 Other psychoactive substance abuse, uncomplicated; I10 Essential (primary) hypertension; E87.6 Hypokalemia; K64.8 Other hemorrhoids; R79.89 Other specified abnormal findings of blood chemistry; K70.10 Alcoholic hepatitis without ascites
CPT/HCPCS: 36415; 74018; 80053; 80307; 81003; 82248; 82962; 83690; 83735; 84484; 85007; 85025; 93005; 94003; 94150; 94664; 96361; 96374; 96375; 99285; G0480; J7030; J8499; U0002

== ENCOUNTER 2020-09-17 08:13 | Inpatient (IN) | payer MEDICARE, MEDICAID ==
[~2020-09-17] VITALS: Ht 170.2 cm; Wt 73.4 kg
[2020-09-17 08:24] VITALS: BP 148/76
--- NOTE | 2020-09-17 08:25 | NUR ---
ED Nurse Note: Patient walked in to ER for medication refil.Patient left AMA from upstairs this morning, but did not get any prescriptions. Per patient he needs BP meds, Zofran, Albuterol. Patient presenged calm, AAO x4, all VSS at tgbis time, patient has even, non labored breathing.
--- NOTE | 2020-09-17 08:45 | Emergency Room Report ---
History of Present Illness General Chief Complaint: Medication Refill Source: Patient Present Illness HPI Disclaimer: Please note that this report is being documented using DRAGON technology. This can lead to erroneous entry secondary to incorrect interpretation by the dictating instrument. HPI: 69-year-old male presents requesting medications for abdominal pain. He was admitted several days ago and underwent colonoscopy yesterday for persistent abdominal pain. This morning, he states he went to check on his car and when he returned to the hospital was told that because he left the building he had now eloped and was unable to go back to his room. Patient states he would like to be readmitted to know the results of his colonoscopy and plan regarding his abdominal pain. Denies new vomiting. Reports persistent abdominal cramping. PMH: Ulcer, COPD, substance abuse, alcohol abuse, fatty liver, hypertension PSH: Reviewed Allergies: Denied Social Hx: Reviewed Allergies: Coded Allergies: No Known Allergies (Unverified , 12/05/12) COVID-19 Screening Contact w/high risk pt: No Recent Travel to affected area: No Experienced COVID-19 symptoms?: No COVID-19 symptoms experienced: Cough COVID-19 Testing performed PHYSICAL SCIENCE TECHNICIAN: No Nursing Documentation-PMH Hx Cardiac Problems: Yes Hx Hypertension: Yes Hx Pacemaker: No Hx Asthma: Yes Hx Diabetes: Yes Hx Cancer: No Hx Gastrointestinal Problems: No - Abdominal surgery 2014 Hx Dialysis: No Hx Neurological Problems: No Hx Cerebrovascular Accident: No Hx Seizures: No Review of Systems All Other Systems: negative except mentioned in HPI Physical Exam Vital Signs Date Time Temp Pulse Resp B/P (MAP) Pulse Ox O2 Delivery O2 Flow Rate FiO2 09/17/20 08:17 98.4 87 18 148/76 (100) 98 Room Air General: Awake and alert, no acute distress HEENT: NC/AT. EOMI. Resp: Normal work of breathing Abdomen: Soft, nondistended, moderate tenderness diffusely. No focal tenderness. No guarding Skin: Intact. No abrasions, laceration or rash over the exposed skin MSK: Normal tone and bulk. Moving all extremities. No obvious deformity. Neuro: Awake and alert. Mentating appropriately Medical Decision Making Diagnostic Impression: Primary Impression: Abdominal pain ER Course 69-year-old male who absconded from the hospital early this morning returns for readmission. Complaining of his persistent abdominal pain but no new symptoms. Will redraw labs. Patient will be readmitted to [facility]. Laboratory Tests Test 09/17/20 10:03 White Blood Count 2.8 K/UL (4.8-10.8) #L Red Blood Count 4.16 M/UL (4.70-6.10) L Hemoglobin 12.8 G/DL (14.2-18.0) L Hematocrit 40.5 % (42.0-52.0) #L Mean Corpuscular Volume 97 FL (80-99) # Mean Corpuscular Hemoglobin 30.9 PG (27.0-31.0) Mean Corpuscular Hemoglobin Concent 31.7 G/DL (32.0-36.0) L Red Cell Distribution Width 16.7 % (11.6-14.8) H Platelet Count 123 K/UL (150-450) L Mean Platelet Volume 8.7 FL (6.5-10.1) Neutrophils (%) (Auto) % (45.0-75.0) Lymphocytes (%) (Auto) % (20.0-45.0) Monocytes (%) (Auto) % (1.0-10.0) Eosinophils (%) (Auto) % (0.0-3.0) Basophils (%) (Auto) % (0.0-2.0) Differential Total Cells Counted 100 Neutrophils % (Manual) 70 % (45-75) Lymphocytes % (Manual) 18 % (20-45) L Monocytes % (Manual) 12 % (1-10) H Eosinophils % (Manual) 0 % (0-3) Basophils % (Manual) 0 % (0-2) Band Neutrophils 0 % (0-8) Platelet Estimate Decreased L Platelet Morphology Normal Hypochromasia 1+ Anisocytosis 1+ Sodium Level 136 MMOL/L (136-145) Potassium Level 3.3 MMOL/L (3.5-5.1) L Chloride Level 101 MMOL/L (98-107) Carbon Dioxide Level 27 MMOL/L (21-32) Anion Gap 8 mmol/L (5-15) Blood Urea Nitrogen 2 mg/dL (7-18) L Creatinine 1.1 MG/DL (0.55-1.30) Estimated Glomerular Filtration Rate > 60 mL/min (>60) Glucose Level 119 MG/DL (74-106) H Calcium Level 7.6 MG/DL (8.5-10.1) L Serum Alcohol < 3 mg/dL Last Vital Signs Date Time Temp Pulse Resp B/P (MAP) Pulse Ox O2 Delivery O2 Flow Rate FiO2 09/17/20 08:24 98.4 87 18 148/76 98 Room Air Disposition: ADMITTED INPATIENT Condition: Stable Jose Oliver MD Sep 17, 2020 08:45
--- NOTE | 2020-09-17 10:11 | NUR ---
ED Nurse Note: IV line was established on left AC 20 ga, blood collected sent to lab
[2020-09-17 10:20] LABS: HEMATOCRIT 40.5 % (42.0-52.0); HEMOGLOBIN 12.8 G/DL (14.2-18.0); MEAN CORPUSCULAR VOLUME 97 FL (80-99); PLATELET COUNT 123 K/UL (150-450); RED BLOOD COUNT 4.16 M/UL (4.70-6.10); RED CELL DISTRIBUTION WIDTH 16.7 % (11.6-14.8); WHITE BLOOD COUNT 2.8 K/UL (4.8-10.8)
[2020-09-17 10:33] LABS: ANION GAP 8 mmol/L (5-15); BLOOD UREA NITROGEN 2 mg/dL (7-18); CALCIUM 7.6 MG/DL (8.5-10.1); CARBON DIOXIDE 27 MMOL/L (21-32); CHLORIDE 101 MMOL/L (98-107); CREATININE 1.1 MG/DL (0.55-1.30); POTASSIUM 3.3 MMOL/L (3.5-5.1); SODIUM 136 MMOL/L (136-145)
[2020-09-17] MEDS ORDERED: LORazepam Inj 2mg/ml 1ml IV PRN ×2 (11:00→16:15)
--- NOTE | 2020-09-17 11:11 | NUR ---
NURSE NOTES: Received pt from ER, and report from MARY Obando. Pt awake, alert and oriented, able to make needs known, ambulatory, on RA. No respiratory distress noted. All belongings were accounted for. Skin intact. IV on left AC intact and patent. Denies pain at this time. unable to get pt home medications. Pt stated that pt does not remember and he had not taken any medication for long time. Contacted [facility] listed in system. per Pharmacist pt had several medications but pt had not taken from their pharmacy since February. Will notify MD. [place] pt to room. Side rails upx2. Bed in low position and locked. Call light within reach. will continue to monitor.
[2020-09-17] MEDS ORDERED: Albuterol/Ipratropium 3ml neb HHN PRN (11:30)
[2020-09-17] MEDS ORDERED: Mylanta II UD 30ml ORAL PRN (11:30)
[2020-09-17 11:35] LABS: INR 1.1 (0.9-1.1)
[2020-09-17 11:40] LABS: ALANINE AMINOTRANSFERASE 202 U/L (12-78); ALBUMIN 3.3 G/DL (3.4-5.0); ALKALINE PHOSPHATASE 185 U/L (46-116); ASPARTATE AMINO TRANSFERASE 458 U/L (15-37); BILIRUBIN,DIRECT 0.6 MG/DL (0.0-0.3); BILIRUBIN,TOTAL 1.3 MG/DL (0.2-1.0)
[2020-09-17 12:00] VITALS: BP 124/77
[2020-09-17] MEDS: metroNIDAZOLE 500mg tab ORAL SCH ×2 (12:24→20:15)
[2020-09-17] MEDS: Thiamine 100mg tab ORAL SCH (12:24)
[2020-09-17] MEDS: Ciprofloxacin 500mg tab ORAL SCH ×2 (12:24→20:15)
--- NOTE | 2020-09-17 12:39 | History and Physical ---
History of Present Illness General Reason for Hospitalization: Medication Refill Present Illness HPI Mr. Mcnamara is a 69-year-old male with past medical history of alcohol abuse, s ubstance abuse, hypertension who presents for readmission for abdominal pain and results of his colonoscopy. Patient was initially admitted a few days ago for left lower quadrant abdominal pain and constipation work-up at that time showed possible sigmoid colitis and elevated transaminitis likely secondary to alcohol abuse. Patient underwent colonoscopy yesterday which was unrevealing without any acute abnormalities or pathologies per report. Patient overnight decided to leave AMA due to an issue with his car but has now returned this morning to resolve his issue and wanted to know the results of his colonoscopy and persistent left lower quadrant abdominal pain. Patient denies any fevers, chills, chest pain, shortness of breath, nausea, vomiting, diarrhea, dysuria, rash. He reports his last drink was over a week ago, however on admission a few days ago he had a blood alcohol level of 170. He denies any history of alcohol withdrawal or withdrawal related seizures. Currently he does not feel any shakiness, palpitations, or withdrawal symptoms. Denies any auditory or visual hallucinations. He complains of diffuse weakness and unintentional 20 pound weight loss. Denies any recreational drug use. He reports seeing a therapist for his alcohol abuse prior to the Covid pandemic, however due to Covid pandemic he was unable to follow-up with his alcohol counselor. He would like to quit drinking. Rest of 10 point review of system otherwise negative besides what stated above. In the ED, patient in no deep acute distress but does complain of generalized weakness and persistent left lower quadrant abdominal pain. He is hemodynamically stable with no respiratory compromise. He will be readmitted for continued work-up of his left lower quadrant belly pain and repeat labs. Past medical history: Hypertension, alcohol abuse, substance abuse Past surgical history,: Abdominal surgery Past family history: Denies cardiac or pulmonary history or cirrhosis Social history: Reports almost daily use of alcohol; only beer, no hard liquor. History of heroin and methamphetamine abuse. Denies smoking Allergies: Coded Allergies: No Known Allergies (Unverified , 12/05/12) COVID-19 Screening Contact w/high risk pt: No Recent Travel to affected area: No Experienced COVID-19 symptoms?: No Medication History Scheduled Albuterol Sulfate (Ventolin Hfa), 2 PUFFS INH EVERY 6 HOURS Gabapentin* (Gabapentin*), 100 ORAL TWICE A DAY, (Reported) Hydrochlorothiazide* (Hydrochlorothiazide*), 25 MG ORAL DAILY, (Reported) Lamotrigine (Lamotrigine), 300 MG ORAL DAILY, (Reported) Scheduled PRN Acetaminophen With Codeine (T#3) (Tylenol #3 Tab*), 1 TAB ORAL Q8H PRN for For Pain Miscellaneous Medications Zonisamide (Zonisamide), 100 MG ORAL, (Reported) Discontinued Medications Dicyclomine Hcl* (Dicyclomine Hcl*), 10 MG ORAL TID Discontinued Reason: Therapy completed Dicyclomine Hcl* (Dicyclomine Hcl*), 10 MG ORAL QID PRN for Abdominal cramps Discontinued Reason: Therapy completed Doxycycline Monohydrate* (Doxycycline Monohydrate*), 100 MG ORAL Q12H Discontinued Reason: Therapy completed Famotidine* (Pepcid 20mg tablet*), 20 MG ORAL DAILY Discontinued Reason: Therapy completed Guaifenesin/Dextromethorphan* (Guaifenesin Dm Syrup*), 5 ML ORAL Q6H PRN for FOR COUGH Discontinued Reason: Therapy completed Lamotrigine (Lamotrigine), 100 MG PO, (Reported) Discontinued Reason: Therapy completed Lidocaine HCl 2% Viscous (Lidocaine HCl 2% Viscous), 5 ML ORAL QID Discontinued Reason: Therapy completed Ondansetron (Zofran), 4 MG ORAL Q8H PRN for Nausea & Vomiting Discontinued Reason: Therapy completed ["Sleeping Pill"], (Reported) Discontinued Reason: Therapy completed ["inhaler"], (Reported) Discontinued Reason: Therapy completed [BP Pill "new"], (Reported) Discontinued Reason: Medication dose changed Patient History Healthcare decision maker Resuscitation status Advanced Directive on File Family History Family History: FH: CAD (coronary artery disease) Review of Systems Constitutional: Reports: weakness; Denies: no symptoms, see HPI, chills, sweats, fever, malaise, other Eye: Denies: no symptoms, see HPI, eye pain, blurred vision, tearing, double vision, nose pain, nose congestion, acuity changes, discharge, other ENT: Denies: no symptoms, see HPI, ear pain, ear discharge, nose pain, nose congestion, throat pain, throat swelling, mouth pain, hearing loss, nasal discharge, other Respiratory: Denies: no symptoms, see HPI, cough, orthopnea, shortness of breath, stridor, wheezing, MARIO, sputum, other Cardiovascular: Denies: no symptoms, see HPI, chest pain, edema, palpitations, syncope, PND, other Gastrointestinal: Reports: abdominal pain; Denies: no symptoms, see HPI, constipation, diarrhea, nausea, vomiting, melena, hematemesis, other Genitourinary: Denies: no symptoms, see HPI, discharge, dysuria, frequency, hematuria, pain, retention, incontinence, urgency, vag bleed/dc, other Musculoskeletal: Denies: no symptoms, see HPI, back pain, gout, joint pain, joint swelling, muscle pain, muscle stiffness, other Skin: Denies: no symptoms, see HPI, rash, change in color, change in hair/nails, dryness, lesions, other Psychiatric: Denies: no symptoms, see HPI, prior hx, anxiety, depressed feelings, emotional problems, SI, HI, hallucinations, other Neurological: Denies: no symptoms, see HPI, headache, numbness, paresthesia, seizure, tingling, tremors, focal weakness, syncope, dizziness, other Endocrine: Denies: no symptoms, see HPI, excessive sweating, flushing, intolerance to temperature, increased thirst, increased urine, unexplained weight loss, other Hematologic/Lymphatic: Denies: no symptoms, see HPI, anemia, blood clots, easy bleeding, easy bruising, swollen glands, diathesis, other Physical Exam General Appearance: no apparent distress, alert oriented x3 HEENT: atraumatic, PERRL Neck: normal alignment, normal inspection Respiratory/Chest: lungs clear, normal breath sounds, no respiratory distress Cardiovascular/Chest: normal rate, regular rhythm, no JVD Abdomen: normal bowel sounds, non tender, soft, no organomegaly, no mass Extremities: normal range of motion, non-pitting Skin Exam: normal pigmentation, warm/dry Neurologic: transportation analyst II-XII grossly normal, oriented x 3 Musculoskeletal: normal muscle bulk Last 24 Hour Vital Signs Date Time Temp Pulse Resp B/P (MAP) Pulse Ox O2 Delivery O2 Flow Rate FiO2 09/17/20 08:24 98.4 87 18 148/76 98 Room Air 09/17/20 08:17 98.4 87 18 148/76 (100) 98 Room Air Laboratory Tests Test 09/17/20 10:03 White Blood Count 2.8 K/UL (4.8-10.8) #L Red Blood Count 4.16 M/UL (4.70-6.10) L Hemoglobin 12.8 G/DL (14.2-18.0) L Hematocrit 40.5 % (42.0-52.0) #L Mean Corpuscular Volume 97 FL (80-99) # Mean Corpuscular Hemoglobin 30.9 PG (27.0-31.0) Mean Corpuscular Hemoglobin Concent 31.7 G/DL (32.0-36.0) L Red Cell Distribution Width 16.7 % (11.6-14.8) H Platelet Count 123 K/UL (150-450) L Mean Platelet Volume 8.7 FL (6.5-10.1) Neutrophils (%) (Auto) % (45.0-75.0) Lymphocytes (%) (Auto) % (20.0-45.0) Monocytes (%) (Auto) % (1.0-10.0) Eosinophils (%) (Auto) % (0.0-3.0) Basophils (%) (Auto) % (0.0-2.0) Differential Total Cells Counted 100 Neutrophils % (Manual) 70 % (45-75) Lymphocytes % (Manual) 18 % (20-45) L Monocytes % (Manual) 12 % (1-10) H Eosinophils % (Manual) 0 % (0-3) Basophils % (Manual) 0 % (0-2) Band Neutrophils 0 % (0-8) Platelet Estimate Decreased L Platelet Morphology Normal Hypochromasia 1+ Anisocytosis 1+ Prothrombin Time 12.0 SEC (9.30-11.50) H Prothromb Time International Ratio 1.1 (0.9-1.1) Sodium Level 136 MMOL/L (136-145) Potassium Level 3.3 MMOL/L (3.5-5.1) L Chloride Level 101 MMOL/L (98-107) Carbon Dioxide Level 27 MMOL/L (21-32) Anion Gap 8 mmol/L (5-15) Blood Urea Nitrogen 2 mg/dL (7-18) L Creatinine 1.1 MG/DL (0.55-1.30) Estimat Glomerular Filtration Rate > 60 mL/min (>60) Glucose Level 119 MG/DL (74-106) H Calcium Level 7.6 MG/DL (8.5-10.1) L Total Bilirubin 1.3 MG/DL (0.2-1.0) H Direct Bilirubin 0.6 MG/DL (0.0-0.3) H Aspartate Amino Transf (AST/SGOT) 458 U/L (15-37) H Alanine Aminotransferase (ALT/SGPT) 202 U/L (12-78) H Alkaline Phosphatase 185 U/L (46-116) H Total Protein 6.9 G/DL (6.4-8.2) # Albumin 3.3 G/DL (3.4-5.0) L Vitamin B12 Level 1113 PG/ML (193-986) H Vitamin D 25-Hydroxy Pending 25-Hydroxy Vitamin D2 Pending 25-Hydroxy Vitamin D3 Pending Folate 16.5 NG/ML (8.6-58.9) Serum Alcohol < 3 mg/dL Height (Feet): 5 Height (Inches): 8.00 Weight (Pounds): 185 Medications Current Medications Medications (Trade) Dose Ordered Sig/Tabby Route PRN Reason Start Time Stop Time Status Last Admin Dose Admin Al Hydroxide/Mg Hydroxide (Mylanta II) 30 ml Q6H PRN ORAL dyspepsia 09/17/20 11:30 10/17/20 11:29 Albuterol/ Ipratropium (Albuterol/ Ipratropium) 3 ml Q4H PRN HHN Shortness of Breath 09/17/20 11:30 09/22/20 11:29 Ciprofloxacin (Cipro 500mg tab) 500 mg EVERY 12 HOURS ORAL 09/17/20 12:00 09/24/20 11:59 Dextrose (Dextrose 50%) 25 ml Q30M PRN IV Hypoglycemia 09/17/20 11:30 12/16/20 11:29 Dextrose (Dextrose 50%) 50 ml Q30M PRN IV Hypoglycemia 09/17/20 11:30 12/16/20 11:29 Folic Acid (Folate) 1 mg DAILY ORAL 09/17/20 12:00 10/17/20 11:59 Lorazepam (Ativan 2mg/ml 1ml) 2 mg Q1HR PRN IV For Anxiety 09/17/20 11:00 09/24/20 10:59 UNV Metronidazole (Flagyl) 500 mg Q12HR ORAL 09/17/20 12:00 09/24/20 11:59 Multivitamins (Multivitamins) 1 tab DAILY ORAL 09/17/20 12:00 10/17/20 11:59 Ondansetron HCl (Zofran) 4 mg Q6H PRN IVP Nausea & Vomiting 09/17/20 11:30 10/17/20 11:29 Polyethylene Glycol (Miralax) 17 gm HSPRN PRN ORAL Constipation 09/17/20 21:00 10/17/20 20:59 Sodium Chloride 1,000 ml @ 100 mls/hr Q10H IV 09/17/20 12:00 10/17/20 11:59 Thiamine HCl (Vitamin B1) 100 mg DAILY ORAL 09/17/20 12:00 10/17/20 11:59 Assessment/Plan Diagnosis [place] I: Mr. Williamson is a 69-year-old male with past medical history of alcohol and substance abuse who was readmitted for left lower quadrant pain, weakness, and results of his colonoscopy. A: # Left lower quadrant abdominal pain likely secondary to sigmoid colitis # Mild sigmoid colitis # Generalized weakness # Pancytopenia 2/2 alcohol abuse, splenic sequestration, bone marrow suppression # Transaminitis # Alcohol abuse # History of substance abuse P: - Hemodynamically stable - Saturating well on room air, keep O2 sat greater than 92% - CIWA protocol - Ativan as needed for alcohol withdrawals; denies history of alcohol withdrawal episodes in the past - Continue thiamine, folic acid, multivitamin - IVF - We will treat sigmoid colitis with Cipro, metronidazole for total of 10 days starting from previous treatment on his previous admission few days ago - Colonoscopy reviewed by myself and reviewed with patient - Monitor CBC, leukopenia and thrombocytopenia improving - f/u B12, folic acid, and vit D - Lengthy discussion with patient about alcohol abuse, patient understands need for cessation of alcohol use - Consult health and social care teacher for substance abuse program - CM Code: Full GI: None Diet: Full Fluids: D5 1/2 100 cc ABX: Cipro, Flagyl DVT PPx: Lovenox 40 subcu daily Dispo: Pending improvement of pancytopenia, transaminitis, no signs of alcohol withdrawal, likely discharge home either tomorrow or the next day In addition to the usual care above I spent additional time reviewing records in the EMR and paper charts including physician documentation, nursing documentation, lab results, imaging and clinical documentation. Total time included was 35 min. Time spent on this encounter was 55 minutes which included 35 minutes of counseling and care coordination. I discussed with the nurse at bedside. Time of note may not reflect time patient was seen. Luis E Jimenez D.O Sep 17, 2020 12:39
[2020-09-17] MEDS ORDERED: HydrALAZINE 25mg tab ORAL PRN (13:30)
[2020-09-17] MEDS: D5 1/2NS 1,000 ML IV SCH ×2 (14:14→22:39)
--- NOTE | 2020-09-17 15:21 | NUR ---
PRECISION FILER HAND NOTE SW met w/ pt and discussed substance abuse issue. Pt resides w/ his ex- at [address] [place] [address]. Pt presents as A&O4x. Pt has two adult children. Pt is ambulatory w/o DMEs and independent w/ ADLs and IADLs. Pt reports he has not been drinking over a week. Pt reports drinking unknown amount of beer about 3x/week. SW explained negative impact of ETOH abuse in his lifestyle and health.Pt has hx of participating residential rehab program for 3 months. SW provided the substance abuse resource. Pt verbalized he will consider to participate rehab program. SW encouraged pt to ask for assistance as needed. Pt nodded. No other social service concerns/needs shared by pt. Addendum: 09/17/20 at 1641 by GIRISH ENCARNACION Pt denies having suicidal thought/being abused. Pt also denies having mental health issue.
[2020-09-17 16:00] VITALS: BP 119/75
--- NOTE | 2020-09-17 19:00 | NUR ---
received report from Helen HERNANDEZ. Pt. is in bed, awake, alert and oriented. No sob noted. Breathing even and unlabored. Complained of slight abdominal pain at this time. With bed in it's lowest position, with alarm on and locked. Will continue with plan of care. Addendum: 09/17/20 at 1950 by Ayleen Slaughter RN wrong entry
--- NOTE | 2020-09-17 19:00 | NUR ---
NURSE NOTES: Received report from Helen HERNANDEZ. Pt. is awake, alert and oriented, lying in bed, breathing even and unlabored. No sob noted. Denies any pain at this time. Bed is in it's lowest position, with alarm on and locked. Will continue with plan of care.
--- NOTE | 2020-09-17 19:32 | NUR ---
NURSE HAND-OFF: Important Events on Shift:[New admission] Patient Status: [stable] Diet: [reg] Pending Orders: [] Pending Results/Labs:[] Pending MD notification:[] Latest Vital Signs: Temperature 97.8 , Pulse 101 , B/P 119 /75 , Respiratory Rate 18 , O2 SAT 98 , Room Air, O2 Flow Rate . Vital Sign Comment: [stable] Latest Chavarria Fall Score: 35 Fall Risk: Medium Risk Safety Measures: Call light Within Reach, Bed Alarm Zone 1, Side Rails Side Rails x2, Bed position Low and Locked. Fall Precautions: Report given to [].
[2020-09-17 20:00] VITALS: BP 107/61
[2020-09-17] MEDS ORDERED: Miralax 17gm pkt ORAL PRN (21:00)
[2020-09-18] VITALS: BP 118/65
--- NOTE | 2020-09-18 02:43 | NUR ---
All due meds given. Slept @ most times. Able to void freely. Refuses iv fluids, explained it's importance but pt. still refused, rights respected. Monitored frequently. No untoward s/s noted. Will continue with plan of care.
[2020-09-18 04:00] VITALS: BP 132/71
[2020-09-18 05:23] LABS: HEMATOCRIT 31.6 % (42.0-52.0); HEMOGLOBIN 10.3 G/DL (14.2-18.0); MEAN CORPUSCULAR VOLUME 97 FL (80-99); PLATELET COUNT 121 K/UL (150-450); RED BLOOD COUNT 3.25 M/UL (4.70-6.10); RED CELL DISTRIBUTION WIDTH 16.6 % (11.6-14.8); WHITE BLOOD COUNT 2.9 K/UL (4.8-10.8)
[2020-09-18 05:31] LABS: ALANINE AMINOTRANSFERASE 128 U/L (12-78); ALBUMIN 2.2 G/DL (3.4-5.0); ALBUMIN/GLOBULIN RATIO 0.8 (1.0-2.7); ALKALINE PHOSPHATASE 127 U/L (46-116); ANION GAP 5 mmol/L (5-15); ASPARTATE AMINO TRANSFERASE 236 U/L (15-37); BILIRUBIN,TOTAL 0.6 MG/DL (0.2-1.0); BLOOD UREA NITROGEN 3 mg/dL (7-18); CALCIUM 7.3 MG/DL (8.5-10.1); CARBON DIOXIDE 29 MMOL/L (21-32); CHLORIDE 106 MMOL/L (98-107); CREATININE 1.2 MG/DL (0.55-1.30); POTASSIUM 3.4 MMOL/L (3.5-5.1); SODIUM 140 MMOL/L (136-145)
--- NOTE | 2020-09-18 07:33 | NUR ---
NURSE HAND-OFF: Important Events on Shift:alcohol withdrawal Patient Status: stable Diet: Reg. Pending Orders: Pending Results/Labs: Pending MD notification: Latest Vital Signs: Temperature 97.2 , Pulse 96 , B/P 132 /71 , Respiratory Rate 17 , O2 SAT 96 , Room Air, O2 Flow Rate . Vital Sign Comment: Latest Chavarria Fall Score: 35 Fall Risk: Medium Risk Safety Measures: Call light Within Reach, Bed Alarm Zone 2, Side Rails Side Rails x2, Bed position Low and Locked. Fall Precautions: Report given to Efraín HERNANDEZ
--- NOTE | 2020-09-18 07:34 | NUR ---
NURSE NOTES: Handoff received from Al RN. Patient is awake and alert, eating breakfast, no signs of distress noted. Left AC IV is intact and running IVF as ordered. No reports of pain or nausea at this time. Bed is low and locked, side rails up x2, call light is within reach.
[2020-09-18 08:00] VITALS: BP 124/78
[2020-09-18] MEDS: Thiamine 100mg tab ORAL SCH (08:22)
[2020-09-18] MEDS: Ciprofloxacin 500mg tab ORAL SCH ×2 (08:22→21:25)
[2020-09-18] MEDS: metroNIDAZOLE 500mg tab ORAL SCH ×2 (08:22→21:25)
[2020-09-18] MEDS: D5 1/2NS 1,000 ML IV SCH (08:25)
[2020-09-18] MEDS ORDERED: Magnesium Oxide 400mg tab ORAL SCH (08:30)
--- NOTE | 2020-09-18 10:02 | General Progress Note ---
Subjective Constitutional: Reports: weakness; Denies: no symptoms, chills, diaphoresis, fever, malaise, other HEENT: Denies: no symptoms, eye pain, blurred vision, tearing, double vision, ear pain, ear discharge, nose pain, nose congestion, throat pain, throat swelling, mouth pain, mouth swelling, other Cardiovascular: Denies: no symptoms, chest pain, edema, irregular heart rate, lightheadedness, palpitations, syncope, other Respiratory: Denies: no symptoms, cough, orthopnea, shortness of breath, SOB with excertion, SOB at rest, sputum, stridor, wheezing, other Gastrointestinal/Abdominal: Reports: abdominal pain; Denies: no symptoms, abdomen distended, black stools, tarry stools, blood in stool, constipated, diarrhea, difficulty swallowing, nausea, poor appetite, poor fluid intake, rectal bleeding, vomiting, other Genitourinary: Denies: no symptoms, burning, discharge, frequency, flank pain, hematuria, incontinence, pain, urgency, other Neurologic/Psychiatric: Reports: weakness; Denies: no symptoms, anxiety, depressed, emotional problems, headache, numbness, paresthesia, pre-existing deficit, seizure, tingling, tremors, other Endocrine: Denies: no symptoms, excessive sweating, flushing, intolerance to cold, intolerance to heat, increased hunger, increased thirst, increased urine, unexplained weight gain, unexplained weight loss, other Hematologic/Lymphatic: Denies: no symptoms, anemia, easy bleeding, easy bruising, other Allergies: Coded Allergies: No Known Allergies (Unverified , 12/05/12) Subjective no acute events overnight. Patient feels better this am. Had normal BM. Ate entire meals. No nausea or vomiting. Has mild abdominal cramping but improved. Still has weakness. Would like to go to another place to get strong. Positive drug screen was discussed with patient however he denies taking those medications. Objective Last 24 Hour Vital Signs Date Time Temp Pulse Resp B/P (MAP) Pulse Ox O2 Delivery O2 Flow Rate FiO2 09/18/20 08:22 93 124/78 09/18/20 08:00 97.9 93 21 124/78 (93) 99 09/18/20 04:00 97.2 96 17 132/71 (91) 96 09/18/20 00:00 98.0 98 19 118/65 (82) 97 09/17/20 21:00 Room Air 09/17/20 20:00 98.3 96 17 107/61 (76) 97 09/17/20 16:00 97.8 101 18 119/75 (90) 98 09/17/20 13:30 105 124/77 09/17/20 12:01 Room Air 09/17/20 12:00 98.4 105 18 124/77 (93) 98 Intake and Output 09/17/20 09/18/20 19:00 07:00 Intake Total 1300 ml Balance 1300 ml Intake Oral 1000 ml IV Total 300 ml # Voids 4 2 Laboratory Tests 09/17/20 10:03: White Blood Count 2.8#L, Red Blood Count 4.16L, Hemoglobin 12.8L, Hematocrit 40.5#L, Mean Corpuscular Volume 97#, Mean Corpuscular Hemoglobin 30.9, Mean Corpuscular Hemoglobin Concent 31.7L, Red Cell Distribution Width 16.7H, Platelet Count 123L, Mean Platelet Volume 8.7, Neutrophils (%) (Auto) , Lymphocytes (%) (Auto) , Monocytes (%) (Auto) , Eosinophils (%) (Auto) , Basophils (%) (Auto) , Differential Total Cells Counted 100, Neutrophils % (Manual) 70, Lymphocytes % (Manual) 18L, Monocytes % (Manual) 12H, Eosinophils % (Manual) 0, Basophils % (Manual) 0, Band Neutrophils 0, Platelet Estimate DecreasedL, Platelet Morphology Normal, Hypochromasia 1+, Anisocytosis 1+, Prothrombin Time 12.0H, Prothromb Time International Ratio 1.1, Sodium Level 136, Potassium Level 3.3L, Chloride Level 101, Carbon Dioxide Level 27, Anion Gap 8, Blood Urea Nitrogen 2L, Creatinine 1.1, Estimat Glomerular Filtration Rate > 60, Glucose Level 119H, Calcium Level 7.6L, Total Bilirubin 1.3H, Direct Bilirubin 0.6H, Aspartate Amino Transf (AST/SGOT) 458H, Alanine Aminotransferase (ALT/SGPT) 202H, Alkaline Phosphatase 185H, Total Protein 6.9#, Albumin 3.3L, Vitamin B12 Level 1113H, Vitamin D 25-Hydroxy [Pending], 25-Hydroxy Vitamin D2 [Pending], 25-Hydroxy Vitamin D3 [Pending], Folate 16.5, Serum Alcohol < 3 09/17/20 15:15: Urine Opiates Screen Negative, Urine Barbiturates Screen PositiveH, Phencyclidine (PCP) Screen PositiveH, Urine Amphetamines Screen Negative, Urine Benzodiazepines Screen PositiveH, Urine Cocaine Screen PositiveH, Urine Marijuana (THC) Screen Negative 09/18/20 04:35: White Blood Count 2.9L, Red Blood Count 3.25L, Hemoglobin 10.3L, Hematocrit 31.6L, Mean Corpuscular Volume 97, Mean Corpuscular Hemoglobin 31.8H, Mean Corpuscular Hemoglobin Concent 32.7, Red Cell Distribution Width 16.6H, Platelet Count 121L, Mean Platelet Volume 10.1, Neutrophils (%) (Auto) , Lymphocytes (%) (Auto) , Monocytes (%) (Auto) , Eosinophils (%) (Auto) , Basophils (%) (Auto) , Differential Total Cells Counted 100, Neutrophils % (Manual) 56, Lymphocytes % (Manual) 35, Monocytes % (Manual) 8, Eosinophils % (Manual) 1, Basophils % (Manual) 0, Band Neutrophils 0, Platelet Estimate DecreasedL, Platelet Morphology Normal, Anisocytosis 1+, Sodium Level 140, Potassium Level 3.4L, Chloride Level 106, Carbon Dioxide Level 29, Anion Gap 5, Blood Urea Nitrogen 3L , Creatinine 1.2, Estimat Glomerular Filtration Rate > 60, Glucose Level 140H, Calcium Level 7.3L, Total Bilirubin 0.6, Aspartate Amino Transf (AST/SGOT) 236H, Alanine Aminotransferase (ALT/SGPT) 128H, Alkaline Phosphatase 127H, Total Protein 4.9L, Albumin 2.2L, Macrocytosis 1+, Magnesium Level 1.2L, Globulin 2.7, Albumin/Globulin Ratio 0.8L Height (Feet): 5 Height (Inches): 7.00 Weight (Pounds): 185 General Appearance: no apparent distress, alert, alert oriented x3 EENT: PERRL/EOMI Neck: non-tender, normal inspection Cardiovascular: normal rate, regular rhythm, regularly irregular Respiratory/Chest: lungs clear, normal breath sounds, no respiratory distress Abdomen: normal bowel sounds, non tender, soft, no organomegaly, no mass Extremities: normal range of motion Edema: no edema noted Arm (L), no edema noted Arm (R), no edema noted Leg (L), no edema noted Leg (R), no edema noted Pedal (L), no edema noted Pedal (R), no edema noted 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 Williamson is a 69-year-old male with past medical history of alcohol and substance abuse who was readmitted for left lower quadrant pain, weakness, and results of his colonoscopy. A: # Left lower quadrant abdominal pain likely secondary to sigmoid colitis # Mild sigmoid colitis # Generalized weakness # Pancytopenia 2/2 alcohol abuse, splenic sequestration, bone marrow suppression - improving # Transaminitis # Alcohol abuse # History of substance abuse P: - Hemodynamically stable - Saturating well on room air, keep O2 sat greater than 92% - CIWA protocol - Ativan as needed for alcohol withdrawals; denies history of alcohol withdrawal episodes in the past - Continue thiamine, folic acid, multivitamin - IVF - We will treat sigmoid colitis with Cipro, metronidazole for total of 10 days starting from previous treatment on his previous admission few days ago - Colonoscopy reviewed by myself and reviewed with patient - Monitor CBC, leukopenia and thrombocytopenia improving - f/u B12, folic acid, and vit D - Lengthy discussion with patient about alcohol abuse, patient understands need for cessation of alcohol use. - +UTOX discussed with patient today, however, he denies taking those drugs and doesn't know how it became positive. - f/u PT for generalized weakness - Consult child welfare social worker for substance abuse program - CM Code: Full GI: None Diet: Full Fluids: 1/2 NS 75 cc ABX: Cipro, Flagyl DVT PPx: Lovenox 40 subcu daily Dispo: medically improving, will have PT evaluate, possible SNF placement tomorrow Time spent on this encounter was 35 minutes which included 25 minutes of counseling and care coordination. I discussed with the nurse at bedside. Time of note may not reflect time patient was seen. Luis E Jimenez D.O Sep 18, 2020 10:02
--- NOTE | 2020-09-18 10:25 | NUR ---
PT EVALUATION NOTE Patient seen for initial evaluation and treatment initiated. Patient presents with generalized weakness and impaired balance which limits patient's ability to perform mobility skills safely. Patient requires SBA for transfers. Patient able to ambulate 60 ft with CGA. Patient ambulates with slowed pace, guarded. Patient c/o pain BLEs and states that his "balance is off." Patient will benefit from skilled inpatient PT intervention to increase strength and postural stability for improved level of functional mobility and safety. Recommend discharge to SNF for continued rehab once medically cleared by MD. Addendum: 09/18/20 at 1314 by MARY ANN LONG PT Amended: Links added.
--- NOTE | 2020-09-18 11:46 | NUR ---
CASE MANAGEMENT:INITIAL REVIEW 69 YR OLD MALE WALKED IN TO ER FROM HOME CC;ABDOMINAL PAIN SI;ABDOMINAL PAIN. 98.4 105 18 148/76 98% ON RA WBC 2.8 RBC 4.16 PLT 123 K+ 3.3 CA 7.6 PT 12.0 URINE TOX+ BARBITURATES, PHENCYCLIDINE, BENZODIAZEPINES, COCAINE IS;ATIVAN IV IVF NS K-DUR PATIENT ADMITTED TO MED SURG MED SURG STATUS DCP;FROM HOME
[2020-09-18 12:00] VITALS: BP 139/89
--- NOTE | 2020-09-18 13:03 | Consultation ---
History of Present Illness General Chief Complaint: Medication Refill Present Illness HPI 69-year-old male with past medical history of alcohol abuse, substance abuse, hypertension who presents for readmission for abdominal pain and results of his colonoscopy. Patient was initially admitted a few days ago for left lower quadrant abdominal pain and constipation work-up at that time showed possible sigmoid colitis and elevated transaminitis likely secondary to alcohol abuse. Patient underwent colonoscopy yesterday which was unrevealing without any acute abnormalities or pathologies per report. Patient overnight decided to leave AMA due to an issue with his car but has now returned this morning to resolve his issue and wanted to know the results of his colonoscopy and persistent left lower quadrant abdominal pain. Patient denies any fevers, chills, chest pain, shortness of breath, nausea, vomiting, diarrhea, dysuria, rash. Allergies: Coded Allergies: No Known Allergies (Unverified , 12/05/12) Medication History Scheduled Albuterol Sulfate (Ventolin Hfa), 2 PUFFS INH EVERY 6 HOURS Gabapentin* (Gabapentin*), 100 ORAL TWICE A DAY, (Reported) Hydrochlorothiazide* (Hydrochlorothiazide*), 25 MG ORAL DAILY, (Reported) Lamotrigine (Lamotrigine), 300 MG ORAL DAILY, (Reported) Scheduled PRN Acetaminophen With Codeine (T#3) (Tylenol #3 Tab*), 1 TAB ORAL Q8H PRN for For Pain Miscellaneous Medications Zonisamide (Zonisamide), 100 MG ORAL, (Reported) Discontinued Medications Dicyclomine Hcl* (Dicyclomine Hcl*), 10 MG ORAL TID Discontinued Reason: Therapy completed Dicyclomine Hcl* (Dicyclomine Hcl*), 10 MG ORAL QID PRN for Abdominal cramps Discontinued Reason: Therapy completed Doxycycline Monohydrate* (Doxycycline Monohydrate*), 100 MG ORAL Q12H Discontinued Reason: Therapy completed Famotidine* (Pepcid 20mg tablet*), 20 MG ORAL DAILY Discontinued Reason: Therapy completed Guaifenesin/Dextromethorphan* (Guaifenesin Dm Syrup*), 5 ML ORAL Q6H PRN for FOR COUGH Discontinued Reason: Therapy completed Lamotrigine (Lamotrigine), 100 MG PO, (Reported) Discontinued Reason: Therapy completed Lidocaine HCl 2% Viscous (Lidocaine HCl 2% Viscous), 5 ML ORAL QID Discontinued Reason: Therapy completed Ondansetron (Zofran), 4 MG ORAL Q8H PRN for Nausea & Vomiting Discontinued Reason: Therapy completed ["Sleeping Pill"], (Reported) Discontinued Reason: Therapy completed ["inhaler"], (Reported) Discontinued Reason: Therapy completed [BP Pill "new"], (Reported) Discontinued Reason: Medication dose changed Patient History Healthcare decision maker Resuscitation status Advanced Directive on File Review of Systems All Other Systems: negative except mentioned in HPI Physical Exam General Appearance: no apparent distress, alert Lines, tubes and drains: peripheral HEENT: normocephalic, atraumatic Neck: non-tender, normal alignment Respiratory/Chest: chest wall non-tender, lungs clear Cardiovascular/Chest: normal peripheral pulses, normal rate, regular rhythm Abdomen: normal bowel sounds, non tender, soft Extremities: non-tender Neurologic: alert, oriented x 3 Last 24 Hour Vital Signs Date Time Temp Pulse Resp B/P (MAP) Pulse Ox O2 Delivery O2 Flow Rate FiO2 09/18/20 09:00 Room Air 09/18/20 08:22 93 124/78 09/18/20 08:00 97.9 93 21 124/78 (93) 99 09/18/20 04:00 97.2 96 17 132/71 (91) 96 09/18/20 00:00 98.0 98 19 118/65 (82) 97 09/17/20 21:00 Room Air 09/17/20 20:00 98.3 96 17 107/61 (76) 97 09/17/20 16:00 97.8 101 18 119/75 (90) 98 09/17/20 13:30 105 124/77 Intake and Output 09/17/20 09/18/20 19:00 07:00 Intake Total 1300 ml Balance 1300 ml Intake Oral 1000 ml IV Total 300 ml # Voids 4 2 Laboratory Tests Test 09/17/20 15:15 09/18/20 04:35 Urine Opiates Screen Negative (NEGATIVE) Urine Barbiturates Screen Positive (NEGATIVE) H Phencyclidine (PCP) Screen Positive (NEGATIVE) H Urine Amphetamines Screen Negative (NEGATIVE) Urine Benzodiazepines Screen Positive (NEGATIVE) H Urine Cocaine Screen Positive (NEGATIVE) H Urine Marijuana (THC) Screen Negative (NEGATIVE) White Blood Count 2.9 K/UL (4.8-10.8) L Red Blood Count 3.25 M/UL (4.70-6.10) L Hemoglobin 10.3 G/DL (14.2-18.0) L Hematocrit 31.6 % (42.0-52.0) L Mean Corpuscular Volume 97 FL (80-99) Mean Corpuscular Hemoglobin 31.8 PG (27.0-31.0) H Mean Corpuscular Hemoglobin Concent 32.7 G/DL (32.0-36.0) Red Cell Distribution Width 16.6 % (11.6-14.8) H Platelet Count 121 K/UL (150-450) L Mean Platelet Volume 10.1 FL (6.5-10.1) Neutrophils (%) (Auto) % (45.0-75.0) Lymphocytes (%) (Auto) % (20.0-45.0) Monocytes (%) (Auto) % (1.0-10.0) Eosinophils (%) (Auto) % (0.0-3.0) Basophils (%) (Auto) % (0.0-2.0) Differential Total Cells Counted 100 Neutrophils % (Manual) 56 % (45-75) Lymphocytes % (Manual) 35 % (20-45) Monocytes % (Manual) 8 % (1-10) Eosinophils % (Manual) 1 % (0-3) Basophils % (Manual) 0 % (0-2) Band Neutrophils 0 % (0-8) Platelet Estimate Decreased L Platelet Morphology Normal Anisocytosis 1+ Macrocytosis 1+ Sodium Level 140 MMOL/L (136-145) Potassium Level 3.4 MMOL/L (3.5-5.1) L Chloride Level 106 MMOL/L (98-107) Carbon Dioxide Level 29 MMOL/L (21-32) Anion Gap 5 mmol/L (5-15) Blood Urea Nitrogen 3 mg/dL (7-18) L Creatinine 1.2 MG/DL (0.55-1.30) Estimat Glomerular Filtration Rate > 60 mL/min (>60) Glucose Level 140 MG/DL (74-106) H Calcium Level 7.3 MG/DL (8.5-10.1) L Magnesium Level 1.2 MG/DL (1.8-2.4) L Total Bilirubin 0.6 MG/DL (0.2-1.0) Aspartate Amino Transf (AST/SGOT) 236 U/L (15-37) H Alanine Aminotransferase (ALT/SGPT) 128 U/L (12-78) H Alkaline Phosphatase 127 U/L (46-116) H Total Protein 4.9 G/DL (6.4-8.2) L Albumin 2.2 G/DL (3.4-5.0) L Globulin 2.7 g/dL Albumin/Globulin Ratio 0.8 (1.0-2.7) L Height (Feet): 5 Height (Inches): 7.00 Weight (Pounds): 185 Medications Current Medications Medications (Trade) Dose Ordered Sig/Tabby Route PRN Reason Start Time Stop Time Status Last Admin Dose Admin Al Hydroxide/Mg Hydroxide (Mylanta II) 30 ml Q6H PRN ORAL dyspepsia 09/17/20 11:30 10/17/20 11:29 09/18/20 07:31 Albuterol/ Ipratropium (Albuterol/ Ipratropium) 3 ml Q4H PRN HHN Shortness of Breath 09/17/20 11:30 09/22/20 11:29 Amlodipine Besylate (Norvasc) 5 mg DAILY ORAL 09/17/20 13:30 10/17/20 13:29 09/18/20 08:22 Ciprofloxacin (Cipro 500mg tab) 500 mg EVERY 12 HOURS ORAL 09/17/20 12:00 09/24/20 11:59 09/18/20 08:22 Dextrose (Dextrose 50%) 25 ml Q30M PRN IV Hypoglycemia 09/17/20 11:30 12/16/20 11:29 Dextrose (Dextrose 50%) 50 ml Q30M PRN IV Hypoglycemia 09/17/20 11:30 12/16/20 11:29 Famotidine (Pepcid) 20 mg DAILY ORAL 09/18/20 10:00 12/17/20 09:59 09/18/20 10:36 Folic Acid (Folate) 1 mg DAILY ORAL 09/17/20 12:00 10/17/20 11:59 09/18/20 08:22 Hydralazine HCl (Apresoline) 25 mg Q6H PRN ORAL For High Blood Pressure 09/17/20 13:30 12/16/20 13:29 Lorazepam (Ativan 2mg/ml 1ml) 2 mg Q1H PRN IV Agitation d/t etoh w/drawal 09/17/20 16:15 09/24/20 16:14 Metronidazole (Flagyl) 500 mg Q12HR ORAL 09/17/20 12:00 09/24/20 11:59 09/18/20 08:22 Multivitamins (Multivitamins) 1 tab DAILY ORAL 09/17/20 12:00 10/17/20 11:59 09/18/20 08:22 Ondansetron HCl (Zofran) 4 mg Q6H PRN IVP Nausea & Vomiting 09/17/20 11:30 10/17/20 11:29 Polyethylene Glycol (Miralax) 17 gm HSPRN PRN ORAL Constipation 09/17/20 21:00 10/17/20 20:59 Sodium Chloride 1,000 ml @ 75 mls/hr [id number] IV 09/18/20 10:00 09/18/20 23:19 09/18/20 10:36 Thiamine HCl (Vitamin B1) 100 mg DAILY ORAL 09/17/20 12:00 10/17/20 11:59 09/18/20 08:22 Assessment/Plan Diagnosis [place]: #Hypomagnesemia ## Left lower quadrant abdominal pain likely secondary to sigmoid colitis # Mild sigmoid colitis # Generalized weakness # Pancytopenia 2/2 alcohol abuse, splenic sequestration, bone marrow suppression - improving # Transaminitis # Alcohol abuse # History of substance abuse - replete IV mag - continue with antibiotics - monitor UOP - antiemetics - pain control - avoid nephrotoxins - amlodipine 5mg daily - CIWA protocol - hydralazine prn for BP control Zion Medrano M.D. Sep 18, 2020 13:03
--- NOTE | 2020-09-18 13:07 | NUR ---
NURSE NOTES: Spoke to regarding admitting MD and change admitting MD to . Order noted and carried out.
--- NOTE | 2020-09-18 15:50 | NUR ---
*-*DISCHARGE PLANNING*-* PATIENT HAS BEEN ACCEPTED WITH: [facility] P: [phone] S/W YESSENIA, WILL ACCEPT, BUT WONT HAVE BED AVAILABLE TILL Wednesday09/20/2020.
[2020-09-18 16:00] VITALS: BP 143/84
--- NOTE | 2020-09-18 19:35 | NUR ---
NURSE HAND-OFF: Important Events on Shift:[none] Patient Status: stable Diet: regular Pending Orders: none Pending Results/Labs: Pending MD notification: Latest Vital Signs: Temperature 98.3 , Pulse 75 , B/P 143 /84 , Respiratory Rate 20 , O2 SAT 97 , Room Air, O2 Flow Rate . Vital Sign Comment: stable Latest Chavarria Fall Score: 60 Fall Risk: High Risk Safety Measures: Call light Within Reach, Bed Alarm Zone 2, Side Rails Side Rails x2, Bed position Low and Locked. Fall Precautions: Report given to Jose Carlos RN.
--- NOTE | 2020-09-18 19:36 | NUR ---
NURSE NOTES: Received report from Darinel HERNANDEZ.The patient is alert and oriented x4and does not seem to be in any active distress at this time. The Resp is even and unlabored and he is on room air.The patient can ambulate to the bathroom with slow pace. Skin is intact.He has a Right AC 22g that is patent and asymptomatic.The bed in low and locked level, the call light within easy reach and bedsides rails upx2. Will continue to monitor
[2020-09-18 20:00] VITALS: BP 128/74
[2020-09-19] VITALS: BP 124/70
--- NOTE | 2020-09-19 03:21 | NUR ---
NURSE NOTES: The patient remained active and cooperative with his care and does not seem to be in any acute distress at this time.He was able to sleep for about 8 hrs last night and also received his antibiotics as indicated. The Resp is even and unlabored. Will continue to monitor.
[2020-09-19 04:00] VITALS: BP 131/78
[2020-09-19 06:46] LABS: EOSINOPHILS % (AUTO) 3.8 % (0.0-3.0); HEMATOCRIT 33.2 % (42.0-52.0); HEMOGLOBIN 10.9 G/DL (14.2-18.0); LYMPHOCYTES % (AUTO) 37.2 % (20.0-45.0); MEAN CORPUSCULAR VOLUME 95 FL (80-99); MONOCYTES % (AUTO) 12.2 % (1.0-10.0); NEUTROPHILS % (AUTO) 44.8 % (45.0-75.0); PLATELET COUNT 169 K/UL (150-450); RED BLOOD COUNT 3.51 M/UL (4.70-6.10); RED CELL DISTRIBUTION WIDTH 16.6 % (11.6-14.8)
--- NOTE | 2020-09-19 07:08 | NUR ---
HAND-OFF: Report given to Darinel HERNANDEZ .
--- NOTE | 2020-09-19 07:10 | NUR ---
NURSE NOTES: Handoff received from Jose Carlos RN. Patient is awake and alert, eating breakfast, no signs of distress noted. Right AC IV is intact, s/l. No reports of pain or nausea at this time. Bed is low and locked, side rails up x2, call light is within reach.
[2020-09-19 07:11] LABS: ALANINE AMINOTRANSFERASE 112 U/L (12-78); ALBUMIN 2.4 G/DL (3.4-5.0); ALBUMIN/GLOBULIN RATIO 0.8 (1.0-2.7); ALKALINE PHOSPHATASE 118 U/L (46-116); ASPARTATE AMINO TRANSFERASE 185 U/L (15-37); BILIRUBIN,TOTAL 0.4 MG/DL (0.2-1.0); BLOOD UREA NITROGEN 5 mg/dL (7-18); CALCIUM 7.8 MG/DL (8.5-10.1); CARBON DIOXIDE 29 MMOL/L (21-32); CHLORIDE 105 MMOL/L (98-107); CREATININE 1.1 MG/DL (0.55-1.30); POTASSIUM 3.5 MMOL/L (3.5-5.1); SODIUM 139 MMOL/L (136-145)
[2020-09-19 08:00] VITALS: BP 129/80
[2020-09-19] MEDS: metroNIDAZOLE 500mg tab ORAL SCH ×2 (09:54→21:11)
[2020-09-19] MEDS: Ciprofloxacin 500mg tab ORAL SCH ×2 (09:54→21:11)
[2020-09-19] MEDS: Thiamine 100mg tab ORAL SCH (09:54)
--- NOTE | 2020-09-19 10:36 | General Progress Note ---
Subjective Constitutional: Reports: weakness; Denies: no symptoms, chills, diaphoresis, fever, malaise, other HEENT: Denies: no symptoms, eye pain, blurred vision, tearing, double vision, ear pain, ear discharge, nose pain, nose congestion, throat pain, throat swelling, mouth pain, mouth swelling, other Cardiovascular: Denies: no symptoms, chest pain, edema, irregular heart rate, lightheadedness, palpitations, syncope, other Respiratory: Denies: no symptoms, cough, orthopnea, shortness of breath, SOB with excertion, SOB at rest, sputum, stridor, wheezing, other Gastrointestinal/Abdominal: Reports: abdominal pain; Denies: no symptoms, abdomen distended, black stools, tarry stools, blood in stool, constipated, diarrhea, difficulty swallowing, nausea, poor appetite, poor fluid intake, rectal bleeding, vomiting, other Genitourinary: Denies: no symptoms, burning, discharge, frequency, flank pain, hematuria, incontinence, pain, urgency, other Neurologic/Psychiatric: Denies: no symptoms, anxiety, depressed, emotional problems, headache, numbness, paresthesia, pre-existing deficit, seizure, tingling, tremors, weakness, other Endocrine: Denies: no symptoms, excessive sweating, flushing, intolerance to cold, intolerance to heat, increased hunger, increased thirst, increased urine, unexplained weight gain, unexplained weight loss, other Hematologic/Lymphatic: Denies: no symptoms, anemia, easy bleeding, easy bruising, other Allergies: Coded Allergies: No Known Allergies (Unverified , 12/05/12) Subjective no acute events overnight. Patient feels a little better. Had another BM. Increasing his diet. Still has mild abdominal cramping but improved. Objective Last 24 Hour Vital Signs Date Time Temp Pulse Resp B/P (MAP) Pulse Ox O2 Delivery O2 Flow Rate FiO2 09/19/20 09:54 85 129/80 09/19/20 08:00 97.8 85 18 129/80 (96) 98 09/19/20 04:00 97.6 86 18 131/78 (95) 99 09/19/20 00:00 97.8 79 19 124/70 (88) 98 09/18/20 21:00 Room Air 09/18/20 20:00 98.4 89 17 128/74 (92) 98 09/18/20 16:00 98.3 75 20 143/84 (103) 97 09/18/20 12:00 98.3 90 17 139/89 (106) 97 Intake and Output 09/18/20 09/19/20 19:00 07:00 Intake Total 315 ml 545 ml Balance 315 ml 545 ml Intake Oral 240 ml 320 ml IV Total 75 ml 225 ml # Voids 3 Laboratory Tests 09/19/20 05:10: White Blood Count 4.0L, Red Blood Count 3.51L, Hemoglobin 10.9L, Hematocrit 33.2L, Mean Corpuscular Volume 95, Mean Corpuscular Hemoglobin 31.1H, Mean Corpuscular Hemoglobin Concent 32.8, Red Cell Distribution Width 16.6H, Platelet Count 169, Mean Platelet Volume 9.6, Neutrophils (%) (Auto) 44.8L, Lymphocytes (%) (Auto) 37.2, Monocytes (%) (Auto) 12.2H, Eosinophils (%) (Auto) 3.8H, Basophils (%) (Auto) 2.0, Sodium Level 139, Potassium Level 3.5, Chloride Level 105, Carbon Dioxide Level 29, Blood Urea Nitrogen 5L, Creatinine 1.1, Estimat Glomerular Filtration Rate > 60, Glucose Level 112H, Calcium Level 7.8L, Phosphorus Level 3.0, Magnesium Level 1.8, Total Bilirubin 0.4, Aspartate Amino Transf (AST/SGOT) 185H, Alanine Aminotransferase (ALT/SGPT) 112H, Alkaline Phosphatase 118H, Total Protein 5.4L, Albumin 2.4L, Globulin 3.0, Albumin/Globulin Ratio 0.8L Height (Feet): 5 Height (Inches): 7.00 Weight (Pounds): 185 General Appearance: no apparent distress, alert, alert oriented x3 EENT: PERRL/EOMI, normal ENT inspection Neck: non-tender, normal inspection Cardiovascular: normal rate, regular rhythm, regularly irregular Respiratory/Chest: lungs clear, normal breath sounds, no respiratory distress Abdomen: normal bowel sounds, non tender, soft Extremities: normal range of motion, non-tender Neurologic: boom supervisor II-XII grossly normal, oriented x 3 Assessment/Plan Assessment/Plan: Mr. Williamson is a 69-year-old male with past medical history of alcohol and substance abuse who was readmitted for left lower quadrant pain, weakness, and results of his colonoscopy. A: # Left lower quadrant abdominal pain likely secondary to sigmoid colitis # Mild sigmoid colitis # Generalized weakness # Pancytopenia 2/2 alcohol abuse, splenic sequestration, bone marrow suppression - improving # Transaminitis # Alcohol abuse # History of substance abuse P: - Hemodynamically stable - Saturating well on room air, keep O2 sat greater than 92% - CIWA protocol - Ativan as needed for alcohol withdrawals; denies history of alcohol withdrawal episodes in the past - Continue thiamine, folic acid, multivitamin - We will treat sigmoid colitis with Cipro, metronidazole for total of 10 days starting from previous treatment on his previous admission few days ago - Colonoscopy reviewed by myself and reviewed with patient - Monitor CBC, leukopenia and thrombocytopenia improving - f/u B12, folic acid, and vit D - Lengthy discussion with patient about alcohol abuse, patient understands need for cessation of alcohol use. - +UTOX discussed with patient today, however, he denies taking those drugs and doesn't know how it became positive. - f/u PT for generalized weakness - Consult criminal justice social worker for substance abuse program - CM - PT Code: Full GI: None Diet: Full Fluids: none ABX: Cipro, Flagyl DVT PPx: Lovenox 40 subcu daily Dispo: medically improving, possible SNF placement tomorrow Time spent on this encounter was 32 minutes which included 21 minutes of counseling and care coordination. I discussed with the nurse at bedside. Time of note may not reflect time patient was seen. Luis E Jimenez D.O Sep 19, 2020 10:36
--- NOTE | 2020-09-19 10:48 | Nephrology Progress Note ---
Assessment/Plan Plan #Hypomagnesemia ## Left lower quadrant abdominal pain likely secondary to sigmoid colitis # Mild sigmoid colitis # Generalized weakness # Pancytopenia 2/2 alcohol abuse, splenic sequestration, bone marrow suppression # Transaminitis # Alcohol abuse # History of substance abuse - mag repleted - continue with antibiotics - monitor UOP - antiemetics - pain control - avoid nephrotoxins - amlodipine 5mg daily - CIWA protocol - hydralazine prn for BP control Subjective ROS Limited/Unobtainable: No Constitutional: Reports: weakness HEENT: Denies: no symptoms, eye pain, blurred vision, tearing, double vision, ear pain, ear discharge, nose pain, nose congestion, throat pain, throat swelling, mouth pain, mouth swelling, other Genitourinary: Denies: no symptoms, burning, discharge, frequency, flank pain, hematuria, incontinence, pain, urgency, other Neurologic/Psychiatric: Denies: no symptoms, anxiety, depressed, emotional problems, headache, numbness, paresthesia, pre-existing deficit, seizure, tingling, tremors, weakness, other Subjective electrolyte deranagement improved abd pain better Objective Objective Last 24 Hour Vital Signs Date Time Temp Pulse Resp B/P (MAP) Pulse Ox O2 Delivery O2 Flow Rate FiO2 09/19/20 09:54 85 129/80 09/19/20 08:00 97.8 85 18 129/80 (96) 98 09/19/20 04:00 97.6 86 18 131/78 (95) 99 09/19/20 00:00 97.8 79 19 124/70 (88) 98 09/18/20 21:00 Room Air 09/18/20 20:00 98.4 89 17 128/74 (92) 98 09/18/20 16:00 98.3 75 20 143/84 (103) 97 09/18/20 12:00 98.3 90 17 139/89 (106) 97 Intake and Output 09/18/20 09/19/20 19:00 07:00 Intake Total 315 ml 545 ml Balance 315 ml 545 ml Intake Oral 240 ml 320 ml IV Total 75 ml 225 ml # Voids 3 Laboratory Tests 09/19/20 05:10: White Blood Count 4.0L, Red Blood Count 3.51L, Hemoglobin 10.9L, Hematocrit 33.2L, Mean Corpuscular Volume 95, Mean Corpuscular Hemoglobin 31.1H, Mean Corpuscular Hemoglobin Concent 32.8, Red Cell Distribution Width 16.6H, Platelet Count 169, Mean Platelet Volume 9.6, Neutrophils (%) (Auto) 44.8L, Lymphocytes (%) (Auto) 37.2, Monocytes (%) (Auto) 12.2H, Eosinophils (%) (Auto) 3.8H, Basophils (%) (Auto) 2.0, Sodium Level 139, Potassium Level 3.5, Chloride Level 105, Carbon Dioxide Level 29, Blood Urea Nitrogen 5L, Creatinine 1.1, Estimat Glomerular Filtration Rate > 60, Glucose Level 112H, Calcium Level 7.8L, Phosp horus Level 3.0, Magnesium Level 1.8, Total Bilirubin 0.4, Aspartate Amino Transf (AST/SGOT) 185H, Alanine Aminotransferase (ALT/SGPT) 112H, Alkaline Phosphatase 118H, Total Protein 5.4L, Albumin 2.4L, Globulin 3.0, Albumin/Globulin Ratio 0.8L Height (Feet): 5 Height (Inches): 7.00 Weight (Pounds): 185 General Appearance: no apparent distress, alert EENT: PERRL/EOMI Neck: non-tender, normal alignment Cardiovascular: normal peripheral pulses, normal rate Respiratory/Chest: chest wall non-tender, lungs clear Abdomen: normal bowel sounds, non tender Extremities: non-tender Zion Medrano M.D. Sep 19, 2020 10:48
[2020-09-19 12:00] VITALS: BP 133/77
[2020-09-19 16:00] VITALS: BP 145/80
--- NOTE | 2020-09-19 19:30 | NUR ---
NURSE NOTES: Receive a report from MARY Tena. Round is done. Pt is watching TV without acute distress. Denies any pain or any nausea. Oral intake is good as well. Call light within reach. Will continue to monitor.
--- NOTE | 2020-09-19 19:30 | NUR ---
NURSE HAND-OFF: Important Events on Shift:[none] Patient Status: stable Diet: regular Pending Orders: d/c to [facility] tomorrow Pending Results/Labs: Pending MD notification: Latest Vital Signs: Temperature 98.1 , Pulse 87 , B/P 145 /80 , Respiratory Rate 20 , O2 SAT 98 , Room Air, O2 Flow Rate . Vital Sign Comment: stable Latest Chavarria Fall Score: 60 Fall Risk: High Risk Safety Measures: Call light Within Reach, Bed Alarm Zone 2, Side Rails Side Rails x2, Bed position Low and Locked. Fall Precautions: Report given to Samuel HERNANDEZ.
[2020-09-19 20:00] VITALS: BP 138/78
--- NOTE | 2020-09-20 | NUR ---
NURSE NOTES: Pt is asleep without distress. Will continue to monitor.
[2020-09-20 04:00] VITALS: BP 132/73
--- NOTE | 2020-09-20 05:00 | NUR ---
NURSE NOTES: Denies any pain. No nausea. No BM overnight. Pt is anticipating to discharge to SNF today. Explain for discharge process. Will continue to follow up.
[2020-09-20 06:45] LABS: EOSINOPHILS % (AUTO) 2.1 % (0.0-3.0); HEMATOCRIT 35.8 % (42.0-52.0); HEMOGLOBIN 11.5 G/DL (14.2-18.0); LYMPHOCYTES % (AUTO) 33.7 % (20.0-45.0); MEAN CORPUSCULAR VOLUME 97 FL (80-99); MONOCYTES % (AUTO) 12.7 % (1.0-10.0); NEUTROPHILS % (AUTO) 49.6 % (45.0-75.0); PLATELET COUNT 210 K/UL (150-450); RED BLOOD COUNT 3.69 M/UL (4.70-6.10); RED CELL DISTRIBUTION WIDTH 17.3 % (11.6-14.8); WHITE BLOOD COUNT 4.8 K/UL (4.8-10.8)
--- NOTE | 2020-09-20 06:52 | NUR ---
NURSE HAND-OFF: Important Events on Shift: denies pain/ No diarrhea/BM Patient Status: stable Diet: regular diet Pending Orders: [] Pending Results/Labs:cbc, cmp, mg, ph Pending MD notification:[] Latest Vital Signs: Temperature 98.0 , Pulse 83 , B/P 132 /73 , Respiratory Rate 20 , O2 SAT 99 , Room Air, O2 Flow Rate . Vital Sign Comment: [] Latest Chavarria Fall Score: 60 Fall Risk: High Risk Safety Measures: Call light Within Reach, Bed Alarm Zone 2, Side Rails Side Rails x2, Bed position Low and Locked. Fall Precautions:
--- NOTE | 2020-09-20 07:30 | NUR ---
HAND-OFF: Report given to MARY Tena. Round is made.
--- NOTE | 2020-09-20 07:34 | NUR ---
NURSE NOTES: Handoff received from o RN. Patient is awake and alert, no signs of distress noted. Patient reports slight stomach upset. Right AC IV is intact and saline locked. Patient updated on plan of care and discharge. Bed is low and locked, side rails up x2, call light is within reach.
[2020-09-20 07:45] LABS: ALANINE AMINOTRANSFERASE 108 U/L (12-78); ALBUMIN 2.7 G/DL (3.4-5.0); ALBUMIN/GLOBULIN RATIO 0.9 (1.0-2.7); ALKALINE PHOSPHATASE 104 U/L (46-116); ANION GAP 8 mmol/L (5-15); ASPARTATE AMINO TRANSFERASE 145 U/L (15-37); BILIRUBIN,TOTAL 0.4 MG/DL (0.2-1.0); BLOOD UREA NITROGEN 4 mg/dL (7-18); CALCIUM 8.1 MG/DL (8.5-10.1); CARBON DIOXIDE 27 MMOL/L (21-32); CHLORIDE 104 MMOL/L (98-107); CREATININE 1.2 MG/DL (0.55-1.30); PHOSPHORUS 3.7 MG/DL (2.5-4.9); POTASSIUM 4.1 MMOL/L (3.5-5.1); SODIUM 139 MMOL/L (136-145)
[2020-09-20 08:00] VITALS: BP 109/65
[2020-09-20] MEDS ORDERED: Magnesium Oxide 400mg tab ORAL SCH (08:30)
[2020-09-20] MEDS: Ciprofloxacin 500mg tab ORAL SCH (09:47)
[2020-09-20] MEDS: Thiamine 100mg tab ORAL SCH (09:47)
[2020-09-20] MEDS: metroNIDAZOLE 500mg tab ORAL SCH (09:48)
[2020-09-20] MEDS ORDERED: MULTIVITAMINS1 EAC2 ORAL (11:27)
[2020-09-20] MEDS ORDERED: NORVASC5 MG ORAL (11:27)
[2020-09-20] MEDS ORDERED: FAMOTIDINE20 MG ORAL (11:27)
[2020-09-20] MEDS ORDERED: CIPROFLOXACIN500 M2 ORAL (11:27)
[2020-09-20] MEDS ORDERED: VITAMIN B-1100 M2 ORAL (11:27)
[2020-09-20] MEDS ORDERED: FLAGYL500 MG ORAL (11:27)
--- NOTE | 2020-09-20 11:29 | Discharge Instructions ---
Discharge Instructions Discharge Instructions Activity: no restrictions, light activity Follow Up Orders Please follow up with alcohol and substance abuse rehab Follow up with PCP in 2-3 weeks For Congestive Heart Failure Reminder Report to your physician any weight gain of 5 pounds or more in one week. Luis E Jimenez D.O Sep 20, 2020 11:29
--- NOTE | 2020-09-20 11:35 | General Progress Note ---
Subjective Constitutional: Denies: no symptoms, chills, diaphoresis, fever, malaise, weakness, other HEENT: Denies: no symptoms, eye pain, blurred vision, tearing, double vision, ear pain, ear discharge, nose pain, nose congestion, throat pain, throat swelling, mouth pain, mouth swelling, other Cardiovascular: Denies: no symptoms, chest pain, edema, irregular heart rate, lightheadedness, palpitations, syncope, other Respiratory: Denies: no symptoms, cough, orthopnea, shortness of breath, SOB with excertion, SOB at rest, sputum, stridor, wheezing, other Gastrointestinal/Abdominal: Denies: no symptoms, abdomen distended, abdominal pain, black stools, tarry stools, blood in stool, constipated, diarrhea, difficulty swallowing, nausea, poor appetite, poor fluid intake, rectal bleeding, vomiting, other Genitourinary: Denies: no symptoms, burning, discharge, frequency, flank pain, hematuria, incontinence, pain, urgency, other Neurologic/Psychiatric: Denies: no symptoms, anxiety, depressed, emotional problems, headache, numbness, paresthesia, pre-existing deficit, seizure, tingling, tremors, weakness, other Endocrine: Denies: no symptoms, excessive sweating, flushing, intolerance to cold, intolerance to heat, increased hunger, increased thirst, increased urine, unexplained weight gain, unexplained weight loss, other Hematologic/Lymphatic: Denies: no symptoms, anemia, easy bleeding, easy bruising, other Allergies: Coded Allergies: No Known Allergies (Unverified , 12/05/12) Subjective no acute events overnight. Feels well today. Abdominal pain mild but better. Pending SNF placement. Objective Last 24 Hour Vital Signs Date Time Temp Pulse Resp B/P (MAP) Pulse Ox O2 Delivery O2 Flow Rate FiO2 09/20/20 09:48 83 109/65 09/20/20 09:00 Room Air 09/20/20 08:00 98.3 84 18 109/65 (80) 98 09/20/20 04:00 98.0 83 20 132/73 (92) 99 09/19/20 21:00 Room Air 09/19/20 20:00 97.8 83 20 138/78 (98) 98 09/19/20 16:00 98.1 87 20 145/80 (101) 98 09/19/20 12:00 97.6 81 19 133/77 (95) 99 Intake and Output 09/19/20 09/20/20 19:00 07:00 Intake Total 750 ml 200 ml Balance 750 ml 200 ml Intake Oral 750 ml 200 ml # Voids 6 3 # Bowel Movements 1 Laboratory Tests 09/20/20 05:25: White Blood Count 4.8, Red Blood Count 3.69L, Hemoglobin 11.5L, Hematocrit 35.8L , Mean Corpuscular Volume 97, Mean Corpuscular Hemoglobin 31.1H, Mean Corpuscular Hemoglobin Concent 32.0, Red Cell Distribution Width 17.3H, Platelet Count 210, Mean Platelet Volume 9.0, Neutrophils (%) (Auto) 49.6, Lymphocytes (%) (Auto) 33.7, Monocytes (%) (Auto) 12.7H, Eosinophils (%) (Auto) 2.1, Basophils (%) (Auto) 2.0, Sodium Level 139, Potassium Level 4.1, Chloride Level 104, Carbon Dioxide Level 27, Anion Gap 8, Blood Urea Nitrogen 4L, Creatinine 1.2, Estimat Glomerular Filtration Rate > 60, Glucose Level 125H, Calcium Level 8.1L, Phosphorus Level 3.7, Magnesium Level 1.6L, Total Bilirubin 0.4, Aspartate Amino Transf (AST/SGOT) 145H, Alanine Aminotransferase (ALT/SGPT) 108H, Alkaline Phosphatase 104, Total Protein 5.8L, Albumin 2.7L, Globulin 3.1, Albumin/Globulin Ratio 0.9L Height (Feet): 5 Height (Inches): 7.00 Weight (Pounds): 185 General Appearance: no apparent distress, alert oriented x3 EENT: PERRL/EOMI Neck: non-tender, normal inspection Cardiovascular: normal rate, regular rhythm, no JVD Respiratory/Chest: lungs clear, normal breath sounds, no respiratory distress Abdomen: normal bowel sounds, non tender, soft Extremities: normal range of motion, non-tender Edema: no edema noted Arm (L), no edema noted Arm (R), no edema noted Leg (L), no edema noted Leg (R), no edema noted Pedal (L), no edema noted Pedal (R), no edema noted Generalized Neurologic: internal investigator II-XII grossly normal, oriented x 3 Assessment/Plan Assessment/Plan: Mr. Williamson is a 69-year-old male with past medical history of alcohol and substance abuse who was readmitted for left lower quadrant pain, weakness, and results of his colonoscopy. A: # Left lower quadrant abdominal pain likely secondary to sigmoid colitis # Mild sigmoid colitis # Generalized weakness # Pancytopenia 2/2 alcohol abuse, splenic sequestration, bone marrow suppression - improving # Transaminitis # Alcohol abuse # History of substance abuse P: - Hemodynamically stable - Saturating well on room air, keep O2 sat greater than 92% - CIWA protocol - Ativan as needed for alcohol withdrawals; denies history of alcohol withdrawal episodes in the past - Continue thiamine, folic acid, multivitamin - We will treat sigmoid colitis with Cipro, metronidazole for total of 10 days to be completed on 09/27 - Colonoscopy reviewed by myself and reviewed with patient - Monitor CBC, leukopenia and thrombocytopenia improving - Lengthy discussion with patient about alcohol abuse, patient understands need for cessation of alcohol use. - +UTOX positive for PCP, coacine, benzo, however, he denies taking those drugs and doesn't know how it became positive. - f/u PT for generalized weakness - Consult mental health social worker for substance abuse program - CM - PT Code: Full GI: None Diet: Full Fluids: none ABX: Cipro, Flagyl DVT PPx: Lovenox 40 subcu daily Dispo: medically improving, possible SNF placement today if bed available Time spent on this encounter was 31 minutes which included 21 minutes of co unseling and care coordination. I discussed with the nurse at bedside. Time of note may not reflect time patient was seen. Luis E Jimenez D.O Sep 20, 2020 11:35
--- NOTE | 2020-09-20 11:59 | Discharge Summary ---
Discharge Summary Hospital Course Date of Admission Sep 17, 2020 at 09:06 Date of Discharge Admitting Diagnosis abd pain HPI Dom Mcnamara Jr is a 70 year old male who was admitted on Sep 17, 2020 at 09:06 for Abdominal Pain Hospital Course Mr. Williamson is a 69-year-old male with past medical history of alcohol and substance abuse who was initially admitted on 09/14 for abdominal pain and readmitted on 09/17 after he left AMA. On September 14 the patient was admitted for left lower quadrant abdominal pain for the last month along with generalized weakness. Initial work-up showed drug alcohol level of 170s and CT abdomen showing likely sigmoid colitis. Patient was started on antibiotics and evaluated by GI due to significant abdominal pain in which they further assessed with a colonoscopy was completed and was negative for any acute findings. However patient decided to leave AMA a few days later due to an issue with his car. Upon his readmission on the he complained of persistent generalized weakness with improved but not resolved left lower quadrant abdominal pain. His UTOX was now positive for PCP and cocaine. I discussed his UTOX results with the patient however he denies taking any drugs. He was also noted to have pancytopenia, transaminitis, hyperbilirubinemia during this admission. He was restarted on oral antibiotics for sigmoid colitis. His abdominal pain improved along with his lab abnormalities. He was able to tolerate a full diet without any nausea or vomiting and had normal bowel movements. CIWA protocol was instituted and no signs of DT or withdrawal symptoms were noted throughout his admission. Patient remained hemodynamically stable without any respiratory compromise. Patient with persistent generalized weakness however improved and will benefit from further rehab at nursing facility. He is otherwise stable for discharge today to [facility] rehab. A: # Left lower quadrant abdominal pain likely secondary to sigmoid colitis # Mild sigmoid colitis # Generalized weakness # Pancytopenia 2/2 alcohol abuse, splenic sequestration, bone marrow suppression - improving # Transaminitis # Alcohol abuse # History of substance abuse - +PCP, Cocaine this admission P: - Hemodynamically stable - Saturating well on room air, keep O2 sat greater than 92% - CIWA protocol > no signs of withdrawal during admission - Ativan as needed for alcohol withdrawals; denies history of alcohol withdrawal episodes in the past - Continue thiamine,multivitamin - Finish tx for sigmoid colitis with Cipro, metronidazole for total of 10 days to be completed on 09/27 - Monitor CBC, leukopenia and thrombocytopenia resolved - Lengthy discussion with patient about alcohol abuse, patient understands need for cessation of alcohol use. - +UTOX positive for PCP, coacine, benzo, however, he denies taking those drugs and doesn't know how it became positive. - f/u PT for generalized weakness - Consult nephrology social worker for substance abuse program Code: Full GI: Pepcid Diet: Full ABX: Cipro, Flagyl Dispo: medically stable for SNF placement at [facility] Time spent on this encounter was 31 minutes which included 21 minutes of counseling and care coordination. I discussed with the nurse at bedside. Time of note may not reflect time patient was seen. Discharge Discharge Vital Signs Last Vital Signs Date Time Temp Pulse Resp B/P (MAP) Pulse Ox O2 Delivery O2 Flow Rate FiO2 09/20/20 09:48 83 109/65 09/20/20 09:00 Room Air 09/20/20 08:00 98.3 18 98 Discharge Disposition Patient was discharged to Discharge Instructions Discharge Instructions Activity: no restrictions, light activity Luis E iJmenez D.O Sep 20, 2020 11:59
[2020-09-20 12:00] VITALS: BP 103/60
--- NOTE | 2020-09-20 14:40 | NUR ---
*-*DISCHARGE PLANNED*-* PATIENT HAS BEEN ACCEPTED WILL BE DISCHARGED TO: [facility] P: [phone] FRO NURSE TO NURSE REPORT room# 38.[facility] SET UP FOR 3:45PM [facility] [id number].
[2020-09-20 16:00] VITALS: BP 128/71
--- NOTE | 2020-09-20 16:40 | NUR ---
NURSE NOTES: Patient safely discharged from to [facility] rehab via [facility]. Belongings list verified and signed, Iv and ID wristband removed, patient information packet provided, and questions answered.
== END 2020-09-20 16:50 | DRG 392 ==
LOC: EMR 08:40 → 3E 09:06 → EDBEDREQ 10:13
DX: K52.89 Other specified noninfective gastroenteritis and colitis (principal); D61.818 Other pancytopenia; I10 Essential (primary) hypertension; J44.9 Chronic obstructive pulmonary disease, unspecified; F10.10 Alcohol abuse, uncomplicated; R74.01 Elevation of levels of liver transaminase levels; F14.10 Cocaine abuse, uncomplicated; F16.10 Hallucinogen abuse, uncomplicated; E83.42 Hypomagnesemia
CPT/HCPCS: 36415; 80048; 80053; 80076; 80307; 82306; 82607; 82746; 83735; 84100; 85007; 85025; 85610; 99285; G0480; J8499